=== PATIENT | female | born 1935 | race Caucasian/White ===

== ENCOUNTER 2016-11-28 00:54 | Inpatient (IN) ==
[2016-11-28 02:07] LABS: Basophils % 0.2 %; Eosinophils % 0.1 %; Hematocrit 37.3 % (35.3-44.9); Hemoglobin 11.5 g/dL (11.5-15.4); Immature Granulocytes % 1.7 % (0-4); Lymphocytes # 0.3 K/mcL (0.6-4.6); Lymphocytes % 1.9 %; Mean Corpuscular HGB Conc 30.8 g/dL (31.6-35.5); Mean Corpuscular Hemoglobin 26.1 pg (28.0-33.3); Mean Corpuscular Volume 84.6 fL (83.0-100.0); Monocytes # 1.4 K/mcL (0.0-1.3); Monocytes % 9.6 %; Neutrophils # 12.2 K/mcL (1.6-8.9); Platelet Count 211 K/mcL (140-400); Red Blood Count 4.41 M/mcL (3.82-4.97); Red Cell Distribution Width 16.9 % (11.5-14.5); Segmented Neutrophils % 86.5 %
[2016-11-28 02:15] LABS: Prothrombin Time 10.9 Seconds (9.4-12.1)
[2016-11-28 02:17] LABS: Activated Partial Thrombo Time 28.8 Seconds (26.0-36.0)
[2016-11-28 02:18] LABS: Albumin 2.7 g/dL (3.5-5.0); Albumin/Globulin Ratio 0.8 (1.1-2.2); Bilirubin,Direct 0.3 mg/dL (0.0-0.5); Bilirubin,Indirect 0.2 mg/dL (0.0-1.2); Bilirubin,Total 0.5 mg/dL (0.2-1.2); Calcium 9.2 mg/dL (8.6-10.8); Globulin 3.4 g/dL (2.4-3.5); Total Protein 6.1 g/dL (6.0-8.3)
--- NOTE | 2016-11-28 02:25 | Emergency Department Note ---
Disposition Clinical Impression: CKD (chronic kidney disease) stage 4, GFR 15-29 ml/min, Elevated troponin CHF (congestive heart failure) Qualifiers: Congestive heart failure type: systolic Congestive heart failure chronicity: acute on chronic Qualified Code(s): I50.23 - Acute on chronic systolic ( congestive) heart failure Disposition: Admitted As Inpatient Condition: Good Time of Disposition: 04:06 Extremity Problem HPI - General Chief complaint: ED General Medical Stated complaint: swollen legs/fluid retention Time Seen by Provider: 11/28/16 01:39 Source: patient, other Limitations: no limitations Nursing Notes Reviewed: Yes Vital Signs Reviewed: Yes - History of Present Illness Pt Subjective Complaint: extremity swelling Onset (ago): day(s) Consistency: Worsening Injury Location: upper extremity, lower extremity Pain Scale: 0 Improves with: nothing Worsens with: nothing Associated symptoms: Reports: shortness of breath Context: recent illness, other (recent hospitalization) - Related Data Home Medications Medication Instructions Recorded Confirmed Amlodipine Besylate [Amlodipine 10 mg PO DAILY 11/28/16 11/28/16 Besylate] CloNIDine HCl [CloNIDine HCl] 0.1 mg PO BID 11/28/16 11/28/16 Furosemide [Lasix] 40 mg PO BID 11/28/16 11/28/16 Labetalol HCl [Labetalol HCl] 200 mg PO BID 11/28/16 11/28/16 Levothyroxine Sodium [Levoxyl] 100 mcg PO DAILY 11/28/16 11/28/16 Lisinopril [Zestril] 20 mg PO DAILY 11/28/16 11/28/16 Losartan Potassium [Cozaar] 50 mg PO DAILY 11/28/16 11/28/16 PredniSONE [Deidre] 5 mg PO DAILY 11/28/16 11/28/16 Allergies Allergy/AdvReac Type Severity Reaction Status Date / Time No Known Allergies Allergy Verified 11/28/16 00:56 All systems ED: reviewed and negative except as stated. Constitutional: Denies: fever Eyes: Denies: eye pain ENT ED: Denies: ear pain Cardiovascular: Denies: chest pain, palpitations Respiratory: Denies: cough, dyspnea, wheezes Gastrointestinal: Denies: abdominal pain, nausea, vomiting Genitourinary: Denies: dysuria Musculoskeletal: Denies: back pain, neck pain Neurological: Denies: headache, weakness, numbness Allergic/Immunologic: Denies: facial swelling Past Medical History - Past Medical History Medical history: Reports: arthritis, CHF, hyperlipidemia, hypertension, renal disease Psychiatric history: Reports: no psych history CUSTOMER LIAISON history: Reports: no CUSTOMER LIAISON history - Social History Smoking Status: Never smoker Smokeless Tobacco Status: No Alcohol use: Reports: none Drug use: Reports: none Physical Exam - General Limitations: no limitations General appearance: alert, in no apparent distress - Head Head exam: normocephalic - Eye Eye exam: Present: normal appearance, EOMI - ENT ENT exam: mucous membranes moist - Neck Neck exam: Present: full ROM - Chest Chest inspection: Present: symmetric chest wall rise - Respiratory Respiratory exam: Present: normal lung sounds bilaterally. Absent: respiratory distress - Cardiovascular Cardiovascular exam: Present: regular rate, normal rhythm - Abdominal Exam Abdominal exam: Present: soft, Non-Tender - Extremities Exam Extremities exam: Present: normal inspection, full ROM, pedal edema - Expanded Lower Extremity Exam Hip/Pelvis exam: Present: full ROM Upper leg exam: Present: full ROM Knee exam: Present: full ROM Lower leg exam: Present: swelling (bilateral) Ankle exam: Present: swelling (bilateral) Neurovascular/Tendon exam: Present: normal capillary refill. Absent: pulse deficit Gait: not tested/not observed - Back Exam Back exam: Present: normal inspection, full ROM - Neurological Exam Neurological exam: Present: alert, oriented X3 - Psychiatric Psychiatric exam: Present: normal affect, normal mood - Skin Skin exam: Present: warm, dry, intact, normal color. Absent: rash, cyanosis, diaphoresis Course Course Narrative: Patient is a 81-year-old female with known history of CHF, stage IV chronic kidney disease, and COPD presents to emergency department with worsening bilateral lower leg edema. She is accompanied by some family members. Patient describes rolling out of bed and having increased weakness on her lower extremities. She denies any mechanical fall, injury to her head, or any pain at this time. She does mention her swelling in her legs have been worsening over the past week, this is accompanied with some mild shortness of breath. She mentions recent admission at [facility], and describes after which she was placed on O2 oxygen 24 hours. 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 Patient's brother mention that patient has been falling more frequently and had a few syncopal episodes this year. He denies any recent falls denied any syncopal episode tonight. Patient seen and examined. She is in no acute distress is on the toxic. She has significant pitting edema bilateral lower legs. Lungs auscultation. She is taking Lasix 40 mg at home and describes her compliance. She denies any chest pain, diaphoresis, nausea. Workup initiated. Records requestedfrom [facility] - Reevaluation(s) Reevaluation #1: Patient is elevated troponin as well as BNP. I disccused This patient with Dr. Wang. We will request admission. Time: 02:40 Reevaluation #2: Patient discussed with and accepted by hospitalist Dr. Villela. Time: 03:45 Vital Signs Temperature 97.7 F 11/28/16 01:03 Pulse Rate 88 11/28/16 01:03 Respiratory Rate 24 11/28/16 01:03 Blood Pressure 189/77 11/28/16 01:03 O2 Sat by Pulse Oximetry 91 L 11/28/16 01:03 Temperature 97.7 F 11/28/16 06:58 Pulse Rate 74 11/28/16 06:58 Respiratory Rate 16 11/28/16 06:58 Blood Pressure 191/80 11/28/16 06:58 O2 Sat by Pulse Oximetry 96 11/28/16 06:58 Oxygen Delivery Oxygen Delivery Nasal Cannula Extremity Problem, Nontraumati - MDM Narrative Medical decision making narrative: Patient has history of CHF, and presented with worsening bilateral lower leg edema. Ever showed patient had an elevated BNP, normal chest x-ray. Patient also has known history of chronic kidney disease, recent admission and posterior. She had felt better, but over the past few days her symptoms worsen. Patient is chest pain-free. Vitals within normal limits. Patient accepted for admission. - Lab Data Lab results reviewed: Yes I reviewed the patient's lab results. Result diagrams: 11/28/16 01:25 11/28/16 01:25 Lab Results 11/28/16 11/28/16 11/28/16 Range/Units 01:25 01:25 01:25 WBC 14.1 H (4.3-11.1) K/mcL RBC 4.41 (3.82-4.97) M/mcL Hgb 11.5 (11.5-15.4) g/dL Hct 37.3 (35.3-44.9) % MCV 84.6 (83.0-100.0) fL MCH 26.1 L (28.0-33.3) pg MCHC 30.8 L (31.6-35.5) g/dL RDW 16.9 H (11.5-14.5) % Plt Count 211 (140-400) K/mcL MPV 12.0 (9.4-12.4) fL Immature Gran % 1.7 (0-4) % Seg Neutrophils % 86.5 % Lymphocytes % 1.9 % Monocytes % 9.6 % Eosinophils % 0.1 % Basophils % 0.2 % Neutrophils # 12.2 H (1.6-8.9) K/mcL Lymphocytes # 0.3 L (0.6-4.6) K/mcL Monocytes # 1.4 H (0.0-1.3) K/mcL Eosinophils # 0.0 (0.0-0.6) K/mcL Basophils # 0.0 (0.0-0.2) K/mcL PT 10.9 (9.4-12.1) Seconds INR 1.0 APTT 28.8 (26.0-36.0) Seconds Sodium 146 H (136-145) mEq/L Potassium 4.0 (3.5-4.5) mEq/L Chloride 106 (98-109) mEq/L Carbon Dioxide 27 (19-29) mEq/L BUN 66 H (7-20) mg/dL Creatinine 1.82 H (0.57-1.11) mg/dL Est GFR ( Amer) 32 L (> 60) Est GFR (Non-Af Amer) 27 L (> 60) BUN/Creatinine Ratio 36 H (6-26) Glucose 132 H (70-99) mg/dL Calculated Osmolality 323 H (280-300) Calcium 9.2 (8.6-10.8) mg/dL Total Bilirubin 0.5 (0.2-1.2) mg/dL Direct Bilirubin 0.3 (0.0-0.5) mg/dL Indirect Bilirubin 0.2 (0.0-1.2) mg/dL AST 31 (5-34) Units/L ALT 56 H (0-55) Units/L Alkaline Phosphatase 144 H (38-126) Units/L Troponin I (0-0.03) ng/mL B-Natriuretic Peptide (0-100) pg/mL Serum Total Protein 6.1 (6.0-8.3) g/dL Albumin 2.7 L (3.5-5.0) g/dL Globulin 3.4 (2.4-3.5) g/dL Albumin/Globulin Ratio 0.8 L (1.1-2.2) Amylase 104 (25-125) Units/L Lipase 48 (8-78) Units/L 11/28/16 11/28/16 Range/Units 01:25 01:25 WBC (4.3-11.1) K/mcL RBC (3.82-4.97) M/mcL Hgb (11.5-15.4) g/dL Hct (35.3-44.9) % MCV (83.0-100.0) fL MCH (28.0-33.3) pg MCHC (31.6-35.5) g/dL RDW (11.5-14.5) % Plt Count (140-400) K/mcL MPV (9.4-12.4) fL Immature Gran % (0-4) % Seg Neutrophils % % Lymphocytes % % Monocytes % % Eosinophils % % Basophils % % Neutrophils # (1.6-8.9) K/mcL Lymphocytes # (0.6-4.6) K/mcL Monocytes # (0.0-1.3) K/mcL Eosinophils # (0.0-0.6) K/mcL Basophils # (0.0-0.2) K/mcL PT (9.4-12.1) Seconds INR APTT (26.0-36.0) Seconds Sodium (136-145) mEq/L Potassium (3.5-4.5) mEq/L Chloride (98-109) mEq/L Carbon Dioxide (19-29) mEq/L BUN (7-20) mg/dL Creatinine (0.57-1.11) mg/dL Est GFR ( Amer) (> 60) Est GFR (Non-Af Amer) (> 60) BUN/Creatinine Ratio (6-26) Glucose (70-99) mg/dL Calculated Osmolality (280-300) Calcium (8.6-10.8) mg/dL Total Bilirubin (0.2-1.2) mg/dL Direct Bilirubin (0.0-0.5) mg/dL Indirect Bilirubin (0.0-1.2) mg/dL AST (5-34) Units/L ALT (0-55) Units/L Alkaline Phosphatase (38-126) Units/L Troponin I 0.22 H* (0-0.03) ng/mL B-Natriuretic Peptide 1285 H (0-100) pg/mL Serum Total Protein (6.0-8.3) g/dL Albumin (3.5-5.0) g/dL Globulin (2.4-3.5) g/dL Albumin/Globulin Ratio (1.1-2.2) Amylase (25-125) Units/L Lipase (8-78) Units/L - Radiology Data Radiology results reviewed: Yes I reviewed the patient's radiology results. - EKG Data EKG attestation: Yes I reviewed and interpreted this EKG. EKG results narrative: no ST changes, Critical Care Time Critical Care Time: Yes Total Critical Care Time: 30 Attestation: Critical care performed: Time is exclusive of separately billable procedures. Time includes: direct patient care, patient reassessment, coordination of patient care, interpretation of data (laboratory data, radiology data, and respiratory data), review of patient's medical records, medical consultation and documentation of patient care. Procedures included in critical care time: Procedures excluded from critical care time: Attestation Statement - Attestation Attestation: I, David Wang MD, personally performed a history and physical exam of the patient and discussed their management with the midlevel provicer, PAC/GRANT ADMINISTRATOR. I reviewed the midlevel provider's note and agree with the documented findings, medical decision making, and plan of care. 81-year-old female presents to the emergency department with a complaint of increased swelling of her legs as well as some mild increased shortness of breath over the past few days. She denies any chest pain. She does have a history of CHF and was recently in the hospital at another facility. On examination patient is a well-developed elderly female in no acute distress. She is alert and oriented 3. There is no cyanosis or diaphoresis. Breath sounds are equal but decreased bilaterally. No rales or wheezes noted. Heart regular rate and rhythm. Abdomen soft with normal bowel sounds. There is 3+ pedal edema bilaterally with some weeping. No acute changes on EKG. Chest x-ray shows cardiomegaly with pulmonary vascular congestion and overt pulmonary edema. Labs reviewed and patient noted to have an elevated troponin of 0.22. BNP 1285. The hospitalist, Dr. Villela, was consulted and accepted admission of the patient.
[2016-11-28] MEDS ORDERED: Aspirin 81 MG TAB.CHEW PO ONE (02:37)
[2016-11-28] MEDS ORDERED: Furosemide 20 MG/2 ML VIAL IVP ONE (02:38)
[2016-11-28] MEDS ORDERED: metOLazone 2.5 MG TABLET PO STA (05:33)
[2016-11-28] MEDS ORDERED: Naloxone 0.4 MG/ML INJ IVP PRN (05:33)
[2016-11-28] MEDS ORDERED: Nitroglycerin 0.4 MG TAB.SUBL SL PRN (05:33)
[2016-11-28] MEDS ORDERED: Acetaminophen 325 MG TABLET PO PRN (05:33)
[2016-11-28] MEDS ORDERED: *HR* Morphine 2 MG/ML SYRINGE IVP PRN (05:33)
[2016-11-28] MEDS ORDERED: Bumetanide 1 MG/4 ML VIAL IVP ONE (05:33)
[2016-11-28] MEDS ORDERED: Bumetanide 12 MG in D5% in Water 48 ML IVC SCH ×4 (05:57→12:48)
[2016-11-28 06:08] LABS: Bilirubin,Urine Negative (Negative); Blood,Urine Negative (Negative); Clarity,Urine Cloudy (Clear); Color,Urine Yellow (Yellow); Glucose,Urine (UA) Normal (Normal); Ketones,Urine Negative (Negative); Leukocyte Esterase,Urine Negative (Negative); Nitrite,Urine Negative (Negative); PH,Urine 5.5 pH Units (5.0-8.0); Protein,Urine 100 mg/dL (Neg-Trace); Specific Gravity,Urine 1.012 (1.010-1.025); Urobilinogen,Urine Normal (Normal)
--- NOTE | 2016-11-28 06:08 | Internal Med History&Physical ---
<Lucinda Chanel - Last Filed: 11/28/16 08:10> Date of Encounter: 11/28/16 Time of Encounter: 05:00 Assessment and Plan (1) Acute on chronic combined systolic and diastolic CHF (congestive heart failure) Current visit: Yes Status: Acute Patient with ECHO at [facility] with EF 55-60% BNP performed 11/27/16 1285, Troponin 0.22 CXR: cardiomegaly, pulmonary venous congestion without overt pulmonary edema Worsening subjective dyspnea with O2 sat of 95% on 2L Will diurese with Bumex 1mg IV and Nitroglycerin drip Hold home lasix Repeat ECHO, pending Consult cardiology (2) Elevated troponin Current visit: Yes Status: Acute Likely demand ischemia secondary to heart failure exacerbation EKG sinus rhythm with LVH, left axis deviation, sinus rhythm, PVCs, ST depressions V4,5,6 Will trend troponins Repeat EKG, pending (3) CKD (chronic kidney disease) stage 4, GFR 15-29 ml/min Current visit: Yes Status: Acute Cr 1.82, stable at baseline No acute kidney injury noted Will gently diurese Nephrology consult (4) Nephrotic syndrome Current visit: Yes Status: Acute (5) HTN (hypertension) Current visit: Yes Status: Acute Will hold amlodipine Continue labetalol Qualifiers: Hypertension type: essential hypertension Qualified Code(s): I10 - Essential (primary) hypertension (6) HLD (hyperlipidemia) Current visit: Yes Status: Acute Continue home medication lipid panel, pending Qualifiers: Hyperlipidemia type: unspecified Qualified Code(s): E78.5 - Hyperlipidemia , unspecified Internal Medicine - H&P: HPI Chief complaint: Bilateral leg swelling Admitted From: Emergency Dept Plans for Post Hospital Care: Home History of present illness: Ms. Ortega is a 81 year old female who presents with what she states is a 4-5 day history of bilateral leg swelling. Patient states that she was at [facility] for 2-3 days last week with the same problem. She states that when she returned home, the swelling was not much better. Patient states that yesterday morning, she was getting out of bed. When her feet hit the floor, she was unable to stand. She stated that she "scooted out of bed" and could not get up on her own. Her legs and feet were too weak to stand on their own. She did not hit her head. She was at home alone at the time. She states that her niece lives with her. However, her niece was at school at the time she could not get up. Admits dyspnea at rest, dyspnea with talking or exerting herself. Admits to sitting around for the last few days. Denies chest pain, racing heart, palpitations. Documentation on eCW reveals that she saw Dr. Tariq, Property Economist on 10/23/16 complaint of LE edema improved after Lasix 40mg q day was started. Patient was admitted to [facility] 11/19/16 and discharged 11/21/16 with complaint of leg edema. At that time, the patient admitted to increased swelling of lower extremities for several weeks. proBNP 5544, Cr 2.13, and BUN 65 were elevated upon admission to [facility]. CXR showed pulmonary congestion. Upon discharge, proBNP was 3850, Cr was 2.11, and BUN was 63. ECHO showed EF of 55-60%. Prior to discharge, patient had decreased O2 sat to 86% RA while walking. According to documentation, arrangements were made for patient to have home O2. 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) Psychiatric history: no psych history - Social History Smoking Status: Never smoker Smokeless Tobacco Status: No Alcohol use: none Drug use: none - Family History Mother Family Member Ethnicity: Non- Living Status: Age at : 83 Hx Family Cardiac Disorders: Yes Father Family Member Ethnicity: Non- Living Status: Age at : 89 Internal Medicine - H&P: Meds Amlodipine Besylate [Amlodipine Besylate] 10 mg PO DAILY 11/28/16 [History] Aspirin 81 mg PO DAILY 11/28/16 [History] Cholecalciferol (D-3) [Vitamin D] 1,000 unit PO DAILY 11/28/16 [History] CloNIDine HCl [CloNIDine HCl] 0.1 mg PO BID 11/28/16 [History] Furosemide [Lasix] 40 mg PO BID 11/28/16 [History] Labetalol HCl [Labetalol HCl] 200 mg PO BID 11/28/16 [History] Levothyroxine Sodium [Levoxyl] 100 mcg PO DAILY 11/28/16 [History] Lisinopril [Zestril] 20 mg PO DAILY 11/28/16 [History] Losartan Potassium [Cozaar] 50 mg PO DAILY 11/28/16 [History] PredniSONE [Deidre] 5 mg PO DAILY 11/28/16 [History] Allergies No Known Allergies Allergy (Verified 11/28/16 08:21) All Systems PM: A 10-system review of systems was performed and is negative for pertinent findings except as documented above in the HPI. - Constitutional Constitutional: no chills, no fever(s) Additional comments: no headache, no dizziness - EENT Ears: decreased hearing - Cardiovascular Cardiovascular ROS IM: dyspnea (exacerbated by talking), dyspnea on exertion, edema (bilateral legs, tender to palpation, oozing fluid), no chest pain, no irregular heart rhythm, no palpitations - Respiratory Respiratory: dyspnea, no cough - Gastrointestinal Gastrointestinal: no abdominal pain, no constipation, no diarrhea, no nausea, no vomiting - Genitourinary Genitourinary: no dysuria - Musculoskeletal Musculoskeletal ROS IM: muscle weakness (bilateral legs and feet, inablity to walk, weakness) - Constitutional Vitals: Temp Pulse Resp BP Pulse Ox 97.8 F 79 20 187/68 97 11/28/16 05:00 11/28/16 05:00 11/28/16 05:00 11/28/16 05:00 11/28/16 05:00 General appearance: Present: cooperative, mild distress (difficulty speaking due to labored breathing), A&O X 3, pleasant, answers questions appropriately ( Unsure of medication history) - Head Head exam: Present: atraumatic, normal inspection, normocephalic - Eye Eye exam: Present: conjunctival injection, EOMI - Neck Neck exam general surgery: Present: supple. Absent: lymphadenopathy, thyromegaly - Respiratory Respiratory exam: Present: accessory muscle use, CTAB, respiratory distress. Absent: rales, rhonchi, wheezes - Cardiovascular Cardiovascular exam: Present: irregular rhythm (regular rhythm with intermittent ectopic beats), +S1, +S2, systolic murmur - GI/Abdominal GI/Abdominal exam: Present: soft. Absent: tenderness, no peritoneal signs Additional comments: abdominal skin with ecchymosis (pt states due to injections during hospital stay last week) - Extremities Exam Extremities exam: Present: pedal edema (3+ pitting edema to lower extremities bilaterally from foot to knee. ), warm, radial pulses palpable and symetrical Additional comments: Right leg with darkened, waxy, leathery skin to knee with pigmented purpura. Areas of skin break-down to anterior and posterior lower leg. Leg with drainage of serosanguious fluid. Left leg with waxy appearance, pigmented purpura. Draining serosanguinous fluid. DP pulses 2+ bilateraly - Psychiatric Psychiatric exam: Present: normal affect, normal mood Internal Med - H&P Results - Labs CBC & Chem 7: 11/28/16 01:25 11/28/16 01:25 - Impressions Chest X-Ray 11/28/16 01:36 IMPRESSION: Cardiomegaly and pulmonary venous congestion without overt pulmonary edema. D/ / Vance Alfonso MD / Vance Alfonso MD Interpreting Provider: Vance Alfonso MD - Attending Attestation I examined this patient and my medical decision-making was reviewed with the EXPORT TRAFFIC DEPARTMENT MANAGER/PA/Advanced Practice Nurse/Resident Physician. I agree with the documented findings, disposition and treatment plan as described except to the extent set forth below. <Aram Villela - Last Filed: 11/28/16 20:38> Date of Encounter: 11/28/16 Assessment and Plan (1) Non-ST elevation myocardial infarction (NSTEMI) due to mismatch of myocardial oxygen supply and demand Current visit: Yes Status: Acute . (2) Dyslipidemia Current visit: Yes Status: Acute (3) Complete immobility due to severe physical disability or frailty Current visit: Yes Status: Acute . (4) Acute respiratory failure with hypoxia Current visit: Yes Status: Acute . (5) SIRS (systemic inflammatory response syndrome) Current visit: Yes Status: Acute . (6) Protein-calorie malnutrition, moderate Current visit: Yes Status: Chronic . 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 (8) At risk for accident in home Current visit: Yes Status: Acute . (9) At risk for acid-base imbalance Current visit: Yes Status: Acute . (10) At risk for activity intolerance Current visit: Yes Status: Acute . (11) At risk for acute confusion Current visit: Yes Status: Acute . (12) At risk for acute ischemic cardiac event Current visit: Yes Status: Acute . (13) At risk for adverse drug event Current visit: Yes Status: Acute . (14) Hypothyroidism Current visit: Yes Status: Chronic . Qualifiers: Hypothyroidism type: acquired Qualified Code(s): E03.9 - Hypothyroidism, unspecified (15) Acute on chronic combined systolic and diastolic CHF (congestive heart failure) Current visit: Yes Status: Acute (16) Elevated troponin Current visit: Yes Status: Acute (17) HLD (hyperlipidemia) Current visit: Yes Status: Acute Qualifiers: Hyperlipidemia type: unspecified Qualified Code(s): E78.5 - Hyperlipidemia , unspecified (18) HTN (hypertension) Current visit: Yes Status: Acute Qualifiers: Hypertension type: essential hypertension Qualified Code(s): I10 - Essential (primary) hypertension (19) Nephrotic syndrome Current visit: Yes Status: Acute (20) CKD (chronic kidney disease) stage 4, GFR 15-29 ml/min Current visit: Yes Status: Chronic Internal Medicine - H&P: HPI History of present illness: Ms. Ortega is a 81 year old female The patient was visited and interviewed and examined. I examined this patient and my medical decision-making was reviewed with the Resident Physician. For this encounter, I have reviewed the documentation, treatment plan, and medical decision making; and I have had face to face time with this patient. I agree with the documented findings, disposition and treatment plan as described except to the extent set forth below. Cumulative laboratory and radiographic data base was reviewed and considered and discussed. Pertinent ancillary medical records including ECW and PCI documentation, when available, was reviewed and considered. Given the patient's presenting concerns, past medical history, clinical findings and symptoms, she is admitted at this time to undergo further evaluation and disposition. Orders were written as per the computerized physician order checker packer processer system............................... All Systems PM: A 10-system review of systems was performed and is negative for pertinent findings except as documented above in the HPI. - Constitutional Vitals: Temp Pulse Resp BP Pulse Ox 98 F 93 16 160/69 93 L 11/28/16 14:40 11/28/16 14:40 11/28/16 14:40 11/28/16 16:51 11/28/16 17:13 Internal Med - H&P Results - Labs CBC & Chem 7: 11/28/16 01:25 11/28/16 01:25 Labs: Cardiac Enzymes 11/28/16 Range/Units 16:20 Troponin I 0.20 H* (0-0.03) ng/mL - Impressions Vital Signs Temp Pulse Resp BP Pulse Ox 11/28/16 17:13 93 L 11/28/16 16:51 160/69 11/28/16 14:40 98 F 93 16 134/71 95 11/28/16 12:48 156/80 11/28/16 12:08 167/90 11/28/16 11:05 98.4 F 80 20 130/84 94 L 11/28/16 08:00 96 11/28/16 06:58 97.7 F 74 16 191/80 96 11/28/16 05:00 97.8 F 79 20 187/68 97 11/28/16 04:05 0 0/0 11/28/16 04:04 85 18 172/94 95 11/28/16 03:15 16 179/100 98 11/28/16 01:20 95 11/28/16 01:03 97.7 F 88 24 189/77 91 L Intake and Output 11/28/16 11/28/16 11/28/16 07:59 15:59 23:59 Intake Total 0 / 0 20 / 20 120 / 120 Output Total 300 / 300 1500 / 1500 Balance -300 / -300 -1480 / -1480 120 / 120 Intake: IV Fluids 20 / 20 Nitroglycerin 25 mg In 20 / 20 250 ml @ 5 MCG/MIN 3 mls/ hr IVC .Q24H [facility] Rx#: [id number] Oral 0 / 0 0 / 0 120 / 120 Output: Urine 300 / 300 500 / 500 Catheter 1000 / 1000 Other: Meal Lunch Dinner Percent of Meal Consumed 0% 5% Weight 77.02 kg Patient Weight 11/28/16 23:59 Weight 77.02 kg Short CBC 11/28/16 Range/Units 01:25 WBC 14.1 H (4.3-11.1) K/mcL Hgb 11.5 (11.5-15.4) g/dL Hct 37.3 (35.3-44.9) % Plt Count 211 (140-400) K/mcL Neutrophils # 12.2 H (1.6-8.9) K/mcL BMP 11/28/16 Range/Units 01:25 Sodium 146 H (136-145) mEq/L Potassium 4.0 (3.5-4.5) mEq/L Chloride 106 (98-109) mEq/L Carbon Dioxide 27 (19-29) mEq/L BUN 66 H (7-20) mg/dL Creatinine 1.82 H (0.57-1.11) mg/dL Glucose 132 H (70-99) mg/dL Calcium 9.2 (8.6-10.8) mg/dL Cardiac Enzymes 11/28/16 11/28/16 11/28/16 Range/Units 16:20 11:21 06:13 Troponin I 0.20 H* 0.19 H* 0.19 H* (0-0.03) ng/mL 11/28/16 Range/Units 01:25 Troponin I 0.22 H* (0-0.03) ng/mL Liver Function 11/28/16 Range/Units 01:25 Total Bilirubin 0.5 (0.2-1.2) mg/dL Direct Bilirubin 0.3 (0.0-0.5) mg/dL AST 31 (5-34) Units/L ALT 56 H (0-55) Units/L Alkaline Phosphatase 144 H (38-126) Units/L Albumin 2.7 L (3.5-5.0) g/dL Urine 11/28/16 Range/Units 05:40 Urine Color Yellow (Yellow) Urine Clarity Cloudy A (Clear) Urine pH 5.5 (5.0-8.0) pH Units Ur Specific [place] 1.012 (1.010-1.025) Urine Protein 100 H (Neg-Trace) mg/dL Urine Glucose (UA) Normal (Normal) mg/dL Abnormal lab results WBC 14.1 K/mcL (4.3-11.1) H 11/28/16 01:25 MCH 26.1 pg (28.0-33.3) L 11/28/16 01:25 MCHC 30.8 g/dL (31.6-35.5) L 11/28/16 01:25 RDW 16.9 % (11.5-14.5) H 11/28/16 01:25 Neutrophils # 12.2 K/mcL (1.6-8.9) H 11/28/16 01:25 Lymphocytes # 0.3 K/mcL (0.6-4.6) L 11/28/16 01:25 Monocytes # 1.4 K/mcL (0.0-1.3) H 11/28/16 01:25 ESR 45 mm/hr (0-15) H 11/28/16 06:13 Sodium 146 mEq/L (136-145) H 11/28/16 01:25 BUN 66 mg/dL (7-20) H 11/28/16 01:25 Creatinine 1.82 mg/dL (0.57-1.11) H 11/28/16 01:25 Est GFR ( Amer) 32 (> 60) L 11/28/16 01:25 Est GFR (Non-Af Amer) 27 (> 60) L 11/28/16 01:25 BUN/Creatinine Ratio 36 (6-26) H 11/28/16 01:25 Glucose 132 mg/dL (70-99) H 11/28/16 01:25 Hemoglobin A1c 6.3 % (-5.6) H 11/28/16 06:13 Calculated Osmolality 323 (280-300) H 11/28/16 01:25 Ionized Calcium 1.13 mmol/L (1.15-1.35) L 11/28/16 06:13 ALT 56 Units/L (0-55) H 11/28/16 01:25 Alkaline Phosphatase 144 Units/L (38-126) H 11/28/16 01:25 Troponin I 0.20 ng/mL (0-0.03) H* 11/28/16 16:20 C-Reactive Protein 45 mg/L (Less than 5) H 11/28/16 06:13 B-Natriuretic Peptide 1285 pg/mL (0-100) H 11/28/16 01:25 Albumin 2.7 g/dL (3.5-5.0) L 11/28/16 01:25 Albumin/Globulin Ratio 0.8 (1.1-2.2) L 11/28/16 01:25 LDL Cholesterol, Calc 102 mg/dL (0-99) H 11/28/16 06:13 HDL Cholesterol 81 mg/dL (40-59) H 11/28/16 06:13 TSH 0.010 mcIU/mL (0.350-4.840) L 11/28/16 06:13 Free T3 1.57 pg/mL (1.71-3.71) L 11/28/16 06:13 Urine Clarity Cloudy (Clear) A 11/28/16 05:40 Urine Protein 100 mg/dL (Neg-Trace) H 11/28/16 05:40 Ur Squamous Epith Cells Many per lpf (None-Few) H 11/28/16 05:40 Microalb/Creat Ratio 1246 (0-30) H 11/28/16 05:40 Protein/Creatinin Ratio 1.63 mg/mg (0-0.20) H 11/28/16 10:05 Urine Total Protein 26 mg/dL (1-14) H 11/28/16 10:05 Laboratory Results WBC 14.1 K/mcL (4.3-11.1) H 11/28/16 01:25 RBC 4.41 M/mcL (3.82-4.97) 11/28/16 01:25 Hgb 11.5 g/dL (11.5-15.4) 11/28/16 01:25 Hct 37.3 % (35.3-44.9) 11/28/16 01:25 MCV 84.6 fL (83.0-100.0) 11/28/16 01:25 MCH 26.1 pg (28.0-33.3) L 11/28/16 01:25 MCHC 30.8 g/dL (31.6-35.5) L 11/28/16 01:25 RDW 16.9 % (11.5-14.5) H 11/28/16 01:25 Plt Count 211 K/mcL (140-400) 11/28/16 01:25 MPV 12.0 fL (9.4-12.4) 11/28/16 01:25 Immature Gran % 1.7 % (0-4) 11/28/16 01:25 Seg Neutrophils % 86.5 % 11/28/16 01:25 Lymphocytes % 1.9 % 11/28/16 01:25 Monocytes % 9.6 % 11/28/16 01:25 Eosinophils % 0.1 % 11/28/16 01:25 Basophils % 0.2 % 11/28/16 01:25 Neutrophils # 12.2 K/mcL (1.6-8.9) H 11/28/16 01:25 Lymphocytes # 0.3 K/mcL (0.6-4.6) L 11/28/16 01:25 Monocytes # 1.4 K/mcL (0.0-1.3) H 11/28/16 01:25 Eosinophils # 0.0 K/mcL (0.0-0.6) 11/28/16 01:25 Basophils # 0.0 K/mcL (0.0-0.2) 11/28/16 01:25 ESR 45 mm/hr (0-15) H 11/28/16 06:13 PT 10.9 Seconds (9.4-12.1) 11/28/16 01:25 INR 1.0 11/28/16 01:25 APTT 28.8 Seconds (26.0-36.0) 11/28/16 01:25 Sodium 146 mEq/L (136-145) H 11/28/16 01:25 Potassium 4.0 mEq/L (3.5-4.5) 11/28/16 01:25 Chloride 106 mEq/L (98-109) 11/28/16 01:25 Carbon Dioxide 27 mEq/L (19-29) 11/28/16 01:25 BUN 66 mg/dL (7-20) H 11/28/16 01:25 Creatinine 1.82 mg/dL (0.57-1.11) H 11/28/16 01:25 Est GFR ( Amer) 32 (> 60) L 11/28/16 01:25 Est GFR (Non-Af Amer) 27 (> 60) L 11/28/16 01:25 BUN/Creatinine Ratio 36 (6-26) H 11/28/16 01:25 Glucose 132 mg/dL (70-99) H 11/28/16 01:25 Est Mean Plasma Glucose 134 mg/dl 11/28/16 06:13 Hemoglobin A1c 6.3 % (-5.6) H 11/28/16 06:13 Calculated Osmolality 323 (280-300) H 11/28/16 01:25 Lactic Acid 0.7 mmol/L (0.5-2.2) 11/28/16 06:13 Calcium 9.2 mg/dL (8.6-10.8) 11/28/16 01:25 Ionized Calcium 1.13 mmol/L (1.15-1.35) L 11/28/16 06:13 Phosphorus 3.8 mg/dL (2.3-4.7) 11/28/16 06:13 Magnesium 1.7 mg/dL (1.6-2.6) 11/28/16 06:13 Total Bilirubin 0.5 mg/dL (0.2-1.2) 11/28/16 01:25 Direct Bilirubin 0.3 mg/dL (0.0-0.5) 11/28/16 01:25 Indirect Bilirubin 0.2 mg/dL (0.0-1.2) 11/28/16 01:25 AST 31 Units/L (5-34) 11/28/16 01:25 ALT 56 Units/L (0-55) H 11/28/16 01:25 Alkaline Phosphatase 144 Units/L (38-126) H 11/28/16 01:25 Creatine Kinase 76 Units/L (29-168) 11/28/16 06:13 Troponin I 0.20 ng/mL (0-0.03) H* 11/28/16 16:20 C-Reactive Protein 45 mg/L (Less than 5) H 11/28/16 06:13 B-Natriuretic Peptide 1285 pg/mL (0-100) H 11/28/16 01:25 Serum Total Protein 6.1 g/dL (6.0-8.3) 11/28/16 01:25 Albumin 2.7 g/dL (3.5-5.0) L 11/28/16 01:25 Globulin 3.4 g/dL (2.4-3.5) 11/28/16 01:25 Albumin/Globulin Ratio 0.8 (1.1-2.2) L 11/28/16 01:25 Triglycerides 68 mg/dL (< 150) 11/28/16 06:13 Cholesterol 197 mg/dL (< 200) 11/28/16 06:13 LDL Cholesterol, Calc 102 mg/dL (0-99) H 11/28/16 06:13 VLDL Cholesterol, Calc 14 mg/dL (< 31) 11/28/16 06:13 HDL Cholesterol 81 mg/dL (40-59) H 11/28/16 06:13 Cholesterol/HDL Ratio 2.4 (0-4.9) 11/28/16 06:13 Amylase 104 Units/L (25-125) 11/28/16 01:25 Lipase 48 Units/L (8-78) 11/28/16 01:25 TSH 0.010 mcIU/mL (0.350-4.840) L 11/28/16 06:13 Free T4 1.05 ng/dl (0.70-1.48) 11/28/16 06:13 Free T3 1.57 pg/mL (1.71-3.71) L 11/28/16 06:13 Urine Color Yellow (Yellow) 11/28/16 05:40 Urine Clarity Cloudy (Clear) A 11/28/16 05:40 Urine pH 5.5 pH Units (5.0-8.0) 11/28/16 05:40 Ur Specific [place] 1.012 (1.010-1.025) 11/28/16 05:40 Urine Protein 100 mg/dL (Neg-Trace) H 11/28/16 05:40 Urine Glucose (UA) Normal mg/dL (Normal) 11/28/16 05:40 Urine Ketones Negative mg/dL (Negative) 11/28/16 05:40 Urine Blood Negative (Negative) 11/28/16 05:40 Urine Nitrite Negative (Negative) 11/28/16 05:40 Urine Bilirubin Negative (Negative) 11/28/16 05:40 Urine Urobilinogen Normal mg/dL (Normal) 11/28/16 05:40 Ur Leukocyte Esterase Negative (Negative) 11/28/16 05:40 Urine Microscopic RBC 0-3 per hpf (0-3) 11/28/16 05:40 Urine Microscopic WBC 0-3 per hpf (0-3) 11/28/16 05:40 Ur Squamous Epith Cells Many per lpf (None-Few) H 11/28/16 05:40 Urine Bacteria None Seen per hpf (None-Few) 11/28/16 05:40 Hyaline Casts None Seen per lpf (None-Few) 11/28/16 05:40 Urine Yeast Test Not Performed 11/28/16 05:40 Ur Culture Indicated? NO (NO) 11/28/16 05:40 Urine Creatinine 16 mg/dL 11/28/16 10:05 Urine Microalbumin 436 mg/L 11/28/16 05:40 Microalb/Creat Ratio 1246 (0-30) H 11/28/16 05:40 Protein/Creatinin Ratio 1.63 mg/mg (0-0.20) H 11/28/16 10:05 Urine Total Protein 26 mg/dL (1-14) H 11/28/16 10:05 Impressions - Attending Attestation My signature below is to certify that this patient is under my care and that I, or the Resident Physician working with me, has had a [id number] encounter with this patient. Plan of care has been reviewed and discussed with the patient. Questions addressed. Advance care directive discussion briefly addressed. The patient does not declare any healthcare restrictions at this time. Outpatient medications schedules will be reviewed, confirmed and facilitated as appropriate. Reconciliation of home treatments including adjustments, substitutions and reintroduction into the treatment regimen will address necessary maintenance therapies for chronic previous medical conditions. Smoking cessation counseling briefly addressed. The patient is declared a nonsmoker. Hospital course will be dependent on clinical findings, treatment response and potential consultative interventions. The patient is at risk for acute clinical decline in mobility given her advanced age, presenting chief complaint, frailty and associated comorbidities. Condition is serious. Prognosis is guarded. CODE STATUS is reported as full.
[2016-11-28 06:11] LABS: Bacteria,Urine None Seen per hpf (None-Few); Hyaline Casts,Urine None Seen per lpf (None-Few); RBC,Urine 0-3 per hpf (0-3); Squamous Epithelial Cell,Urine Many per lpf (None-Few); WBC,Urine 0-3 per hpf (0-3)
[2016-11-28 06:15] LABS: Microalbumin,Urine 436 mg/L
[2016-11-28 06:34] LABS: Ionized Calcium 1.13 mmol/L (1.15-1.35)
[2016-11-28 06:52] LABS: Chol/HDL Ratio 2.4 (0-4.9); Magnesium 1.7 mg/dL (1.6-2.6); Phosphorous 3.8 mg/dL (2.3-4.7)
[2016-11-28 06:55] LABS: Hemoglobin A1C 6.3 %
[2016-11-28 07:02] LABS: Thyroid Stimulating Hormone 0.01 mcIU/mL (0.350-4.840); Triiodothyronine (T3) Free 1.57 pg/mL (1.71-3.71)
[2016-11-28] MEDS: Nitroglycerin 25 MG/250 ML INFUS..BTL IVC SCH (07:45)
[2016-11-28 08:07] LABS: Creatinine,Urine 35 mg/dL; Microalbum/Creatinine Ratio,Ur 1246 (0-30)
[2016-11-28] MEDS: predniSONE 5 MG TABLET PO SCH (08:37)
[2016-11-28] MEDS ORDERED: Lisinopril 20 MG TABLET PO SCH (09:00)
--- NOTE | 2016-11-28 09:29 | Cardiology Consult Note ---
<Neil Davis R - Last Filed: 11/28/16 09:38> Date of Encounter: 11/28/16 Time of Encounter: 09:25 Assessment and Plan (1) Acute exacerbation of CHF (congestive heart failure) Current Visit: Yes Status: Acute Reported prior echo 55-60% per [facility] records. Echo in 2010 here at [facility] showed EF 55%. Obtaining echo. Pt reports worsening dyspnea and persistent lower extremity edema. CXR with cardiomegaly and pulmonary venous congestion. BNP 1285. Albumin 2.7. Suspect lower extremity edema may be related to 3rd spacing as well given low albumin. Increase Bumex gtt to 1mg/hr. Continue nitro gtt for now--5mcg/min. Recommend strict I/O, Na and fluid restriction, daily weights. Order to place reyes. Pt poor historian--reports she does not add salt to food but does eat some processed foods. Dietary compliance enforced. Will continue to follow. Qualifiers: Congestive heart failure type: diastolic Qualified Code(s): I50.33 - Acute on chronic diastolic (congestive) heart failure (2) CKD (chronic kidney disease) stage 4, GFR 15-29 ml/min Current Visit: Yes Status: Chronic Cr 1.82, stable at baseline. Will monitor closely with diuresis. Appreciate nephrology input--they have been consulted. Will stop Lisinopril during diuresis. (3) Elevated troponin Current Visit: Yes Status: Acute Mildly elevated 0.22, 0.19--Likely demand ischemia secondary to CHF exacerbation. No significant EKG changes to indicate ischemia. Pt denies chest pain. Check echo. (4) HTN (hypertension) Current Visit: Yes Status: Acute Hypertensive--on Nitro gtt and Bumex gtt. Will continue to adjust meds as necessary. Will hold Lisinopril since we are diuresing. Qualifiers: Hypertension type: essential hypertension Qualified Code(s): I10 - Essential (primary) hypertension Discussion w patient/family: The assessment and plan as outlined above was discussed with the patient and/or family members who expressed understanding and agreement. All questions were answered. Thank you for involving us in the care of your patient. Please call with any questions. I will discuss all the above with Dr. Bourgeois and make changes as necessary. History of Present Illness Consult date: 11/28/16 Requesting physician: Aram Villela Consult reason: CHF Chief complaint: Lower extremity edema History of present illness: Ms. Ortega is a 81 year old female who presents with chief complaint of bilateral lower extremity edema. Patient states that she was at [facility] for 2- 3 days last week with the same problem. She states that when she returned home, the swelling was not much better. Patient states that yesterday morning, she was getting out of bed. When her feet hit the floor, she was unable to stand. She stated that she "scooted out of bed" and could not get up on her own. Her legs and feet were too weak to stand on their own. She did not hit her head. She was at home alone at the time. She states that her niece lives with her. However, her niece was at school at the time she could not get up. Admits dyspnea at rest, dyspnea with talking or exerting herself. Admits to sitting around for the last few days. Denies chest pain, racing heart, palpitations. Pt sees nephrology as outpt--Dr. Tariq. proBNP 5544, Cr 2.13, and BUN 65 were elevated upon admission to [facility]. CXR showed pulmonary congestion. Upon discharge, proBNP was 3850, Cr was 2.11, and BUN was 63. Reportedly had ECHO at some point that showed EF of 55-60%. Prior to discharge, patient had decreased O2 sat to 86% RA while walking. According to documentation, arrangements were made for patient to have home O2. Creatinine here is 1.82, Troponins 0.22, 0.19, BNP 1298. CXR shows cardiomegaly and pulmonary venous congestion without overt pulmonary edema. She is currently on Bumex gtt at 0.5mg/hr and nitro gtt at 5mcg/min. 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) Psychiatric history: no psych history - Social History Smoking Status: Never smoker Smokeless Tobacco Status: No Alcohol use: none Drug use: none - Family History Mother Family Member Ethnicity: Non- Living Status: Age at : 83 Hx Family Cardiac Disorders: Yes Father Family Member Ethnicity: Non- Living Status: Age at : 89 Medications and Allergies Amlodipine Besylate [Amlodipine Besylate] 10 mg PO DAILY 11/28/16 [History] Aspirin 81 mg PO DAILY 11/28/16 [History] Cholecalciferol (D-3) [Vitamin D] 1,000 unit PO DAILY 11/28/16 [History] CloNIDine HCl [CloNIDine HCl] 0.1 mg PO BID 11/28/16 [History] Furosemide [Lasix] 40 mg PO BID 11/28/16 [History] Labetalol HCl [Labetalol HCl] 200 mg PO BID 11/28/16 [History] Levothyroxine Sodium [Levoxyl] 100 mcg PO DAILY 11/28/16 [History] Lisinopril [Zestril] 20 mg PO DAILY 11/28/16 [History] Losartan Potassium [Cozaar] 50 mg PO DAILY 11/28/16 [History] PredniSONE [Deidre] 5 mg PO DAILY 11/28/16 [History] Allergies No Known Allergies Allergy (Verified 11/28/16 08:21) All Systems Review: A 10-system review of systems was performed and is negative for pertinent findings except as documented above in the HPI. - Constitutional Constitutional: fatigue, weakness - Cardiovascular Cardiovascular: as per HPI, dyspnea at rest, dyspnea on exertion, leg edema - Respiratory Respiratory: dyspnea Physical Examination Vital Signs, Last 4 Hours Temp Pulse Resp BP Pulse Ox 11/28/16 06:58 97.7 F 74 16 191/80 96 Vital Signs Temp Pulse Resp BP Pulse Ox 11/28/16 06:58 97.7 F 74 16 191/80 96 11/28/16 05:00 97.8 F 79 20 187/68 97 11/28/16 04:05 0 0/0 11/28/16 04:04 85 18 172/94 95 11/28/16 03:15 16 179/100 98 11/28/16 01:20 95 11/28/16 01:03 97.7 F 88 24 189/77 91 L Intake and Output 11/27/16 11/28/16 11/28/16 23:59 07:59 15:59 Intake Total 0 / 0 Output Total 300 / 300 Balance -300 / -300 Intake: Oral 0 / 0 Output: Urine 300 / 300 Other: Weight 77.02 kg Patient Weight 11/28/16 23:59 Weight 77.02 kg General: Conversant, No Apparent Distress, Other (conversational dyspnea) HEENT: Atraumatic, Normocephaly, Mucus Membranes Moist Neck: Other (JVD noted) Cardiac: Reg Rate and Rhythm, Normal S1 and S2, No Murmur Lungs: Other (diminished) Neuro: Alert and responsive, No focal deficits noted Abdomen: Soft, Non-Tender Skin: No rashes noted on visualized skin Musculoskeletal: No Chest Wall Tenderness Extremities: Other (3+ BLE edema) Results 11/28/16 01:25 11/28/16 01:25 Lab Results 11/28/16 11/28/16 06:13 06:13 Magnesium 1.7 Troponin I 0.19 H* TSH 0.010 L Short CBC 11/28/16 Range/Units 01:25 WBC 14.1 H (4.3-11.1) K/mcL Hgb 11.5 (11.5-15.4) g/dL Hct 37.3 (35.3-44.9) % Plt Count 211 (140-400) K/mcL Neutrophils # 12.2 H (1.6-8.9) K/mcL BMP 11/28/16 Range/Units 01:25 Sodium 146 H (136-145) mEq/L Potassium 4.0 (3.5-4.5) mEq/L Chloride 106 (98-109) mEq/L Carbon Dioxide 27 (19-29) mEq/L BUN 66 H (7-20) mg/dL Creatinine 1.82 H (0.57-1.11) mg/dL Glucose 132 H (70-99) mg/dL Calcium 9.2 (8.6-10.8) mg/dL Cardiac Enzymes 11/28/16 11/28/16 Range/Units 06:13 01:25 Troponin I 0.19 H* 0.22 H* (0-0.03) ng/mL Liver Function 11/28/16 Range/Units 01:25 Total Bilirubin 0.5 (0.2-1.2) mg/dL Direct Bilirubin 0.3 (0.0-0.5) mg/dL AST 31 (5-34) Units/L ALT 56 H (0-55) Units/L Alkaline Phosphatase 144 H (38-126) Units/L Albumin 2.7 L (3.5-5.0) g/dL Urine 11/28/16 Range/Units 05:40 Urine Color Yellow (Yellow) Urine Clarity Cloudy A (Clear) Urine pH 5.5 (5.0-8.0) pH Units Ur Specific [place] 1.012 (1.010-1.025) Urine Protein 100 H (Neg-Trace) mg/dL Urine Glucose (UA) Normal (Normal) mg/dL Impressions Chest X-Ray 11/28/16 01:36 IMPRESSION: Cardiomegaly and pulmonary venous congestion without overt pulmonary edema. D/ / Vance Alfonso MD / Vance Alfonso MD Interpreting Provider: Vance Alfonso MD Active Medications Acetaminophen (Tylenol) 650 mg PO Q6HR PRN PRN Reason: Mild Pain (1-3) Stop: 05/30/17 05:34 Docusate Sodium (Colace) 100 mg PO BID PRN PRN Reason: Constipation Stop: 05/30/17 05:34 Nitroglycerin (Nitroglycerin) 25 mg in 250 mls @ 3 mls/hr IVC .Q24H JAVON; 5 MCG/ MIN PRN Reason: Protocol Stop: 05/30/17 05:46 Last Admin: 11/28/16 07:45 Dose: 5 mcg/min, 3 mls/hr Bumetanide 12 mg/ Dextrose 96 mls @ 4 mls/hr IVC .Q24H JAVON PRN Reason: 0.5 MG/HR Stop: 11/28/16 15:58 Last Admin: 11/28/16 07:46 Dose: 0.5 mg/hr, 4 mls/hr Labetalol HCl (Trandate) 200 mg PO BID JAVON Stop: 05/30/17 09:01 Last Admin: 11/28/16 08:37 Dose: 200 mg Levothyroxine Sodium (Synthroid) 100 mcg PO DAILY JAVON Stop: 05/30/17 09:01 Last Admin: 11/28/16 08:37 Dose: 100 mcg Lisinopril (Zestril) 20 mg PO DAILY JAVON PRN Reason: Protocol Stop: 05/30/17 09:01 Last Admin: 11/28/16 08:37 Dose: 20 mg Metoprolol Tartrate (Lopressor) 5 mg IVP Q6HR PRN PRN Reason: SEE COMMENTS Stop: 05/30/17 05:34 Morphine Sulfate (Morphine Sulfate) 2 mg IVP Q4HR PRN PRN Reason: Severe Pain (7-10) Stop: 05/30/17 05:34 Naloxone HCl (Narcan) 0.4 mg IVP Q2MIN PRN PRN Reason: Opioid Reversal Stop: 05/30/17 05:34 Nitroglycerin (Nitroglycerin) 0.4 mg SL Q5MIN PRN PRN Reason: Chest Pain Stop: 05/30/17 05:34 Omeprazole (Prilosec) 20 mg PO DAILY@0630 JAVON PRN Reason: Protocol Stop: 05/30/17 06:31 Last Admin: 11/28/16 07:42 Dose: 20 mg Ondansetron HCl (Zofran) 4 mg IVP Q8HR PRN PRN Reason: Nausea And Vomiting Stop: 05/30/17 05:34 Oxycodone HCl (Roxicodone) 5 mg PO Q6HR PRN PRN Reason: Moderate Pain (4-6) Stop: 05/30/17 05:34 Prednisone (Prednisone) 5 mg PO DAILY [facility] Stop: 05/30/17 09:01 Last Admin: 11/28/16 08:37 Dose: 5 mg Rosuvastatin Calcium (Crestor) 20 mg PO HS [facility] Stop: 05/30/17 21:01 - Imaging and Cardiology Chest Xray: report reviewed Echo: pending - EKG Interpretation EKG results cardiology: personally reviewed (SR with PVCs, LVH), other (12 hour tele AVG HR) Consult Discharge Plan - Plan Referrals: NO,PCP [Primary Care Provider] - <Shree Bourgeois - Last Filed: 11/28/16 10:06> Date of Encounter: 11/28/16 Assessment and Plan Discussion w patient/family: The assessment and plan as outlined above was discussed with the patient and/or family members who expressed understanding and agreement. All questions were answered. Thank you for involving us in the care of your patient. Please call with any questions. History of Present Illness History of present illness: Ms. Ortega is a 81 year old female All Systems Review: A 10-system review of systems was performed and is negative for pertinent findings except as documented above in the HPI. Physical Examination Vital Signs, Last 4 Hours Temp Pulse Resp BP Pulse Ox 11/28/16 06:58 97.7 F 74 16 191/80 96 Results 11/28/16 01:25 11/28/16 01:25 Lab Results 11/28/16 11/28/16 06:13 06:13 Magnesium 1.7 Troponin I 0.19 H* TSH 0.010 L - Attending Attestation For this encounter, I have reviewed the STUDENT LIFE COORDINATOR or PA documentation, treatment plan, and medical decision making; and I have had face to face time with this patient. \\\\ See STUDENT LIFE COORDINATOR note for details Pt here for worsening sob, swelling , was recently in the hospital for fluid overload , Canl walk about 20 feet before getting sob, pt has a history of nephrotic syndrome with low albumin VSS JVD: 8-10 cm with a postive abdomino jugular reflux CHest decreased air entry bilaterlly CVS: soft s3 CXR: mild CHF BNP eleavated plan; check echo a/w Bumex drip ; will increase it reyes strict I and O , daily wts trend renal function feel some of this is third spacing due to low albumin PT OT Thanks
[2016-11-28] MEDS: amLODIPine 5 MG TABLET PO SCH (10:14)
--- NOTE | 2016-11-28 11:18 | Nephrology Consult Note ---
<Katherine Lane Talon - Last Filed: 11/28/16 11:23> Date of Encounter: 11/28/16 Time of Encounter: 11:15 Assessment and Plan (1) CKD (chronic kidney disease) stage 4, GFR 15-29 ml/min Current Visit: Yes Status: Chronic Kidney function at baseline. Good UOP at this point Urine protein/creatinine ratio, complement 3, complement 4 ordered Continue strict I/Os (2) Acute on chronic combined systolic and diastolic CHF (congestive heart failure) Current Visit: Yes Status: Acute per primary/cardiology team (3) HTN (hypertension) Current Visit: Yes Status: Acute per primary/cardiology team Qualifiers: Hypertension type: essential hypertension Qualified Code(s): I10 - Essential (primary) hypertension History of Present Illness - Reason for Consult Consult date: 11/28/16 - Chief Complaint CHF, CKD stage 4 - History of Present Illness Ms. Ortega is a 81 year old female well known to Dr Crump who presents with what she states is a 4-5 day history of bilateral leg swelling. Patient states that she was at [facility] for 2-3 days last week with the same problem. She states that when she returned home, the swelling was not much better. Yesterday patient was unable to stand and slid to the floor. Admits dyspnea at rest, dyspnea with talking or exerting herself. Admits to sitting around for the last few days. Denies chest pain, racing heart, palpitations. Documentation on eCW reveals that she saw Dr. Tariq Office Cleaner on 10/23/16 complaint of LE edema improved after Lasix 40mg q day was started. Patient was admitted to [facility] 11/19/16 and discharged 11/21/16 with complaint of leg edema. At that time, the patient admitted to increased swelling of lower extremities for several weeks. proBNP 5544, Cr 2.13, and BUN 65 were elevated upon admission to [facility]. CXR showed pulmonary congestion. Upon discharge, proBNP was 3850, Cr was 2.11, and BUN was 63. ECHO showed EF of 55-60%. Prior to discharge, patient had decreased O2 sat to 86% RA while walking. According to documentation, arrangements were made for patient to have home O2. 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) Psychiatric history: no psych history - Social History Smoking Status: Never smoker Smokeless Tobacco Status: No Alcohol use: none Drug use: none - Family History Mother Family Member Ethnicity: Non- Living Status: Age at : 83 Hx Family Cardiac Disorders: Yes Father Family Member Ethnicity: Non- Living Status: Age at : 89 Medications and Allergies Amlodipine Besylate [Amlodipine Besylate] 10 mg PO DAILY 11/28/16 [History] Aspirin 81 mg PO DAILY 11/28/16 [History] Cholecalciferol (D-3) [Vitamin D] 1,000 unit PO DAILY 11/28/16 [History] CloNIDine HCl [CloNIDine HCl] 0.1 mg PO BID 11/28/16 [History] Furosemide [Lasix] 40 mg PO BID 11/28/16 [History] Labetalol HCl [Labetalol HCl] 200 mg PO BID 11/28/16 [History] Levothyroxine Sodium [Levoxyl] 100 mcg PO DAILY 11/28/16 [History] Lisinopril [Zestril] 20 mg PO DAILY 11/28/16 [History] Losartan Potassium [Cozaar] 50 mg PO DAILY 11/28/16 [History] PredniSONE [Deidre] 5 mg PO DAILY 11/28/16 [History] Allergies No Known Allergies Allergy (Verified 11/28/16 08:21) Review of Systems All Systems: reviewed and no additional remarkable complaints except as stated Constitutional: weakness, weight gain, no fever(s) Cardiovascular: dyspnea, dyspnea on exertion, edema, leg edema, pedal edema, no chest pain Respiratory: dyspnea, dyspnea on exertion Gastrointestinal: no constipation, no nausea, no vomiting Neurological: weakness, no behavioral changes Psychiatric: no behavioral changes, no hallucinations Exam - Vital Signs Vital signs: Initial Vital Signs Temp Pulse Resp BP Pulse Ox 97.7 F 88 24 189/77 91 L 11/28/16 01:03 11/28/16 01:03 11/28/16 01:03 11/28/16 01:03 11/28/16 01:03 Vital Signs - Last 8 Hours Temp Pulse Resp BP Pulse Ox 11/28/16 11:05 98.4 F 80 20 130/84 94 L 11/28/16 08:00 96 11/28/16 06:58 97.7 F 74 16 191/80 96 11/28/16 05:00 97.8 F 79 20 187/68 97 11/28/16 04:05 0 0/0 11/28/16 04:04 85 18 172/94 95 Intake and Output 11/27/16 11/28/16 11/28/16 23:59 07:59 15:59 Intake Total 0 / 0 Output Total 300 / 300 500 / 500 Balance -300 / -300 -483 / -483 Intake: IV Fluids Nitroglycerin 25 mg In 250 ml @ 5 MCG/MIN 3 mls/ hr IVC .Q24H JAVON Rx#: [id number] Oral 0 / 0 Output: Urine 300 / 300 500 / 500 Other: Weight 77.02 kg Patient Weight 11/28/16 23:59 Weight 77.02 kg - General Appearance General appearance: obese, chronically ill EENT: ATNC, mucous membranes moist, hearing intact, vision intact Neck: supple Respiratory: clear Cardiology: edema, normal S1, normal S2 Gastrointestinal: no guarding Integumentary: warm and dry Neurologic: alert and oriented x3 Musculoskeletal: no deformities Psychiatric: mood/affect appropriate, cooperative Results - Lab Results 11/28/16 01:25 11/28/16 01:25 Most recent lab results Calcium 9.2 mg/dL (8.6-10.8) 11/28/16 01:25 Phosphorus 3.8 mg/dL (2.3-4.7) 11/28/16 06:13 Magnesium 1.7 mg/dL (1.6-2.6) 11/28/16 06:13 Urine Creatinine 35 mg/dL 11/28/16 05:40 Consult Discharge Plan - Plan Referrals: NO,PCP [Primary Care Provider] - (Patient can not remember the name of her PCP , however patient is being referred to an ECF and will follow up with their PCP for now) <Ang Crump - Last Filed: 12/07/16 17:44> Assessment and Plan (1) PAZ (acute kidney injury) Current Visit: Yes Status: Acute (2) Acute exacerbation of CHF (congestive heart failure) Current Visit: Yes Status: Acute Qualifiers: Congestive heart failure type: diastolic Qualified Code(s): I50.33 - Acute on chronic diastolic (congestive) heart failure (3) Hyperkalemia Current Visit: Yes Status: Acute (4) CKD (chronic kidney disease) stage 4, GFR 15-29 ml/min Current Visit: Yes Status: Chronic Exam - Vital Signs Vital signs: Initial Vital Signs Temp Pulse Resp BP Pulse Ox 97.7 F 88 24 189/77 91 L 11/28/16 01:03 11/28/16 01:03 11/28/16 01:03 11/28/16 01:03 11/28/16 01:03 Vital Signs - Last 8 Hours Temp Pulse Resp BP Pulse Ox 12/07/16 16:30 98.6 F 104 18 116/56 98 12/07/16 15:58 98.9 F 104 18 97/53 96 12/07/16 14:10 97.4 F L 16 125/60 12/07/16 14:00 114/41 12/07/16 13:45 105/40 12/07/16 13:30 98/36 12/07/16 13:15 115/49 12/07/16 13:00 138/36 12/07/16 12:45 128/49 12/07/16 12:30 131/50 12/07/16 12:15 133/47 12/07/16 12:00 141/55 12/07/16 11:45 134/51 12/07/16 11:30 135/51 12/07/16 11:15 131/64 12/07/16 11:00 99.3 F 16 119/49 12/07/16 10:43 99.3 F 88 16 128/62 96 Intake and Output 12/07/16 12/07/16 12/07/16 07:59 15:59 23:59 Intake Total 50 / 50 600 / 600 Output Total 0 / 0 2099 Balance 50 / 50 -1500 / -1500 Intake: Oral 50 / 50 0 / 0 Intake, Rinseback and 600 / 600 Flushes Output: Urine 0 / 0 Total Dialysis Output 2099 Catheter 0 / 0 Other: Meal Breakfast Percent of Meal Consumed 15% Stool Size Smear Stool Consistency soft Stool Color Brown # Bowel Movements 1 Weight 80.2 kg Hemodialysis Net Fluid 1500 Removed (mL) Patient Weight 12/07/16 23:59 Weight 80.2 kg Results - Lab Results 12/07/16 08:02 12/07/16 08:02 Most recent lab results Calcium 8.6 mg/dL (8.6-10.8) 12/07/16 08:02 Phosphorus 7.7 mg/dL (2.3-4.7) H 12/05/16 05:49 Magnesium 1.8 mg/dL (1.6-2.6) 11/30/16 06:10 Urine Creatinine 53 mg/dL 12/01/16 02:05 Ur Total Protein 24 Hr 573 mg/day (0-299) H 12/01/16 02:05 Urine Sodium < 20.0 mEq/L 12/01/16 02:05 Urine Total Protein 63 mg/dL (1-14) H 12/01/16 02:05 - Attending Attestation I examined this patient and my medical decision-making was reviewed with the LEAK DETECTOR/PA/Advanced Practice Nurse/Resident Physician. I agree with the documented findings, disposition and treatment plan as described except to the extent set forth below. 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 GFR currently stable at 27 which is baseline. Continue diuretics per primary team for now. Will check urine for proteinuria and complements.
[2016-11-28 14:24] LABS: Protein/Creatinine Ratio,Urine 1.63 mg/mg (0-0.20)
[2016-11-28] MEDS ORDERED: Furosemide 240 MG in D5% in Water 96 ML IVC SCH (15:53)
--- NOTE | 2016-11-28 15:55 | Internal Med Progress Note ---
Date of Encounter: 11/28/16 Time of Encounter: 15:53 - Assessment and plan (1) Sepsis affecting skin Current Visit: Yes Status: Acute Assessment and plan: Sepsis secondary to left lower extremity cellulitis Start Ancef, ordered blood cultures stop bumex drip Order Dupplex (2) Central hypothyroidism Current Visit: Yes Status: Acute Assessment and plan: TSH is low 0.0 10 and T 3 is low 1.57 increase levothyroxine up to 137 g daily Load with 300 g today (3) Acute on chronic combined systolic and diastolic CHF (congestive heart failure) Current Visit: Yes Status: Acute Assessment and plan: Acute Pulmonary edema secondary to combined acute on chronic systolic and diastolic CHF exacerbation The patient was in the Bumex drip that will need to be stopped at the moment as her dyspnea improved and due to concerns of sepsis Strict I's and O's and daily weight Echocardiogram pending (4) Elevated troponin Current Visit: Yes Status: Acute Assessment and plan: Likely secondary to demand ischemia (5) HTN (hypertension) Current Visit: Yes Status: Acute Assessment and plan: Titrated down nitroglycerin drip Continue labetalol twice a day, lisinopril is on hold Qualifiers: Hypertension type: essential hypertension Qualified Code(s): I10 - Essential (primary) hypertension (6) Chronic kidney disease (CKD), stage III (moderate) Current Visit: Yes Status: Acute Assessment and plan: Chronic Kidney Disease of Stage III At baseline High risk due to sepsis switch to inpatient status - Time Spent With Patient Greater than 35 minutes - Subjective Interval history: The patient is slightly confused, complaining of pain mainly in her left lower extremity the leg appears warm and tender to touch mainly in the calf area. Denies any chest pain but feels short of breath. No fevers, no abdominal pain or diarrhea. No dysuria - Constitutional Vitals: Temp Pulse Resp BP Pulse Ox 98 F 93 16 134/71 95 11/28/16 14:40 11/28/16 14:40 11/28/16 14:40 11/28/16 14:40 11/28/16 14:40 General appearance: Present: cooperative, mild distress (difficulty speaking due to labored breathing), A&O X 3, pleasant, answers questions appropriately ( Unsure of medication history) - Head Head exam: Present: atraumatic, normocephalic - Eye Eye exam: Present: PERRL, conjuntiva pink, sclera anicteric Pupils: Present: PERRL - Neck Neck exam general surgery: Present: supple, trachea midline. Absent: lymphadenopathy - Respiratory Respiratory exam: Present: CTAB, rales (Bibasilar fine crackles). Absent: accessory muscle use, rhonchi, wheezes - Cardiovascular Cardiovascular exam: Present: RRR, +S1, +S2. Absent: diastolic murmur, gallop, rubs, systolic murmur - GI/Abdominal GI/Abdominal exam: Present: distended, normal bowel sounds, soft, no peritoneal signs. Absent: tenderness - Extremities Exam Extremities exam: Present: pedal edema (Severe edema in both lower extremities + 3 pitting edema. Severe erythema in the left calf with a large area of erythema 10 cm in diameter), warm, radial pulses palpable and symetrical. Absent: calf tenderness, cyanotic - Neurological Exam Neurological exam: Present: CN II-XII intact, oriented X3, no focal deficits. Absent: pronater drift, facial droop, speech deficit - Skin Skin exam: Present: dry, intact Internal Medicine: Result - Labs CBC & Chem 7: 11/28/16 01:25 11/28/16 01:25 Labs: Cardiac Enzymes 11/28/16 11/28/16 Range/Units 06:13 11:21 Troponin I 0.19 H* 0.19 H* (0-0.03) ng/mL Urine 11/28/16 Range/Units 05:40 Urine Color Yellow (Yellow) Urine Clarity Cloudy A (Clear) Urine pH 5.5 (5.0-8.0) pH Units Ur Specific [place] 1.012 (1.010-1.025) Urine Protein 100 H (Neg-Trace) mg/dL Urine Glucose (UA) Normal (Normal) mg/dL - ABG Interpretation ABG results: PT/INR, D-dimer PT 10.9 Seconds (9.4-12.1) 11/28/16 01:25 - VTE Documentation of Mechanical Device: Intermittent pneumatic compression device Consult Discharge Plan - Plan Referrals: NO,PCP [Primary Care Provider] -
[2016-11-28] MEDS: *HR* OxyCODONE Immed Rel 5 MG TABLET PO PRN (16:41)
[2016-11-28] MEDS: ceFAZolin 1,000 MG in D5% in Water (Mini-Bag+) 100 ML IVPB SCH (16:41)
[2016-11-28] MEDS: *HR* Heparin 5,000 UNIT/ML VIAL SQ SCH (18:42)
[2016-11-29] MEDS: ceFAZolin 1,000 MG in D5% in Water (Mini-Bag+) 100 ML IVPB SCH ×3 (00:04→16:48)
[2016-11-29] MEDS: *HR* Heparin 5,000 UNIT/ML VIAL SQ SCH ×2 (06:07→18:28)
[2016-11-29] MEDS: predniSONE 5 MG TABLET PO SCH (07:52)
[2016-11-29] MEDS: amLODIPine 5 MG TABLET PO SCH (07:52)
[2016-11-29] MEDS: Nitroglycerin 25 MG/250 ML INFUS..BTL IVC SCH (07:53)
[2016-11-29 08:48] LABS: Calcium 8.7 mg/dL (8.6-10.8); Potassium 3.2 mEq/L (3.5-4.5)
[2016-11-29 08:52] LABS: Basophils % 0.2 %; Hematocrit 32.4 % (35.3-44.9); Immature Granulocytes % 1.1 % (0-4); Lymphocytes # 0.3 K/mcL (0.6-4.6); Lymphocytes % 2.7 %; Mean Corpuscular HGB Conc 30.9 g/dL (31.6-35.5); Mean Corpuscular Hemoglobin 25.8 pg (28.0-33.3); Mean Corpuscular Volume 83.5 fL (83.0-100.0); Mean Platelet Volume 11.8 fL (9.4-12.4); Monocytes # 0.9 K/mcL (0.0-1.3); Monocytes % 7.3 %; Neutrophils # 10.6 K/mcL (1.6-8.9); Platelet Count 206 K/mcL (140-400); Red Blood Count 3.88 M/mcL (3.82-4.97); Red Cell Distribution Width 16.7 % (11.5-14.5); Segmented Neutrophils % 88.7 %
[2016-11-29 09:00] LABS: Hemoglobin A1C 6.2 %
--- NOTE | 2016-11-29 09:32 | Event Note ---
Date of Encounter: 11/29/16 Time of Encounter: 09:26 These event note will serve as a progress note for today 11/29/2016 as [employer] is not allowing me to pull out a regular progress note (1) Sepsis affecting skin Current Visit: Yes Status: Acute Assessment and plan: Sepsis secondary to left lower extremity cellulitis, improving Continue Ancef day to, ordered blood cultures Vito cell count was 14.1, improving today stop bumex drip Venous Dupplex was negative for DVT (2) Central hypothyroidism Current Visit: Yes Status: Acute Assessment and plan: TSH is low 0.0 10 and T 3 is low 1.57 increased levothyroxine up to 137 g daily Loaded with 300 g on November 28 (3) Acute on chronic combined systolic and diastolic CHF (congestive heart failure) Current Visit: Yes Status: Acute Assessment and plan: Acute Pulmonary edema secondary to combined acute on chronic systolic and diastolic CHF exacerbation The patient was on a Bumex drip that was stopped on November 28 as her dyspnea improved and due to concerns of sepsis Strict I's and O's and daily weight Echocardiogram pending (4) Elevated troponin Current Visit: Yes Status: Acute Assessment and plan: Likely secondary to demand ischemia (5) HTN (hypertension) Current Visit: Yes Status: Acute Assessment and plan: Titrated down nitroglycerin drip Continue labetalol twice a day, lisinopril is on hold due to renal failure Qualifiers: Hypertension type: essential hypertension Qualified Code(s): I10 - Essential (primary) hypertension (6) Chronic kidney disease (CKD), stage III (moderate) Current Visit: Yes Status: Acute Assessment and plan: Chronic Kidney Disease of Stage III, 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 Denies any chest pain but feels short of breath. No fevers, no abdominal pain or diarrhea. No dysuria - Constitutional Vitals: Temp Pulse Resp BP Pulse Ox 98.5 F 81 16 145/73 95 11/28/16 14:40 11/28/16 14:40 11/28/16 14:40 11/28/16 14:40 02/02/17 14:40 General appearance: Present: cooperative, mild distress (difficulty speaking due to labored breathing), A&O X 3, pleasant, answers questions appropriately ( Unsure of medication history) - Head Head exam: Present: atraumatic, normocephalic - Eye Eye exam: Present: PERRL, conjuntiva pink, sclera anicteric Pupils: Present: PERRL - Neck Neck exam general surgery: Present: supple, trachea midline. Absent: lymphadenopathy - Respiratory Respiratory exam: Present: CTAB, rales (Bibasilar fine crackles). Absent: accessory muscle use, rhonchi, wheezes - Cardiovascular Cardiovascular exam: Present: RRR, +S1, +S2. Absent: diastolic murmur, gallop, rubs, systolic murmur - GI/Abdominal GI/Abdominal exam: Present: distended, normal bowel sounds, soft, no peritoneal signs. Absent: tenderness - Extremities Exam Extremities exam: Present: pedal edema (Severe edema in both lower extremities + 2 pitting edema. S erythema in the left calf with a large area of erythema 10 cm in diameter), warm, radial pulses palpable and symetrical. Absent: calf tenderness, cyanotic - Neurological Exam Neurological exam: Present: CN II-XII intact, oriented X3, no focal deficits. Absent: pronater drift, facial droop, speech deficit - Skin Skin exam: Present: dry, intact Internal Medicine: Result - Labs CBC & Chem 7: Creatinine has increased from 1.82 up to 2.09, potassium 3.2 Mother's account 11.9 hemoglobin 10 platelets 206 11/28/16 01:25 11/28/16 01:25 Labs: Cardiac Enzymes 11/28/16 11/28/16 Range/Units 06:13 11:21 Troponin I 0.19 H* 0.19 H* (0-0.03) ng/mL Urine 11/28/16 Range/Units 05:40 Urine Color Yellow (Yellow) Urine Clarity Cloudy A (Clear) Urine pH 5.5 (5.0-8.0) pH Units Ur Specific [place] 1.012 (1.010-1.025) Urine Protein 100 H (Neg-Trace) mg/dL Urine Glucose (UA) Normal (Normal) mg/dL - ABG Interpretation ABG results: PT/INR, D-dimer PT 10.9 Seconds (9.4-12.1) 11/28/16 01:25 - VTE Documentation of Mechanical Device: Intermittent pneumatic compression device Consult Discharge Plan - Plan Referrals: NO,PCP [Primary Care Provider] -
--- NOTE | 2016-11-29 11:08 | ECHO - Doppler Report ---
Echocardiogram Name: Shea Ortega Date of Study: 11/28/2016 Date: 1935 Ht: 64.0 in Medical Record#: [id number] Age: 81 Wt: 169.0 lb Gender: Female BSA: 1.82 Order #: [id number] Location: [facility] Room #: 2A23 Reading Physician: Аднрей Olguin DO, SHADY, JEANMARIE FORREST Sports Umpire: Jolie Salazar Ordering Physician: Aram Villela MD Primary Physician: None Indications: ACS Impressions: LVEF 60-65%. Normal LV chamber size and function. Asymmetric hypertrophy of the basal septum. No LVOT obstruction Mild left ventricular diastolic dysfunction. Normal right ventricular structure and function. No evidence of pulmonary hypertension. No significant valvular dysfunction. Left Ventricular Wall Motion: Rest Echo Findings All wall segments showed normal motion. Findings: Study Quality * Technically sub-optimal due to poor echocardiographic windows. ECG Findings * Normal sinus rhythm. Left Ventricle * LVEF 60-65%. * Normal LV chamber size and function. * Asymmetric hypertrophy of the basal septum. No LVOT obstruction * Mild left ventricular diastolic dysfunction. Right Ventricle * Normal right ventricular structure and function. Left Atrium * Severely dilated left atrium. Right Atrium * Mildly dilated right atrium. Interatrial Septum * Interatrial septum not well evaluated. Aortic Valve * Trileaflet aortic valve. * Mildly sclerotic aortic valve leaflets. * No aortic regurgitation. * No aortic stenosis. Mitral Valve * Mild mitral annular calcification and mildly calcified mitral valve leaflets. * Trace mitral regurgitation. * No mitral stenosis. Tricuspid Valve * Normal tricuspid valve structure and function. * Trace tricuspid regurgitation. * No evidence of pulmonary hypertension. Pulmonic Valve * Pulmonic valve is not well visualized. * No pulmonic regurgitation. Aorta * Normally sized aortic root. Pericardium * The pericardium appears normal. IVC * Normal IVC dimensions and inspiratory collapse. Pulmonary Artery * Normal visualized portions of the main pulmonary artery. History Hypertension Hypercholesteremia Family History of CAD Congestive Heart Failure 11/14/2010 a Previous Echo was performed. Measurements: BP: 160/ 69 2D Normal Values RVIDd: 3.40 cm <2.7 cm IVSd: 1.50 cm 0.6 - 1.0 cm LVIDd: 3.80 cm 3.7 - 5.6 cm LVPWd: 1.20 cm 0.6 - 1.1 cm LVIDs: 2.60 cm 1.5 - 3.6 cm AO: 2.90 cm < 4.0 cm LA: 4.80 cm 2.0 - 4.0cm %FS: 31.60 cm >25 % LA volume: 101 Mitral Valve Peak E:1.15 m/sec Peak A:1.40 m/sec E/A Ratio:0.8 Peak E' Lat Boogie:7.6 cm/s Peak E' Med Boogie:5.26 cm/s E/E' Lat Ratio:15.1 E/E' Med Ratio:21.9 Tricuspid Valve TV Regurg Peak Grad: 29.00mmHg TV Regurg Peak Boogie: 2.69m/sec Updated by Андрей Olguin DO, SHADY, LON, JEANMARIE on 11/29/2016 11:04:17 AM electronically signed on 11/29/2016 11:04:47 AM with status of Final Wall Motion [place]: 1=Normal, 2=Hypokinesis, 3=Akinesis, 4=Dyskinesis, 5=Aneurysmal, 6=Hyperkinetic, X=Not Visualized (Blank)=Missing
--- NOTE | 2016-11-29 12:15 | Cardiology Progress Note ---
<Neil Davis Gemini - Last Filed: 11/29/16 12:13> Date of Encounter: 11/29/16 Time of Encounter: 12:13 Assessment and Plan (1) Acute exacerbation of CHF (congestive heart failure) Current Visit: Yes Status: Ruled-out Echo has resulted. EF preserved 60-65% with only mild diastolic dysfunction. CHF ruled out. Lower extremity edema likely third spacing secondary to hypoalbuminemia. On lasix gtt 5mg/hr--will D/C. Transition to PO Lasix 20mg BID. Renal function worsened--SCr went from 1.82 to 2.09. K 3.2--will replace. Cardiology is signing off. Reconsult PRN. Qualifiers: Congestive heart failure type: diastolic Qualified Code(s): I50.33 - Acute on chronic diastolic (congestive) heart failure (2) CKD (chronic kidney disease) stage 4, GFR 15-29 ml/min Current Visit: Yes Status: Chronic Cr 1.82 yesterday, increased today to 2.09. Lasix gtt stopped--started on low dose PO Lasix. IMMANUEL-I on hold. Nephrology following. (3) Elevated troponin Current Visit: Yes Status: Acute Mildly elevated 0.22, 0.19, 0.20--Likely demand ischemia. No significant EKG changes to indicate ischemia. Pt denies chest pain. Echo shows preserved EF. No further cardiac testing warranted. (4) HTN (hypertension) Current Visit: Yes Status: Acute Hypertensive--on Nitro gtt at 15mcg/minute. Will add PO hydralazine. On Labetolol and Norvasc. Adjust as necessary. Wean off nitro gtt. Qualifiers: Hypertension type: essential hypertension Qualified Code(s): I10 - Essential (primary) hypertension Discussion w patient/family: The assessment and plan as outlined above was discussed with the patient and/or family members who expressed understanding and agreement. All questions were answered. Thank you for involving us in the care of your patient. Please call with any questions. I will discuss all the above with Dr. Bourgeois and make changes as necessary. Subjective Principal diagnosis: CHF Interval history: Pt reports feeling about the same today. I/O yesterday -2460mL. Echo resulted-- EF 60-65%, asymmetric hypertrophy of basal septum, no LVOT obstruction, mild diastolic dysfunction, no pulmonary hypertension. Creatinine increased to 2.09 from 1.82. K 3.2. Pt denies chest pain. Objective Vital Signs, Last 4 Hours Temp Pulse Resp BP Pulse Ox 11/29/16 11:39 98.1 F 82 16 143/53 96 11/29/16 08:30 95 Vital Signs Temp Pulse Resp BP Pulse Ox 11/29/16 11:39 98.1 F 82 16 143/53 96 11/29/16 08:30 95 11/29/16 07:21 98.5 F 81 16 145/73 95 11/29/16 04:35 97.5 F L 98 20 133/58 96 11/28/16 21:49 98.1 F 95 16 159/72 96 11/28/16 17:13 93 L 11/28/16 16:51 160/69 11/28/16 14:40 98 F 93 16 134/71 95 11/28/16 12:48 156/80 Intake and Output 11/28/16 11/29/16 11/29/16 23:59 07:59 15:59 Intake Total 220 / 220 250 / 250 140 / 140 Output Total 900 / 900 600 / 600 0 / 0 Balance -680 / -680 -350 / -350 140 / 140 Intake: IV Fluids 100 / 100 250 / 250 140 / 140 Nitroglycerin 25 mg In 150 / 150 140 / 140 250 ml @ 5 MCG/MIN 3 mls/ hr IVC .Q24H JAVON Rx#: [id number] Ancef 1,000 MG In 100 / 100 100 / 100 Dextrose 5% (Minibag+) 100 ML 100 ML @ 200 mls/ hr IVPB Q8HR JAVON Rx#: [id number] Oral 120 / 120 Output: Urine 0 / 0 Catheter 900 / 900 600 / 600 Other: Meal Dinner Percent of Meal Consumed 5% Weight 76.3 kg Patient Weight 11/29/16 23:59 Weight 76.3 kg General: Conversant, No Apparent Distress HEENT: Atraumatic, Normocephaly, Mucus Membranes Moist Neck: No JVD, Normal carotid pulses Cardiac: Reg Rate and Rhythm, Normal S1 and S2, No Murmur Lungs: Normal Breath Sounds, No Wheeze, Rales, Rhonchi Neuro: Alert and responsive, No focal deficits noted Abdomen: Soft, Non-Tender Skin: No rashes noted on visualized skin Musculoskeletal: No Chest Wall Tenderness Extremities: Other (2+ BLE edema) Results 11/29/16 08:07 11/29/16 08:07 Lab Results 11/28/16 11/29/16 11/29/16 16:20 08:07 08:07 WBC 11.9 H Hgb 10.0 L D Hct 32.4 L Plt Count 206 Sodium 146 H Potassium 3.2 L Chloride 102 Carbon Dioxide 30 H BUN 72 H Creatinine 2.09 H Glucose 143 H Calcium 8.7 Troponin I 0.20 H* Short CBC 11/29/16 Range/Units 08:07 WBC 11.9 H (4.3-11.1) K/mcL Hgb 10.0 L D (11.5-15.4) g/dL Hct 32.4 L (35.3-44.9) % Plt Count 206 (140-400) K/mcL Neutrophils # 10.6 H (1.6-8.9) K/mcL BMP 11/29/16 Range/Units 08:07 Sodium 146 H (136-145) mEq/L Potassium 3.2 L (3.5-4.5) mEq/L Chloride 102 (98-109) mEq/L Carbon Dioxide 30 H (19-29) mEq/L BUN 72 H (7-20) mg/dL Creatinine 2.09 H (0.57-1.11) mg/dL Glucose 143 H (70-99) mg/dL Calcium 8.7 (8.6-10.8) mg/dL Cardiac Enzymes 11/28/16 11/28/16 Range/Units 16:20 11:21 Troponin I 0.20 H* 0.19 H* (0-0.03) ng/mL Active Medications Acetaminophen (Tylenol) 650 mg PO Q6HR PRN PRN Reason: Mild Pain (1-3) Stop: 05/30/17 05:34 Amlodipine Besylate (Norvasc) 10 mg PO DAILY JAVON PRN Reason: Protocol Stop: 05/30/17 10:01 Last Admin: 11/29/16 07:52 Dose: 10 mg Docusate Sodium (Colace) 100 mg PO BID PRN PRN Reason: Constipation Stop: 05/30/17 05:34 Furosemide (Lasix) 20 mg PO BIDDIURETIC JAVON Stop: 05/31/17 17:01 Heparin Sodium (Porcine) (Heparin) 5,000 unit SQ Q12HCO JAVON Stop: 05/30/17 19:01 Last Admin: 11/29/16 06:07 Dose: 5,000 unit Hydralazine HCl (Hydralazine) 20 mg IV Q6HR PRN PRN Reason: Hypertension Stop: 05/31/17 12:05 Hydralazine HCl (Hydralazine) 25 mg PO Q6HR JAVON Stop: 05/31/17 12:07 Nitroglycerin (Nitroglycerin) 25 mg in 250 mls @ 3 mls/hr IVC .Q24H JAVON; 5 MCG/ MIN PRN Reason: Protocol Stop: 05/30/17 05:46 Last Titration: 11/29/16 11:56 Dose: 10 mcg/min, 6 mls/hr Cefazolin Sodium 1,000 mg/ (Dextrose) 100 mls @ 200 mls/hr IVPB Q8HR JAVON PRN Reason: Protocol Stop: 05/30/17 16:01 Last Admin: 11/29/16 07:51 Dose: 200 mls/hr Labetalol HCl (Trandate) 200 mg PO BID [facility] Stop: 05/30/17 09:01 Last Admin: 11/29/16 07:52 Dose: 200 mg Levothyroxine Sodium (Levothyroxine Sodium) 137 mcg PO DAILY@0630 [facility] Stop: 05/31/17 06:31 Last Admin: 11/29/16 06:07 Dose: 137 mcg Metoprolol Tartrate (Lopressor) 5 mg IVP Q6HR PRN PRN Reason: SEE COMMENTS Stop: 05/30/17 05:34 Morphine Sulfate (Morphine Sulfate) 2 mg IVP Q4HR PRN PRN Reason: Severe Pain (7-10) Stop: 05/30/17 05:34 Naloxone HCl (Narcan) 0.4 mg IVP Q2MIN PRN PRN Reason: Opioid Reversal Stop: 05/30/17 05:34 Nitroglycerin (Nitroglycerin) 0.4 mg SL Q5MIN PRN PRN Reason: Chest Pain Stop: 05/30/17 05:34 Omeprazole (Prilosec) 20 mg PO DAILY@0630 [facility] PRN Reason: Protocol Stop: 05/30/17 06:31 Last Admin: 11/29/16 06:07 Dose: 20 mg Ondansetron HCl (Zofran) 4 mg IVP Q8HR PRN PRN Reason: Nausea And Vomiting Stop: 05/30/17 05:34 Oxycodone HCl (Roxicodone) 5 mg PO Q6HR PRN PRN Reason: Moderate Pain (4-6) Stop: 05/30/17 05:34 Last Admin: 11/28/16 16:41 Dose: 5 mg Potassium Chloride (Potassium Chloride) 40 meq PO BID JAVON Stop: 05/31/17 09:46 Last Admin: 11/29/16 10:18 Dose: 40 meq Prednisone (Prednisone) 5 mg PO DAILY JAVON Stop: 05/30/17 09:01 Last Admin: 11/29/16 07:52 Dose: 5 mg Rosuvastatin Calcium (Crestor) 20 mg PO HS JAVON Stop: 05/30/17 21:01 Last Admin: 11/28/16 21:48 Dose: 20 mg - Imaging and Cardiology Echo: report reviewed (EF 60-65%, asymmetric hypertrophy of basal septum, no LVOT obstruction, mild diastolic dysfunction. No pulmonary hypertension.) - EKG Interpretation EKG results cardiology: other (12 hour tele AVG HR 84, SR, no significant pauses or arrhythmias.) - VTE Documentation of Mechanical Device: Intermittent pneumatic compression device Consult Discharge Plan - Plan Referrals: NO,PCP [Primary Care Provider] - <Shree Bourgeois - Last Filed: 11/29/16 12:30> Date of Encounter: 11/29/16 Assessment and Plan Discussion w patient/family: The assessment and plan as outlined above was discussed with the patient and/or family members who expressed understanding and agreement. All questions were answered. Thank you for involving us in the care of your patient. Please call with any questions. Objective Vital Signs, Last 4 Hours Temp Pulse Resp BP Pulse Ox 11/29/16 11:39 98.1 F 82 16 143/53 96 11/29/16 08:30 95 Results 11/29/16 08:07 11/29/16 08:07 Lab Results 11/28/16 11/29/16 11/29/16 16:20 08:07 08:07 WBC 11.9 H Hgb 10.0 L D Hct 32.4 L Plt Count 206 Sodium 146 H Potassium 3.2 L Chloride 102 Carbon Dioxide 30 H BUN 72 H Creatinine 2.09 H Glucose 143 H Calcium 8.7 Troponin I 0.20 H* Attestation: My signature below is to certify that this patient is under my care and that I, or nurse practitioner, or a physician's assistant account manager working with me, has a face-to -face encounter with this patient. pt has diuresed well, less sob no pnd VSS JVD: 6 cm Chest : clear CVS: no murmurs, no s3 Plan See [employer] note for details
[2016-11-29] MEDS: hydrALAZINE 25 MG TABLET PO SCH ×3 (12:36→23:09)
[2016-11-29 13:35] LABS: Complement Component 3 105 mg/dL (88-201); Complement Component 4 11 mg/dL (10-40)
--- NOTE | 2016-11-29 15:15 | Electrocardiograph Report ---
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
--- NOTE | 2016-11-29 15:31 | Electrocardiograph Report ---
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
[2016-11-29] MEDS: Furosemide 20 MG TABLET PO SCH (16:48)
--- NOTE | 2016-11-29 17:09 | Nephrology Progress Note ---
Date of Encounter: 11/29/16 Time of Encounter: 09:10 - Assessment and Plan (1) CKD (chronic kidney disease) stage 4, GFR 15-29 ml/min Current Visit: Yes Status: Chronic I reviewed my colleague's note: MN with subnephrotic proteinuria and CKD stage IV. The pt has been on low dose steroids and both an IMMANUEL and ARB. It's not clear if the pt ever was treated with Cytoxan or Rituxan, but she has been on chronic steroids. She has chronic LE edema had been taking less diuretics, per pt by accident, as an outpatient recently. She had received a lasix gtt initially and was noted to be mildly hypokalemic and hypernatremic this AM with worsened SCr, so I agree with stopping the lasix gtt. I recommend checking a 24hr urine to quantitate the degree of proteinuria at this point. Of note, I received a paged late in the day on Friday and I was told that there are no 24hr urine collection jugs available in the hospital. Since there is no way to measure a 24hr urine, I will obtain an abbreviated urine collection as follows: clamp the reyes at 10pm and unclamp it at 5am, which will equal about 7 hr and is about a fourth of a 24hr urine, which would be nearly as good/accurate as a proper 24hr urine collection. In the meantime, I will continue the low dose prednisone, but if her renal function worsens, she may need a repeat renal biopsy, which would help determine her degree of interstitial fibrosis and hence if it would be worth pulse dose prednisone and/or cytoxic agents. I also do not recommend resuming the dual IMMANUEL and ARB strategy as this is not the standard of care for proteinuric patients since the ON-TARGET study demonstrated worse outcomes (such as higher rates of PAZ and hyperkalemia). If her SCr does improve and or stabilize, it would be fiore to provide either an IMMANUEL or ARB. Continue to follow a renal protective strategy: avoid NSAIDs, Bactrim, Contrast and strict I/Os and daily weights. I will follow with you. Thank you. (2) Membranous glomerulonephritis with nephrosis Current Visit: Yes Status: Chronic See above (3) Hypoalbuminemia Current Visit: Yes Status: Acute Likely worsened by her proteinuria. I recommend a goal serum Albumin of 4. Will order Nepro shakes with each meal. (4) Chronic steroid use Current Visit: Yes Status: Chronic See above. Counseled pt about the risks of osteoporosis and GERD. (5) HTN (hypertension) Current Visit: Yes Status: Acute See above. Qualifiers: Hypertension type: essential hypertension Qualified Code(s): I10 - Essential (primary) hypertension Subjective Principal diagnosis: CHF Interval history: Pt was s/e earlier today. She could not recall when she had her renal biopsy. Her primary receiving lead is Dr. Tariq. I reviewed the hand-off information that she shared with me. The pt did not affirm N/V/D but did report having a diminished appetite today. Objective - Vital Signs Vital signs: Vital Signs Temp Pulse Resp BP Pulse Ox 11/29/16 11:39 98.1 F 82 16 143/53 96 11/29/16 08:30 95 11/29/16 07:21 98.5 F 81 16 145/73 95 11/29/16 04:35 97.5 F L 98 20 133/58 96 11/28/16 21:49 98.1 F 95 16 159/72 96 11/28/16 17:13 93 L Intake and Output 11/29/16 11/29/16 11/29/16 07:59 15:59 23:59 Intake Total 250 / 250 250 / 250 Output Total 600 / 600 0 / 0 Balance -350 / -350 250 / 250 Intake: IV Fluids 250 / 250 250 / 250 Nitroglycerin 25 mg In 150 / 150 250 / 250 250 ml @ 5 MCG/MIN 3 mls/ hr IVC .Q24H JAVON Rx#: [id number] Ancef 1,000 MG In 100 / 100 Dextrose 5% (Minibag+) 100 ML 100 ML @ 200 mls/ hr IVPB Q8HR JAVON Rx#: [id number] Output: Urine 0 / 0 Catheter 600 / 600 Other: Weight 76.3 kg Patient Weight 11/29/16 23:59 Weight 76.3 kg - General Appearance General appearance: Present: well-developed, well-nourished, appears started age , frail EENT: Present: ATNC, PERRL, mucous membranes moist Neck: Present: supple Respiratory: Present: clear Cardiology: Present: edema, normal S1, normal S2 Gastrointestinal: Present: normoactive bowel sounds, no tenderness, no guarding , obese Integumentary: Present: ulcer Neurologic: Present: no focal deficit, no asterixis, alert and oriented x3 Musculoskeletal: Present: no cyanosis, cyanosis Psychiatric: Present: mood/affect appropriate, cooperative - Lab 11/29/16 08:07 11/29/16 08:07 Most recent lab results Calcium 8.7 mg/dL (8.6-10.8) 11/29/16 08:07 Phosphorus 3.8 mg/dL (2.3-4.7) 11/28/16 06:13 Magnesium 1.7 mg/dL (1.6-2.6) 11/28/16 06:13 Urine Creatinine 16 mg/dL 11/28/16 10:05 Urine Total Protein 26 mg/dL (1-14) H 11/28/16 10:05 - VTE Documentation of Mechanical Device: Intermittent pneumatic compression device Consult Discharge Plan - Plan Referrals: NO,PCP [Primary Care Provider] -
[2016-11-30] MEDS: ceFAZolin 1,000 MG in D5% in Water (Mini-Bag+) 100 ML IVPB SCH ×2 (04:44→16:37)
[2016-11-30] MEDS: hydrALAZINE 25 MG TABLET PO SCH ×4 (06:31→23:26)
[2016-11-30] MEDS: *HR* Heparin 5,000 UNIT/ML VIAL SQ SCH ×2 (06:31→18:05)
[2016-11-30] MEDS: Nitroglycerin 25 MG/250 ML INFUS..BTL IVC SCH (06:31)
[2016-11-30 06:49] LABS: Calcium 8.7 mg/dL (8.6-10.8); Potassium 3.6 mEq/L (3.5-4.5)
[2016-11-30 06:53] LABS: Magnesium 1.8 mg/dL (1.6-2.6); Phosphorous 4.4 mg/dL (2.3-4.7); Uric Acid 12.3 mg/dL (2.6-6.0)
--- NOTE | 2016-11-30 08:45 | Internal Med Progress Note ---
Date of Encounter: 11/30/16 Time of Encounter: 08:42 - Assessment and plan (1) Sepsis affecting skin Current Visit: Yes Status: Acute Assessment and plan: Sepsis secondary to left lower extremity cellulitis, improving Continue Ancef day 3, blood cultures: no growth WBC was 14.1, improved stopped bumex drip, hold lasix ( does not appear overloaded post ( Venous Dupplex was negative for DVT (2) Central hypothyroidism Current Visit: Yes Status: Acute Assessment and plan: TSH is low 0.0 10 and T 3 is low 1.57 increased levothyroxine to 137 g daily (3) Elevated troponin Current Visit: Yes Status: Acute Assessment and plan: Likely secondary to demand ischemia (4) HTN (hypertension) Current Visit: Yes Status: Acute Assessment and plan: Titrated down nitroglycerin drip Continue labetalol twice a day, lisinopril is on hold Qualifiers: Hypertension type: essential hypertension Qualified Code(s): I10 - Essential (primary) hypertension (5) Acute exacerbation of CHF (congestive heart failure) Current Visit: Yes Status: Ruled-out Assessment and plan: Acute Pulmonary edema secondary to acute on chronic diastolic CHF exacerbation The patient was on a Bumex drip that was stopped at the moment as her dyspnea improved and due to concerns of sepsis hold lasix for now Strict I's and O's and daily weight Echocardiogram showed an ejection fraction of 60-65% with mild diastolic dysfunction Qualifiers: Congestive heart failure type: diastolic Qualified Code(s): I50.33 - Acute on chronic diastolic (congestive) heart failure (6) CKD (chronic kidney disease) stage 4, GFR 15-29 ml/min Current Visit: Yes Status: Chronic Assessment and plan: creat is worse at 2.47 (7) Membranous glomerulonephritis with nephrosis Current Visit: Yes Status: Chronic Assessment and plan: followed by Dr Ortiz On low dose Prednisone IMMANUEL and ARB are being held Consider cytotoxic agents vs new biopsy 24 h urine collection ordered (proteinuria) High risk due to infection and renal failure - Time Spent With Patient Greater than 35 minutes - Subjective Interval history: The patient is less confused, jose y hard of hearing, complaining of pain mainly in her left lower extremity, the leg appears less warm and tender to touch mainly in the calf area. Denies any chest pain but feels short of breath. No fevers, no abdominal pain or diarrhea. No dysuria - Constitutional Vitals: Temp Pulse Resp BP Pulse Ox 98.0 F 100 20 132/63 93 L 11/30/16 08:04 11/30/16 08:04 11/30/16 08:04 11/30/16 08:04 11/30/16 08:04 General appearance: Present: cooperative, mild distress (difficulty speaking due to labored breathing), A&O X 3, pleasant, answers questions appropriately ( Unsure of medication history) - Head Head exam: Present: atraumatic, normocephalic - Eye Eye exam: Present: PERRL, conjuntiva pink, sclera anicteric Pupils: Present: PERRL - Neck Neck exam general surgery: Present: supple, trachea midline. Absent: lymphadenopathy - Respiratory Respiratory exam: Present: decreased breath sounds, CTAB. Absent: accessory muscle use, rales, rhonchi, wheezes - Cardiovascular Cardiovascular exam: Present: RRR, +S1, +S2. Absent: diastolic murmur, gallop, rubs, systolic murmur - GI/Abdominal GI/Abdominal exam: Present: normal bowel sounds, soft, no peritoneal signs. Absent: distended, tenderness - Extremities Exam Extremities exam: Present: pedal edema ( both lower extremities +2 pitting edema improved, left calf with a large area of erythema 10 cm in diameter, improving), warm, radial pulses palpable and symetrical. Absent: calf tenderness, cyanotic - Neurological Exam Neurological exam: Present: CN II-XII intact, oriented X3, no focal deficits. Absent: pronater drift, facial droop, speech deficit - Skin Skin exam: Present: dry, intact Internal Medicine: Result - Labs CBC & Chem 7: 11/29/16 08:07 11/30/16 06:10 Labs: Short CBC 11/29/16 Range/Units 08:07 WBC 11.9 H (4.3-11.1) K/mcL Hgb 10.0 L D (11.5-15.4) g/dL Hct 32.4 L (35.3-44.9) % Plt Count 206 (140-400) K/mcL Neutrophils # 10.6 H (1.6-8.9) K/mcL BMP 11/29/16 11/30/16 08:07 06:10 Sodium 146 H 144 Potassium 3.2 L 3.6 Chloride 102 103 Carbon Dioxide 30 H 28 BUN 72 H 80 H Creatinine 2.09 H 2.47 H Glucose 143 H 163 H Calcium 8.7 8.7 - ABG Interpretation ABG results: PT/INR, D-dimer PT 10.9 Seconds (9.4-12.1) 11/28/16 01:25 - VTE Documentation of Mechanical Device: Intermittent pneumatic compression device Consult Discharge Plan - Plan Referrals: NO,PCP [Primary Care Provider] -
[2016-11-30] MEDS: amLODIPine 5 MG TABLET PO SCH (09:31)
[2016-11-30] MEDS: Furosemide 20 MG TABLET PO SCH ×2 (09:31→16:35)
[2016-11-30] MEDS: predniSONE 5 MG TABLET PO SCH (09:31)
--- NOTE | 2016-11-30 13:10 | Venous Imaging Report ---
LE Venous Duplex Patient Name:Shea Ortega Order Number:[id number] Procedure Date:11/29/2016 Date:4Age:81 yrs Gender:Female Location:[facility] Room #: 2A23 Top Trimmer:Babs Castro Referring MD:Luís Díaz MD depositing machine operator:None Reading MD:Bradley Parmar MD Secondary Indications: Risk Factors Yes/No Hx of DVT No Anticoagulants No Trauma to Veins No Hx of Chemotherapy No Impressions: Bilateral lower extremity: normal superficial and deep exam. Recommendations: Test completed on 11/29/2016 at 8:30:00 am. Critical findings reported to [facility] in person at 8:40:00 am on 11/29/2016 by Babs Castro. Findings Venous Duplex Results: Right: Venous imaging of the lower extremity reveals full patency and normal vessel compressibility of the right distal iliac, right common femoral, right superficial femoral, right popliteal, right posterior tibial, right peroneal, right great saphenous and right lesser saphenous. Doppler signals in the evaluated veins were normal. Left: Venous imaging of the lower extremity reveals full patency and normal vessel compressibility of the left distal iliac, left common femoral, left superficial femoral, left popliteal, left posterior tibial, left peroneal, left great saphenous and left lesser saphenous. Doppler signals in the evaluated veins were normal. Lower Extremity Venous Duplex Side Vein Compress Spontaneous Flow Augment Diameter (cm) Depth (cm) Right Distal Iliac Normal Yes Phasic Yes Right Common Femoral Normal Yes Phasic Yes Right Superficial Femoral Normal Yes Phasic Yes Right Popliteal Normal Yes Phasic Yes Right Posterior Tibial Normal Yes Phasic Yes Right Peroneal Normal Yes Phasic Yes Right Great Saphenous Normal Yes Phasic Yes Right Lesser Saphenous Normal Yes Phasic Yes Left Distal Iliac Normal Yes Phasic Yes Left Common Femoral Normal Yes Phasic Yes Left Superficial Femoral Normal Yes Phasic Yes Left Popliteal Normal Yes Phasic Yes Left Posterior Tibial Normal Yes Phasic Yes Left Peroneal Normal Yes Phasic Yes Left Great Saphenous Normal Yes Phasic Yes Left Lesser Saphenous Normal Yes Phasic Yes Updated by Bradley Parmar MD on 11/30/2016 1:05:35 PM electronically signed on 11/30/2016 1:05:44 PM with status of Final
--- NOTE | 2016-11-30 13:35 | Nephrology Progress Note ---
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 Currently she has a non- oliguric PAZ on CKD stage IV. The pt has been on low dose steroids and both an IMMANUEL and ARB. Pending the 24hr urine to quantitate the degree of proteinuria at this point. Continue the low dose prednisone, and she may need a repeat renal biopsy, which would help determine her degree of interstitial fibrosis, which would help determine if it would be worth pulse dose prednisone and/or cytoxic agents. I also do not recommend resuming the dual IMMANUEL and ARB strategy as this is not the standard of care for proteinuric patients since the ON-TARGET study demonstrated worse outcomes (such as higher rates of PAZ and hyperkalemia). If her SCr does improve and or stabilize, it would be fiore to provide either an IMMANUEL or an ARB. Continue to follow a renal protective strategy: avoid NSAIDs, Bactrim, Contrast and strict I/Os and daily weights. Discussed with the primary team. I will follow with you. Thank you. (2) Membranous glomerulonephritis with nephrosis Current Visit: Yes Status: Chronic See above (3) Hypoalbuminemia Current Visit: Yes Status: Acute Likely worsened by her proteinuria. I recommend a goal serum Albumin of 4. Nepro shakes with each meal. (4) Chronic steroid use Current Visit: Yes Status: Chronic See above. Counseled pt about the risks of osteoporosis and GERD. (5) HTN (hypertension) Current Visit: Yes Status: Acute See above. Qualifiers: Hypertension type: essential hypertension Qualified Code(s): I10 - Essential (primary) hypertension Subjective Principal diagnosis: CHF Interval history: Pt was s/e earlier today. She is hard of hearing. The pt did not affirm N/V/D but did report having a diminished appetite today. Objective - Vital Signs Vital signs: Vital Signs Temp Pulse Resp BP Pulse Ox 11/30/16 10:58 97.8 F 84 16 111/62 94 L 11/30/16 08:36 93 L 11/30/16 08:04 98.0 F 100 20 132/63 93 L 11/30/16 00:55 98.4 F 90 20 143/59 92 L 11/29/16 20:37 99.1 F 92 18 152/63 95 11/29/16 17:00 96 11/29/16 16:30 98.0 F 78 16 133/76 95 Intake and Output 11/29/16 11/30/16 11/30/16 23:59 07:59 15:59 Intake Total 100 / 100 220 / 220 Output Total 0 / 0 800 / 800 0 / 0 Balance 100 / 100 -580 / -580 0 / 0 Intake: IV Fluids 100 / 100 100 / 100 Ancef 1,000 MG In 100 / 100 100 / 100 Dextrose 5% (Minibag+) 100 ML 100 ML @ 200 mls/ hr IVPB Q12H [facility] Rx#: [id number] Oral 120 / 120 Output: Urine 0 / 0 Catheter 800 / 800 0 / 0 - General Appearance Exam: General appearance: Present: well-developed, well-nourished, appears started age , frail EENT: Present: ATNC, PERRL, mucous membranes moist Neck: Present: supple Respiratory: Present: clear Cardiology: Present: edema, normal S1, normal S2 Gastrointestinal: Present: normoactive bowel sounds, no tenderness, no guarding , obese Integumentary: Present: ulcer Neurologic: Present: no focal deficit, no asterixis, alert and oriented x3, hard of hearing Musculoskeletal: Present: no cyanosis, cyanosis Psychiatric: Present: mood/affect appropriate, cooperative - Lab 11/29/16 08:07 11/30/16 06:10 Most recent lab results Calcium 8.7 mg/dL (8.6-10.8) 11/30/16 06:10 Phosphorus 4.4 mg/dL (2.3-4.7) 11/30/16 06:10 Magnesium 1.8 mg/dL (1.6-2.6) 11/30/16 06:10 Urine Creatinine 16 mg/dL 11/28/16 10:05 Urine Total Protein 26 mg/dL (1-14) H 11/28/16 10:05 - VTE Documentation of Mechanical Device: Intermittent pneumatic compression device Consult Discharge Plan - Plan Referrals: NO,PCP [Primary Care Provider] -
[2016-12-01] MEDS: ceFAZolin 1,000 MG in D5% in Water (Mini-Bag+) 100 ML IVPB SCH ×2 (03:32→15:41)
[2016-12-01 03:51] LABS: Basophils % 0.2 %; Hematocrit 32.9 % (35.3-44.9); Hemoglobin 10.3 g/dL (11.5-15.4); Immature Granulocytes % 1.7 % (0-4); Lymphocytes # 0.3 K/mcL (0.6-4.6); Lymphocytes % 2.3 %; Mean Corpuscular HGB Conc 31.3 g/dL (31.6-35.5); Mean Corpuscular Hemoglobin 26.3 pg (28.0-33.3); Mean Corpuscular Volume 83.9 fL (83.0-100.0); Mean Platelet Volume 10.9 fL (9.4-12.4); Monocytes % 7.6 %; Neutrophils # 11.6 K/mcL (1.6-8.9); Platelet Count 194 K/mcL (140-400); Red Blood Count 3.92 M/mcL (3.82-4.97); Segmented Neutrophils % 88.2 %
[2016-12-01 04:02] LABS: Calcium 8.7 mg/dL (8.6-10.8); Potassium 4.6 mEq/L (3.5-4.5)
[2016-12-01] MEDS: hydrALAZINE 25 MG TABLET PO SCH ×4 (05:28→22:28)
[2016-12-01] MEDS: *HR* Heparin 5,000 UNIT/ML VIAL SQ SCH ×2 (06:05→18:39)
[2016-12-01] MEDS: Furosemide 20 MG TABLET PO SCH ×2 (09:20→17:22)
[2016-12-01] MEDS: amLODIPine 5 MG TABLET PO SCH (09:20)
[2016-12-01] MEDS: predniSONE 5 MG TABLET PO SCH (09:20)
--- NOTE | 2016-12-01 12:14 | Nephrology Progress Note ---
Date of Encounter: 12/01/16 Time of Encounter: 09:35 - Assessment and Plan (1) CKD (chronic kidney disease) stage 4, GFR 15-29 ml/min Current Visit: Yes Status: Chronic Two family meetings earlier today both with the brother and later with everyone plus the Nephew. With worsening renal function, the DDx includes a recurrence of MN, so I recommend repeat renal biopsy: ADIEL link. I'll request that it be sent to [facility]. No urgent HD necessary today, but she is trending worse. Hx of MN with subnephrotic proteinuria and CKD stage IV. The pt has been on low dose steroids and both an IMMANUEL and ARB. Pending the 24hr urine to quantitate the degree of proteinuria at this point. Continue the low dose prednisone. A renal biopsy will help determine her degree of interstitial fibrosis, which would help determine if it would be worth pulse dose prednisone and/or cytoxic agents. I also do not recommend resuming the dual IMMANUEL and ARB strategy as this is not the standard of care for proteinuric patients since the ON-TARGET study demonstrated worse outcomes (such as higher rates of PAZ and hyperkalemia). If her SCr does improve and or stabilize, it would be fiore to provide either an IMMANUEL or an ARB. Continue to follow a renal protective strategy: avoid NSAIDs, Bactrim, Contrast and strict I/Os and daily weights. Discussed with the primary team. I will follow with you. Thank you. (2) Membranous glomerulonephritis with nephrosis Current Visit: Yes Status: Chronic See above (3) Hypoalbuminemia Current Visit: Yes Status: Acute Likely worsened by her proteinuria. I recommend a goal serum Albumin of 4. Nepro shakes with each meal. (4) Chronic steroid use Current Visit: Yes Status: Chronic See above. Counseled pt about the risks of osteoporosis and GERD. (5) HTN (hypertension) Current Visit: Yes Status: Acute See above. Qualifiers: Hypertension type: essential hypertension Qualified Code(s): I10 - Essential (primary) hypertension Subjective Principal diagnosis: CHF Interval history: Pt was s/e earlier today. She is hard of hearing. The pt did not affirm N/V/D but did report having a diminished appetite today. We had two family meetings earlier today. She voiced wanting to proceed witha renal biopsy and/or dialysis if necessary. I discussed the R/B/I of a renal bx. Objective - Vital Signs Vital signs: Vital Signs Temp Pulse Resp BP Pulse Ox 12/01/16 11:04 97.5 F L 80 18 113/53 97 12/01/16 08:02 96 12/01/16 07:32 97.9 F 82 18 138/68 96 12/01/16 05:10 98.9 F 84 18 119/41 95 12/01/16 00:22 97.7 F 85 18 135/66 96 11/30/16 23:28 94 L 11/30/16 20:07 98.8 F 85 18 128/55 95 11/30/16 16:18 98.3 F 89 16 126/67 95 Intake and Output 11/30/16 12/01/16 12/01/16 23:59 07:59 15:59 Intake Total 720 / 720 530 / 530 240 / 240 Output Total 550 / 550 675 / 675 250 / 250 Balance 170 / 170 -145 / -145 -10 / -10 Intake: IV Fluids 100 / 100 100 / 100 Ancef 1,000 MG In 100 / 100 100 / 100 Dextrose 5% (Minibag+) 100 ML 100 ML @ 200 mls/ hr IVPB Q12H [facility] Rx#: [id number] Oral 620 / 620 430 / 430 240 / 240 Output: Urine 0 / 0 Catheter 550 / 550 675 / 675 250 / 250 Other: Meal Dinner Breakfast Percent of Meal Consumed 5% 25% Weight 75.115 kg Patient Weight 12/01/16 23:59 Weight 75.115 kg - General Appearance Exam: General appearance: Present: well-developed, well-nourished, appears started age , frail EENT: Present: ATNC, PERRL, mucous membranes moist Neck: Present: supple Respiratory: Present: clear Cardiology: Present: edema, normal S1, normal S2 Gastrointestinal: Present: normoactive bowel sounds, no tenderness, no guarding , obese Integumentary: Present: ulcer Neurologic: Present: no focal deficit, no asterixis, alert and oriented x3, hard of hearing Musculoskeletal: Present: no cyanosis, cyanosis Psychiatric: Present: mood/affect appropriate, cooperative - Lab 12/01/16 03:39 12/01/16 03:39 Most recent lab results Calcium 8.7 mg/dL (8.6-10.8) 12/01/16 03:39 Phosphorus 4.4 mg/dL (2.3-4.7) 11/30/16 06:10 Magnesium 1.8 mg/dL (1.6-2.6) 11/30/16 06:10 Urine Creatinine 16 mg/dL 11/28/16 10:05 Urine Total Protein 26 mg/dL (1-14) H 11/28/16 10:05 - VTE Documentation of Mechanical Device: Intermittent pneumatic compression device Consult Discharge Plan - Plan Referrals: NO,PCP [Primary Care Provider] - (can not remember the drs. name..)
--- NOTE | 2016-12-01 12:56 | Internal Med Progress Note ---
Date of Encounter: 12/01/16 Time of Encounter: 12:54 - Assessment and plan (1) Sepsis affecting skin Current Visit: Yes Status: Acute Assessment and plan: Sepsis secondary to left lower extremity cellulitis, improving Continue Ancef day 4, blood cultures: no growth WBC was 14.1, improved stopped bumex drip, hold lasix still ( does not appear overloaded post ) Venous Dupplex was negative for DVT (2) Membranous glomerulonephritis with nephrosis Current Visit: Yes Status: Chronic Assessment and plan: followed by Dr Ortiz, most likely a renal biopsy will be performed in the morning Nothing by mouth after midnight On low dose Prednisone IMMANUEL and ARB are being held Consider cytotoxic agents 24 h urine collection ordered (proteinuria) High risk due to infection and renal failure (3) Central hypothyroidism Current Visit: Yes Status: Acute Assessment and plan: TSH is low 0.0 10 and T 3 is low 1.57 increased levothyroxine to 137 g daily (4) Elevated troponin Current Visit: Yes Status: Acute Assessment and plan: Likely secondary to demand ischemia (5) HTN (hypertension) Current Visit: Yes Status: Acute Assessment and plan: Titrated down nitroglycerin drip Continue labetalol twice a day, lisinopril is on hold Qualifiers: Hypertension type: essential hypertension Qualified Code(s): I10 - Essential (primary) hypertension (6) Acute exacerbation of CHF (congestive heart failure) Current Visit: Yes Status: Ruled-out Assessment and plan: Acute Pulmonary edema secondary to acute on chronic diastolic CHF exacerbation The patient was on a Bumex drip that was stopped at the moment as her dyspnea improved and due to concerns of sepsis hold lasix for now Strict I's and O's and daily weight Echocardiogram showed an ejection fraction of 60-65% with mild diastolic dysfunction Qualifiers: Congestive heart failure type: diastolic Qualified Code(s): I50.33 - Acute on chronic diastolic (congestive) heart failure (7) CKD (chronic kidney disease) stage 4, GFR 15-29 ml/min Current Visit: Yes Status: Chronic Assessment and plan: creat is worse - Subjective Interval history: Improving slowly, The patient is less confused, very hard of hearing, complaining of pain mainly in her left lower extremity, the leg appears less warm and tender to touch in the calf area. Denies any chest pain but feels short of breath. No fevers, no abdominal pain or diarrhea. No dysuria - Constitutional Vitals: Temp Pulse Resp BP Pulse Ox 97.5 F L 80 18 113/53 97 12/01/16 11:04 12/01/16 11:04 12/01/16 11:04 12/01/16 11:04 12/01/16 11:04 General appearance: Present: cooperative, mild distress (Very hard of hearing), A&O X 3, pleasant, answers questions appropriately (Unsure of medication history ) - Head Head exam: Present: atraumatic, normocephalic - Eye Eye exam: Present: PERRL, conjuntiva pink, sclera anicteric Pupils: Present: PERRL - Neck Neck exam general surgery: Present: supple, trachea midline. Absent: lymphadenopathy - Respiratory Respiratory exam: Present: decreased breath sounds, CTAB. Absent: accessory muscle use, rales, rhonchi, wheezes - Cardiovascular Cardiovascular exam: Present: RRR, +S1, +S2. Absent: diastolic murmur, gallop, rubs, systolic murmur - GI/Abdominal GI/Abdominal exam: Present: diminished bowel sounds, normal bowel sounds, soft, no peritoneal signs. Absent: distended, tenderness - Extremities Exam Extremities exam: Present: pedal edema (+1 pitting edema in the lower extremities, left calf erythema/ecchymosis is improving), warm, radial pulses palpable and symetrical. Absent: calf tenderness, cyanotic - Neurological Exam Neurological exam: Present: CN II-XII intact, oriented X3, no focal deficits. Absent: pronater drift, facial droop, speech deficit - Skin Skin exam: Present: dry, intact Internal Medicine: Result - Labs CBC & Chem 7: 12/01/16 03:39 12/01/16 03:39 Labs: Short CBC 12/01/16 Range/Units 03:39 WBC 13.2 H (4.3-11.1) K/mcL Hgb 10.3 L (11.5-15.4) g/dL Hct 32.9 L (35.3-44.9) % Plt Count 194 (140-400) K/mcL Neutrophils # 11.6 H (1.6-8.9) K/mcL BMP 12/01/16 03:39 Sodium 144 Potassium 4.6 H D Chloride 104 Carbon Dioxide 28 BUN 85 H Creatinine 2.75 H Glucose 138 H Calcium 8.7 - ABG Interpretation ABG results: PT/INR, D-dimer PT 10.9 Seconds (9.4-12.1) 11/28/16 01:25 - VTE Documentation of Mechanical Device: Intermittent pneumatic compression device Consult Discharge Plan - Plan Referrals: NO,PCP [Primary Care Provider] - (can not remember the drs. name..)
[2016-12-02] MEDS: ceFAZolin 1,000 MG in D5% in Water (Mini-Bag+) 100 ML IVPB SCH ×2 (04:53→16:17)
[2016-12-02 04:59] LABS: Basophils % 0.2 %; Eosinophils % 0.1 %; Hematocrit 32.1 % (35.3-44.9); Hemoglobin 10.2 g/dL (11.5-15.4); Immature Granulocytes % 2.5 % (0-4); Lymphocytes # 0.3 K/mcL (0.6-4.6); Lymphocytes % 2.1 %; Mean Corpuscular HGB Conc 31.8 g/dL (31.6-35.5); Mean Corpuscular Hemoglobin 26.8 pg (28.0-33.3); Mean Corpuscular Volume 84.5 fL (83.0-100.0); Mean Platelet Volume 12.1 fL (9.4-12.4); Monocytes # 0.9 K/mcL (0.0-1.3); Monocytes % 6.7 %; Neutrophils # 11.8 K/mcL (1.6-8.9); Platelet Count 180 K/mcL (140-400); Red Cell Distribution Width 17.1 % (11.5-14.5); Segmented Neutrophils % 88.4 %
[2016-12-02 05:07] LABS: Prothrombin Time 10.6 Seconds (9.4-12.1)
[2016-12-02 05:18] LABS: Calcium 8.6 mg/dL (8.6-10.8); Potassium 5.8 mEq/L (3.5-4.5)
[2016-12-02] MEDS: *HR* Heparin 5,000 UNIT/ML VIAL SQ SCH ×2 (05:40→19:49)
[2016-12-02] MEDS: hydrALAZINE 25 MG TABLET PO SCH ×3 (05:40→16:17)
--- NOTE | 2016-12-02 11:09 | Nephrology Progress Note ---
Date of Encounter: 12/02/16 Time of Encounter: 09:15 - Assessment and Plan (1) CKD (chronic kidney disease) stage 4, GFR 15-29 ml/min Current Visit: Yes Status: Chronic Hyperkalemia: stop the KCl (she was getting 40mEq bid). I've also ordered kayexalate 45gm x1 and a follow up BMP. She appears asymptomatic on exam. No urgent HD necessary today, but she is trending worse. She may need HD in the next 24-48htr. With the renal biopsy, I recommend sending it to [facility] (not [facility] ). I called out lab to help with the logistics. I've ordered Anti-PLA2R, which is pending, but I'm concerned for a recurrence of MN. She has a hx of MN with subnephrotic proteinuria and CKD stage IV. The pt has been on low dose steroids and both an IMMANUEL and ARB (the latter of which I have held both). Continue the low dose prednisone in the meantime, but having a renal biopsy will help determine her degree of interstitial fibrosis, which would help determine if it would be worth pulse dose prednisone and/or cytoxic agents. Continue to follow a renal protective strategy: avoid NSAIDs, Bactrim, Contrast and strict I/Os and daily weights. Discussed with the primary team. I will follow with you. Thank you. (2) Membranous glomerulonephritis with nephrosis Current Visit: Yes Status: Chronic See above (3) Hypoalbuminemia Current Visit: Yes Status: Acute Likely worsened by her proteinuria. I recommend a goal serum Albumin of 4. Nepro shakes with each meal. (4) Chronic steroid use Current Visit: Yes Status: Chronic See above. Counseled pt about the risks of osteoporosis and GERD. (5) HTN (hypertension) Current Visit: Yes Status: Acute See above. Qualifiers: Hypertension type: essential hypertension Qualified Code(s): I10 - Essential (primary) hypertension Subjective Principal diagnosis: CHF Interval history: Pt was s/e. She is hard of hearing. The pt did not affirm N/V/D but did report having a diminished appetite today. I spoke to the RN who reported that she is about to leave the floor for the renal biopsy. Objective - Vital Signs Vital signs: Vital Signs Temp Pulse Resp BP Pulse Ox 12/02/16 10:58 100 18 179/93 98 12/02/16 10:54 105 16 176/87 98 12/02/16 10:48 100 22 181/89 98 12/02/16 10:45 102 22 179/82 97 12/02/16 07:39 97.7 F 95 18 135/64 95 12/02/16 05:31 97.5 F L 82 18 131/58 95 12/02/16 01:02 97.7 F 88 18 121/54 94 L 12/01/16 19:43 98.3 F 88 18 147/69 96 12/01/16 15:23 97.6 F 86 16 121/65 94 L Intake and Output 12/01/16 12/02/16 12/02/16 23:59 07:59 15:59 Intake Total 340 / 340 100 / 100 Output Total 325 / 325 300 / 300 Balance -200 / -200 Intake: IV Fluids 100 / 100 100 / 100 Ancef 1,000 MG In 100 / 100 100 / 100 Dextrose 5% (Minibag+) 100 ML 100 ML @ 200 mls/ hr IVPB Q12H [facility] Rx#: [id number] Oral 240 / 240 0 / 0 Output: Urine 325 / 325 Catheter 300 / 300 Other: Weight 74.933 kg Patient Weight 12/02/16 23:59 Weight 74.933 kg - General Appearance General appearance: Present: appears started age, chronically ill, frail EENT: Present: ATNC, mucous membranes moist Neck: Present: supple Respiratory: Present: clear Cardiology: Present: holosystolic murmur, edema, normal S1, normal S2 Gastrointestinal: Present: normoactive bowel sounds, no tenderness, no guarding , no organomegaly, no masses Integumentary: Present: no rash, warm and dry Neurologic: Present: no focal deficit, no asterixis, alert and oriented x3 Musculoskeletal: Present: no deformities, no erythema, no cyanosis Psychiatric: Present: mood/affect appropriate, cooperative - Lab 12/02/16 04:35 12/02/16 04:35 Most recent lab results Calcium 8.6 mg/dL (8.6-10.8) 12/02/16 04:35 Phosphorus 4.4 mg/dL (2.3-4.7) 11/30/16 06:10 Magnesium 1.8 mg/dL (1.6-2.6) 11/30/16 06:10 Urine Creatinine 16 mg/dL 11/28/16 10:05 Urine Total Protein 26 mg/dL (1-14) H 11/28/16 10:05 - VTE Documentation of Mechanical Device: Intermittent pneumatic compression device Consult Discharge Plan - Plan Referrals: NO,PCP [Primary Care Provider] - (can not remember the drs. name..)
[2016-12-02] MEDS: predniSONE 5 MG TABLET PO SCH (11:35)
[2016-12-02] MEDS: *HR* OxyCODONE Immed Rel 5 MG TABLET PO PRN (11:35)
[2016-12-02] MEDS: amLODIPine 5 MG TABLET PO SCH (11:35)
[2016-12-02] MEDS: Furosemide 20 MG TABLET PO SCH (11:35)
--- NOTE | 2016-12-02 11:51 | IR Procedure Note ---
Date of procedure: 12/02/16 Consent Obtained: Written consent Timeout: Correct patient and procedure verified, Correct site verified, Time out performed, Skin prep completed Indications: medical renal disease Procedure Performed: renal biopsy-random Site/Technique: rt kidney, 18G gun Results/Findings: 4 diagnostic specimens Estimated blood loss (cc): 10 Complications: None; Tolerated procedure well Post Procedure Treatment Plan: dc to floor
--- NOTE | 2016-12-02 12:20 | Internal Med Progress Note ---
Date of Encounter: 12/02/16 Time of Encounter: 12:18 - Assessment and plan (1) Sepsis affecting skin Current Visit: Yes Status: Acute Assessment and plan: Sepsis secondary to left lower extremity cellulitis, improving Continue Ancef day 5, blood cultures: no growth WBC was 14.1, improved stopped bumex drip, hold lasix still ( does not appear overloaded post ) Venous Dupplex was negative for DVT (2) Membranous glomerulonephritis with nephrosis Current Visit: Yes Status: Chronic Assessment and plan: followed by Dr Ortiz, most likely a renal biopsy will be performed in the morning Nothing by mouth after midnight had right renal biopsy today. On low dose Prednisone IMMANUEL and ARB are being held Consider cytotoxic agents 24 h urine collection ordered (proteinuria) High risk due to infection and renal failure (3) Central hypothyroidism Current Visit: Yes Status: Acute Assessment and plan: TSH is low 0.0 10 and T 3 is low 1.57 increased levothyroxine to 137 g daily (4) Elevated troponin Current Visit: Yes Status: Acute Assessment and plan: Likely secondary to demand ischemia (5) HTN (hypertension) Current Visit: Yes Status: Acute Assessment and plan: Titrated down nitroglycerin drip Continue labetalol twice a day, lisinopril is on hold Qualifiers: Hypertension type: essential hypertension Qualified Code(s): I10 - Essential (primary) hypertension (6) Acute exacerbation of CHF (congestive heart failure) Current Visit: Yes Status: Ruled-out Assessment and plan: Acute Pulmonary edema secondary to acute on chronic diastolic CHF exacerbation The patient was on a Bumex drip that was stopped at the moment as her dyspnea improved and due to concerns of sepsis hold lasix for now Strict I's and O's and daily weight decrease Lasix 20 mg BID to only daily Echocardiogram showed an ejection fraction of 60-65% with mild diastolic dysfunction Qualifiers: Congestive heart failure type: diastolic Qualified Code(s): I50.33 - Acute on chronic diastolic (congestive) heart failure (7) CKD (chronic kidney disease) stage 4, GFR 15-29 ml/min Current Visit: Yes Status: Chronic Assessment and plan: creat is worse (8) Hyperkalemia Current Visit: Yes Status: Acute Assessment and plan: stop potassium received kayexalate ,monitor K - Time Spent With Patient Greater than 35 minutes - Subjective Interval history: Renal function is worse, but less confused, very hard of hearing, complaining of pain mainly in her left lower extremity, the leg appears less warm and tender to touch in the calf area. Denies any chest pain but feels short of breath. No fevers, no abdominal pain or diarrhea. No dysuria - Constitutional Vitals: Temp Pulse Resp BP Pulse Ox 97.6 F 87 18 135/81 95 12/02/16 11:57 12/02/16 11:57 12/02/16 11:57 12/02/16 11:57 12/02/16 11:57 General appearance: Present: cooperative, mild distress (Very hard of hearing), A&O X 3, pleasant, answers questions appropriately (Unsure of medication history ) - Head Head exam: Present: atraumatic, normocephalic - Eye Eye exam: Present: PERRL, conjuntiva pink, sclera anicteric Pupils: Present: PERRL - Neck Neck exam general surgery: Present: supple, trachea midline. Absent: lymphadenopathy - Respiratory Respiratory exam: Present: CTAB. Absent: accessory muscle use, rales, rhonchi, wheezes - Cardiovascular Cardiovascular exam: Present: RRR, +S1, +S2. Absent: diastolic murmur, gallop, rubs, systolic murmur - GI/Abdominal GI/Abdominal exam: Present: normal bowel sounds, soft, no peritoneal signs. Absent: distended, tenderness Additional comments: right flank area with band aid (renal biopsy) no hematoma - Extremities Exam Extremities exam: Present: warm, radial pulses palpable and symetrical. Absent : calf tenderness, cyanotic, pedal edema Additional comments: large echimotic area in the left calf , erythema improving. - Neurological Exam Neurological exam: Present: CN II-XII intact, oriented X3, no focal deficits. Absent: pronater drift, facial droop, speech deficit - Skin Skin exam: Present: dry, intact Internal Medicine: Result - Labs CBC & Chem 7: 12/02/16 04:35 12/02/16 04:35 Labs: Short CBC 12/02/16 Range/Units 04:35 WBC 13.3 H (4.3-11.1) K/mcL Hgb 10.2 L (11.5-15.4) g/dL Hct 32.1 L (35.3-44.9) % Plt Count 180 (140-400) K/mcL Neutrophils # 11.8 H (1.6-8.9) K/mcL BMP 12/02/16 04:35 Sodium 142 Potassium 5.8 H D Chloride 104 Carbon Dioxide 28 BUN 99 H Creatinine 3.08 H Glucose 122 H Calcium 8.6 - ABG Interpretation ABG results: PT/INR, D-dimer PT 10.6 Seconds (9.4-12.1) 12/02/16 04:35 - VTE Documentation of Mechanical Device: Intermittent pneumatic compression device Consult Discharge Plan - Plan Referrals: NO,PCP [Primary Care Provider] - (can not remember the drs. name..)
[2016-12-02 13:34] LABS: Total Volume 24 Hour,Urine 0.91 Liters (0.60-1.60)
[2016-12-02 13:53] LABS: Total Protein 24 Hour,Urine 573 mg/day (0-299)
[2016-12-02 13:54] LABS: Sodium, Urine < 20.0 mEq/L
[2016-12-02 14:12] LABS: Creatinine 24 Hour,Urine 0.48 g/day (0.71-1.65); Creatinine,Urine 53 mg/dL; Protein/Creatinine Ratio,Urine 1.19 mg/mg (0-0.20)
[2016-12-02 15:07] LABS: Calcium 8.9 mg/dL (8.6-10.8)
[2016-12-02 15:08] LABS: Potassium 4.3 mEq/L (3.5-4.5)
[2016-12-03] MEDS: hydrALAZINE 25 MG TABLET PO SCH ×5 (03:26→23:48)
[2016-12-03] MEDS: ceFAZolin 1,000 MG in D5% in Water (Mini-Bag+) 100 ML IVPB SCH ×2 (03:38→16:34)
[2016-12-03 03:54] LABS: Basophils % 0.2 %; Hematocrit 32.2 % (35.3-44.9); Hemoglobin 10.1 g/dL (11.5-15.4); Immature Granulocytes % 2.4 % (0-4); Lymphocytes # 0.3 K/mcL (0.6-4.6); Lymphocytes % 1.9 %; Mean Corpuscular HGB Conc 31.4 g/dL (31.6-35.5); Mean Corpuscular Hemoglobin 26.4 pg (28.0-33.3); Mean Corpuscular Volume 84.1 fL (83.0-100.0); Mean Platelet Volume 11.6 fL (9.4-12.4); Monocytes # 1.1 K/mcL (0.0-1.3); Neutrophils # 11.8 K/mcL (1.6-8.9); Platelet Count 164 K/mcL (140-400); Red Blood Count 3.83 M/mcL (3.82-4.97); Red Cell Distribution Width 17.1 % (11.5-14.5); Segmented Neutrophils % 87.5 %
[2016-12-03 04:06] LABS: Calcium 8.3 mg/dL (8.6-10.8); Potassium 3.1 mEq/L (3.5-4.5)
[2016-12-03 04:27] LABS: Hepatitis B Surface Antibody 0.17 mIU/mL; Hepatitis B Surface Antigen Nonreactive (Nonreactive)
[2016-12-03] MEDS: *HR* Heparin 5,000 UNIT/ML VIAL SQ SCH ×2 (05:41→19:59)
[2016-12-03] MEDS: amLODIPine 5 MG TABLET PO SCH (08:04)
[2016-12-03] MEDS: predniSONE 5 MG TABLET PO SCH (08:05)
[2016-12-03] MEDS ORDERED: Furosemide 20 MG TABLET PO SCH (09:00)
--- NOTE | 2016-12-03 09:07 | Nephrology Progress Note ---
Date of Encounter: 12/03/16 Time of Encounter: 09:06 - Assessment and Plan (1) CKD (chronic kidney disease) stage 4, GFR 15-29 ml/min Current Visit: Yes Status: Chronic Minimal improvement in the patient's serum creatinine and GFR overnight. Status post kidney biopsy yesterday, pathology pending. No urgent need for hemodialysis at this time, but may need it in the next 24-48 hours. Renal biopsy will help determine the degree of interstitial fibrosis, and likelihood that the patient would respond to pulse dose steroids and/or cytotoxic agents. Continue low-dose prednisone at this time as well as a renal protective strategy. 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 Will replace daily if needed. (4) Hypoalbuminemia Current Visit: Yes Status: Acute (5) Chronic steroid use Current Visit: Yes Status: Chronic (6) HTN (hypertension) Current Visit: Yes Status: Acute Qualifiers: Hypertension type: essential hypertension Qualified Code(s): I10 - Essential (primary) hypertension Subjective Principal diagnosis: CHF Interval history: Patient seen and examined at the bedside. Status post renal biopsy yesterday without complications. We discussed the options pending her biopsy. She has no complaints/concerns at this time. Objective - Vital Signs Vital signs: Vital Signs Temp Pulse Resp BP Pulse Ox 12/03/16 07:12 97.8 F 77 18 151/64 93 L 12/03/16 04:13 97.4 F L 89 16 131/66 96 12/03/16 00:59 97.7 F 75 16 127/64 96 12/02/16 22:27 98.3 F 78 14 132/61 93 L 12/02/16 19:53 94 L 12/02/16 16:17 97.9 F 94 18 135/67 95 12/02/16 11:57 97.6 F 87 18 135/81 95 12/02/16 10:58 100 18 179/93 98 12/02/16 10:54 105 16 176/87 98 12/02/16 10:48 100 22 181/89 98 12/02/16 10:45 102 22 179/82 97 Intake and Output 12/02/16 12/03/16 12/03/16 23:59 07:59 15:59 Intake Total 220 / 220 100 / 100 Output Total 425 / 425 Balance 220 / 220 -425 / -425 100 / 100 Intake: IV Fluids 100 / 100 100 / 100 Ancef 1,000 MG In 100 / 100 100 / 100 Dextrose 5% (Minibag+) 100 ML 100 ML @ 200 mls/ hr IVPB Q12H [facility] Rx#: [id number] Oral 120 / 120 Output: Urine 325 / 325 Urethral (Flores) 325 / 325 Catheter 100 / 100 Other: Meal Dinner Percent of Meal Consumed 50% Stool Size Copious Stool Consistency liquid Stool Color Brown # Bowel Movements 1 Weight 78.2 kg Patient Weight 12/03/16 23:59 Weight 78.2 kg - General Appearance Exam: General: Patient is alert and in no acute distress, chronically ill-appearing HEENT: Normocephalic atraumatic, pupils are equal round and reactive to light and accommodation, tympanic membrane is intact, nares is patent, mucous membranes moist, throat is not injected, no JVD, trachea is midline Cardiovascular: Regular rate and rhythm with holosystolic murmur Respiratory: Lungs are clear to auscultation bilaterally, no wheezing, rhonchi, rales Abdomen: Soft, nontender, nondistended, positive bowel sounds in all 4 quadrants Extremities: Mateo wrap's to bilateral lower extremities, 2-3+ pitting edema noted around Mateo wrap's Neuro: A&Ox3, speech is appropriate, cranial nerves II through XII are normal as tested - Lab 12/03/16 03:40 12/03/16 03:40 Most recent lab results Calcium 8.3 mg/dL (8.6-10.8) L 12/03/16 03:40 Phosphorus 4.4 mg/dL (2.3-4.7) 11/30/16 06:10 Magnesium 1.8 mg/dL (1.6-2.6) 11/30/16 06:10 Urine Creatinine 53 mg/dL 12/01/16 02:05 Ur Total Protein 24 Hr 573 mg/day (0-299) H 12/01/16 02:05 Urine Sodium < 20.0 mEq/L 12/01/16 02:05 Urine Total Protein 63 mg/dL (1-14) H 12/01/16 02:05 - VTE Documentation of Mechanical Device: Intermittent pneumatic compression device Consult Discharge Plan - Plan Referrals: NO,PCP [Primary Care Provider] - (Patient can not remember the name of her PCP , however patient is being referred to an ECF and will follow up with their PCP for now)
--- NOTE | 2016-12-03 13:43 | Internal Med Progress Note ---
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 stable post procedure. IMMANUEL and ARB are being held will follow renal recommendations for further managment, awaiting biopsy results. (2) HTN (hypertension) Current Visit: Yes Status: Acute Assessment and plan: Continue labetalol twice a day, lisinopril is on hold. BP stable Qualifiers: Hypertension type: essential hypertension Qualified Code(s): I10 - Essential (primary) hypertension (3) Sepsis affecting skin Current Visit: Yes Status: Acute Assessment and plan: Sepsis secondary to left lower extremity cellulitis, improving Continue Ancef day 6,will stop tomm. blood cultures: no growth Venous Dupplex was negative for DVT (4) Acute exacerbation of CHF (congestive heart failure) Current Visit: Yes Status: Ruled-out Assessment and plan: Acute Pulmonary edema secondary to acute on chronic diastolic CHF exacerbation The patient was on a Bumex drip that was stopped. lasix 20 mg daily. Strict I's and O's and daily weight Echocardiogram showed an ejection fraction of 60-65% with mild diastolic dysfunction Qualifiers: Congestive heart failure type: diastolic Qualified Code(s): I50.33 - Acute on chronic diastolic (congestive) heart failure (5) Hypothyroidism Current Visit: Yes Status: Chronic Assessment and plan: TSH is low 0.0 10 and T 3 is low 1.57 increased levothyroxine to 137 g daily Qualifiers: Hypothyroidism type: acquired Qualified Code(s): E03.9 - Hypothyroidism, unspecified (6) Elevated troponin Current Visit: Yes Status: Acute Assessment and plan: Likely secondary to demand ischemia - Subjective Interval history: Patient seen at the bedside today, very hard of hearing. However denies any complaints. Also met her brother at the bedside and discussed the plan. Patient has had renal biopsy yesterday, awaiting results. Renal team following. - Constitutional Vitals: Temp Pulse Resp BP Pulse Ox 97.4 F L 70 18 120/51 94 L 12/03/16 11:34 12/03/16 11:34 12/03/16 11:34 12/03/16 11:34 12/03/16 11:34 General appearance: Present: cooperative, A&O X 3, pleasant, answers questions appropriately (Unsure of medication history) Exam: General appearance: Present: cooperative, mild distress (Very hard of hearing), A&O X 3, pleasant, answers questions appropriately - Head Head exam: Present: atraumatic, normocephalic - Eye Eye exam: Present: PERRL, conjuntiva pink, sclera anicteric Pupils: Present: PERRL - Neck Neck exam general surgery: Present: supple, trachea midline. Absent: lymphadenopathy - Respiratory Respiratory exam: Present: CTAB. Absent: accessory muscle use, rales, rhonchi, wheezes - Cardiovascular Cardiovascular exam: Present: RRR, +S1, +S2. Absent: diastolic murmur, gallop, rubs, systolic murmur - GI/Abdominal GI/Abdominal exam: Present: normal bowel sounds, soft, no peritoneal signs. Absent: distended, tenderness Additional comments: right flank area with band aid (renal biopsy) no hematoma - Extremities Exam Extremities exam: Present: warm, radial pulses palpable and symetrical. Absent : calf tenderness, cyanotic, pedal edema Additional comments: large echimotic area in the left calf , erythema improving. - Neurological Exam Neurological exam: Present: CN II-XII intact, oriented X3, no focal deficits. Absent: pronater drift, facial droop, speech deficit - Skin Skin exam: Present: dry, intact Internal Medicine: Result - Labs CBC & Chem 7: 12/03/16 03:40 12/03/16 03:40 Labs: Short CBC 12/03/16 Range/Units 03:40 WBC 13.4 H (4.3-11.1) K/mcL Hgb 10.1 L (11.5-15.4) g/dL Hct 32.2 L (35.3-44.9) % Plt Count 164 (140-400) K/mcL Neutrophils # 11.8 H (1.6-8.9) K/mcL BMP 12/02/16 12/03/16 14:50 03:40 Sodium 144 145 Potassium 4.3 D 3.1 L D Chloride 104 102 Carbon Dioxide 29 27 BUN 103 H 105 H Creatinine 3.32 H 3.21 H Glucose 170 H 122 H Calcium 8.9 8.3 L - ABG Interpretation ABG results: PT/INR, D-dimer PT 10.6 Seconds (9.4-12.1) 12/02/16 04:35 - Impressions Impressions Renal Biopsy CT 12/02/16 00:00 IMPRESSION: Successful CT guided core random renal biopsy. D/ / 12/02/2016 15:55:46 Karla Welch MD / tomi Interpreting Provider: Karla Welch MD - VTE Documentation of Mechanical Device: Intermittent pneumatic compression device Consult Discharge Plan - Plan Referrals: NO,PCP [Primary Care Provider] - (Patient can not remember the name of her PCP , however patient is being referred to an ECF and will follow up with their PCP for now)
--- NOTE | 2016-12-03 14:46 | Electrocardiograph Report ---
[place] [id number] Test Date: 2016-12-03 Pat Name: Shea Ortega Department: 112 Room: 2A23 Gender: F Wheat [employer]her: : 1935 Requested By: Aram Villela Order Number: [id number] Reading MD: Shayna Roman Measurements Intervals [place] Rate: 97 P: 96 LA: 121 QRS: -73 QRSD: 106 T: 56 QT: 324 QTc: 379 Interpretive Statements SINUS RHYTHM WITH FREQUENT SUPRAVENTRICULAR PREMATURE COMPLEXES MARKED LEFT AXIS DEVIATION NONSPECIFIC ST \T\ T-WAVE ABNORMALITY BASELINE ARTIFACT Electronically Signed On 12-03-2016 14:45:22 EST by Shayna Roman
--- NOTE | 2016-12-03 18:08 | Event Note ---
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 Interestingly there are no signs of membranous nephropathy: no deposits and no IgG in IF. I searched [facility] in both the old edition and in eCW for a copy of the renal biopsy but I could not find it. No need for prednisone actually at this point. I do recommend holding lasix as her rising SCr appears to be due to extr-renal causes, perhaps the diuretics. I discussed these findings with the patient and hospitalists.
[2016-12-04] MEDS: ceFAZolin 1,000 MG in D5% in Water (Mini-Bag+) 100 ML IVPB SCH ×2 (04:24→16:42)
[2016-12-04 05:31] LABS: Basophils # 0.1 K/mcL (0.0-0.2); Basophils % 0.3 %; Hemoglobin 10.3 g/dL (11.5-15.4); Immature Granulocytes % 2.5 % (0-4); Lymphocytes # 0.2 K/mcL (0.6-4.6); Lymphocytes % 1.3 %; Mean Corpuscular HGB Conc 31.2 g/dL (31.6-35.5); Mean Corpuscular Hemoglobin 26.3 pg (28.0-33.3); Mean Corpuscular Volume 84.2 fL (83.0-100.0); Monocytes # 1.6 K/mcL (0.0-1.3); Monocytes % 9.2 %; Neutrophils # 14.8 K/mcL (1.6-8.9); Platelet Count 155 K/mcL (140-400); Red Blood Count 3.92 M/mcL (3.82-4.97); Red Cell Distribution Width 16.9 % (11.5-14.5); Segmented Neutrophils % 86.7 %
[2016-12-04 05:49] LABS: Calcium 8.2 mg/dL (8.6-10.8); Potassium 3.1 mEq/L (3.5-4.5)
[2016-12-04] MEDS: *HR* Heparin 5,000 UNIT/ML VIAL SQ SCH ×2 (06:28→20:40)
[2016-12-04] MEDS: hydrALAZINE 25 MG TABLET PO SCH ×3 (07:21→17:43)
[2016-12-04] MEDS: amLODIPine 5 MG TABLET PO SCH (07:25)
--- NOTE | 2016-12-04 09:50 | Nephrology Progress Note ---
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 No signs of membranous nephropathy. No deposits and no IgG in interstitial fibrosis. Patient's prednisone has been discontinued and her Lasix has been discontinued in the setting of rising serum creatinine. Patient's acute kidney injury on chronic kidney disease appears to be due to extrarenal causes most likely diuretic use in the setting of congestive heart failure. We will give the patient gentle IV hydration for 1 L and recheck an urinalysis. (2) Membranous glomerulonephritis with nephrosis Current Visit: Yes Status: Chronic Patient diagnosed with membranous glomerulonephritis several years ago by renal biopsy. Treated with low-dose prednisone. Repeat renal biopsy without evidence of membranous GN. Prednisone has been discontinued. (3) Hypokalemia Current Visit: Yes Status: Acute Repleted with dose of oral potassium. Will replace daily if needed. (4) Acute exacerbation of CHF (congestive heart failure) Current Visit: Yes Status: Acute Qualifiers: Congestive heart failure type: diastolic Qualified Code(s): I50.33 - Acute on chronic diastolic (congestive) heart failure (5) Hypoalbuminemia Current Visit: Yes Status: Acute (6) HTN (hypertension) Current Visit: Yes Status: Chronic Qualifiers: Hypertension type: essential hypertension Qualified Code(s): I10 - Essential (primary) hypertension Subjective Principal diagnosis: CHF Interval history: Patient seen and examined at the bedside. No acute events overnight per nursing staff. She has no complaints/concerns at this time. Discussed plan of care with patient and family at bedside. Objective - Vital Signs Vital signs: Vital Signs Temp Pulse Resp BP Pulse Ox 12/04/16 07:29 96 12/04/16 07:14 98.2 F 92 18 153/52 96 12/04/16 03:33 98.2 F 94 19 151/71 93 L 12/04/16 02:16 95 12/03/16 23:53 98.2 F 74 18 152/56 94 L 12/03/16 23:44 94 L 12/03/16 22:20 95 12/03/16 20:55 98 F 87 16 123/55 95 12/03/16 20:09 94 L 12/03/16 15:23 97.8 F 88 18 135/49 98 12/03/16 11:34 97.4 F L 70 18 120/51 94 L Intake and Output 12/03/16 12/04/16 12/04/16 23:59 07:59 15:59 Intake Total 620 / 620 120 / 120 Output Total 300 / 300 150 / 150 Balance 320 / 320 -150 / -150 120 / 120 Intake: IV Fluids 100 / 100 Ancef 1,000 MG In 100 / 100 Dextrose 5% (Minibag+) 100 ML 100 ML @ 200 mls/ hr IVPB Q12H [facility] Rx#: [id number] Oral 520 / 520 120 / 120 Output: Urine 300 / 300 150 / 150 Urethral (Flores) 300 / 300 150 / 150 Other: Meal Dinner refused Percent of Meal Consumed 0% 0% Weight 79.9 kg Patient Weight 12/04/16 23:59 Weight 79.9 kg - General Appearance Exam: General: Patient is alert and in no acute distress, chronically ill-appearing HEENT: Normocephalic atraumatic, pupils are equal round and reactive to light and accommodation, tympanic membrane is intact, nares is patent, mucous membranes moist, throat is not injected, no JVD, trachea is midline Cardiovascular: Regular rate and rhythm with holosystolic murmur Respiratory: Lungs are clear to auscultation bilaterally, no wheezing, rhonchi, rales Abdomen: Soft, nontender, nondistended, positive bowel sounds in all 4 quadrants Extremities: Mateo wraps to bilateral lower extremities, 2-3+ pitting edema noted around Mateo wraps Neuro: A&Ox3, speech is appropriate, cranial nerves II through XII are normal as tested - Lab 12/04/16 04:58 12/04/16 04:58 Most recent lab results Calcium 8.2 mg/dL (8.6-10.8) L 12/04/16 04:58 Phosphorus 4.4 mg/dL (2.3-4.7) 11/30/16 06:10 Magnesium 1.8 mg/dL (1.6-2.6) 11/30/16 06:10 Urine Creatinine 53 mg/dL 12/01/16 02:05 Ur Total Protein 24 Hr 573 mg/day (0-299) H 12/01/16 02:05 Urine Sodium < 20.0 mEq/L 12/01/16 02:05 Urine Total Protein 63 mg/dL (1-14) H 12/01/16 02:05 - VTE Documentation of Mechanical Device: Intermittent pneumatic compression device Consult Discharge Plan - Plan Referrals: NO,PCP [Primary Care Provider] - (Patient can not remember the name of her PCP , however patient is being referred to an ECF and will follow up with their PCP for now)
[2016-12-04] MEDS ORDERED: 0.9 % Sodium Chloride 1,000 ML IVC SCH (13:30)
--- NOTE | 2016-12-04 14:11 | Internal Med Progress Note ---
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 as per renal, she will not need steroids at this time, also holding lasix for now. does not need HD at this time, being assesed by renal team. appreciate recommendations. IMMANUEL and ARB are being held Qualifiers: Acute renal failure type: unspecified Qualified Code(s): N17.9 - Acute kidney failure, unspecified (2) HTN (hypertension) Current Visit: Yes Status: Acute Assessment and plan: Continue labetalol twice a day, lisinopril is on hold. BP stable Qualifiers: Hypertension type: essential hypertension Qualified Code(s): I10 - Essential (primary) hypertension (3) Sepsis affecting skin Current Visit: Yes Status: Acute Assessment and plan: Sepsis secondary to left lower extremity cellulitis, improving will stop Ancef day after dose today, will complete 7 days today. blood cultures: no growth Venous Dupplex was negative for DVT (4) Acute exacerbation of CHF (congestive heart failure) Current Visit: Yes Status: Ruled-out Assessment and plan: Acute Pulmonary edema secondary to acute on chronic diastolic CHF exacerbation The patient was on a Bumex drip that was stopped and lasix has been stopped yesterday. Strict I's and O's and daily weight, fluid restriction diet. Echocardiogram showed an ejection fraction of 60-65% with mild diastolic dysfunction. will watch for any respiratory distress or worsening leg swelling. Qualifiers: Congestive heart failure type: diastolic Qualified Code(s): I50.33 - Acute on chronic diastolic (congestive) heart failure (5) Hypothyroidism Current Visit: Yes Status: Chronic Assessment and plan: TSH is low 0.0 10 and T 3 is low 1.57 increased levothyroxine to 137 g daily Qualifiers: Hypothyroidism type: acquired Qualified Code(s): E03.9 - Hypothyroidism, unspecified (6) Elevated troponin Current Visit: Yes Status: Acute Assessment and plan: Likely secondary to demand ischemia - Time Spent With Patient 25 - 35 minutes - Subjective Interval history: Patient seen at the bedside today, very hard of hearing. However denies any complaints. Also met her brother at the bedside and discussed about the biopsy report. Patient has had renal biopsy , which was negative for membranous glomerulonephritis. Renal team following. - Constitutional Vitals: Temp Pulse Resp BP Pulse Ox 97.5 F L 71 20 125/45 92 L 12/04/16 10:52 12/04/16 10:52 12/04/16 10:52 12/04/16 10:52 12/04/16 10:52 General appearance: Present: cooperative, A&O X 3, pleasant, answers questions appropriately (Unsure of medication history) Exam: General appearance: Present: cooperative, mild distress (Very hard of hearing), A&O X 3, pleasant, answers questions appropriately - Head Head exam: Present: atraumatic, normocephalic - Eye Eye exam: Present: PERRL, conjuntiva pink, sclera anicteric Pupils: Present: PERRL - Neck Neck exam general surgery: Present: supple, trachea midline. Absent: lymphadenopathy - Respiratory Respiratory exam: Present: CTAB. Absent: accessory muscle use, rales, rhonchi, wheezes - Cardiovascular Cardiovascular exam: Present: RRR, +S1, +S2. Absent: diastolic murmur, gallop, rubs, systolic murmur - GI/Abdominal GI/Abdominal exam: Present: normal bowel sounds, soft, no peritoneal signs. Absent: distended, tenderness Additional comments: right flank area with band aid (renal biopsy) no hematoma - Extremities Exam Extremities exam: Present: warm, radial pulses palpable and symetrical. b/l swelling that has improved. Absent: calf tenderness, cyanotic, pedal edema Additional comments: small echimotic area in the left calf , erythema improving. - Neurological Exam Neurological exam: Present: CN II-XII intact, oriented X3, no focal deficits. Absent: pronater drift, facial droop, speech deficit - Skin Skin exam: Present: dry, intact Internal Medicine: Result - Labs CBC & Chem 7: 12/04/16 04:58 12/04/16 04:58 Labs: Short CBC 12/04/16 Range/Units 04:58 WBC 17.1 H (4.3-11.1) K/mcL Hgb 10.3 L (11.5-15.4) g/dL Hct 33.0 L (35.3-44.9) % Plt Count 155 (140-400) K/mcL Neutrophils # 14.8 H (1.6-8.9) K/mcL BMP 12/04/16 04:58 Sodium 140 Potassium 3.1 L Chloride 100 Carbon Dioxide 27 BUN 116 H Creatinine 3.59 H Glucose 169 H Calcium 8.2 L - ABG Interpretation ABG results: PT/INR, D-dimer PT 10.6 Seconds (9.4-12.1) 12/02/16 04:35 - VTE Documentation of Mechanical Device: Intermittent pneumatic compression device Consult Discharge Plan - Plan Referrals: NO,PCP [Primary Care Provider] - (Patient can not remember the name of her PCP , however patient is being referred to an ECF and will follow up with their PCP for now)
--- NOTE | 2016-12-04 15:11 | Electrocardiograph Report ---
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
[2016-12-04 15:54] LABS: Bilirubin,Urine Negative (Negative); Blood,Urine Moderate (Negative); Clarity,Urine Turbid (Clear); Color,Urine Yellow (Yellow); Glucose,Urine (UA) Normal (Normal); Ketones,Urine Negative (Negative); Leukocyte Esterase,Urine Small (Negative); Nitrite,Urine Negative (Negative); PH,Urine 5.5 pH Units (5.0-8.0); Protein,Urine 100 mg/dL (Neg-Trace); Specific Gravity,Urine 1.016 (1.010-1.025); Urobilinogen,Urine Normal (Normal)
[2016-12-04 15:57] LABS: Squamous Epithelial Cell,Urine Many per lpf (None-Few); WBC,Urine 15-30 per hpf (0-3)
[2016-12-04 16:30] LABS: Bacteria,Urine Few per hpf (None-Few); Hyaline Casts,Urine None Seen per lpf (None-Few); RBC,Urine 15-30 per hpf (0-3)
[2016-12-04] MEDS: *HR* OxyCODONE Immed Rel 5 MG TABLET PO PRN (20:39)
[2016-12-04] MEDS: Ondansetron 4 MG/2 ML VIAL IVP PRN (20:40)
[2016-12-05] MEDS: hydrALAZINE 25 MG TABLET PO SCH ×4 (00:02→18:00)
[2016-12-05] MEDS: ceFAZolin 1,000 MG in D5% in Water (Mini-Bag+) 100 ML IVPB SCH (04:09)
[2016-12-05] MEDS: Ondansetron 4 MG/2 ML VIAL IVP PRN ×2 (04:09→14:01)
[2016-12-05] MEDS: *HR* Heparin 5,000 UNIT/ML VIAL SQ SCH ×2 (06:02→18:00)
[2016-12-05 06:30] LABS: Basophils # 0.1 K/mcL (0.0-0.2); Basophils % 0.3 %; Hematocrit 32.1 % (35.3-44.9); Hemoglobin 10.2 g/dL (11.5-15.4); Immature Granulocytes % 2.8 % (0-4); Immature Platelets 9.2 % (1.1-6.1); Lymphocytes # 0.3 K/mcL (0.6-4.6); Lymphocytes % 1.3 %; Mean Corpuscular HGB Conc 31.8 g/dL (31.6-35.5); Mean Corpuscular Hemoglobin 26.5 pg (28.0-33.3); Mean Corpuscular Volume 83.4 fL (83.0-100.0); Mean Platelet Volume 12.4 fL (9.4-12.4); Monocytes # 1.6 K/mcL (0.0-1.3); Neutrophils # 17.5 K/mcL (1.6-8.9); Platelet Count 140 K/mcL (140-400); Red Blood Count 3.85 M/mcL (3.82-4.97); Segmented Neutrophils % 87.6 %
[2016-12-05 06:39] LABS: Phosphorous 7.7 mg/dL (2.3-4.7); Potassium 4.4 mEq/L (3.5-4.5)
[2016-12-05] MEDS: amLODIPine 5 MG TABLET PO SCH (08:20)
[2016-12-05] MEDS: *HR* OxyCODONE Immed Rel 5 MG TABLET PO PRN ×2 (08:53→13:55)
--- NOTE | 2016-12-05 08:53 | Nephrology Progress Note ---
Date of Encounter: 12/05/16 Time of Encounter: 08:52 - Assessment and Plan (1) Acute kidney injury superimposed on chronic kidney disease Current Visit: Yes Status: Acute Renal biopsy: 40-50% interstitial fibrosis with vascular disease and minimal evidence of ATN. No signs of membranous nephropathy. No deposits and no IgG in interstitial fibrosis. Patient's prednisone has been discontinued and her Lasix has been discontinued in the setting of rising serum creatinine. Patient's acute kidney injury on chronic kidney disease appears to be due to extrarenal causes most likely diuretic use in the setting of congestive heart failure. Unfortunately she did not respond to gentle IV fluid hydration and her serum creatinine has again risen today. Patient has had increased oxygen requirement along with nausea and the decision has been made to initiate hemodialysis. Temporary HD catheter was placed by interventional radiology and patient will have first session today. 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 Treated with low-dose prednisone. Repeat renal biopsy without evidence of membranous GN. Prednisone has been discontinued. (3) Acute exacerbation of CHF (congestive heart failure) Current Visit: Yes Status: Acute Qualifiers: Congestive heart failure type: diastolic Qualified Code(s): I50.33 - Acute on chronic diastolic (congestive) heart failure (4) Hypoalbuminemia Current Visit: Yes Status: Chronic (5) HTN (hypertension) Current Visit: Yes Status: Chronic Qualifiers: Hypertension type: essential hypertension Qualified Code(s): I10 - Essential (primary) hypertension Subjective Principal diagnosis: CHF Interval history: Patient seen and examined at the bedside. No acute events overnight per nursing staff. She has no complaints/concerns at this time. Appears to not be feeling well today. Discussed the need for HD at this time, she is in agreement. Objective - Vital Signs Vital signs: Vital Signs Temp Pulse Resp BP Pulse Ox 12/05/16 07:57 98.3 F 93 20 145/56 94 L 12/05/16 05:30 98.1 F 93 22 121/61 94 L 12/04/16 23:05 97.4 F L 75 18 121/48 96 12/04/16 20:04 98.3 F 84 18 149/56 92 L 12/04/16 15:53 98.3 F 66 18 125/56 92 L 12/04/16 10:52 97.5 F L 71 20 125/45 92 L Intake and Output 12/04/16 12/05/16 12/05/16 23:59 07:59 15:59 Intake Total 460 / 460 460 / 460 Output Total 350 / 350 100 / 100 Balance 110 / 110 360 / 360 Intake: IV Fluids 100 / 100 100 / 100 Ancef 1,000 MG In 100 / 100 100 / 100 Dextrose 5% (Minibag+) 100 ML 100 ML @ 200 mls/ hr IVPB Q12H [facility] Rx#: [id number] Oral 360 / 360 360 / 360 Output: Catheter 350 / 350 100 / 100 Other: Meal Dinner Percent of Meal Consumed 40% Stool Size Small Stool Consistency soft Stool Color Brown # Bowel Movements 1 - General Appearance Exam: General: Patient is alert and in no acute distress, chronically ill-appearing HEENT: Normocephalic atraumatic, pupils are equal round and reactive to light and accommodation, tympanic membrane is intact, nares is patent, mucous membranes moist, throat is not injected, no JVD, trachea is midline Cardiovascular: Regular rate and rhythm without murmur Respiratory: Lungs are diminished bilaterally with trace rhonchi noted Abdomen: Soft, nontender, nondistended, positive bowel sounds in all 4 quadrants Extremities: Mateo wraps to b/l LE, 2-3+ pitting edema noted around wraps Neuro: A&Ox3, speech is appropriate, cranial nerves II through XII are normal as tested - Lab 12/05/16 05:49 12/05/16 05:49 Most recent lab results Calcium 8.0 mg/dL (8.6-10.8) L 12/05/16 05:49 Phosphorus 7.7 mg/dL (2.3-4.7) H 12/05/16 05:49 Magnesium 1.8 mg/dL (1.6-2.6) 11/30/16 06:10 Urine Creatinine 53 mg/dL 12/01/16 02:05 Ur Total Protein 24 Hr 573 mg/day (0-299) H 12/01/16 02:05 Urine Sodium < 20.0 mEq/L 12/01/16 02:05 Urine Total Protein 63 mg/dL (1-14) H 12/01/16 02:05 - VTE Documentation of Mechanical Device: Intermittent pneumatic compression device Consult Discharge Plan - Plan Referrals: NO,PCP [Primary Care Provider] - (Patient can not remember the name of her PCP , however patient is being referred to an ECF and will follow up with their PCP for now)
[2016-12-05] MEDS ORDERED: 0.9 % Sodium Chloride 250 ML IV PRN (10:44)
--- NOTE | 2016-12-05 12:56 | IR Procedure Note ---
Date of procedure: 12/05/16 Consent Obtained: Written consent Timeout: Correct patient and procedure verified, Correct site verified, Time out performed, Skin prep completed Indications: renal failure Procedure Performed: temp HDC Site/Technique: rt IJ Results/Findings: adequate placement Estimated blood loss (cc): 0 Complications: None; Tolerated procedure well Post Procedure Treatment Plan: CXR
--- NOTE | 2016-12-05 17:28 | Internal Med Progress Note ---
Date of Encounter: 12/05/16 Time of Encounter: 17:26 - Assessment and plan (1) Acute renal failure Current Visit: Yes Status: Acute Assessment and plan: followed by Dr Ortiz, status post renal biopsy which showed 40-50% interstitial fibrosis with vascular disease and minimal evidence of ATN with no signs of membranous nephropathy: no deposits and no IgG in IF as per renal team. as per renal, she will not need steroids at this time, lasix has been held. her kidney fxns has not improved despite trial of IVF and after stopping lasix. Plan for hemodialysis today, temporary catheter placed. appreciate renal recommendations. Qualifiers: Acute renal failure type: unspecified Qualified Code(s): N17.9 - Acute kidney failure, unspecified (2) HTN (hypertension) Current Visit: Yes Status: Chronic Assessment and plan: Continue labetalol twice a day, lisinopril is on hold. BP stable Qualifiers: Hypertension type: essential hypertension Qualified Code(s): I10 - Essential (primary) hypertension (3) Sepsis affecting skin Current Visit: Yes Status: Acute Assessment and plan: Sepsis secondary to left lower extremity cellulitis, improving Computed 7 days of Ancef yesterday. blood cultures: no growth Venous Dupplex was negative for DVT (4) Acute exacerbation of CHF (congestive heart failure) Current Visit: Yes Status: Acute Assessment and plan: Acute Pulmonary edema secondary to acute on chronic diastolic CHF exacerbation The patient was on a Bumex drip that was stopped and lasix has been stopped .. Strict I's and O's and daily weight, fluid restriction diet. Echocardiogram showed an ejection fraction of 60-65% with mild diastolic dysfunction. will watch for any respiratory distress or worsening leg swelling. Qualifiers: Congestive heart failure type: diastolic Qualified Code(s): I50.33 - Acute on chronic diastolic (congestive) heart failure (5) Hypothyroidism Current Visit: Yes Status: Chronic Assessment and plan: TSH is low 0.0 10 and T 3 is low 1.57 increased levothyroxine to 137 g daily Qualifiers: Hypothyroidism type: acquired Qualified Code(s): E03.9 - Hypothyroidism, unspecified (6) Elevated troponin Current Visit: Yes Status: Acute Assessment and plan: Likely secondary to demand ischemia (7) Leucocytosis Current Visit: Yes Status: Acute Assessment and plan: Unclear etiology, does not have any fever. UA sent yesterday shows some mild leukocyte esterase, chest x-ray done today shows left basal opacity possible effusion or infiltrate. She denies any cough or chest pain or shortness of breath at this time. Also denies any burning micturition. However will start empirically on Zosyn which will cover both UTI and HCAP. uirne cx has been sent. will de escalate antibiotics as able. no other source noted, no back sores and the erythema of her left leg has improved. will repeat cbc tomm, monitor. Qualifiers: Leukocytosis type: unspecified Qualified Code(s): D72.829 - Elevated white blood cell count, unspecified - Time Spent With Patient 25 - 35 minutes - Subjective Interval history: Patient seen at the bedside today, very hard of hearing. Patient has had renal biopsy , which was negative for membranous glomerulonephritis. Renal team following, planned for HD today, placement of temporary HD catheter. - Constitutional Vitals: Temp Pulse Resp BP Pulse Ox 97.7 F 81 22 104/57 96 12/05/16 16:04 12/05/16 16:04 12/05/16 13:30 12/05/16 16:09 12/05/16 16:04 General appearance: Present: cooperative, A&O X 3, pleasant, answers questions appropriately (Unsure of medication history) Exam: - Head Head exam: Present: atraumatic, normocephalic - Eye Eye exam: Present: PERRL, conjuntiva pink, sclera anicteric Pupils: Present: PERRL - Neck Neck exam general surgery: Present: supple, trachea midline. Absent: lymphadenopathy - Respiratory Respiratory exam: Present:b/l basal crepitation Absent: accessory muscle use, rales, rhonchi, wheezes - Cardiovascular Cardiovascular exam: Present: RRR, +S1, +S2. Absent: diastolic murmur, gallop, rubs, systolic murmur - GI/Abdominal GI/Abdominal exam: Present: normal bowel sounds, soft, no peritoneal signs. Absent: distended, tenderness - Extremities Exam Extremities exam: Present: warm, radial pulses palpable and symetrical. b/l swelling that has improved. Absent: calf tenderness, cyanotic, pedal edema Additional comments: small echimotic area in the left calf , erythema improving. - Neurological Exam Neurological exam: Present: CN II-XII intact, oriented X3, no focal deficits. Absent: pronater drift, facial droop, speech deficit - Skin Skin exam: Present: dry, intact Internal Medicine: Result - Labs CBC & Chem 7: 12/05/16 05:49 12/05/16 05:49 Labs: Short CBC 12/05/16 Range/Units 05:49 WBC 20.0 H (4.3-11.1) K/mcL Hgb 10.2 L (11.5-15.4) g/dL Hct 32.1 L (35.3-44.9) % Plt Count 140 (140-400) K/mcL Neutrophils # 17.5 H (1.6-8.9) K/mcL BMP 12/05/16 05:49 Sodium 139 Potassium 4.4 D Chloride 101 Carbon Dioxide 23 BUN 123 H Creatinine 3.87 H Glucose 116 H Calcium 8.0 L - ABG Interpretation ABG results: PT/INR, D-dimer PT 10.6 Seconds (9.4-12.1) 12/02/16 04:35 - Impressions Impressions Guidance Needle Placement Ultrasound 12/05/16 00:00 IMPRESSION: Successful ultrasound-guided temporary hemodialysis catheter placement. D/ / 12/05/2016 15:12:06 Karla Welch MD / shakila Interpreting Provider: Karla Welch MD Insertion Non-Tunneled Catheter 12/05/16 00:00 IMPRESSION: Successful ultrasound-guided temporary hemodialysis catheter placement. D/ / 12/05/2016 15:12:06 Karla Welch MD / shakila Interpreting Provider: Karla Welch MD Chest X-Ray 12/05/16 08:13 IMPRESSION: Mild indistinctness of the pulmonary vasculature, either due to low lung volumes or early edema Bibasilar airspace disease, either atelectasis or pneumonia D/ / Tucker Vazquez MD / Tucker Vazquez MD Interpreting Provider: Tucker Vazquez MD Chest X-Ray 12/05/16 11:32 IMPRESSION: 1. Increased left basilar opacity, which may represent pleural effusion and/or infiltrate. 2. Interval placement of a right internal jugular central venous catheter with the tip overlying the mid SVC. No pneumothorax. D/ / 12/05/2016 12:06:36 Nandini Ramos MD / sarahi Interpreting Provider: Nandini Ramos MD - VTE Documentation of Mechanical Device: Intermittent pneumatic compression device Consult Discharge Plan - Plan Referrals: NO,PCP [Primary Care Provider] - (Patient can not remember the name of her PCP , however patient is being referred to an ECF and will follow up with their PCP for now)
[2016-12-05] MEDS: Piperacillin/Tazobactam 3.375 GM in D5% in Water (Mini-Bag+) 100 ML IVPB SCH (17:59)
[2016-12-06] MEDS: hydrALAZINE 25 MG TABLET PO SCH ×5 (00:02→23:19)
[2016-12-06 04:19] LABS: Basophils % 0.2 %; Hemoglobin 9.7 g/dL (11.5-15.4); Immature Granulocytes % 2.7 % (0-4); Lymphocytes # 0.2 K/mcL (0.6-4.6); Lymphocytes % 1.1 %; Mean Corpuscular HGB Conc 31.3 g/dL (31.6-35.5); Mean Corpuscular Volume 83.1 fL (83.0-100.0); Mean Platelet Volume 11.3 fL (9.4-12.4); Monocytes # 1.6 K/mcL (0.0-1.3); Monocytes % 8.4 %; Neutrophils # 16.2 K/mcL (1.6-8.9); Platelet Count 113 K/mcL (140-400); Red Blood Count 3.73 M/mcL (3.82-4.97); Red Cell Distribution Width 16.8 % (11.5-14.5); Segmented Neutrophils % 87.6 %
[2016-12-06 04:31] LABS: Calcium 8.2 mg/dL (8.6-10.8); Potassium 5.2 mEq/L (3.5-4.5)
[2016-12-06 04:34] LABS: Platelet Estimate Decreased (Normal); Reactive Lymphocytes Present (Not Present)
[2016-12-06] MEDS ORDERED: 0.9 % Sodium Chloride 250 ML IV PRN (04:54)
[2016-12-06] MEDS: *HR* Heparin 5,000 UNIT/ML VIAL SQ SCH ×2 (06:13→18:34)
[2016-12-06] MEDS: Piperacillin/Tazobactam 3.375 GM in D5% in Water (Mini-Bag+) 100 ML IVPB SCH ×2 (06:14→18:34)
[2016-12-06] MEDS: *HR* OxyCODONE Immed Rel 5 MG TABLET PO PRN ×2 (07:12→21:35)
[2016-12-06] MEDS ORDERED: *HR* Heparin 10,000 UNIT/10 ML VIAL IV PRN (07:31)
[2016-12-06] MEDS ORDERED: 0.9 % Sodium Chloride 1,000 ML PRIME SCH (07:45)
[2016-12-06] MEDS ORDERED: Albumin 25% 12.5gm/50mL 0 GM/0 ML IV.SOLN ONE (10:36)
[2016-12-06] MEDS ORDERED: Albumin 25% 25gram/100mL 25 GM/100 ML IV.SOLN IVPB ONE (11:00)
--- NOTE | 2016-12-06 12:13 | Nephrology Progress Note ---
Date of Encounter: 12/06/16 Time of Encounter: 10:45 - Assessment and Plan (1) PAZ (acute kidney injury) Current Visit: Yes Status: Acute SCr slightly better after first HD session, continue second HD with UF as tolerated with albumin bolus given as an aid Plan for a third HD session tomorrow REnal biospy result noted: no membranous GN noted and definitely not ESRD kidney at this point Continue to avoid nephrotoxins if possible Will hold amlodipine due to hypotension and persistent edema (2) Acute exacerbation of CHF (congestive heart failure) Current Visit: Yes Status: Acute Continue strict I/Os Continue fluid restriction Continue off diuretics with HD at present Qualifiers: Congestive heart failure type: diastolic Qualified Code(s): I50.33 - Acute on chronic diastolic (congestive) heart failure (3) Hyperkalemia Current Visit: Yes Status: Acute potassium noted elevated, should improve with HD today (4) CKD (chronic kidney disease) stage 4, GFR 15-29 ml/min Current Visit: Yes Status: Chronic baseline GFR in the 20s (5) Complete immobility due to severe physical disability or frailty Current Visit: Yes Status: Acute discussed with family (brother and sister in law) they are requesting [facility] for rehab in [place] on discharge also discussed possible need for HD beyond hospital stay in this very high risk patient Subjective Principal diagnosis: CHF Interval history: Pt seen and examined during HD, very [place] and appears very lethargic. s/p first HD session yesterday but terminated 15mins early due to hypotension. UF also very difficult as a result Objective - Vital Signs Vital signs: Vital Signs Temp Pulse Resp BP Pulse Ox 12/06/16 11:29 97 F L 20 117/53 12/06/16 11:15 100/47 12/06/16 10:45 98/44 12/06/16 10:15 82/44 12/06/16 09:45 96/42 12/06/16 09:15 97/48 12/06/16 08:45 98 F 20 98/40 12/06/16 08:10 97 12/06/16 06:33 98 F 78 16 112/55 97 12/06/16 03:51 97.6 F 90 18 124/63 96 12/05/16 23:30 97.8 F 91 18 122/58 94 L 12/05/16 20:04 98.2 F 84 16 136/61 96 12/05/16 16:04 97.7 F 81 128/63 96 12/05/16 15:15 100/72 12/05/16 15:00 63/42 12/05/16 14:45 89/62 12/05/16 14:30 104/57 12/05/16 14:15 91/49 12/05/16 14:00 93/47 12/05/16 13:45 102/44 12/05/16 13:30 98.0 F 16 98/51 Intake and Output 12/05/16 12/06/16 12/06/16 23:59 07:59 15:59 Intake Total 300 / 300 75 / 75 600 / 600 Output Total 60 / 60 0 / 0 Balance 300 / 300 / 15 600 / 600 Intake: IV Fluids 100 / 100 Zosyn 3.375 GM In 100 / 100 Dextrose 5% (Minibag+) 100 ML 100 ML @ 25 mls/hr IVPB Q12HR [facility] Rx#: [id number] Oral 200 / 200 75 / 75 0 / 0 Intake, Rinseback and 600 / 600 Flushes Output: Urine 0 / 0 Total Dialysis Output 0 / 0 Catheter 60 / 60 Other: Meal Breakfast Percent of Meal Consumed 0% Weight 79.9 kg 79.9 kg Hemodialysis Net Fluid 800 Removed (mL) Patient Weight 12/06/16 23:59 Weight 79.9 kg - General Appearance General appearance: Present: chronically ill, fatigue, frail EENT: Present: ATNC, mucous membranes dry Neck: Present: no JVD, supple Respiratory: Present: clear (ant bilat) Cardiology: Present: edema (+3 LE edema with wrapping bilat), normal S1, normal S2 Dialysis Vascular Access: Venous Catheter (temporary HD catheter) Gastrointestinal: Present: no tenderness, no guarding Integumentary: Present: no rash Additional Comments: [place], lethargic Musculoskeletal: Present: no deformities Psychiatric: Present: mood/affect appropriate, cooperative - Lab 12/07/16 08:02 12/07/16 08:02 Most recent lab results Calcium 8.2 mg/dL (8.6-10.8) L 12/06/16 04:10 Phosphorus 7.7 mg/dL (2.3-4.7) H 12/05/16 05:49 Magnesium 1.8 mg/dL (1.6-2.6) 11/30/16 06:10 Urine Creatinine 53 mg/dL 12/01/16 02:05 Ur Total Protein 24 Hr 573 mg/day (0-299) H 12/01/16 02:05 Urine Sodium < 20.0 mEq/L 12/01/16 02:05 Urine Total Protein 63 mg/dL (1-14) H 12/01/16 02:05 - VTE Documentation of Mechanical Device: Intermittent pneumatic compression device Consult Discharge Plan - Plan Referrals: NO,PCP [Primary Care Provider] - (Patient can not remember the name of her PCP , however patient is being referred to an ECF and will follow up with their PCP for now)
[2016-12-07] MEDS: Piperacillin/Tazobactam 3.375 GM in D5% in Water (Mini-Bag+) 100 ML IVPB SCH ×2 (06:01→18:09)
[2016-12-07] MEDS: *HR* Heparin 5,000 UNIT/ML VIAL SQ SCH ×2 (06:04→18:09)
[2016-12-07] MEDS: hydrALAZINE 25 MG TABLET PO SCH ×3 (06:04→17:55)
--- NOTE | 2016-12-07 07:53 | Internal Med Progress Note ---
Date of Encounter: 12/06/16 (n) Time of Encounter: 07:50 - Assessment and plan (1) Acute renal failure Current Visit: Yes Status: Acute Assessment and plan: followed by Dr Ortiz, status post renal biopsy which showed 40-50% interstitial fibrosis with vascular disease and minimal evidence of ATN with no signs of membranous nephropathy: no deposits and no IgG in IF as per renal team. as per renal, she will not need steroids at this time, lasix has been held. her kidney fxns has not improved despite trial of IVF and after stopping lasix. s/p hemodialysis ,, temporary catheter placed. appreciate renal recommendations. Qualifiers: Acute renal failure type: unspecified Qualified Code(s): N17.9 - Acute kidney failure, unspecified (2) HTN (hypertension) Current Visit: Yes Status: Chronic Assessment and plan: Continue labetalol twice a day, lisinopril is on hold. BP stable Qualifiers: Hypertension type: essential hypertension Qualified Code(s): I10 - Essential (primary) hypertension (3) Sepsis affecting skin Current Visit: Yes Status: Acute Assessment and plan: Sepsis secondary to left lower extremity cellulitis, improving Computed 7 days of Ancef . blood cultures: no growth Venous Dupplex was negative for DVT (4) Acute exacerbation of CHF (congestive heart failure) Current Visit: Yes Status: Acute Assessment and plan: Acute Pulmonary edema secondary to acute on chronic diastolic CHF exacerbation The patient was on a Bumex drip that was stopped and lasix has been stopped .. Strict I's and O's and daily weight, fluid restriction diet. Echocardiogram showed an ejection fraction of 60-65% with mild diastolic dysfunction. will watch for any respiratory distress or worsening leg swelling. Qualifiers: Congestive heart failure type: diastolic Qualified Code(s): I50.33 - Acute on chronic diastolic (congestive) heart failure (5) Hypothyroidism Current Visit: Yes Status: Chronic Assessment and plan: TSH is low 0.0 10 and T 3 is low 1.57 increased levothyroxine to 137 g daily Qualifiers: Hypothyroidism type: acquired Qualified Code(s): E03.9 - Hypothyroidism, unspecified (6) Elevated troponin Current Visit: Yes Status: Acute Assessment and plan: Likely secondary to demand ischemia (7) Leucocytosis Current Visit: Yes Status: Acute Assessment and plan: Unclear etiology, does not have any fever. UA sent shows some mild leukocyte esterase, chest x-ray done shows left basal opacity possible effusion or infiltrate. She denies any cough or chest pain or shortness of breath at this time. Also denies any burning micturition. was started empirically on Zosyn which will cover both UTI and HCAP. uirne cx has been sent. will de escalate antibiotics as able. no other source noted, no back sores and the erythema of her left leg has improved. repeat cbc today shows mild improvement Qualifiers: Leukocytosis type: unspecified Qualified Code(s): D72.829 - Elevated white blood cell count, unspecified - Time Spent With Patient 25 - 35 minutes - Subjective Interval history: Patient seen at the bedside today, very hard of hearing. Patient has had renal biopsy , which was negative for membranous glomerulonephritis. Renal team following, s/p HD ,placement of temporary HD catheter, c/o pain in her both legs and says she can hardly move them. - Constitutional Vitals: Temp Pulse Resp BP Pulse Ox 98.2 F 89 16 112/46 96 12/07/16 07:09 12/07/16 07:09 12/07/16 07:09 12/07/16 07:09 12/07/16 07:09 General appearance: Present: cooperative, A&O X 3, pleasant, answers questions appropriately (Unsure of medication history) Internal Medicine: Result - Labs CBC & Chem 7: 12/06/16 04:10 12/06/16 04:10 - ABG Interpretation ABG results: PT/INR, D-dimer PT 10.6 Seconds (9.4-12.1) 12/02/16 04:35 - VTE Documentation of Mechanical Device: Intermittent pneumatic compression device Consult Discharge Plan - Plan Referrals: NO,PCP [Primary Care Provider] - (Patient can not remember the name of her PCP , however patient is being referred to an ECF and will follow up with their PCP for now)
[2016-12-07 09:10] LABS: Basophils % 0.2 %; Red Cell Distribution Width 17.2 % (11.5-14.5)
[2016-12-07 09:12] LABS: Eosinophils % 0.1 %; Hematocrit 28.3 % (35.3-44.9); Immature Granulocytes % 1.6 % (0-4); Immature Platelets 9.3 % (1.1-6.1); Lymphocytes # 0.2 K/mcL (0.6-4.6); Lymphocytes % 1.1 %; Mean Corpuscular HGB Conc 31.8 g/dL (31.6-35.5); Mean Corpuscular Hemoglobin 26.5 pg (28.0-33.3); Mean Corpuscular Volume 83.2 fL (83.0-100.0); Monocytes # 1.3 K/mcL (0.0-1.3); Monocytes % 8.8 %; Platelet Count 103 K/mcL (140-400); Segmented Neutrophils % 88.2 %
[2016-12-07 09:15] LABS: Calcium 8.6 mg/dL (8.6-10.8); Potassium 5.1 mEq/L (3.5-4.5)
[2016-12-07 09:35] LABS: Neutrophils # 13.2 K/mcL (1.6-8.9)
[2016-12-07 09:37] LABS: Large Platelets Present (Not Present); Platelet Estimate Decreased (Normal)
[2016-12-07] MEDS ORDERED: *HR* Heparin 10,000 UNIT/10 ML VIAL IV PRN (09:48)
[2016-12-07] MEDS ORDERED: 0.9 % Sodium Chloride 250 ML IV PRN (09:48)
[2016-12-07] MEDS ORDERED: Albumin 25% 25gram/100mL 25 GM/100 ML IV.SOLN IVPB ONE (09:58)
[2016-12-07] MEDS ORDERED: 0.9 % Sodium Chloride 2,000 ML ONE (10:15)
[2016-12-07] MEDS ORDERED: Albumin 25% 12.5gm/50mL 25.0 GM/100 ML IV.SOLN ONE (10:16)
--- NOTE | 2016-12-07 10:44 | Nephrology Progress Note ---
Date of Encounter: 12/07/16 Time of Encounter: 10:30 - Assessment and Plan (1) PAZ (acute kidney injury) Current Visit: Yes Status: Acute SCr slightly better after 2 HD sessions, continue third HD with goal UF of 1.5kg as tolerated with albumin bolus given as an aid Plan for next HD session friday Continue to avoid nephrotoxins if possible (2) Acute exacerbation of CHF (congestive heart failure) Current Visit: Yes Status: Acute Continue strict I/Os Continue fluid restriction Continue off diuretics with HD at present Qualifiers: Congestive heart failure type: diastolic Qualified Code(s): I50.33 - Acute on chronic diastolic (congestive) heart failure (3) Hyperkalemia Current Visit: Yes Status: Acute potassium noted elevated, should improve with another HD today (4) CKD (chronic kidney disease) stage 4, GFR 15-29 ml/min Current Visit: Yes Status: Chronic baseline GFR in the 20s Subjective Principal diagnosis: CHF Interval history: pt seen and examined on HD more awake today but still quite [place]. Second HD did not yield much UF due to hypotension despite albumin bolus Objective - Vital Signs Vital signs: Vital Signs Temp Pulse Resp BP Pulse Ox 12/07/16 10:43 99.3 F 88 16 128/62 96 12/07/16 09:15 96 12/07/16 07:09 98.2 F 89 16 112/46 96 12/07/16 04:37 98.6 F 86 20 124/46 96 12/07/16 00:14 98.8 F 86 18 107/46 95 12/06/16 21:38 98.5 F 91 20 115/53 97 12/06/16 16:15 98.1 F 94 20 128/54 97 12/06/16 12:20 98.7 F 88 18 133/50 93 L 12/06/16 11:29 97 F L 20 117/53 12/06/16 11:15 100/47 12/06/16 10:45 98/44 Intake and Output 12/06/16 12/07/16 12/07/16 23:59 07:59 15:59 Intake Total 100 / 100 50 / 50 Output Total 0 / 0 0 / 0 Balance 100 / 100 50 / 50 0 / 0 Intake: IV Fluids 100 / 100 Zosyn 3.375 GM In 100 / 100 Dextrose 5% (Minibag+) 100 ML 100 ML @ 25 mls/hr IVPB Q12HR [facility] Rx#: [id number] Oral 50 / 50 Output: Urine 0 / 0 Catheter 0 / 0 Other: Meal Breakfast Percent of Meal Consumed 15% Stool Size Smear Stool Consistency soft Stool Color Brown # Bowel Movements 1 Weight 80.2 kg Patient Weight 12/07/16 23:59 Weight 80.2 kg - General Appearance General appearance: Present: chronically ill, fatigue, frail EENT: Present: ATNC, mucous membranes dry Neck: Present: no JVD, supple Respiratory: Present: clear (ant bilat) Cardiology: Present: edema (+3 LE edema bilat), normal S1, normal S2 Dialysis Vascular Access: Venous Catheter (temp HD IJ catheter) Gastrointestinal: Present: no tenderness, no guarding Integumentary: Present: no rash Additional Comments: [place] Musculoskeletal: Present: no deformities Psychiatric: Present: mood/affect appropriate - Lab 12/07/16 08:02 12/07/16 08:02 Most recent lab results Calcium 8.6 mg/dL (8.6-10.8) 12/07/16 08:02 Phosphorus 7.7 mg/dL (2.3-4.7) H 12/05/16 05:49 Magnesium 1.8 mg/dL (1.6-2.6) 11/30/16 06:10 Urine Creatinine 53 mg/dL 12/01/16 02:05 Ur Total Protein 24 Hr 573 mg/day (0-299) H 12/01/16 02:05 Urine Sodium < 20.0 mEq/L 12/01/16 02:05 Urine Total Protein 63 mg/dL (1-14) H 12/01/16 02:05 - VTE Documentation of Mechanical Device: Intermittent pneumatic compression device Consult Discharge Plan - Plan Referrals: NO,PCP [Primary Care Provider] - (Patient can not remember the name of her PCP , however patient is being referred to an ECF and will follow up with their PCP for now)
--- NOTE | 2016-12-07 13:51 | Internal Med Progress Note ---
Date of Encounter: 12/07/16 Time of Encounter: 13:49 - Assessment and plan (1) Acute renal failure Current Visit: Yes Status: Acute Assessment and plan: followed by renal, status post renal biopsy which showed 40-50% interstitial fibrosis with vascular disease and minimal evidence of ATN with no signs of membranous nephropathy: no deposits and no IgG in IF as per renal team. as per renal, she will not need steroids at this time, lasix has been held. since her kidney fxns has not improved despite trial of IVF and after stopping lasix.started on hemodialysis ,, temporary catheter placed. appreciate renal recommendations. plan to continue with HD. Qualifiers: Qualified Code(s): N17.9 - Acute kidney failure, unspecified (2) HTN (hypertension) Current Visit: Yes Status: Chronic Assessment and plan: Continue labetalol twice a day, lisinopril is on hold. BP stable Qualifiers: Qualified Code(s): I10 - Essential (primary) hypertension (3) Sepsis affecting skin Current Visit: Yes Status: Acute Assessment and plan: Sepsis secondary to left lower extremity cellulitis, improving Computed 7 days of Ancef . blood cultures: no growth Venous Dupplex was negative for DVT (4) Acute exacerbation of CHF (congestive heart failure) Current Visit: Yes Status: Acute Assessment and plan: Acute Pulmonary edema secondary to acute on chronic diastolic CHF exacerbation The patient was on a Bumex drip that was stopped and lasix has been stopped .. Strict I's and O's and daily weight, fluid restriction diet. Echocardiogram showed an ejection fraction of 55% with mild diastolic dysfunction. after stopping the lasix, sel[place] has increased b/l lower leg swelling however, she has been started on HD. Qualifiers: Qualified Code(s): I50.33 - Acute on chronic diastolic (congestive) heart failure (5) Hypothyroidism Current Visit: Yes Status: Chronic Assessment and plan: TSH is low 0.0 10 and T 3 is low 1.57 increased levothyroxine to 137 g daily Qualifiers: Qualified Code(s): E03.9 - Hypothyroidism, unspecified (6) Elevated troponin Current Visit: Yes Status: Acute Assessment and plan: Likely secondary to demand ischemia (7) Leucocytosis Current Visit: Yes Status: Acute Assessment and plan: Unclear etiology, does not have any fever. UA sent shows some mild leukocyte esterase, chest x-ray done shows left basal opacity possible effusion or infiltrate. She denies any cough or chest pain or shortness of breath at this time. Also denies any burning micturition. was started empirically on Zosyn , leucocytosis has improved. will de escalate antibiotics as able. no other source noted, no back sores and the erythema of her left leg has improved. Qualifiers: Qualified Code(s): D72.829 - Elevated white blood cell count, unspecified - Time Spent With Patient 25 - 35 minutes - Subjective Interval history: Patient seen at the bedside today, very hard of hearing. Patient has had renal biopsy , which was negative for membranous glomerulonephritis. Renal team following, s/p HD ,placement of temporary HD catheter. - Constitutional Vitals: Temp Pulse Resp BP Pulse Ox 99.3 F 88 16 105/40 96 12/07/16 11:00 12/07/16 10:43 12/07/16 11:00 12/07/16 13:35 12/07/16 10:43 General appearance: Present: cooperative, A&O X 3, pleasant, answers questions appropriately (Unsure of medication history) Exam: - Head Head exam: Present: atraumatic, normocephalic - Eye Eye exam: Present: PERRL, conjuntiva pink, sclera anicteric Pupils: Present: PERRL - Neck Neck exam general surgery: Present: supple, trachea midline. Absent: lymphadenopathy - Respiratory Respiratory exam: Present:b/l clear Absent: accessory muscle use, rales, rhonchi, wheezes - Cardiovascular Cardiovascular exam: Present: RRR, +S1, +S2. Absent: diastolic murmur, gallop, rubs, systolic murmur - GI/Abdominal GI/Abdominal exam: Present: normal bowel sounds, soft, no peritoneal signs. Absent: distended, tenderness - Extremities Exam Extremities exam: Present: warm, radial pulses palpable and symetrical. b/l swelling that has improved. Absent: calf tenderness, cyanotic, pedal edema Additional comments: small echimotic area in the left calf , erythema improving. - Neurological Exam Neurological exam: Present: CN II-XII intact, oriented X3, no focal deficits. Absent: pronater drift, facial droop, speech deficit - Skin Skin exam: Present: dry, intact Internal Medicine: Result - Labs CBC & Chem 7: 12/07/16 08:02 12/07/16 08:02 Labs: Short CBC 12/07/16 Range/Units 08:02 WBC 15.0 H (4.3-11.1) K/mcL Hgb 9.0 L (11.5-15.4) g/dL Hct 28.3 L (35.3-44.9) % Plt Count 103 L (140-400) K/mcL Neutrophils # 13.2 H (1.6-8.9) K/mcL BMP 12/07/16 08:02 Sodium 140 Potassium 5.1 H Chloride 101 Carbon Dioxide 24 BUN 66 H D Creatinine 3.35 H Glucose 78 Calcium 8.6 - ABG Interpretation ABG results: PT/INR, D-dimer PT 10.6 Seconds (9.4-12.1) 12/02/16 04:35 - VTE Documentation of Mechanical Device: Intermittent pneumatic compression device Consult Discharge Plan - Plan Referrals: NO,PCP [Primary Care Provider] - (Patient can not remember the name of her PCP , however patient is being referred to an ECF and will follow up with their PCP for now)
[2016-12-07] MEDS: *HR* OxyCODONE Immed Rel 5 MG TABLET PO PRN (14:40)
[2016-12-07] MEDS: 0.9 % Sodium Chloride 250 ML IVC SCH ×2 (15:14→16:33)
[2016-12-07] MEDS: *HR* Metoprolol 5 MG/5 ML VIAL IVP PRN (20:09)
--- NOTE | 2016-12-07 20:55 | Event Note ---
Date of Encounter: 12/07/16 Time of Encounter: 20:50 On-call Hospitalist not: I have been called to see this pt for A fib with RVR, with HR in the 120's. Pt received IV cardizem during the day. She also received metoprolol IV prior to my arrival. O/E: pt has profound hearing impairment. Not in acute distress. Basal crackles present. I have reviewed pt's thyroid function tests. TSH was low 0.10. Per the medication list, pt was on thyroxine 100 mcg /day but increased to 137 mcg/day during this admission. I suspect, pt is thyrotoxic now. Plan: - 12 lead EKG - shows A fib with RVR; - start diltiazem infusion and titrate to keep HR less than 100 - 110. - Discontinue levothyroxine now. check TSh and free T4. IF there is significant thyrotoxicosis, hold synthroid for a day and possibly start back at 88 mcg/day. - Hold hydralazine and labetolol, as the pt's BP is borderline.
[2016-12-07] MEDS ORDERED: 0.9 % Sodium Chloride 1,000 ML ONE (21:18)
[2016-12-08 04:18] LABS: Basophils % 0.1 %; Mean Corpuscular Hemoglobin 26.1 pg (28.0-33.3)
[2016-12-08 04:20] LABS: Eosinophils % 0.1 %; Hematocrit 27.7 % (35.3-44.9); Hemoglobin 8.6 g/dL (11.5-15.4); Immature Granulocytes % 2.2 % (0-4); Immature Platelets 9.7 % (1.1-6.1); Lymphocytes # 0.2 K/mcL (0.6-4.6); Lymphocytes % 1.3 %; Mean Corpuscular Volume 83.9 fL (83.0-100.0); Mean Platelet Volume 11.6 fL (9.4-12.4); Monocytes # 1.1 K/mcL (0.0-1.3); Monocytes % 9.6 %; Neutrophils # 10.2 K/mcL (1.6-8.9); Segmented Neutrophils % 86.7 %
[2016-12-08 04:24] LABS: Platelet Count 94 K/mcL (140-400)
[2016-12-08 04:26] LABS: Calcium 8.7 mg/dL (8.6-10.8); Potassium 4.2 mEq/L (3.5-4.5)
[2016-12-08 04:48] LABS: Large Platelets Present (Not Present); Platelet Estimate Decreased (Normal); Thyroid Stimulating Hormone 0.005 mcIU/mL (0.350-4.840); Toxic Granulation Present (Not Present)
[2016-12-08] MEDS: *HR* Heparin 5,000 UNIT/ML VIAL SQ SCH ×2 (05:23→18:01)
[2016-12-08] MEDS: Piperacillin/Tazobactam 3.375 GM in D5% in Water (Mini-Bag+) 100 ML IVPB SCH ×2 (05:26→18:01)
--- NOTE | 2016-12-08 08:02 | Cardiology Progress Note ---
Date of Encounter: 12/08/16 Time of Encounter: 08:01 Assessment and Plan (1) Atrial fibrillation Current Visit: Yes Status: Acute New onset atrial fibrillation with RVR. Patient is not cooperative during my exam and will not answer questions. Initially responded to IV Cardizem and metoprolol. Recurrent atrial fibrillation with RVR overnight and was started on Cardizem drip. Heart rate is currently in the 80s. Average heart rate over the past 12 hours was 101 bpm. Convert to oral Cardizem as patient is cooperative. TSH 0.005, T3 low. Pt may be thyrotoxic. Primary team following. Synthroid on hold. EF 60-65%, mild diastolic dysfunction, no significant valvular disease, no pulmonary hypertension. In regards to anticoagulation, she is a CHADS VASc=5 (CHF, HTN, Age2, gender). Able to discuss anticoagulation with her at this time. She will not cooperate with my exam. It is noted that hemoglobin is trending downward. No signs of acute bleeding noted. Hemoglobin previously 10.6 and now 8.6. Would recommend only aspirin at this time. Qualifiers: Atrial fibrillation type: unspecified Qualified Code(s): I48.91 - Unspecified atrial fibrillation (2) Acute renal failure Current Visit: Yes Status: Acute PAZ/CKD. Nephrology following. Now on dialysis. Kidney function worsened with diuretic and steroid. Diuretics and steroids now on hold. Pt had a renal biopsy. Qualifiers: Acute renal failure type: unspecified Qualified Code(s): N17.9 - Acute kidney failure, unspecified (3) CHF (congestive heart failure) Current Visit: Yes Status: Chronic EF 60-65%, mild diastolic dysfunction, no significant valvular disease, no pulmonary hypertension. CHF was ruled out. Fluid overload may be secondary to hypoalbuminemia and PAZ. Did not respond well to diuretic. Qualifiers: Congestive heart failure type: diastolic Congestive heart failure chronicity: acute on chronic Qualified Code(s): I50.33 - Acute on chronic diastolic (congestive) heart failure (4) Elevated troponin Current Visit: Yes Status: Acute Mildly elevated 0.22, 0.19, 0.20--Likely demand ischemia. No significant EKG changes to indicate ischemia. Echo shows preserved EF. No further cardiac testing warranted. Discussion w patient/family: The assessment and plan as outlined above was discussed with the patient and/or family members who expressed understanding and agreement. All questions were answered. Thank you for involving us in the care of your patient. Please call with any questions. Subjective Principal diagnosis: CHF Interval history: Cardiology re-consult for new onset atrial fibrillation with RVR. On my exam the patient is drowsy and will not cooperate with examination. She does not answer questions. She has a history of heart of being hard of hearing. Despite multiple attempts talking loudly he was not cooperative. She also pushes my hand away when trying to do a physical exam. Objective Vital Signs, Last 4 Hours Temp Pulse Resp BP Pulse Ox 12/08/16 07:05 98.1 F 90 19 111/60 91 L General: Other (Drowsy, arouses easily. Uncooperative at this time.) HEENT: Atraumatic, Normocephaly, Mucus Membranes Moist Neck: No JVD, Normal carotid pulses Cardiac: Other (Irregularly irregular) Lungs: Other (Unable to assess due to patient not being cooperative) Neuro: Other (Drowsy) Skin: No rashes noted on visualized skin Extremities: Other (Third spacing noted in bilateral lower extremities Mateo wraps are intact.) Results 12/08/16 04:07 12/08/16 04:07 Lab Results 12/07/16 12/07/16 12/08/16 08:02 08:02 04:07 WBC 15.0 H 11.8 H Hgb 9.0 L 8.6 L Hct 28.3 L 27.7 L Plt Count 103 L 94 L Sodium 140 Potassium 5.1 H Chloride 101 Carbon Dioxide 24 BUN 66 H D Creatinine 3.35 H Glucose 78 Calcium 8.6 TSH 12/08/16 12/08/16 04:07 04:07 WBC Hgb Hct Plt Count Sodium 142 Potassium 4.2 Chloride 99 Carbon Dioxide 28 BUN 38 H D Creatinine 2.44 H Glucose 71 Calcium 8.7 TSH 0.005 L - Imaging and Cardiology Echo: report reviewed (EF 60-65%, mild diastolic dysfunction, no significant valvular disease, no pulmonary hypertension.) - EKG Interpretation EKG results cardiology: personally reviewed, other (Telemetry review shows atrial fibrillation with an average heart rate of 101. Heart rate is currently 80.) - VTE Documentation of Mechanical Device: Intermittent pneumatic compression device Consult Discharge Plan - Plan Referrals: NO,PCP [Primary Care Provider] - (Patient can not remember the name of her PCP , however patient is being referred to an ECF and will follow up with their PCP for now)
[2016-12-08] MEDS: Aspirin Enteric Coated 81 MG Tablet PO SCH (08:23)
--- NOTE | 2016-12-08 10:29 | Internal Med Progress Note ---
Date of Encounter: 12/08/16 Time of Encounter: 10:27 - Assessment and plan (1) Acute renal failure Current Visit: Yes Status: Acute Assessment and plan: followed by renal, status post renal biopsy which showed 40-50% interstitial fibrosis with vascular disease and minimal evidence of ATN with no signs of membranous nephropathy: no deposits and no IgG in IF as per renal team. as per renal, she will not need steroids at this time, lasix has been held. since her kidney fxns has not improved despite trial of IVF and after stopping lasix.started on hemodialysis ,, temporary catheter placed. appreciate renal recommendations. plan to continue with HD. Qualifiers: Acute renal failure type: unspecified Qualified Code(s): N17.9 - Acute kidney failure, unspecified (2) HTN (hypertension) Current Visit: Yes Status: Chronic Assessment and plan: Continue labetalol twice a day, lisinopril is on hold. BP stable, has been started on cardizem for atrial fib. will follow recommendations Qualifiers: Hypertension type: essential hypertension Qualified Code(s): I10 - Essential (primary) hypertension (3) Sepsis affecting skin Current Visit: Yes Status: Acute Assessment and plan: Sepsis secondary to left lower extremity cellulitis, improving Computed 7 days of Ancef . blood cultures: no growth Venous Dupplex was negative for DVT (4) Acute exacerbation of CHF (congestive heart failure) Current Visit: Yes Status: Acute Assessment and plan: Acute Pulmonary edema secondary to acute on chronic diastolic CHF exacerbation The patient was on a Bumex drip that was stopped and lasix has been stopped .. Strict I's and O's and daily weight, fluid restriction diet. Echocardiogram showed an ejection fraction of 55% with mild diastolic dysfunction. after stopping the lasix, piyush has increased b/l lower leg swelling however, she has been started on HD. Qualifiers: Congestive heart failure type: diastolic Qualified Code(s): I50.33 - Acute on chronic diastolic (congestive) heart failure (5) Hypothyroidism Current Visit: Yes Status: Chronic Assessment and plan: TSH, Ft3 and Ft4 was repeated last night for concern for possible thyrotoxicosis given new onset atrial fib. however TSH is low along with low T3 and subnormal T4 which suggests central hypothyroidism. for thyrotoxicosis, would expect high T4 and T3 levels. will continue levothyroxine at 137 g daily Qualifiers: Hypothyroidism type: other Qualified Code(s): E03.8 - Other specified hypothyroidism (6) Elevated troponin Current Visit: Yes Status: Acute Assessment and plan: Likely secondary to demand ischemia (7) Leucocytosis Current Visit: Yes Status: Acute Assessment and plan: Unclear etiology, does not have any fever. UA sent shows some mild leukocyte esterase, chest x-ray done shows left basal opacity possible effusion or infiltrate. She denies any cough or chest pain or shortness of breath at this time. Also denies any burning micturition. was started empirically on Zosyn , leucocytosis has improved. blood cx has been negative. no other source noted, no back sores and the erythema of her left leg has improved. Qualifiers: Leukocytosis type: unspecified Qualified Code(s): D72.829 - Elevated white blood cell count, unspecified - Time Spent With Patient 25 - 35 minutes - Subjective Interval history: Patient seen at the bedside today, very hard of hearing. Patient has had renal biopsy , which was negative for membranous glomerulonephritis. Renal team following, s/p HD ,placement of temporary HD catheter. plan is to conitnue HD for now. afib RVR yesterday, started on cardizem drip. - Constitutional Vitals: Temp Pulse Resp BP Pulse Ox 98.1 F 90 19 111/60 91 L 12/08/16 07:05 12/08/16 07:05 12/08/16 07:05 12/08/16 07:05 12/08/16 08:26 General appearance: Present: cooperative, A&O X 3, pleasant, answers questions appropriately (Unsure of medication history) Internal Medicine: Result - Labs CBC & Chem 7: 12/08/16 04:07 12/08/16 04:07 Labs: Short CBC 12/08/16 Range/Units 04:07 WBC 11.8 H (4.3-11.1) K/mcL Hgb 8.6 L (11.5-15.4) g/dL Hct 27.7 L (35.3-44.9) % Plt Count 94 L (140-400) K/mcL Neutrophils # 10.2 H (1.6-8.9) K/mcL BMP 12/08/16 04:07 Sodium 142 Potassium 4.2 Chloride 99 Carbon Dioxide 28 BUN 38 H D Creatinine 2.44 H Glucose 71 Calcium 8.7 - ABG Interpretation ABG results: PT/INR, D-dimer PT 10.6 Seconds (9.4-12.1) 12/02/16 04:35 - VTE Documentation of Mechanical Device: Intermittent pneumatic compression device Consult Discharge Plan - Plan Referrals: NO,PCP [Primary Care Provider] - (Patient can not remember the name of her PCP , however patient is being referred to an ECF and will follow up with their PCP for now)
--- NOTE | 2016-12-08 12:54 | Nephrology Progress Note ---
Date of Encounter: 12/08/16 Time of Encounter: 12:50 - Assessment and Plan (1) PAZ (acute kidney injury) Current Visit: Yes Status: Acute SCr slightly better after HD yesterday. Next HD planned for friday Continue to avoid nephrotoxins if possible (2) Acute exacerbation of CHF (congestive heart failure) Current Visit: Yes Status: Acute Continue strict I/Os Continue fluid restriction Continue off diuretics with HD at present Qualifiers: Congestive heart failure type: diastolic Qualified Code(s): I50.33 - Acute on chronic diastolic (congestive) heart failure (3) Hyperkalemia Current Visit: Yes Status: Acute potassium normalized (4) CKD (chronic kidney disease) stage 4, GFR 15-29 ml/min Current Visit: Yes Status: Chronic baseline GFR in the 20s Subjective Principal diagnosis: CHF Interval history: Pt seen and examined on HD more awake today after successful HD with 1.5 liter fluid removed. No overnight issues. Objective - Vital Signs Vital signs: Vital Signs Temp Pulse Resp BP Pulse Ox 12/08/16 12:08 98.1 F 85 16 114/57 91 L 12/08/16 08:26 91 L 12/08/16 07:05 98.1 F 90 19 111/60 91 L 12/08/16 04:00 97.6 F 90 16 101/97 92 L 12/08/16 01:33 102/60 12/08/16 00:52 75/41 12/07/16 23:45 99.2 F 100 20 98/42 95 12/07/16 23:30 102/55 12/07/16 23:00 106/60 12/07/16 22:30 93/52 12/07/16 22:02 98/56 12/07/16 21:29 90/48 12/07/16 20:53 101/56 12/07/16 20:39 94 L 12/07/16 20:02 98.1 F 125 16 123/67 93 L 12/07/16 16:30 98.6 F 104 18 116/56 98 12/07/16 15:58 98.9 F 104 18 97/53 96 12/07/16 14:10 97.4 F L 16 125/60 12/07/16 14:00 114/41 12/07/16 13:45 105/40 12/07/16 13:30 98/36 12/07/16 13:15 115/49 12/07/16 13:00 138/36 Intake and Output 12/07/16 12/08/16 12/08/16 23:59 07:59 15:59 Intake Total 121 / 121 45.1 / 45.1 244.5 / 244.5 Balance 121 / 121 45.1 / 45.1 244.5 / 244.5 Intake: IV Fluids 121 / 121 45.1 / 45.1 4.5 / 4.5 Cardizem 125 MG In 45.1 / 45.1 4.5 / 4.5 Dextrose 5% 100 ML @ 5 MG /HR 5 mls/hr IVC .Q24H JAVON Rx#:[id number] Zosyn 3.375 GM In 100 / 100 Dextrose 5% (Minibag+) 100 ML 100 ML @ 25 mls/hr IVPB Q12HR JAVON Rx#: [id number] Oral 240 / 240 Other: Meal Breakfast Percent of Meal Consumed 15% Weight 80 kg Patient Weight 12/08/16 23:59 Weight 80 kg - General Appearance General appearance: Present: chronically ill (NAD) EENT: Present: ATNC, mucous membranes dry Neck: Present: no JVD, supple Respiratory: Present: clear Cardiology: Present: edema (LE bilat), normal S1, normal S2 Dialysis Vascular Access: Venous Catheter Gastrointestinal: Present: no tenderness, no guarding Integumentary: Present: warm and dry Neurologic: Present: disoriented Additional Comments: [place] Musculoskeletal: Present: no deformities Psychiatric: Present: mood/affect appropriate - Lab 12/09/16 04:35 12/09/16 04:35 Most recent lab results Calcium 8.7 mg/dL (8.6-10.8) 12/08/16 04:07 Phosphorus 7.7 mg/dL (2.3-4.7) H 12/05/16 05:49 Magnesium 1.8 mg/dL (1.6-2.6) 11/30/16 06:10 Urine Creatinine 53 mg/dL 12/01/16 02:05 Ur Total Protein 24 Hr 573 mg/day (0-299) H 12/01/16 02:05 Urine Sodium < 20.0 mEq/L 12/01/16 02:05 Urine Total Protein 63 mg/dL (1-14) H 12/01/16 02:05 - VTE Documentation of Mechanical Device: Intermittent pneumatic compression device Consult Discharge Plan - Plan Referrals: NO,PCP [Primary Care Provider] - (Patient can not remember the name of her PCP , however patient is being referred to an ECF and will follow up with their PCP for now)
--- NOTE | 2016-12-08 14:39 | Electrocardiograph Report ---
[address] [place] [address] Test Date: 2016-12-07 Pat Name: Shea Ortega Department: 112 Room: 2A23 Gender: F [employer]: : 1935 Requested By: Tram Trinh Order Number: [id number] Reading MD: Patricia Salmeron Measurements Intervals [place] Rate: 113 P: MD: 0 QRS: -13 QRSD: 102 T: 0 QT: 311 QTc: 378 Interpretive Statements ATRIAL FIBRILLATION WITH RAPID VENTRICULAR RESPONSE ST DEVIATION AND MODERATE T-WAVE ABNORMALITY, CONSIDER LATERAL ISCHEMIA Electronically Signed On 12-08-2016 14:38:06 EST by Patricia Salmeron
--- NOTE | 2016-12-08 14:41 | Electrocardiograph Report ---
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
[2016-12-08] MEDS: hydrALAZINE 25 MG TABLET PO SCH (23:39)
[2016-12-09 04:46] LABS: Hemoglobin 8.7 g/dL (11.5-15.4)
[2016-12-09 04:47] LABS: Hematocrit 27.7 % (35.3-44.9); Immature Platelets 9.8 % (1.1-6.1); Mean Corpuscular HGB Conc 31.4 g/dL (31.6-35.5); Mean Corpuscular Volume 82.9 fL (83.0-100.0); Red Blood Count 3.34 M/mcL (3.82-4.97); Red Cell Distribution Width 17.1 % (11.5-14.5)
[2016-12-09 04:58] LABS: Calcium 8.7 mg/dL (8.6-10.8); Potassium 4.4 mEq/L (3.5-4.5)
[2016-12-09] MEDS: hydrALAZINE 25 MG TABLET PO SCH ×4 (06:18→23:24)
[2016-12-09] MEDS: Aspirin Enteric Coated 81 MG Tablet PO SCH (06:30)
[2016-12-09] MEDS: *HR* Heparin 5,000 UNIT/ML VIAL SQ SCH ×2 (06:31→19:26)
[2016-12-09] MEDS ORDERED: Albumin 25% 25gram/100mL 25 GM/100 ML IV.SOLN IVPB ONE ×2 (08:34)
[2016-12-09] MEDS ORDERED: *HR* Heparin 10,000 UNIT/10 ML VIAL IV PRN (08:35)
[2016-12-09] MEDS ORDERED: 0.9 % Sodium Chloride 250 ML IV PRN (08:35)
[2016-12-09] MEDS ORDERED: ALBUMIN ONE (09:05)
[2016-12-09] MEDS ORDERED: 0.9 % Sodium Chloride 2,000 ML ONE (09:16)
--- NOTE | 2016-12-09 09:54 | Cardiology Progress Note ---
Date of Encounter: 12/09/16 Time of Encounter: 09:10 Assessment and Plan (1) Atrial fibrillation Current Visit: Yes Status: Acute New onset atrial fibrillation with RVR. Now rate controlled on oral cardizem. Change cardizem to long acting. Avg HR overnight was 84 bpm. TSH 0.005, T3 low. Pt may be thyrotoxic. Primary team following. Synthroid on hold. EF 60-65%, mild diastolic dysfunction, no significant valvular disease, no pulmonary hypertension. In regards to anticoagulation, she is a CHADS VASc=5 (CHF, HTN, Age2, gender). We are unable to discuss anticoagulation with her at this time. Family at bedside yesterday and discussed. It is noted that hemoglobin is trending downward. No signs of acute bleeding noted. Hemoglobin previously 11 and now 8.6. Would recommend only aspirin at this time. Re-evaluate anticoagulation once hgb stable. Re-evaluate in out pt setting. Cardiology signing off. Call with questions. F/u will be made by [facility] in 2 weeks. Qualifiers: Atrial fibrillation type: unspecified Qualified Code(s): I48.91 - Unspecified atrial fibrillation (2) Acute renal failure Current Visit: Yes Status: Acute PAZ/CKD. Nephrology following. Now on dialysis. Kidney function worsened with diuretic and steroid. Diuretics and steroids now on hold. Pt had a renal biopsy. Qualifiers: Acute renal failure type: unspecified Qualified Code(s): N17.9 - Acute kidney failure, unspecified (3) CHF (congestive heart failure) Current Visit: Yes Status: Chronic EF 60-65%, mild diastolic dysfunction, no significant valvular disease, no pulmonary hypertension. May have some diastolic dysfunction with atrial fibrillation with RVR. HR now controlled. Fluid overload may also be secondary to hypoalbuminemia and PAZ. Did not respond well to diuretic. Now on dialysis. Qualifiers: Congestive heart failure type: diastolic Congestive heart failure chronicity: acute on chronic Qualified Code(s): I50.33 - Acute on chronic diastolic (congestive) heart failure (4) Elevated troponin Current Visit: Yes Status: Acute Mildly elevated 0.22, 0.19, 0.20--Likely demand ischemia. No significant EKG changes to indicate ischemia. Echo shows preserved EF. No further cardiac testing warranted. Discussion w patient/family: The assessment and plan as outlined above was discussed with the patient and/or family members who expressed understanding and agreement. All questions were answered. Thank you for involving us in the care of your patient. Please call with any questions. Subjective Principal diagnosis: CHF Interval history: Cardiology re-consult for new onset atrial fibrillation with RVR. On my exam the patient is very CHILKAT and unable to communicate. More cooperative today. She does not answer questions. She was able to fee herself and take oral medications today. Objective Vital Signs, Last 4 Hours Temp Pulse Resp BP Pulse Ox 12/09/16 08:15 90 L 12/09/16 07:44 97.4 F L 86 16 119/64 90 L General: Conversant, No Apparent Distress HEENT: Atraumatic, Normocephaly, Mucus Membranes Moist Neck: No JVD, Normal carotid pulses Cardiac: Other (Irregularly irregular) Lungs: Normal Breath Sounds, No Wheeze, Rales, Rhonchi Neuro: Alert and responsive, No focal deficits noted Abdomen: Soft, Non-Tender Skin: No rashes noted on visualized skin Musculoskeletal: No Chest Wall Tenderness Extremities: No Clubbing, No Cyanosis, Normal Pulses, Other (3+ edema. third spacing in BLE.) Results 12/09/16 04:35 12/09/16 04:35 Lab Results 12/09/16 12/09/16 04:35 04:35 WBC 13.7 H Hgb 8.7 L Hct 27.7 L Plt Count 96 L Sodium 138 Potassium 4.4 Chloride 95 L Carbon Dioxide 28 BUN 55 H D Creatinine 3.32 H Glucose 109 H Calcium 8.7 - EKG Interpretation EKG results cardiology: other (Currently atrial fibrillation on telemetry. HR 70 's. Avg HR was 83 BPM.) - VTE Documentation of Mechanical Device: Intermittent pneumatic compression device Consult Discharge Plan - Plan Referrals: NO,PCP [Primary Care Provider] - (Patient can not remember the name of her PCP , however patient is being referred to an ECF and will follow up with their PCP for now)
--- NOTE | 2016-12-09 13:26 | Nephrology Progress Note ---
Date of Encounter: 12/09/16 Time of Encounter: 10:30 - Assessment and Plan (1) PAZ (acute kidney injury) Current Visit: Yes Status: Acute SCr worse off HD yesterday hence no signs yet of renal recovery. Continue HD today with gaol UF of 3kg as tolerated with albumin bolus at the beginning and pnr for middle of treatment if hypotensive Continue to avoid nephrotoxins if possible (2) Acute exacerbation of CHF (congestive heart failure) Current Visit: Yes Status: Acute Continue strict I/Os Continue fluid restriction Continue off diuretics with HD at present Qualifiers: Congestive heart failure type: diastolic Qualified Code(s): I50.33 - Acute on chronic diastolic (congestive) heart failure (3) Hyperkalemia Current Visit: Yes Status: Acute potassium resolved, continue renal diet (4) CKD (chronic kidney disease) stage 4, GFR 15-29 ml/min Current Visit: Yes Status: Chronic baseline GFR in the 20s Subjective Principal diagnosis: CHF Interval history: Pt seen and examined on HD and resting comfortably. No overnight issues. Objective - Vital Signs Vital signs: Vital Signs Temp Pulse Resp BP Pulse Ox 12/09/16 13:00 97.6 F 16 143/56 12/09/16 12:50 112/51 12/09/16 12:35 114/38 12/09/16 12:20 114/49 12/09/16 12:05 117/56 12/09/16 11:50 123/47 12/09/16 11:35 123/55 12/09/16 11:20 133/59 12/09/16 11:05 133/54 12/09/16 10:50 128/64 12/09/16 10:35 134/58 12/09/16 10:20 140/66 12/09/16 10:05 143/63 12/09/16 09:50 97.4 F L 16 133/70 12/09/16 08:15 90 L 12/09/16 07:44 97.4 F L 86 16 119/64 90 L 12/09/16 04:46 97.6 F 91 16 120/55 90 L 12/08/16 23:38 98.2 F 90 16 110/59 93 L 12/08/16 21:29 97.7 F 80 16 111/51 90 L 12/08/16 15:35 97.5 F L 82 18 130/52 90 L Intake and Output 12/08/16 12/09/16 12/09/16 23:59 07:59 15:59 Intake Total 200 / 200 720 / 720 Output Total 3600 / 3600 Balance 200 / 200 -2880 / -2880 Intake: Oral 200 / 200 120 / 120 Intake, Rinseback and 600 / 600 Flushes Output: Urine 0 / 0 Total Dialysis Output 3600 / 3600 Other: Meal Breakfast Percent of Meal Consumed 50% Stool Size Moderate Stool Consistency soft Stool Characteristics Normal for Patient Stool Color Brown Weight 81 kg Hemodialysis Net Fluid 3000 Removed (mL) Patient Weight 12/09/16 23:59 Weight 81 kg - General Appearance General appearance: Present: chronically ill, frail EENT: Present: ATNC, mucous membranes dry Neck: Present: no JVD, supple Respiratory: Present: course breath sounds Cardiology: Present: edema (LE bilat with wrapping), normal S1, normal S2 Dialysis Vascular Access: Venous Catheter Gastrointestinal: Present: no tenderness, no guarding Integumentary: Present: warm and dry Neurologic: Present: disoriented Musculoskeletal: Present: no deformities Psychiatric: Present: cooperative - Lab 12/10/16 04:40 12/10/16 04:40 Most recent lab results Calcium 8.7 mg/dL (8.6-10.8) 12/09/16 04:35 Phosphorus 7.7 mg/dL (2.3-4.7) H 12/05/16 05:49 Magnesium 1.8 mg/dL (1.6-2.6) 11/30/16 06:10 Urine Creatinine 53 mg/dL 12/01/16 02:05 Ur Total Protein 24 Hr 573 mg/day (0-299) H 12/01/16 02:05 Urine Sodium < 20.0 mEq/L 12/01/16 02:05 Urine Total Protein 63 mg/dL (1-14) H 12/01/16 02:05 - VTE Documentation of Mechanical Device: Intermittent pneumatic compression device Consult Discharge Plan - Plan Referrals: NO,PCP [Primary Care Provider] - (Patient can not remember the name of her PCP , however patient is being referred to an ECF and will follow up with their PCP for now) Patricia Salmeron, [Partnered Physician] - 12/17/16 1:30 pm
[2016-12-09] MEDS: Piperacillin/Tazobactam 3.375 GM in D5% in Water (Mini-Bag+) 100 ML IVPB SCH ×2 (13:38→23:24)
[2016-12-09] MEDS: Diltiazem CD (24hr) 120 MG CAPSULE PO SCH (13:38)
--- NOTE | 2016-12-09 17:24 | Internal Med Progress Note ---
Date of Encounter: 12/09/16 Time of Encounter: 17:22 - Assessment and plan (1) Acute renal failure Current Visit: Yes Status: Acute Assessment and plan: followed by renal, status post renal biopsy which showed 40-50% interstitial fibrosis with vascular disease and minimal evidence of ATN with no signs of membranous nephropathy: no deposits and no IgG in IF as per renal team. as per renal, she will not need steroids at this time, lasix has been held. since her kidney fxns has not improved despite trial of IVF and after stopping lasix. has started on hemodialysis since 12/06 ,, temporary catheter placed. appreciate renal recommendations. plan to continue with HD for now, may need permanent HD and placement of a permcath. Qualifiers: Acute renal failure type: unspecified Qualified Code(s): N17.9 - Acute kidney failure, unspecified (2) HTN (hypertension) Current Visit: Yes Status: Chronic Assessment and plan: Continue labetalol twice a day, lisinopril is on hold. BP stable, has been started on cardizem for atrial fib. Qualifiers: Hypertension type: essential hypertension Qualified Code(s): I10 - Essential (primary) hypertension (3) Sepsis affecting skin Current Visit: Yes Status: Acute Assessment and plan: Sepsis secondary to left lower extremity cellulitis, improving Computed 7 days of Ancef . blood cultures: no growth Venous Dupplex was negative for DVT (4) Acute exacerbation of CHF (congestive heart failure) Current Visit: Yes Status: Acute Assessment and plan: Acute Pulmonary edema secondary to acute on chronic diastolic CHF exacerbation at presentation. The patient was on a Bumex drip that was stopped and lasix has also been stopped .. Strict I's and O's and daily weight, fluid restriction diet. Echocardiogram showed an ejection fraction of 55% with mild diastolic dysfunction. she has been started on HD. Qualifiers: Congestive heart failure type: diastolic Qualified Code(s): I50.33 - Acute on chronic diastolic (congestive) heart failure (5) Hypothyroidism Current Visit: Yes Status: Chronic Assessment and plan: TSH, Ft3 and Ft4 was repeated last night for concern for possible thyrotoxicosis given new onset atrial fib. however TSH is low along with low T3 and subnormal T4 which suggests central hypothyroidism. for thyrotoxicosis, would expect high T4 and T3 levels. will continue levothyroxine at 137 g daily Qualifiers: Hypothyroidism type: other Qualified Code(s): E03.8 - Other specified hypothyroidism (6) Elevated troponin Current Visit: Yes Status: Acute Assessment and plan: Likely secondary to demand ischemia (7) Leucocytosis Current Visit: Yes Status: Acute Assessment and plan: Has improved now with Zosyn. UA sent shows some mild leukocyte esterase, chest x-ray done shows left basal opacity possible effusion or infiltrate. She denies any cough or chest pain or shortness of breath at this time, however very poor historian and very hard of hearing. Also denies any burning micturition. blood cx has been negative. no other source noted, no back sores and the erythema of her left leg has improved. tomorrow is D5 Zosyn, if leukocytosis is improving and no fever, may stop Zosyn tomorrow. Qualifiers: Leukocytosis type: unspecified Qualified Code(s): D72.829 - Elevated white blood cell count, unspecified - Time Spent With Patient 25 - 35 minutes - Subjective Interval history: Patient seen at the bedside today, very hard of hearing but able to hear on the right ear. Patient has had renal biopsy , which was negative for membranous glomerulonephritis. Renal team following, s/p initiation of HD ,placement of temporary HD catheter. plan is to conitnue HD for now. new onset afib RVR , stabilized on oral cardizem. palliative has been consulted, she wishes to continue the HD, family meeting for fri. - Constitutional Vitals: Temp Pulse Resp BP Pulse Ox 98.2 F 92 16 137/69 92 L 12/09/16 16:30 12/09/16 16:30 12/09/16 16:30 12/09/16 16:30 12/09/16 16:30 General appearance: Present: cooperative, A&O X 3, pleasant, answers questions appropriately (Unsure of medication history) Exam: - Head Head exam: Present: atraumatic, normocephalic - Eye Eye exam: Present: PERRL, conjuntiva pink, sclera anicteric Pupils: Present: PERRL - Neck Neck exam general surgery: Present: supple, trachea midline. Absent: lymphadenopathy - Respiratory Respiratory exam: Present:b/l clear Absent: accessory muscle use, rales, rhonchi, wheezes - Cardiovascular Cardiovascular exam: Present: RRR, +S1, +S2. Absent: diastolic murmur, gallop, rubs, systolic murmur - GI/Abdominal GI/Abdominal exam: Present: normal bowel sounds, soft, no peritoneal signs. Absent: distended, tenderness - Extremities Exam Extremities exam: Present: warm, radial pulses palpable and symetrical. b/l swelling that has improved. Absent: calf tenderness, cyanotic, pedal edema Additional comments: small echimotic area in the left calf , erythema improving. - Neurological Exam Neurological exam: Present: CN II-XII intact, oriented X3, no focal deficits. Absent: pronater drift, facial droop, speech deficit - Skin Skin exam: Present: dry, intact Internal Medicine: Result - Labs CBC & Chem 7: 12/09/16 04:35 12/09/16 04:35 Labs: Short CBC 12/09/16 Range/Units 04:35 WBC 13.7 H (4.3-11.1) K/mcL Hgb 8.7 L (11.5-15.4) g/dL Hct 27.7 L (35.3-44.9) % Plt Count 96 L (140-400) K/mcL BMP 12/09/16 04:35 Sodium 138 Potassium 4.4 Chloride 95 L Carbon Dioxide 28 BUN 55 H D Creatinine 3.32 H Glucose 109 H Calcium 8.7 - ABG Interpretation ABG results: PT/INR, D-dimer PT 10.6 Seconds (9.4-12.1) 12/02/16 04:35 - Impressions Impressions Chest X-Ray 12/05/16 11:32 IMPRESSION: 1. Increased left basilar opacity, which may represent pleural effusion and/or infiltrate. 2. Interval placement of a right internal jugular central venous catheter with the tip overlying the mid SVC. No pneumothorax. D/ / 12/05/2016 12:06:36 Nandini Ramos MD / sarahi Interpreting Provider: Nandini Ramos MD - VTE Documentation of Mechanical Device: Intermittent pneumatic compression device Consult Discharge Plan - Plan Referrals: NO,PCP [Primary Care Provider] - (Patient can not remember the name of her PCP , however patient is being referred to an ECF and will follow up with their PCP for now)
[2016-12-10 05:00] LABS: Hemoglobin 8.2 g/dL (11.5-15.4); Mean Platelet Volume 11.3 fL (9.4-12.4)
[2016-12-10 05:02] LABS: Hematocrit 26.7 % (35.3-44.9); Immature Platelets 12.4 % (1.1-6.1); Mean Corpuscular HGB Conc 30.7 g/dL (31.6-35.5); Mean Corpuscular Hemoglobin 25.5 pg (28.0-33.3); Mean Corpuscular Volume 82.9 fL (83.0-100.0); Red Blood Count 3.22 M/mcL (3.82-4.97); Red Cell Distribution Width 17.1 % (11.5-14.5)
[2016-12-10 05:15] LABS: Calcium 8.8 mg/dL (8.6-10.8); Potassium 3.7 mEq/L (3.5-4.5)
[2016-12-10] MEDS: Piperacillin/Tazobactam 3.375 GM in D5% in Water (Mini-Bag+) 100 ML IVPB SCH ×2 (06:57→18:14)
[2016-12-10] MEDS: Diltiazem CD (24hr) 120 MG CAPSULE PO SCH (08:07)
[2016-12-10] MEDS: Aspirin Enteric Coated 81 MG Tablet PO SCH (08:08)
[2016-12-10] MEDS: hydrALAZINE 25 MG TABLET PO SCH ×3 (08:08→18:14)
[2016-12-10] MEDS: *HR* Heparin 5,000 UNIT/ML VIAL SQ SCH ×2 (08:08→18:14)
[2016-12-10] MEDS ORDERED: 0.9 % Sodium Chloride 250 ML IV PRN (09:10)
[2016-12-10] MEDS ORDERED: *HR* Heparin 10,000 UNIT/10 ML VIAL IV PRN (09:10)
[2016-12-10] MEDS ORDERED: Albumin 25% 25gram/100mL 25 GM/100 ML IV.SOLN IVPB ONE (09:17)
--- NOTE | 2016-12-10 09:29 | Internal Med Progress Note ---
Date of Encounter: 12/10/16 Time of Encounter: 09:27 - Assessment and plan (1) Acute exacerbation of CHF (congestive heart failure) Current Visit: Yes Status: Acute Assessment and plan: Acute on chronic diastolic congestive heart failure. Improving with hemodialysis. Moderate risk for complications. Qualifiers: Congestive heart failure type: diastolic Qualified Code(s): I50.33 - Acute on chronic diastolic (congestive) heart failure (2) Acute renal failure Current Visit: Yes Status: Acute Assessment and plan: On hemodialysis. Nephrology following. Qualifiers: Acute renal failure type: unspecified Qualified Code(s): N17.9 - Acute kidney failure, unspecified (3) Leucocytosis Current Visit: Yes Status: Acute Assessment and plan: WBC count is 13.8. On Zosyn. Blood cultures have been negative. Will repeat chest x-ray. If pneumonia/infiltrate improving, will change to oral antibiotics. Qualifiers: Leukocytosis type: other Qualified Code(s): D72.828 - Other elevated white blood cell count (4) Sepsis affecting skin Current Visit: Yes Status: Acute Assessment and plan: From right lower extremity cellulitis which is improving. On Zosyn currently. (5) HTN (hypertension) Current Visit: Yes Status: Chronic Assessment and plan: Well-controlled Qualifiers: Hypertension type: essential hypertension Qualified Code(s): I10 - Essential (primary) hypertension (6) Hypothyroidism Current Visit: Yes Status: Chronic Assessment and plan: On levothyroxine Qualifiers: Hypothyroidism type: other Qualified Code(s): E03.8 - Other specified hypothyroidism (7) Atrial fibrillation Current Visit: Yes Status: Acute Assessment and plan: New onset. Rate controlled with Cardizem. Qualifiers: Atrial fibrillation type: paroxysmal Qualified Code(s): I48.0 - Paroxysmal atrial fibrillation - Subjective Interval history: Patient is feeling weak and tired. Denies any pain. Eating breakfast at this time. Does not appear to be in any significant distress besides requiring O2 supplementation. - Constitutional Vitals: Temp Pulse Resp BP Pulse Ox 97.8 F 82 19 117/64 95 12/10/16 08:46 12/10/16 08:46 12/10/16 08:46 12/10/16 08:46 12/10/16 08:46 General appearance: Present: cooperative, mild distress, A&O X 3, pleasant, answers questions appropriately - ENT Additional comments: Decreased hearing. - Neck Neck exam general surgery: Present: supple, trachea midline. Absent: lymphadenopathy - Respiratory Respiratory exam: Present: CTAB. Absent: accessory muscle use, rales, rhonchi, wheezes - Cardiovascular Cardiovascular exam: Present: irregular rhythm, +S1, +S2. Absent: diastolic murmur, gallop, rubs, systolic murmur - GI/Abdominal GI/Abdominal exam: Present: normal bowel sounds, soft, no peritoneal signs. Absent: distended, tenderness - Neurological Exam Neurological exam: Present: alert, oriented X3, no focal deficits. Absent: facial droop, speech deficit - Skin Skin exam: Present: dry, intact Internal Medicine: Result - Labs CBC & Chem 7: 12/10/16 04:40 12/10/16 04:40 Labs: Short CBC 12/10/16 Range/Units 04:40 WBC 13.8 H (4.3-11.1) K/mcL Hgb 8.2 L (11.5-15.4) g/dL Hct 26.7 L (35.3-44.9) % Plt Count 85 L (140-400) K/mcL BMP 12/10/16 04:40 Sodium 139 Potassium 3.7 Chloride 97 L Carbon Dioxide 28 BUN 36 H D Creatinine 2.47 H Glucose 142 H Calcium 8.8 - ABG Interpretation ABG results: PT/INR, D-dimer PT 10.6 Seconds (9.4-12.1) 12/02/16 04:35 - Impressions Impressions Chest X-Ray 12/05/16 11:32 IMPRESSION: 1. Increased left basilar opacity, which may represent pleural effusion and/or infiltrate. 2. Interval placement of a right internal jugular central venous catheter with the tip overlying the mid SVC. No pneumothorax. D/ / 12/05/2016 12:06:36 Nandini Ramos MD / sarahi Interpreting Provider: Nandini Ramos MD - VTE Documentation of Mechanical Device: Intermittent pneumatic compression device Consult Discharge Plan - Plan Referrals: NO,PCP [Primary Care Provider] - (Patient can not remember the name of her PCP , however patient is being referred to an ECF and will follow up with their PCP for now) - Attending Attestation This document has been at least partially created by [employer] recognition technology by Dr. Burciaga. Errors in grammar, wording or other phrases may exist. If errors are found after the documentation is signed, they will be addressed individually in the addendum section of this document when appropriate.
[2016-12-10] MEDS ORDERED: 0.9 % Sodium Chloride 2,000 ML ONE (09:35)
--- NOTE | 2016-12-10 12:36 | Palliative - Consult Note ---
Date of Encounter: 12/10/16 Time of Encounter: 11:00 - Assessment and Plan (1) Acute exacerbation of CHF (congestive heart failure) Current Visit: Yes Status: Acute Assessment and plan: This is improving with dialysis, plan per hospitalist team Qualifiers: Congestive heart failure type: diastolic Qualified Code(s): I50.33 - Acute on chronic diastolic (congestive) heart failure (2) Goals of care, counseling/discussion Current Visit: Yes Status: Acute Assessment and plan: Currently full code, we will be here tomorrow to discuss further patient is not able to make decisions at this time. Also of care will be discussed tomorrow when family is here around noon. Patient does not have a medical power of contracts attorney. (3) PAZ (acute kidney injury) Current Visit: Yes Status: Acute Assessment and plan: This is being followed by nephrology currently. Her watching medications very closely and using dialysis to give the kidneys asked and then try to wean off dialysis. They do feel if there is a good chance he will be able to get her off dialysis. The patient is an uric ordered urine output since the eighth. (4) Atrial fibrillation Current Visit: Yes Status: Acute Assessment and plan: Under good control currently with Cardizem. Cardiology is recommending aspirin only as anticoagulant at this time. Will follow up out as outpatient. Qualifiers: Atrial fibrillation type: paroxysmal Qualified Code(s): I48.0 - Paroxysmal atrial fibrillation Palliative-CN HPI - Data of Consult Patient: new to practice Requesting Physician: Denton Burciaga MD Primary Care Provider: PCP NO - Consult Narrative Palliative Care/Comfort Measures: Palliative care Reason for consult: Goals of care, CODE STATUS History of present illness: Ms. Ortega is a 81 year old female With history of kidney problems. 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 Pt is not able to give hsitory today and hsitory comes from family (over phone) and medical record. Pt had been having alot of falling na d not able to get up. Increasing weknesss. He had been hospitalized at [facility] for 2 or 3 days a week prior to admission. She had an increased troponin that was felt to be demand ischemia induced. Chronic kidney disease was able at that time with a creatinine of 1.8 since then her kidney function worsened now requiring dialysis. She has developed atrial fibrillation with rapid ventricular response which is currently being by cardiology and by a diltiazem drip. Anticoagulation currently recommended only aspirin. The patient is now requiring dialysis and had not required it before, and as the patient has developed fibrillation in addition to her congestive heart failure due to the fact that the patient has gotten weaker during the time that she has been here, is now requiring dialysis and also developed atrial fibrillation family is requesting a palliative care consult to discuss goals of care and we will were going from here. As of right now nephrology does have a plan to wean her off dialysis over this may require proceeding into the outpatient setting. Cardiology is recommending she go over to oral Cardizem when able be on that they are signing off at this time, nephrology is working on improving kidney function this may require further dialysis. The congestive heart failure is improving with the hemodialysis. She does have an increased white blood cell count but blood cultures have been negative and a myotic score being switched over to oral and she does have a cellulitis of the legs, this is improving. The patient has no complaint of pain or shortness of breath at this time. She is not coughing, she does have some appetite, no nausea vomiting no diarrhea no constipation. 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) Psychiatric history: no psych history - Social History Smoking Status: Never smoker Smokeless Tobacco Status: No Alcohol use: none Drug use: none - Family History Mother Family Member Ethnicity: Non- Living Status: Age at : 83 Hx Family Cardiac Disorders: Yes Father Family Member Ethnicity: Non- Living Status: Age at : 89 Medications and Allergies Amlodipine Besylate [Amlodipine Besylate] 10 mg PO DAILY 11/28/16 [History] Aspirin 81 mg PO DAILY 11/28/16 [History] Cholecalciferol (D-3) [Vitamin D] 1,000 unit PO DAILY 11/28/16 [History] CloNIDine HCl [CloNIDine HCl] 0.1 mg PO BID 11/28/16 [History] Furosemide [Lasix] 40 mg PO BID 11/28/16 [History] Labetalol HCl [Labetalol HCl] 200 mg PO BID 11/28/16 [History] Levothyroxine Sodium [Levoxyl] 100 mcg PO DAILY 11/28/16 [History] Lisinopril [Zestril] 20 mg PO DAILY 11/28/16 [History] Losartan Potassium [Cozaar] 50 mg PO DAILY 11/28/16 [History] PredniSONE [Deidre] 5 mg PO DAILY 11/28/16 [History] Allergies No Known Allergies Allergy (Verified 11/28/16 08:21) ROS unobtainable: due to mental status Palliative Care-Exam - Constitutional Vitals: Temp Pulse Resp BP Pulse Ox 98.0 F 84 19 112/68 96 12/10/16 12:00 12/10/16 12:00 12/10/16 12:00 12/10/16 12:00 12/10/16 12:00 General appearance: Present: no acute distress - Head Head Exam: Present: atraumatic, normal inspection - Eye Eye exam: Present: normal appearance - ENT ENT exam: Present: normal oropharynx. Absent: normal exam (Area part of hearing ) - Neck Neck exam: Present: normal inspection (Except for dialysis catheter on the right side) - Respiratory Respiratory exam: Present: decreased breath sounds, rales - Cardiovascular Cardiovascular exam: Present: irregular rhythm - GI/Abdominal Exam GI/Abdominal exam: Present: normal bowel sounds, soft. Absent: tenderness - Rectal Rectal exam: Present: deferred - Catheter Type: Urethral (Flores) Additional comments: Both lower extremities are wrapped, - Extremities Exam Extremities exam: Present: pedal edema, tenderness. Absent: normal inspection - Neurological Exam Neurological exam: Present: alert. Absent: oriented X3 - Psychiatric Psychiatric exam: Present: normal affect, normal mood. Absent: agitated, anxious - Skin Skin exam: Present: dry, warm (Mellitus on on the legs, this is by history I did not examine directly) Internal Medicine - CN: Reslt - Labs CBC & Chem 7: 12/10/16 04:40 12/10/16 04:40 Labs: Short CBC 12/10/16 Range/Units 04:40 WBC 13.8 H (4.3-11.1) K/mcL Hgb 8.2 L (11.5-15.4) g/dL Hct 26.7 L (35.3-44.9) % Plt Count 85 L (140-400) K/mcL BMP 12/10/16 04:40 Sodium 139 Potassium 3.7 Chloride 97 L Carbon Dioxide 28 BUN 36 H D Creatinine 2.47 H Glucose 142 H Calcium 8.8 - ABG Interpretation ABG results: PT/INR, D-dimer PT 10.6 Seconds (9.4-12.1) 12/02/16 04:35 - Impressions Impressions Chest X-Ray 12/10/16 08:48 IMPRESSION: 1. No significant change in appearance of mild CHF, including a moderate left pleural effusion. 2. Interval improvement in appearance of bibasilar airspace consolidation, likely bibasilar atelectasis, though underlying pneumonia or aspiration cannot be excluded. D/ / 12/10/2016 11:49:47 [facility] Interpreting Provider: Ridge Cox MD Consult Discharge Plan - Plan Referrals: NO,PCP [Primary Care Provider] - (Patient can not remember the name of her PCP , however patient is being referred to an ECF and will follow up with their PCP for now) Patricia Salmeron DO [Partnered Physician] - 12/17/16 1:30 pm Palliative Quality Palliative Quality: Screen for Code Status: Yes, Screen for Goals of Care: Yes, Screen for Pain: Yes, If Pain Regimen Started, Initiate Bowel Regimen: NA, Screen for Nausea/Vomitting: Yes
[2016-12-10] MEDS ORDERED: Albumin 25% 12.5gm/50mL 25.0 GM/100 ML IV.SOLN ONE (14:43)
[2016-12-10] MEDS: *HR* OxyCODONE Immed Rel 5 MG TABLET PO PRN (18:14)
--- NOTE | 2016-12-10 22:30 | Nephrology Progress Note ---
Date of Encounter: 12/10/16 Time of Encounter: 11:30 - Assessment and Plan (1) PAZ (acute kidney injury) Current Visit: Yes Status: Acute SCr slightly better after HD yesterday. UF planned today with goal of 3kg as tolerated with albumin bolus prn hypotension Next HD tomorrow Continue to avoid nephrotoxins if possible (2) Acute exacerbation of CHF (congestive heart failure) Current Visit: Yes Status: Acute Continue strict I/Os Continue fluid restriction Continue off diuretics for now. UF today with gaol of 3kg as tolerated Qualifiers: Congestive heart failure type: diastolic Qualified Code(s): I50.33 - Acute on chronic diastolic (congestive) heart failure (3) Hyperkalemia Current Visit: Yes Status: Acute potassium normalized (4) CKD (chronic kidney disease) stage 4, GFR 15-29 ml/min Current Visit: Yes Status: Chronic baseline GFR in the 20s (5) Protein-calorie malnutrition, moderate Current Visit: Yes Status: Chronic Calorie count recommended Also recommend help at meal times continue nepro with meals Subjective Principal diagnosis: CHF Interval history: Pt seen and examined on HD more awake today today and communicative although somewhat confused. She reports being tired and her legs felt "funny". She drank at least half a can of nepro while I was at bedside. Objective - Vital Signs Vital signs: Vital Signs Temp Pulse Resp BP Pulse Ox 12/10/16 20:38 97.6 F 70 164/69 97 12/10/16 17:16 97.5 F L 81 15 166/70 94 L 12/10/16 16:05 98.0 F 18 102/44 12/10/16 16:00 93/45 12/10/16 15:45 98/40 12/10/16 15:30 103/50 12/10/16 15:15 102/46 12/10/16 15:00 109/42 12/10/16 14:45 93/42 12/10/16 14:30 132/51 12/10/16 14:15 127/55 12/10/16 14:00 98.0 F 18 122/53 12/10/16 13:45 98/40 12/10/16 12:00 98.0 F 84 19 112/68 96 12/10/16 09:45 95 12/10/16 08:46 97.8 F 82 19 117/64 95 12/10/16 05:10 97.9 F 78 20 125/56 96 12/10/16 00:09 98.1 F 74 16 108/49 94 L Intake and Output 12/10/16 12/10/16 12/10/16 07:59 15:59 23:59 Intake Total 100 / 100 600 / 600 220 / 220 Output Total 50 / 50 4200 / 4200 Balance 100 / 100 550 / 550 -3980 / -3980 Intake: IV Fluids 100 / 100 100 / 100 Zosyn 3.375 GM In 100 / 100 100 / 100 Dextrose 5% (Minibag+) 100 ML 100 ML @ 25 mls/hr IVPB Q12HR [facility] Rx#: [id number] Oral 0 / 0 120 / 120 Intake, Rinseback and 600 / 600 Flushes Output: Urine 0 / 0 Total Dialysis Output 4200 / 4200 Catheter 50 / 50 Other: Meal 60% ice cream Dinner Percent of Meal Consumed 65% Stool Size Smear Stool Color Brown # Bowel Movement Diapers 1 Weight 77 kg Hemodialysis Net Fluid [id number] Removed (mL) Patient Weight 12/10/16 23:59 Weight 77 kg - General Appearance General appearance: Present: chronically ill, frail EENT: Present: ATNC, mucous membranes dry Neck: Present: no JVD, supple Respiratory: Present: course breath sounds Cardiology: Present: edema (LE with wrapping bilat), normal S1, normal S2 Dialysis Vascular Access: Venous Catheter Gastrointestinal: Present: no tenderness, no guarding Integumentary: Present: warm and dry Neurologic: Present: disoriented Musculoskeletal: Present: no deformities Psychiatric: Present: mood/affect appropriate - Lab 12/10/16 04:40 12/10/16 04:40 Most recent lab results Calcium 8.8 mg/dL (8.6-10.8) 12/10/16 04:40 Phosphorus 7.7 mg/dL (2.3-4.7) H 12/05/16 05:49 Magnesium 1.8 mg/dL (1.6-2.6) 11/30/16 06:10 Urine Creatinine 53 mg/dL 12/01/16 02:05 Ur Total Protein 24 Hr 573 mg/day (0-299) H 12/01/16 02:05 Urine Sodium < 20.0 mEq/L 12/01/16 02:05 Urine Total Protein 63 mg/dL (1-14) H 12/01/16 02:05 - VTE Documentation of Mechanical Device: Intermittent pneumatic compression device Consult Discharge Plan - Plan Referrals: NO,PCP [Primary Care Provider] - (Patient can not remember the name of her PCP , however patient is being referred to an ECF and will follow up with their PCP for now) Patricia Salmeron, [Partnered Physician] - 12/17/16 1:30 pm
[2016-12-11] MEDS: hydrALAZINE 25 MG TABLET PO SCH ×4 (00:16→18:57)
[2016-12-11 04:31] LABS: Basophils % 0.1 %; Eosinophils % 0.1 %; Hemoglobin 8.2 g/dL (11.5-15.4); Immature Granulocytes % 1.6 % (0-4); Lymphocytes # 0.2 K/mcL (0.6-4.6); Lymphocytes % 1.2 %; Mean Corpuscular HGB Conc 31.5 g/dL (31.6-35.5); Mean Corpuscular Hemoglobin 26.1 pg (28.0-33.3); Mean Corpuscular Volume 82.8 fL (83.0-100.0); Mean Platelet Volume 11.7 fL (9.4-12.4); Monocytes # 0.9 K/mcL (0.0-1.3); Monocytes % 5.7 %; Red Blood Count 3.14 M/mcL (3.82-4.97); Red Cell Distribution Width 17.2 % (11.5-14.5); Segmented Neutrophils % 91.3 %
[2016-12-11 04:32] LABS: Neutrophils # 14.1 K/mcL (1.6-8.9); Platelet Count 81 K/mcL (140-400)
[2016-12-11] MEDS: *HR* Heparin 5,000 UNIT/ML VIAL SQ SCH ×2 (05:22→18:57)
[2016-12-11] MEDS: Piperacillin/Tazobactam 3.375 GM in D5% in Water (Mini-Bag+) 100 ML IVPB SCH (05:22)
[2016-12-11 05:29] LABS: Platelet Estimate Decreased (Normal)
[2016-12-11 05:30] LABS: Anisocytosis 1+ (Not Present); Hypochromasia Present (Not Present); Large Platelets Present (Not Present); Toxic Granulation Present (Not Present)
[2016-12-11 05:39] LABS: Calcium 9.1 mg/dL (8.6-10.8)
[2016-12-11] MEDS: Diltiazem CD (24hr) 120 MG CAPSULE PO SCH (08:23)
[2016-12-11] MEDS: Aspirin Enteric Coated 81 MG Tablet PO SCH (08:23)
[2016-12-11] MEDS ORDERED: *HR* Heparin 10,000 UNIT/10 ML VIAL IV PRN (09:10)
[2016-12-11] MEDS ORDERED: 0.9 % Sodium Chloride 250 ML IV PRN (09:10)
[2016-12-11] MEDS ORDERED: Albumin 25% 25gram/100mL 25 GM/100 ML IV.SOLN IVPB ONE (09:18)
--- NOTE | 2016-12-11 09:44 | Internal Med Progress Note ---
Date of Encounter: 12/11/16 Time of Encounter: 08:55 - Assessment and plan (1) Acute exacerbation of CHF (congestive heart failure) Current Visit: Yes Status: Acute Assessment and plan: Continues to improve with volume management through hemodialysis. Patient remains on 4 L nasal cannula O2 supplementation. We will wean FiO2. moderate risk for complications. Qualifiers: Congestive heart failure type: diastolic Qualified Code(s): I50.33 - Acute on chronic diastolic (congestive) heart failure (2) Acute renal failure Current Visit: Yes Status: Acute Assessment and plan: Nephrology following. Continue dialysis per the recommendations. Qualifiers: Acute renal failure type: unspecified Qualified Code(s): N17.9 - Acute kidney failure, unspecified (3) Leucocytosis Current Visit: Yes Status: Acute Assessment and plan: Leukocytosis slightly worse today. Her blood cultures have been negative. Chest x-ray also appears to be better. Will change antibiotics to oral Augmentin and doxycycline. Qualifiers: Leukocytosis type: other Qualified Code(s): D72.828 - Other elevated white blood cell count (4) Sepsis affecting skin Current Visit: Yes Status: Acute Assessment and plan: Improving. Will change to oral antibiotics. (5) HTN (hypertension) Current Visit: Yes Status: Chronic Assessment and plan: Blood pressure is well controlled. Qualifiers: Hypertension type: essential hypertension Qualified Code(s): I10 - Essential (primary) hypertension (6) Hypothyroidism Current Visit: Yes Status: Chronic Assessment and plan: Currently on levothyroxine 137 g per day. Qualifiers: Hypothyroidism type: other Qualified Code(s): E03.8 - Other specified hypothyroidism (7) Atrial fibrillation Current Visit: Yes Status: Acute Assessment and plan: Rate ccontrolled. on labetalol. Qualifiers: Atrial fibrillation type: paroxysmal Qualified Code(s): I48.0 - Paroxysmal atrial fibrillation - Subjective Interval history: Patient is currently awake and alert. Eating breakfast. No nausea or vomiting. Feels weak overall. Complains of back pain which is chronic. - Constitutional Vitals: Temp Pulse Resp BP Pulse Ox 97.5 F L 82 17 124/67 96 12/11/16 07:30 12/11/16 07:30 12/11/16 07:30 12/11/16 07:30 12/11/16 07:30 General appearance: Present: cooperative, A&O X 2, mild distress, pleasant, answers questions appropriately - Respiratory Respiratory exam: Present: CTAB. Absent: accessory muscle use, rales, rhonchi, wheezes - Cardiovascular Cardiovascular exam: Present: RRR, +S1, +S2. Absent: diastolic murmur, gallop, rubs, systolic murmur - GI/Abdominal GI/Abdominal exam: Present: normal bowel sounds, soft, no peritoneal signs. Absent: distended, tenderness - Extremities Exam Extremities exam: Present: warm, radial pulses palpable and symetrical. Absent : calf tenderness, cyanotic, pedal edema Additional comments: Cellulitis of right lower extremity is improving. - Neurological Exam Neurological exam: Present: alert, no focal deficits. Absent: facial droop, speech deficit - Psychiatric Psychiatric exam: Present: normal affect, normal mood - Skin Skin exam: Present: dry, intact Internal Medicine: Result - Labs CBC & Chem 7: 12/11/16 04:10 12/11/16 04:10 Labs: Short CBC 12/11/16 Range/Units 04:10 WBC 15.4 H (4.3-11.1) K/mcL Hgb 8.2 L (11.5-15.4) g/dL Hct 26.0 L (35.3-44.9) % Plt Count 81 L (140-400) K/mcL Neutrophils # 14.1 H (1.6-8.9) K/mcL BMP 12/11/16 04:10 Sodium 138 Potassium 4.0 Chloride 95 L Carbon Dioxide 27 BUN 53 H D Creatinine 3.02 H Glucose 156 H Calcium 9.1 - ABG Interpretation ABG results: PT/INR, D-dimer PT 10.6 Seconds (9.4-12.1) 12/02/16 04:35 - Impressions Impressions Chest X-Ray 12/10/16 08:48 IMPRESSION: 1. No significant change in appearance of mild CHF, including a moderate left pleural effusion. 2. Interval improvement in appearance of bibasilar airspace consolidation, likely bibasilar atelectasis, though underlying pneumonia or aspiration cannot be excluded. D/ / 12/10/2016 11:49:47 Ridge Cox MD / [facility] Interpreting Provider: Ridge Cox MD - VTE Documentation of Mechanical Device: Intermittent pneumatic compression device Consult Discharge Plan - Plan Referrals: NO,PCP [Primary Care Provider] - (Patient can not remember the name of her PCP , however patient is being referred to an ECF and will follow up with their PCP for now) Patricia Salmeron DO [Partnered Physician] - 12/17/16 1:30 pm - Attending Attestation This document has been at least partially created by [employer] recognition technology by Dr. Burciaga. Errors in grammar, wording or other phrases may exist. If errors are found after the documentation is signed, they will be addressed individually in the addendum section of this document when appropriate.
--- NOTE | 2016-12-11 11:34 | Nephrology Progress Note ---
Date of Encounter: 12/11/16 Time of Encounter: 10:55 - Assessment and Plan (1) PAZ (acute kidney injury) Current Visit: Yes Status: Acute SCr worse after UF yesterday hence no signs yet of renal recovery. Continue HD today with goal UF of 3-4kg as tolerated with albumin bolus at the beginning and pnr for middle of treatment if hypotensive UP not documented. Unclear if no UOP at all or just not being documented Continue to avoid nephrotoxins if possible (2) Acute exacerbation of CHF (congestive heart failure) Current Visit: Yes Status: Acute Continue strict I/Os Continue fluid restriction Continue off diuretics with HD at present Qualifiers: Congestive heart failure type: diastolic Qualified Code(s): I50.33 - Acute on chronic diastolic (congestive) heart failure (3) Hyperkalemia Current Visit: Yes Status: Acute potassium resolved, continue renal diet (4) CKD (chronic kidney disease) stage 4, GFR 15-29 ml/min Current Visit: Yes Status: Chronic baseline GFR in the 20s Subjective Principal diagnosis: CHF Interval history: Pt seen and examined with family at bedside. More awake and asking if she is going to . Subsequent family meeting had with family and Dr Disla with code status established. Objective - Vital Signs Vital signs: Vital Signs Temp Pulse Resp BP Pulse Ox 12/11/16 10:50 97.5 F L 82 17 107/54 95 12/11/16 07:30 97.5 F L 82 17 124/67 96 12/11/16 03:31 97.9 F 80 18 121/63 12/11/16 00:14 97.7 F 68 18 113/57 96 12/10/16 20:38 97.6 F 70 164/69 97 12/10/16 17:16 97.5 F L 81 15 166/70 94 L 12/10/16 16:05 98.0 F 18 102/44 12/10/16 16:00 93/45 12/10/16 15:45 98/40 12/10/16 15:30 103/50 12/10/16 15:15 102/46 12/10/16 15:00 109/42 12/10/16 14:45 93/42 12/10/16 14:30 132/51 12/10/16 14:15 127/55 12/10/16 14:00 98.0 F 18 122/53 12/10/16 13:45 98/40 12/10/16 12:00 98.0 F 84 19 112/68 96 Intake and Output 12/10/16 12/11/16 12/11/16 23:59 07:59 15:59 Intake Total 320 / 320 240 / 240 Output Total 4200 / 4200 Balance -3880 / -3880 240 / 240 Intake: IV Fluids 200 / 200 Zosyn 3.375 GM In 200 / 200 Dextrose 5% (Minibag+) 100 ML 100 ML @ 25 mls/hr IVPB Q12HR [facility] Rx#: [id number] Oral 120 / 120 240 / 240 Output: Urine 0 / 0 Total Dialysis Output 4200 / 4200 Other: Meal Dinner Breakfast Percent of Meal Consumed 65% 40% Weight 75.5 kg Hemodialysis Net Fluid 3600 Removed (mL) Patient Weight 12/11/16 23:59 Weight 75.5 kg - General Appearance General appearance: Present: chronically ill (NAD) EENT: Present: ATNC, mucous membranes moist Neck: Present: no JVD, supple Additional Comments: good areation ant bilat Cardiology: Present: edema (less LE edema bilat with wrapping in place), normal S1, normal S2 Dialysis Vascular Access: Venous Catheter (temp cathter) Gastrointestinal: Present: no tenderness, no guarding Integumentary: Present: warm and dry Neurologic: Present: disoriented Musculoskeletal: Present: no deformities Psychiatric: Present: cooperative - Lab 12/12/16 03:00 12/12/16 03:00 Most recent lab results Calcium 9.1 mg/dL (8.6-10.8) 12/11/16 04:10 Phosphorus 7.7 mg/dL (2.3-4.7) H 12/05/16 05:49 Magnesium 1.8 mg/dL (1.6-2.6) 11/30/16 06:10 Urine Creatinine 53 mg/dL 12/01/16 02:05 Ur Total Protein 24 Hr 573 mg/day (0-299) H 12/01/16 02:05 Urine Sodium < 20.0 mEq/L 12/01/16 02:05 Urine Total Protein 63 mg/dL (1-14) H 12/01/16 02:05 - VTE Documentation of Mechanical Device: Intermittent pneumatic compression device Consult Discharge Plan - Plan Referrals: NO,PCP [Primary Care Provider] - (Patient can not remember the name of her PCP , however patient is being referred to an ECF and will follow up with their PCP for now) Patricia Salmeron DO [Partnered Physician] - 12/17/16 1:30 pm
--- NOTE | 2016-12-11 13:08 | Palliative Progress Note ---
Date of Encounter: 12/11/16 Time of Encounter: 07:15 - Assessment and plan (1) Acute exacerbation of CHF (congestive heart failure) Current Visit: Yes Status: Acute Assessment and plan: This is improving with hemodialysis. New current medications per hospitalist team. Qualifiers: Congestive heart failure type: diastolic Qualified Code(s): I50.33 - Acute on chronic diastolic (congestive) heart failure (2) Goals of care, counseling/discussion Current Visit: Yes Status: Acute Assessment and plan: Discussed at length with family. I believe that at least at this time she would want to remain a full code. We will discuss this with her as her mental status allows. Brothers are the point of contact for occult decision making although no medical power of consumer attorney has been formally made. Overall goal will be treated and upper returning home, family is okay at this time with continuing dialysis. Patient indicates that she is also okay with this. CODE STATUS is established in goals of care are established. We will start following from a distance at this point. (3) PAZ (acute kidney injury) Current Visit: Yes Status: Acute Assessment and plan: Being followed by nephrology, the belief by nephrology is that the patient will be able to be weaned off dialysis. (4) Atrial fibrillation Current Visit: Yes Status: Acute Qualifiers: Atrial fibrillation type: paroxysmal Qualified Code(s): I48.0 - Paroxysmal atrial fibrillation - Time Spent With Patient Total time spent is greater than 50% in coordination of care (as documented) at patient's floor/unit and/or counseling patient: - Subjective Interval history: The patient has no complaint of this morning events noted overnight. And meeting with family today. Also for hemodialysis today. - Constitutional Vitals: Abnormal lab results WBC 15.4 K/mcL (4.3-11.1) H 12/11/16 04:10 RBC 3.14 M/mcL (3.82-4.97) L 12/11/16 04:10 Hgb 8.2 g/dL (11.5-15.4) L 12/11/16 04:10 Hct 26.0 % (35.3-44.9) L 12/11/16 04:10 MCV 82.8 fL (83.0-100.0) L 12/11/16 04:10 MCH 26.1 pg (28.0-33.3) L 12/11/16 04:10 MCHC 31.5 g/dL (31.6-35.5) L 12/11/16 04:10 RDW 17.2 % (11.5-14.5) H 12/11/16 04:10 Plt Count 81 K/mcL (140-400) L 12/11/16 04:10 Neutrophils # 14.1 K/mcL (1.6-8.9) H 12/11/16 04:10 Lymphocytes # 0.2 K/mcL (0.6-4.6) L 12/11/16 04:10 Reactive Lymphocytes Present (Not Present) A 12/06/16 04:10 Toxic Granulation Present (Not Present) A 12/11/16 04:10 Platelet Estimate Decreased (Normal) L 12/11/16 04:10 Large Platelets Present (Not Present) A 12/11/16 04:10 Immature Plt Fraction 12.4 % (1.1-6.1) H 12/10/16 04:40 Hypochromasia Present (Not Present) A 12/11/16 04:10 Anisocytosis 1+ (Not Present) A 12/11/16 04:10 ESR 45 mm/hr (0-15) H 11/28/16 06:13 Chloride 95 mEq/L (98-109) L 12/11/16 04:10 BUN 53 mg/dL (7-20) H D 12/11/16 04:10 Creatinine 3.02 mg/dL (0.57-1.11) H 12/11/16 04:10 Est GFR ( Amer) 18 (> 60) L 12/11/16 04:10 Est GFR (Non-Af Amer) 15 (> 60) L 12/11/16 04:10 Glucose 156 mg/dL (70-99) H 12/11/16 04:10 Hemoglobin A1c 6.2 % (-5.6) H 11/29/16 08:07 Calculated Osmolality 304 (280-300) H 12/11/16 04:10 Uric Acid 12.3 mg/dL (2.6-6.0) H 11/30/16 06:10 Ionized Calcium 1.13 mmol/L (1.15-1.35) L 11/28/16 06:13 Phosphorus 7.7 mg/dL (2.3-4.7) H 12/05/16 05:49 ALT 56 Units/L (0-55) H 11/28/16 01:25 Alkaline Phosphatase 144 Units/L (38-126) H 11/28/16 01:25 Troponin I 0.20 ng/mL (0-0.03) H* 11/28/16 16:20 C-Reactive Protein 45 mg/L (Less than 5) H 11/28/16 06:13 B-Natriuretic Peptide 722 pg/mL (0-100) H 12/05/16 05:49 Albumin 2.7 g/dL (3.5-5.0) L 11/28/16 01:25 Albumin/Globulin Ratio 0.8 (1.1-2.2) L 11/28/16 01:25 LDL Cholesterol, Calc 102 mg/dL (0-99) H 11/28/16 06:13 HDL Cholesterol 81 mg/dL (40-59) H 11/28/16 06:13 TSH 0.005 mcIU/mL (0.350-4.840) L 12/08/16 04:07 Free T3 < 1.00 pg/mL (1.71-3.71) L 12/08/16 08:00 Urine Clarity Turbid (Clear) A 12/04/16 15:30 Urine Protein 100 mg/dL (Neg-Trace) H 12/04/16 15:30 Urine Blood Moderate (Negative) H 12/04/16 15:30 Ur Leukocyte Esterase Small (Negative) H 12/04/16 15:30 Urine Microscopic RBC 15-30 per hpf (0-3) H 12/04/16 15:30 Urine Microscopic WBC 15-30 per hpf (0-3) H 12/04/16 15:30 Ur Squamous Epith Cells Many per lpf (None-Few) H 12/04/16 15:30 Ur Culture Indicated? YES (NO) A 12/04/16 15:30 Ur Creatinine 24 Hour 0.48 g/day (0.71-1.65) L 12/01/16 02:05 Microalb/Creat Ratio 1246 (0-30) H 11/28/16 05:40 Ur Total Protein 24 Hr 573 mg/day (0-299) H 12/01/16 02:05 Protein/Creatinin Ratio 1.19 mg/mg (0-0.20) H 12/01/16 02:05 Ur Sodium 24 Hour 18 mEq/day (40-220) L 12/01/16 02:05 Urine Total Protein 63 mg/dL (1-14) H 12/01/16 02:05 General appearance: Present: no acute distress - Head Head exam: Present: atraumatic, normal inspection - Eye Eye exam: Present: normal appearance - ENT ENT exam: Present: mucous membranes moist - Respiratory Respiratory exam: Present: decreased breath sounds, rales - Cardiovascular Cardiovascular exam: Present: RRR - GI/Abdominal GI/Abdominal exam: Present: normal bowel sounds, soft. Absent: tenderness - Extremities Exam Extremities exam: Present: pedal edema, tenderness. Absent: normal inspection ( Both legs are wrapped) - Neurological Exam Neurological exam: Present: alert (But very hard of hearing) - Psychiatric Psychiatric exam: Present: normal affect, normal mood. Absent: agitated, anxious - Skin Skin exam: Present: dry, warm Palliative Quality Palliative Quality: Screen for Code Status: Yes, Screen for Goals of Care: Yes, Screen for Pain: Yes, If Pain Regimen Started, Initiate Bowel Regimen: NA, Screen for Nausea/Vomitting: Yes - Labs CBC & Chem 7: 12/11/16 04:10 12/11/16 04:10 Labs: Laboratory Results - last 24 hr 12/11/16 12/11/16 04:10 04:10 WBC 15.4 H RBC 3.14 L Hgb 8.2 L Hct 26.0 L MCV 82.8 L MCH 26.1 L MCHC 31.5 L RDW 17.2 H Plt Count 81 L MPV 11.7 Immature Gran % 1.6 Seg Neutrophils % 91.3 Lymphocytes % 1.2 Monocytes % 5.7 Eosinophils % 0.1 Basophils % 0.1 Neutrophils # 14.1 H Lymphocytes # 0.2 L Monocytes # 0.9 Eosinophils # 0.0 Basophils # 0.0 Toxic Granulation Present A Platelet Estimate Decreased L Large Platelets Present A Hypochromasia Present A Anisocytosis 1+ A Sodium 138 Potassium 4.0 Chloride 95 L Carbon Dioxide 27 BUN 53 H D Creatinine 3.02 H Est GFR ( Amer) 18 L Est GFR (Non-Af Amer) 15 L BUN/Creatinine Ratio 18 Glucose 156 H Calculated Osmolality 304 H Calcium 9.1 - Impressions Impressions Chest X-Ray 12/10/16 08:48 IMPRESSION: 1. No significant change in appearance of mild CHF, including a moderate left pleural effusion. 2. Interval improvement in appearance of bibasilar airspace consolidation, likely bibasilar atelectasis, though underlying pneumonia or aspiration cannot be excluded. D/ / 12/10/2016 11:49:47 Ridge Cox MD / [facility] Interpreting Provider: Ridge Cox MD - ABG Interpretation ABG results: PT/INR, D-dimer PT 10.6 Seconds (9.4-12.1) 12/02/16 04:35 Consult Discharge Plan - Plan Referrals: NO,PCP [Primary Care Provider] - (Patient can not remember the name of her PCP , however patient is being referred to an ECF and will follow up with their PCP for now) Patricia Salmeron DO [Partnered Physician] - 12/17/16 1:30 pm
[2016-12-11] MEDS ORDERED: 0.9 % Sodium Chloride 2,000 ML ONE (14:42)
[2016-12-11] MEDS ORDERED: Albumin 25% 12.5gm/50mL 25.0 GM/100 ML IV.SOLN ONE (14:42)
[2016-12-11] MEDS: Amoxicillin/Clavulanate 500 MG TABLET PO SCH (20:56)
[2016-12-11] MEDS: Doxycycline 100 MG CAPSULE PO SCH (20:56)
[2016-12-12] MEDS: hydrALAZINE 25 MG TABLET PO SCH ×4 (00:57→17:06)
[2016-12-12] MEDS: *HR* OxyCODONE Immed Rel 5 MG TABLET PO PRN ×2 (00:58→22:49)
[2016-12-12 03:07] LABS: Basophils % 0.2 %; Eosinophils % 0.1 %; Hematocrit 27.4 % (35.3-44.9); Hemoglobin 8.6 g/dL (11.5-15.4); Immature Granulocytes % 2.6 % (0-4); Immature Platelets 13.5 % (1.1-6.1); Lymphocytes # 0.2 K/mcL (0.6-4.6); Lymphocytes % 1.3 %; Mean Corpuscular HGB Conc 31.4 g/dL (31.6-35.5); Mean Corpuscular Hemoglobin 26.1 pg (28.0-33.3); Mean Corpuscular Volume 83.3 fL (83.0-100.0); Mean Platelet Volume 9.9 fL (9.4-12.4); Monocytes # 0.9 K/mcL (0.0-1.3); Monocytes % 5.8 %; Neutrophils # 13.7 K/mcL (1.6-8.9); Red Blood Count 3.29 M/mcL (3.82-4.97); Red Cell Distribution Width 17.1 % (11.5-14.5)
[2016-12-12 03:29] LABS: Calcium 9.2 mg/dL (8.6-10.8); Potassium 3.9 mEq/L (3.5-4.5)
[2016-12-12 03:44] LABS: Platelet Count 84 K/mcL (140-400)
[2016-12-12 03:46] LABS: Anisocytosis 1+ (Not Present); Microcytosis Present (Not Present); Platelet Estimate Decreased (Normal)
[2016-12-12 03:47] LABS: Large Platelets Present (Not Present); Reactive Lymphocytes Present (Not Present); Toxic Vacuolation Present (Not Present)
[2016-12-12] MEDS: *HR* Heparin 5,000 UNIT/ML VIAL SQ SCH ×2 (05:57→20:34)
--- NOTE | 2016-12-12 10:02 | Internal Med Progress Note ---
Date of Encounter: 12/12/16 Time of Encounter: 09:50 - Assessment and plan (1) Altered mental status Current Visit: Yes Status: Acute Assessment and plan: Patient with acute delirium. Likely from sundowning/dementia. Will minimize environmental stimuli. Will start patient on risperidone at bedtime. Monitor vital signs and neuro checks. High risk for complications at this time. Qualifiers: Altered mental status type: delirium Qualified Code(s): R41.0 - Disorientation, unspecified (2) Acute exacerbation of CHF (congestive heart failure) Current Visit: Yes Status: Acute Assessment and plan: Improving. Volume management with hemodialysis. Qualifiers: Congestive heart failure type: diastolic Qualified Code(s): I50.33 - Acute on chronic diastolic (congestive) heart failure (3) Acute renal failure Current Visit: Yes Status: Acute Assessment and plan: Patient remains dialysis dependent. Nephrology following. Qualifiers: Acute renal failure type: unspecified Qualified Code(s): N17.9 - Acute kidney failure, unspecified (4) Leucocytosis Current Visit: Yes Status: Acute Assessment and plan: Improving. On oral antibiotics. Qualifiers: Leukocytosis type: other Qualified Code(s): D72.828 - Other elevated white blood cell count (5) Sepsis affecting skin Current Visit: Yes Status: Acute Assessment and plan: Improving. (6) HTN (hypertension) Current Visit: Yes Status: Chronic Assessment and plan: Blood pressure is well controlled. Qualifiers: Hypertension type: essential hypertension Qualified Code(s): I10 - Essential (primary) hypertension (7) Hypothyroidism Current Visit: Yes Status: Chronic Assessment and plan: On levothyroxine. Qualifiers: Hypothyroidism type: other Qualified Code(s): E03.8 - Other specified hypothyroidism (8) Atrial fibrillation Current Visit: Yes Status: Acute Assessment and plan: Rate controlled. Qualifiers: Atrial fibrillation type: paroxysmal Qualified Code(s): I48.0 - Paroxysmal atrial fibrillation - Subjective Interval history: Patient is confused and as stated. She exhibits paranoia. Family is present at bedside. Unable to get any questions answered by patient at this time. She has apparently been agitated and confused since last night. - Constitutional Vitals: Temp Pulse Resp BP Pulse Ox 97.7 F 90 18 122/58 96 12/12/16 07:16 12/12/16 07:16 12/12/16 07:16 12/12/16 07:16 12/12/16 07:16 General appearance: Present: cooperative, mild distress, pleasant. Absent: answers questions appropriately Exam: Disoriented and confused - Respiratory Respiratory exam: Present: CTAB. Absent: accessory muscle use, rales, rhonchi, wheezes - Cardiovascular Cardiovascular exam: Present: irregular rhythm, +S1, +S2. Absent: diastolic murmur, gallop, rubs, systolic murmur - GI/Abdominal GI/Abdominal exam: Present: normal bowel sounds, soft, no peritoneal signs. Absent: distended, tenderness - Neurological Exam Neurological exam: Present: altered, no focal deficits. Absent: facial droop, speech deficit - Psychiatric Psychiatric exam: Present: anxious Internal Medicine: Result - Labs CBC & Chem 7: 12/12/16 03:00 12/12/16 03:00 Labs: Short CBC 12/12/16 Range/Units 03:00 WBC 15.2 H (4.3-11.1) K/mcL Hgb 8.6 L (11.5-15.4) g/dL Hct 27.4 L (35.3-44.9) % Plt Count 84 L (140-400) K/mcL Neutrophils # 13.7 H (1.6-8.9) K/mcL BMP 12/12/16 03:00 Sodium 140 Potassium 3.9 Chloride 100 Carbon Dioxide 29 BUN 29 H D Creatinine 1.84 H Glucose 150 H Calcium 9.2 - ABG Interpretation ABG results: PT/INR, D-dimer PT 10.6 Seconds (9.4-12.1) 12/02/16 04:35 - VTE Documentation of Mechanical Device: Intermittent pneumatic compression device Consult Discharge Plan - Plan Referrals: NO,PCP [Primary Care Provider] - (Patient can not remember the name of her PCP , however patient is being referred to an ECF and will follow up with their PCP for now) Patricia Salmeron DO [Partnered Physician] - 12/17/16 1:30 pm - Attending Attestation This document has been at least partially created by [employer] recognition technology by Dr. Burciaga. Errors in grammar, wording or other phrases may exist. If errors are found after the documentation is signed, they will be addressed individually in the addendum section of this document when appropriate.
[2016-12-12] MEDS ORDERED: 0.9 % Sodium Chloride 250 ML IV PRN (10:15)
[2016-12-12] MEDS ORDERED: 0.9 % Sodium Chloride 1,000 ML PRIME SCH (10:15)
[2016-12-12] MEDS ORDERED: Albumin 25% 25gram/100mL 25 GM/100 ML IV.SOLN IVPB ONE (10:22)
--- NOTE | 2016-12-12 10:37 | Nephrology Progress Note ---
<Katherine Lane - Last Filed: 12/12/16 10:39> Date of Encounter: 12/12/16 Time of Encounter: 10:31 - Assessment and Plan (1) PAZ (acute kidney injury) Current Visit: Yes Status: Acute Continues to be HD dependent. UF today with goal of 2-3 kg From a nephrology standpoint patient be discharged however it appears she has developed more confusion overnight. Will need a chair at [facility] for ongoing dialysis treatments after discharge-RENU Arredondo has put in request. (2) CKD (chronic kidney disease) stage 4, GFR 15-29 ml/min Current Visit: Yes Status: Chronic Baseline GFR in the 20s Continue renal diet Continue fluid restriction Avoid nephrotoxins if possible (3) Acute on chronic combined systolic and diastolic CHF (congestive heart failure) Current Visit: Yes Status: Acute per primary team Subjective Principal diagnosis: CHF Interval history: Patient seen and examined. Very confused, unable to answer questions. Objective - Vital Signs Vital signs: Vital Signs Temp Pulse Resp BP Pulse Ox 12/12/16 07:16 97.7 F 90 18 122/58 96 12/12/16 05:20 97.8 F 68 16 114/58 96 12/12/16 00:31 97.8 F 92 16 118/63 94 L 12/11/16 22:39 97.6 F 84 16 122/62 93 L 12/11/16 18:10 97.5 F L 16 121/61 12/11/16 18:05 105/46 12/11/16 17:50 111/44 12/11/16 17:35 125/35 12/11/16 17:20 126/51 12/11/16 17:05 123/47 12/11/16 16:50 136/51 12/11/16 16:35 138/56 12/11/16 16:20 130/48 12/11/16 16:05 132/46 12/11/16 15:50 134/54 12/11/16 15:35 130/48 12/11/16 15:20 121/50 12/11/16 15:05 121/42 12/11/16 14:50 120/52 12/11/16 14:35 97.5 F L 16 117/40 12/11/16 10:50 97.5 F L 82 17 107/54 95 Intake and Output 12/11/16 12/12/16 12/12/16 23:59 07:59 15:59 Intake Total 30 / 30 30 / 30 120 / 120 Output Total 4600 / 4600 Balance -4570 / -4570 30 / 30 120 / 120 Intake: Oral 30 / 30 30 / 30 120 / 120 Output: Urine 0 / 0 Total Dialysis Output 4600 / 4600 Other: Meal Breakfast Percent of Meal Consumed 30% Weight 76 kg Blood Glucose* 186 Hemodialysis Net Fluid 4000 Removed (mL) Patient Weight 12/12/16 23:59 Weight 76 kg - General Appearance General appearance: Present: frail EENT: Present: ATNC Neck: Present: supple Respiratory: Present: clear Cardiology: Present: edema, normal S1, normal S2 Dialysis Vascular Access: Venous Catheter Gastrointestinal: Present: no guarding, obese Integumentary: Present: warm and dry Neurologic: Present: confused, disoriented Psychiatric: Present: agitated - Lab 12/12/16 03:00 12/12/16 03:00 Most recent lab results Calcium 9.2 mg/dL (8.6-10.8) 12/12/16 03:00 Phosphorus 7.7 mg/dL (2.3-4.7) H 12/05/16 05:49 Magnesium 1.8 mg/dL (1.6-2.6) 11/30/16 06:10 Urine Creatinine 53 mg/dL 12/01/16 02:05 Ur Total Protein 24 Hr 573 mg/day (0-299) H 12/01/16 02:05 Urine Sodium < 20.0 mEq/L 12/01/16 02:05 Urine Total Protein 63 mg/dL (1-14) H 12/01/16 02:05 - VTE Documentation of Mechanical Device: Intermittent pneumatic compression device Consult Discharge Plan - Plan Referrals: NO,PCP [Primary Care Provider] - (Patient can not remember the name of her PCP , however patient is being referred to an ECF and will follow up with their PCP for now) Patricia Salmeron DO [Partnered Physician] - 12/17/16 1:30 pm <Ang Crump - Last Filed: 12/12/16 23:20> - Assessment and Plan (1) PAZ (acute kidney injury) Current Visit: Yes Status: Acute (2) Acute exacerbation of CHF (congestive heart failure) Current Visit: Yes Status: Acute Qualifiers: Congestive heart failure type: diastolic Qualified Code(s): I50.33 - Acute on chronic diastolic (congestive) heart failure (3) Hyperkalemia Current Visit: Yes Status: Acute (4) CKD (chronic kidney disease) stage 4, GFR 15-29 ml/min Current Visit: Yes Status: Chronic Objective - Vital Signs Vital signs: Vital Signs Temp Pulse Resp BP Pulse Ox 12/12/16 19:28 98.2 F 90 20 156/68 95 12/12/16 15:00 98.0 F 106 144/72 95 12/12/16 11:50 97.6 F 22 57/32 12/12/16 11:45 60 20 147/52 99 12/12/16 11:35 117/72 12/12/16 11:20 135/60 12/12/16 11:05 98.1 F 22 144/60 12/12/16 07:16 97.7 F 90 18 122/58 96 12/12/16 05:20 97.8 F 68 16 114/58 96 12/12/16 00:31 97.8 F 92 16 118/63 94 L Intake and Output 12/12/16 12/12/16 12/12/16 07:59 15:59 23:59 Intake Total 960 / 960 Output Total 1269 / 1269 Balance 30 / 30 -309 / -309 Intake: Oral 360 / 360 Intake, Rinseback and 600 / 600 Flushes Output: Total Dialysis Output 1269 / 1269 Other: Meal Breakfast Percent of Meal Consumed 30% Weight 76 kg 76 kg Blood Glucose* 163 Hemodialysis Net Fluid 1269 Removed (mL) Patient Weight 12/12/16 23:59 Weight 76 kg - Lab 12/12/16 03:00 12/12/16 03:00 Most recent lab results Calcium 9.2 mg/dL (8.6-10.8) 12/12/16 03:00 Phosphorus 7.7 mg/dL (2.3-4.7) H 12/05/16 05:49 Magnesium 1.8 mg/dL (1.6-2.6) 11/30/16 06:10 Urine Creatinine 53 mg/dL 12/01/16 02:05 Ur Total Protein 24 Hr 573 mg/day (0-299) H 12/01/16 02:05 Urine Sodium < 20.0 mEq/L 12/01/16 02:05 Urine Total Protein 63 mg/dL (1-14) H 12/01/16 02:05 - Attending Attestation I examined this patient and my medical decision-making was reviewed with the BREAD WRAPPER/PA/Advanced Practice Nurse/Resident Physician. I agree with the documented findings, disposition and treatment plan as described except to the extent set forth below. Pt seen and examined more confused seen at HD unit claiming she was being mistreated at the hospital and was "going to tonight". Later on pt did have an episode of unresponsiveness requiring rapid response. UF terminated early after 1.2liter fluid removal with no one episode of hypotension. Family updated. Will hold off on any further HD/UF today. Will reassess tomorrow but SCR improved after consecutive HD/UF/HD sessions this week. Arrangeing ECF and HD at [facility] should she need further HD outpatinet. Will also need temp HD cathetr changed to permcath
--- NOTE | 2016-12-12 16:23 | Event Note ---
Date of Encounter: 12/12/16 Time of Encounter: 11:55 Call to inpatient dialysis for rapid response on this patient. On evaluation, she had declining neural function with low blood pressure. Dialysis was immediately stopped and patient return of her blood with a bolus of 500 and normal saline with improvement patient's condition and patient became more responsive. Blood pressure improved. She was then transferred to her room where she remained hemodynamically stable.
[2016-12-12] MEDS: Diltiazem CD (24hr) 120 MG CAPSULE PO SCH (16:54)
[2016-12-12] MEDS: Aspirin Enteric Coated 81 MG Tablet PO SCH (16:54)
[2016-12-12] MEDS: Doxycycline 100 MG CAPSULE PO SCH ×2 (16:56→20:28)
--- NOTE | 2016-12-12 17:40 | Nephrology Progress Note ---
Date of Encounter: 12/12/16 Time of Encounter: 11:10 - Assessment and Plan (1) PAZ (acute kidney injury) Current Visit: Yes Status: Acute SCr worse off HD yesterday hence no signs yet of renal recovery. Continue HD today with gaol UF of 3kg as tolerated with albumin bolus at the beginning and pnr for middle of treatment if hypotensive Continue to avoid nephrotoxins if possible (2) Acute exacerbation of CHF (congestive heart failure) Current Visit: Yes Status: Acute Continue strict I/Os Continue fluid restriction Continue off diuretics with HD at present Qualifiers: Congestive heart failure type: diastolic Qualified Code(s): I50.33 - Acute on chronic diastolic (congestive) heart failure (3) Hyperkalemia Current Visit: Yes Status: Acute potassium resolved, continue renal diet (4) CKD (chronic kidney disease) stage 4, GFR 15-29 ml/min Current Visit: Yes Status: Chronic baseline GFR in the 20s Subjective Principal diagnosis: CHF Interval history: Pt seen and examined with family at bedside. More awake and asking if she is going to Objective - Vital Signs Vital signs: Vital Signs Temp Pulse Resp BP Pulse Ox 12/12/16 15:00 98.0 F 106 144/72 95 12/12/16 11:50 97.6 F 22 57/32 12/12/16 11:45 60 20 147/52 99 12/12/16 11:35 117/72 12/12/16 11:20 135/60 12/12/16 11:05 98.1 F 22 144/60 12/12/16 07:16 97.7 F 90 18 122/58 96 12/12/16 05:20 97.8 F 68 16 114/58 96 12/12/16 00:31 97.8 F 92 16 118/63 94 L 12/11/16 22:39 97.6 F 84 16 122/62 93 L 12/11/16 18:10 97.5 F L 16 121/61 12/11/16 18:05 105/46 12/11/16 17:50 111/44 Intake and Output 12/12/16 12/12/16 12/12/16 07:59 15:59 23:59 Intake Total 960 / 960 Output Total 1269 / 1269 Balance -309 / -309 Intake: Oral 360 / 360 Intake, Rinseback and 600 / 600 Flushes Output: Total Dialysis Output 1269 / 1269 Other: Meal Breakfast Percent of Meal Consumed 30% Weight 76 kg 76 kg Blood Glucose* 163 Hemodialysis Net Fluid 1269 Removed (mL) Patient Weight 12/12/16 23:59 Weight 76 kg - Lab 12/12/16 03:00 12/12/16 03:00 Most recent lab results Calcium 9.2 mg/dL (8.6-10.8) 12/12/16 03:00 Phosphorus 7.7 mg/dL (2.3-4.7) H 12/05/16 05:49 Magnesium 1.8 mg/dL (1.6-2.6) 11/30/16 06:10 Urine Creatinine 53 mg/dL 12/01/16 02:05 Ur Total Protein 24 Hr 573 mg/day (0-299) H 12/01/16 02:05 Urine Sodium < 20.0 mEq/L 12/01/16 02:05 Urine Total Protein 63 mg/dL (1-14) H 12/01/16 02:05 - VTE Documentation of Mechanical Device: Intermittent pneumatic compression device Consult Discharge Plan - Plan Referrals: NO,PCP [Primary Care Provider] - (Patient can not remember the name of her PCP , however patient is being referred to an ECF and will follow up with their PCP for now) Patricia Salmeron DO [Partnered Physician] - 12/17/16 1:30 pm
[2016-12-12] MEDS: Amoxicillin/Clavulanate 500 MG TABLET PO SCH (20:28)
[2016-12-12] MEDS: risperiDONE 0.25 MG TABLET PO SCH (20:28)
[2016-12-13] MEDS: hydrALAZINE 25 MG TABLET PO SCH ×4 (00:20→19:15)
[2016-12-13] MEDS: *HR* Heparin 5,000 UNIT/ML VIAL SQ SCH ×2 (06:20→18:44)
[2016-12-13 07:55] LABS: Hemoglobin 8.5 g/dL (11.5-15.4)
[2016-12-13 07:57] LABS: Hematocrit 26.9 % (35.3-44.9); Immature Platelets 15.4 % (1.1-6.1); Mean Corpuscular HGB Conc 31.6 g/dL (31.6-35.5); Mean Corpuscular Volume 82.3 fL (83.0-100.0); Mean Platelet Volume 11.4 fL (9.4-12.4); Red Blood Count 3.27 M/mcL (3.82-4.97)
[2016-12-13 08:07] LABS: Calcium 9.3 mg/dL (8.6-10.8); Potassium 4.2 mEq/L (3.5-4.5)
[2016-12-13] MEDS ORDERED: 0.9 % Sodium Chloride 4,000 ML ONE (08:10)
[2016-12-13] MEDS ORDERED: 0.9 % Sodium Chloride 250 ML IV PRN (09:15)
[2016-12-13] MEDS ORDERED: *HR* Heparin 10,000 UNIT/10 ML VIAL IV PRN (09:24)
[2016-12-13] MEDS ORDERED: Albumin 25% 25gram/100mL 25 GM/100 ML IV.SOLN IVPB ONE (09:27)
--- NOTE | 2016-12-13 09:27 | Internal Med Progress Note ---
Date of Encounter: 12/13/16 Time of Encounter: 09:05 - Assessment and plan (1) Altered mental status Current Visit: Yes Status: Acute Assessment and plan: This has improved. Continue risperidone at bedtime. Likely from delirium related to underlying dementia. CT of the head done yesterday shows brain atrophy concerning for dementia. Qualifiers: Altered mental status type: delirium Qualified Code(s): R41.0 - Disorientation, unspecified (2) Acute exacerbation of CHF (congestive heart failure) Current Visit: Yes Status: Acute Assessment and plan: This is resolving. Continue volume management with hemodialysis. Qualifiers: Congestive heart failure type: diastolic Qualified Code(s): I50.33 - Acute on chronic diastolic (congestive) heart failure (3) Acute renal failure Current Visit: Yes Status: Acute Assessment and plan: Patient remains dialysis dependent. Will arrange for outpatient hemodialysis. Nephrology following. Qualifiers: Acute renal failure type: with acute tubular necrosis Qualified Code(s): N17.0 - Acute kidney failure with tubular necrosis (4) Leucocytosis Current Visit: Yes Status: Acute Assessment and plan: Patient has leukocytosis persists. No fever. Patient did have a Flores catheter that was removed yesterday. Will check urine culture. On Augmentin and doxycycline. Moderate risk for complications. Qualifiers: Leukocytosis type: other Qualified Code(s): D72.828 - Other elevated white blood cell count (5) Sepsis affecting skin Current Visit: Yes Status: Acute Assessment and plan: Improving. Continue Mateo bandage wrapping. (6) HTN (hypertension) Current Visit: Yes Status: Chronic Assessment and plan: Well-controlled Qualifiers: Hypertension type: essential hypertension Qualified Code(s): I10 - Essential (primary) hypertension (7) Hypothyroidism Current Visit: Yes Status: Chronic Assessment and plan: On levothyroxin. Qualifiers: Hypothyroidism type: other Qualified Code(s): E03.8 - Other specified hypothyroidism (8) Atrial fibrillation Current Visit: Yes Status: Acute Assessment and plan: Rate controlled. Qualifiers: Atrial fibrillation type: paroxysmal Qualified Code(s): I48.0 - Paroxysmal atrial fibrillation - Subjective Interval history: Patient is awake and alert today. Less confused. Able to recognize me. Is eating breakfast on her own. Denies any other complaints at this time. - Constitutional Vitals: Temp Pulse Resp BP Pulse Ox 98.0 F 97 20 139/61 93 L 12/13/16 06:01 12/13/16 06:01 12/13/16 06:01 12/13/16 06:01 12/13/16 06:01 General appearance: Present: cooperative, A&O X 2, pleasant. Absent: answers questions appropriately - Respiratory Respiratory exam: Present: CTAB. Absent: accessory muscle use, rales, rhonchi, wheezes - Cardiovascular Cardiovascular exam: Present: irregular rhythm, +S1, +S2. Absent: diastolic murmur, gallop, rubs, systolic murmur - GI/Abdominal GI/Abdominal exam: Present: normal bowel sounds, soft, no peritoneal signs. Absent: distended, tenderness - Extremities Exam Extremities exam: Present: warm, radial pulses palpable and symetrical. Absent : calf tenderness, cyanotic, pedal edema - Neurological Exam Neurological exam: Present: alert, no focal deficits. Absent: facial droop, speech deficit Internal Medicine: Result - Labs CBC & Chem 7: 12/13/16 07:37 12/13/16 07:37 Labs: Short CBC 12/13/16 Range/Units 07:37 WBC 16.1 H (4.3-11.1) K/mcL Hgb 8.5 L (11.5-15.4) g/dL Hct 26.9 L (35.3-44.9) % Plt Count 88 L (140-400) K/mcL BMP 12/13/16 07:37 Sodium 137 Potassium 4.2 Chloride 97 L Carbon Dioxide 25 BUN 61 H D Creatinine 2.94 H D Glucose 196 H Calcium 9.3 - ABG Interpretation ABG results: PT/INR, D-dimer PT 10.6 Seconds (9.4-12.1) 12/02/16 04:35 - Impressions Impressions Head CT 12/12/16 11:53 IMPRESSION: No hemorrhage or mass. 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 Changes appear slightly more pronounced Mastoid disease and paranasal sinus disease D/ / Tucker Vazquez MD / Tucker Vazquez MD Interpreting Provider: Tucker Vazquez MD - VTE Documentation of Mechanical Device: Intermittent pneumatic compression device Consult Discharge Plan - Plan Referrals: NO,PCP [Primary Care Provider] - (Patient can not remember the name of her PCP , however patient is being referred to an ECF and will follow up with their PCP for now) Patricia Salmeron DO [Partnered Physician] - 12/17/16 1:30 pm - Attending Attestation This document has been at least partially created by [employer] recognition technology by Dr. Burciaga. Errors in grammar, wording or other phrases may exist. If errors are found after the documentation is signed, they will be addressed individually in the addendum section of this document when appropriate.
[2016-12-13] MEDS ORDERED: Albumin 25% 12.5gm/50mL 25.0 GM/100 ML IV.SOLN ONE (10:41)
--- NOTE | 2016-12-13 10:51 | Palliative Progress Note ---
Date of Encounter: 12/13/16 Time of Encounter: 08:45 - Assessment and plan (1) Acute exacerbation of CHF (congestive heart failure) Current Visit: Yes Status: Acute Assessment and plan: This is improving with hemodialysis. Continue current medications per hospitalist team. Qualifiers: Congestive heart failure type: diastolic Qualified Code(s): I50.33 - Acute on chronic diastolic (congestive) heart failure (2) Goals of care, counseling/discussion Current Visit: Yes Status: Acute Assessment and plan: Discussed at length with family. I believe that at least at this time she would want to remain a full code. We will discuss this with her as her mental status allows. Brothers are the point of contact for occult decision making although no medical power of state attorney has been formally made. Overall goal will be treated and upper returning home, family is okay at this time with continuing dialysis. Patient indicates that she is also okay with this. CODE STATUS is established in goals of care are established. We will start following from a distance at this point. We will review chart over the course the weekend but probably not see her. (3) PAZ (acute kidney injury) Current Visit: Yes Status: Acute Assessment and plan: Being followed by nephrology, the belief by nephrology is that the patient will be able to be weaned off dialysis. (4) Atrial fibrillation Current Visit: Yes Status: Acute Assessment and plan: Well-controlled on current medications Qualifiers: Atrial fibrillation type: paroxysmal Qualified Code(s): I48.0 - Paroxysmal atrial fibrillation - Time Spent With Patient Total time spent is greater than 50% in coordination of care (as documented) at patient's floor/unit and/or counseling patient: - Subjective Interval history: The patient has no complaint of this morning events noted overnight. Patient is awake and alert and talkative. She was not able to complete dialysis yesterday secondary to low blood pressure but she is getting hemodialysis today. - Constitutional Vitals: Abnormal lab results WBC 16.1 K/mcL (4.3-11.1) H 12/13/16 07:37 RBC 3.27 M/mcL (3.82-4.97) L 12/13/16 07:37 Hgb 8.5 g/dL (11.5-15.4) L 12/13/16 07:37 Hct 26.9 % (35.3-44.9) L 12/13/16 07:37 MCV 82.3 fL (83.0-100.0) L 12/13/16 07:37 MCH 26.0 pg (28.0-33.3) L 12/13/16 07:37 RDW 17.0 % (11.5-14.5) H 12/13/16 07:37 Plt Count 88 K/mcL (140-400) L 12/13/16 07:37 Neutrophils # 13.7 K/mcL (1.6-8.9) H 12/12/16 03:00 Lymphocytes # 0.2 K/mcL (0.6-4.6) L 12/12/16 03:00 Reactive Lymphocytes Present (Not Present) A 12/12/16 03:00 Toxic Granulation Present (Not Present) A 12/11/16 04:10 Toxic Vacuolation Present (Not Present) A 12/12/16 03:00 Platelet Estimate Decreased (Normal) L 12/12/16 03:00 Large Platelets Present (Not Present) A 12/12/16 03:00 Immature Plt Fraction 15.4 % (1.1-6.1) H 12/13/16 07:37 Hypochromasia Present (Not Present) A 12/11/16 04:10 Anisocytosis 1+ (Not Present) A 12/12/16 03:00 Microcytosis Present (Not Present) A 12/12/16 03:00 ESR 45 mm/hr (0-15) H 11/28/16 06:13 Chloride 97 mEq/L (98-109) L 12/13/16 07:37 BUN 61 mg/dL (7-20) H D 12/13/16 07:37 Creatinine 2.94 mg/dL (0.57-1.11) H D 12/13/16 07:37 Est GFR ( Amer) 19 (> 60) L 12/13/16 07:37 Est GFR (Non-Af Amer) 15 (> 60) L 12/13/16 07:37 Glucose 196 mg/dL (70-99) H 12/13/16 07:37 POC Glucose 163 (58-89) H 12/12/16 11:49 Hemoglobin A1c 6.2 % (-5.6) H 11/29/16 08:07 Calculated Osmolality 307 (280-300) H 12/13/16 07:37 Uric Acid 12.3 mg/dL (2.6-6.0) H 11/30/16 06:10 Ionized Calcium 1.13 mmol/L (1.15-1.35) L 11/28/16 06:13 Phosphorus 7.7 mg/dL (2.3-4.7) H 12/05/16 05:49 ALT 56 Units/L (0-55) H 11/28/16 01:25 Alkaline Phosphatase 144 Units/L (38-126) H 11/28/16 01:25 Troponin I 0.20 ng/mL (0-0.03) H* 11/28/16 16:20 C-Reactive Protein 45 mg/L (Less than 5) H 11/28/16 06:13 B-Natriuretic Peptide 722 pg/mL (0-100) H 12/05/16 05:49 Albumin 2.7 g/dL (3.5-5.0) L 11/28/16 01:25 Albumin/Globulin Ratio 0.8 (1.1-2.2) L 11/28/16 01:25 LDL Cholesterol, Calc 102 mg/dL (0-99) H 11/28/16 06:13 HDL Cholesterol 81 mg/dL (40-59) H 11/28/16 06:13 TSH 0.005 mcIU/mL (0.350-4.840) L 12/08/16 04:07 Free T3 < 1.00 pg/mL (1.71-3.71) L 12/08/16 08:00 Urine Clarity Turbid (Clear) A 12/04/16 15:30 Urine Protein 100 mg/dL (Neg-Trace) H 12/04/16 15:30 Urine Blood Moderate (Negative) H 12/04/16 15:30 Ur Leukocyte Esterase Small (Negative) H 12/04/16 15:30 Urine Microscopic RBC 15-30 per hpf (0-3) H 12/04/16 15:30 Urine Microscopic WBC 15-30 per hpf (0-3) H 12/04/16 15:30 Ur Squamous Epith Cells Many per lpf (None-Few) H 12/04/16 15:30 Ur Culture Indicated? YES (NO) A 12/04/16 15:30 Ur Creatinine 24 Hour 0.48 g/day (0.71-1.65) L 12/01/16 02:05 Microalb/Creat Ratio 1246 (0-30) H 11/28/16 05:40 Ur Total Protein 24 Hr 573 mg/day (0-299) H 12/01/16 02:05 Protein/Creatinin Ratio 1.19 mg/mg (0-0.20) H 12/01/16 02:05 Ur Sodium 24 Hour 18 mEq/day (40-220) L 12/01/16 02:05 Urine Total Protein 63 mg/dL (1-14) H 12/01/16 02:05 General appearance: Present: no acute distress - Head Head exam: Present: atraumatic, normal inspection - Eye Eye exam: Present: normal appearance - ENT ENT exam: Present: mucous membranes moist - Respiratory Respiratory exam: Present: decreased breath sounds, rales (Slight crackles) - Cardiovascular Cardiovascular exam: Present: irregular rhythm - GI/Abdominal GI/Abdominal exam: Present: normal bowel sounds, soft. Absent: tenderness - Extremities Exam Extremities exam: Present: normal inspection. Absent: pedal edema, tenderness - Neurological Exam Neurological exam: Present: alert - Psychiatric Psychiatric exam: Present: normal affect, normal mood. Absent: agitated, anxious - Skin Skin exam: Present: dry, warm Palliative Quality Palliative Quality: Screen for Code Status: Yes, Screen for Goals of Care: Yes, Screen for Pain: Yes, If Pain Regimen Started, Initiate Bowel Regimen: NA, Screen for Nausea/Vomitting: Yes - Labs CBC & Chem 7: 12/13/16 07:37 12/13/16 07:37 Labs: Laboratory Results - last 24 hr 12/12/16 12/13/16 12/13/16 11:49 07:37 07:37 WBC 16.1 H RBC 3.27 L Hgb 8.5 L Hct 26.9 L MCV 82.3 L MCH 26.0 L MCHC 31.6 RDW 17.0 H Plt Count 88 L MPV 11.4 Immature Plt Fraction 15.4 H Sodium 137 Potassium 4.2 Chloride 97 L Carbon Dioxide 25 BUN 61 H D Creatinine 2.94 H D Est GFR ( Amer) 19 L Est GFR (Non-Af Amer) 15 L BUN/Creatinine Ratio 21 Glucose 196 H POC Glucose 163 H Calculated Osmolality 307 H Calcium 9.3 - Impressions Impressions Head CT 12/12/16 11:53 IMPRESSION: No hemorrhage or mass. 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 Changes appear slightly more pronounced Mastoid disease and paranasal sinus disease D/ / Tucker Vazquez MD / Tucker Vazquez MD Interpreting Provider: Tucker Vazquez MD - ABG Interpretation ABG results: PT/INR, D-dimer PT 10.6 Seconds (9.4-12.1) 12/02/16 04:35 Consult Discharge Plan - Plan Referrals: NO,PCP [Primary Care Provider] - (Patient can not remember the name of her PCP , however patient is being referred to an ECF and will follow up with their PCP for now) Patricia Salmeron, [Partnered Physician] - 12/17/16 1:30 pm
[2016-12-13] MEDS ORDERED: Vancomycin 1,250 MG in D5% in Water 250 ML IVPB ONE (12:00)
--- NOTE | 2016-12-13 14:54 | Nephrology Progress Note ---
Date of Encounter: 12/13/16 Time of Encounter: 14:54 - Assessment and Plan (1) Acute kidney injury superimposed on chronic kidney disease Current Visit: Yes Status: Acute Patient with PAZ/CKD that is dialysis dependent and may have progressed to ESRD. Will continue with dialysis. She tolerated dialysis today. Awaiting tunneled catheter placement. She has a chair available in [facility]. Continue renal diet and adjust medications for renal disease. (2) Protein-calorie malnutrition, moderate Current Visit: Yes Status: Chronic Continue with nutritional support. (3) Leucocytosis Current Visit: Yes Status: Acute Patient with leucocytosis. Etiology is unclear. She has had leucocytosis since 10/11. Afebrile, but left shift on the differential. After talking with IR they seem to be uncomfortable with placing a tunneled catheter. Will blood and urine culture to ensure patient does not have a source of infection. Qualifiers: Leukocytosis type: other Qualified Code(s): D72.828 - Other elevated white blood cell count (4) Atrial fibrillation Current Visit: Yes Status: Acute Continue medications for rate control. Qualifiers: Atrial fibrillation type: paroxysmal Qualified Code(s): I48.0 - Paroxysmal atrial fibrillation Subjective Principal diagnosis: CHF Interval history: Patient seen and evaluated on dialysis. She has no new complaint. ROS overall stable. She denies chest pain or shortness of breath. Objective - Vital Signs Vital signs: Vital Signs Temp Pulse Resp BP Pulse Ox 12/13/16 13:50 97.5 F L 18 128/60 12/13/16 13:45 117/51 12/13/16 13:30 120/57 12/13/16 13:15 123/46 12/13/16 13:00 128/50 12/13/16 12:45 121/49 12/13/16 12:30 118/52 12/13/16 12:15 120/53 12/13/16 12:00 123/49 12/13/16 11:45 130/51 12/13/16 11:30 116/58 12/13/16 11:15 136/60 12/13/16 11:00 137/52 12/13/16 10:45 97.5 F L 18 137/59 12/13/16 09:51 97.3 F L 96 20 126/69 96 12/13/16 06:01 98.0 F 97 20 139/61 93 L 12/13/16 00:10 97.9 F 89 18 122/52 92 L 12/12/16 19:28 98.2 F 90 20 156/68 95 12/12/16 15:00 98.0 F 106 144/72 95 Intake and Output 12/12/16 12/13/16 12/13/16 23:59 07:59 15:59 Intake Total 60 / 60 760 / 760 Output Total 3600 / 3600 Balance 60 / 60 -2840 / -2840 Intake: Oral 60 / 60 160 / 160 Intake, Rinseback and 600 / 600 Flushes Output: Urine 0 / 0 Total Dialysis Output 3600 / 3600 Other: Meal Breakfast Percent of Meal Consumed 60% Stool Size Large Stool Consistency loose Stool Characteristics Normal for Patient Stool Color Brown # Bowel Movement Diapers 1 Weight 74 kg Hemodialysis Net Fluid 3000 Removed (mL) Patient Weight 12/13/16 23:59 Weight 74 kg - General Appearance General appearance: Present: well-developed, cachectic, chronically ill, frail EENT: Present: ATNC Neck: Present: supple Respiratory: Present: clear Cardiology: Present: no edema, regular rate, regular rhythm Gastrointestinal: Present: normoactive bowel sounds, no tenderness Integumentary: Present: warm and dry Additional Comments: Alert, but slow to answer questions. Musculoskeletal: Present: no cyanosis Psychiatric: Present: mood/affect appropriate - Lab 12/13/16 07:37 12/13/16 07:37 Most recent lab results Calcium 9.3 mg/dL (8.6-10.8) 12/13/16 07:37 Phosphorus 7.7 mg/dL (2.3-4.7) H 12/05/16 05:49 Magnesium 1.8 mg/dL (1.6-2.6) 11/30/16 06:10 Urine Creatinine 53 mg/dL 12/01/16 02:05 Ur Total Protein 24 Hr 573 mg/day (0-299) H 12/01/16 02:05 Urine Sodium < 20.0 mEq/L 12/01/16 02:05 Urine Total Protein 63 mg/dL (1-14) H 12/01/16 02:05 - VTE Documentation of Mechanical Device: Intermittent pneumatic compression device Consult Discharge Plan - Plan Referrals: NO,PCP [Primary Care Provider] - (Patient can not remember the name of her PCP , however patient is being referred to an ECF and will follow up with their PCP for now) Patricia Salmeron DO [Partnered Physician] - 12/17/16 1:30 pm
[2016-12-13] MEDS ORDERED: Heparin 1,000 UNITS/500 mL NS 500 ML ONE (14:58)
[2016-12-13] MEDS: Diltiazem CD (24hr) 120 MG CAPSULE PO SCH (15:05)
[2016-12-13] MEDS: Aspirin Enteric Coated 81 MG Tablet PO SCH (15:05)
[2016-12-13] MEDS: *HR* Metoprolol 5 MG/5 ML VIAL IVP PRN (15:54)
[2016-12-13 16:36] LABS: INR 1.2; Prothrombin Time 12.8 Seconds (9.4-12.1)
[2016-12-13 16:39] LABS: Activated Partial Thrombo Time 31.4 Seconds (26.0-36.0)
[2016-12-13] MEDS: Amoxicillin/Clavulanate 500 MG TABLET PO SCH (22:03)
[2016-12-13] MEDS: risperiDONE 0.25 MG TABLET PO SCH (22:03)
[2016-12-14] MEDS: hydrALAZINE 25 MG TABLET PO SCH ×2 (00:14→06:29)
[2016-12-14 04:16] LABS: Hemoglobin 8.1 g/dL (11.5-15.4)
[2016-12-14 04:18] LABS: Hematocrit 25.7 % (35.3-44.9); Immature Platelets 16.6 % (1.1-6.1); Mean Corpuscular HGB Conc 31.5 g/dL (31.6-35.5); Mean Corpuscular Volume 82.6 fL (83.0-100.0); Red Blood Count 3.11 M/mcL (3.82-4.97)
[2016-12-14 04:49] LABS: Calcium 9.2 mg/dL (8.6-10.8); Potassium 3.7 mEq/L (3.5-4.5)
[2016-12-14] MEDS ORDERED: *HR* LORazepam 2 MG/ML VIAL IVP ONE (05:13)
[2016-12-14] MEDS ORDERED: Haloperidol Lactate 5 MG/ML VIAL IVP ONE (05:13)
[2016-12-14 05:17] LABS: Platelet Count 87 K/mcL (140-400)
[2016-12-14 05:23] LABS: Large Platelets Present (Not Present); Lymphocytes # 0.9 K/mcL (0.6-4.6); Monocytes # 1.5 K/mcL (0.0-1.3); Neutrophils # 12.6 K/mcL (1.6-8.9); Platelet Estimate Decreased (Normal); Reactive Lymphocytes Present (Not Present)
[2016-12-14 05:25] LABS: Anisocytosis 1+ (Not Present); Target Cells 1+ (Not Present)
[2016-12-14 05:43] LABS: VBG HCO3 34.8 mEq/L (21-27); VBG PH 7.45 pH Units (7.32-7.42)
[2016-12-14 05:56] LABS: Albumin 2.8 g/dL (3.5-5.0); Bilirubin,Direct 0.4 mg/dL (0.0-0.5); Bilirubin,Indirect 0.4 mg/dL (0.0-1.2); Bilirubin,Total 0.8 mg/dL (0.2-1.2); Globulin 2.7 g/dL (2.4-3.5); Total Protein 5.5 g/dL (6.0-8.3)
[2016-12-14] MEDS: *HR* Heparin 5,000 UNIT/ML VIAL SQ SCH ×2 (06:29→17:44)
[2016-12-14] MEDS: Diltiazem CD (24hr) 120 MG CAPSULE PO SCH ×2 (09:54→09:59)
[2016-12-14] MEDS: Aspirin Enteric Coated 81 MG Tablet PO SCH ×2 (09:54→09:59)
--- NOTE | 2016-12-14 10:30 | Nephrology Progress Note ---
Date of Encounter: 12/14/16 Time of Encounter: 10:24 - Assessment and Plan (1) Acute kidney injury superimposed on chronic kidney disease Current Visit: Yes Status: Acute Patient with PAZ/CKD that is dialysis dependent and may have progressed to ESRD. Will continue with dialysis MWF. Awaiting tunneled catheter placement if blood and urine culture remain stable. She has a chair available in [facility]. Continue renal diet and adjust medications for renal disease. (2) Protein-calorie malnutrition, moderate Current Visit: Yes Status: Chronic Continue with nutritional support. check albumin and prealbumin. Consult nutrition. (3) Leucocytosis Current Visit: Yes Status: Acute Patient with leucocytosis. Etiology is unclear. She has had leucocytosis since 10/11. Afebrile, but left shift on the differential. After talking with IR they seem to be uncomfortable with placing a tunneled catheter until blood and urine cultures are negative. Qualifiers: Leukocytosis type: other Qualified Code(s): D72.828 - Other elevated white blood cell count (4) Atrial fibrillation Current Visit: Yes Status: Acute Continue medications for rate control. Qualifiers: Atrial fibrillation type: paroxysmal Qualified Code(s): I48.0 - Paroxysmal atrial fibrillation (5) Anemia Current Visit: Yes Status: Acute Check iron stores, vitamin b12, folate. Follow hemoglobin levels. Qualifiers: Qualified Code(s): D64.9 - Anemia, unspecified (6) Hyperparathyroidism Current Visit: Yes Status: Acute Check PTH, phosphorus and calcium. (7) Vitamin D deficiency Current Visit: Yes Status: Acute check vitamin d level. Subjective Principal diagnosis: CHF Interval history: Patient seen and evaluated. She is less oriented today as compared to yesterday as she doesn't respond when I enter the room and is lying in bed with most of her gown removed. ROS unobtainable secondary to mental status. Objective - Vital Signs Vital signs: Vital Signs Temp Pulse Resp BP Pulse Ox 12/14/16 07:07 97.2 F L 92 18 113/62 98 12/14/16 04:06 98.0 F 110 20 138/50 90 L 12/14/16 00:21 98.3 F 97 18 109/56 95 12/13/16 20:44 97.6 F 115 20 137/55 96 12/13/16 15:32 98.7 F 112 20 138/89 94 L 12/13/16 13:50 97.5 F L 18 128/60 12/13/16 13:45 117/51 12/13/16 13:30 120/57 12/13/16 13:15 123/46 12/13/16 13:00 128/50 12/13/16 12:45 121/49 12/13/16 12:30 118/52 12/13/16 12:15 120/53 12/13/16 12:00 123/49 12/13/16 11:45 130/51 12/13/16 11:30 116/58 12/13/16 11:15 136/60 12/13/16 11:00 137/52 12/13/16 10:45 97.5 F L 18 137/59 Intake and Output 12/13/16 12/14/16 12/14/16 23:59 07:59 15:59 Intake Total 0 / 0 Balance 0 / 0 Intake: Oral 0 / 0 Other: Meal Breakfast Percent of Meal Consumed 0% Stool Size Small Stool Consistency loose soft Stool Color Brown # Bowel Movements 1 Weight 68 kg Patient Weight 12/14/16 23:59 Weight 68 kg - General Appearance General appearance: Present: well-developed, well-nourished, chronically ill EENT: Present: ATNC Neck: Present: supple Respiratory: Present: clear Cardiology: Present: no edema Gastrointestinal: Present: normoactive bowel sounds, no tenderness Integumentary: Present: warm and dry Neurologic: Present: confused Musculoskeletal: Present: no cyanosis - Lab 12/14/16 04:05 12/14/16 04:05 Most recent lab results Calcium 9.2 mg/dL (8.6-10.8) 12/14/16 04:05 Phosphorus 7.7 mg/dL (2.3-4.7) H 12/05/16 05:49 Magnesium 1.8 mg/dL (1.6-2.6) 11/30/16 06:10 Urine Creatinine 53 mg/dL 12/01/16 02:05 Ur Total Protein 24 Hr 573 mg/day (0-299) H 12/01/16 02:05 Urine Sodium < 20.0 mEq/L 12/01/16 02:05 Urine Total Protein 63 mg/dL (1-14) H 12/01/16 02:05 - VTE Documentation of Mechanical Device: Intermittent pneumatic compression device Consult Discharge Plan - Plan Referrals: NO,PCP [Primary Care Provider] - (Patient can not remember the name of her PCP , however patient is being referred to an ECF and will follow up with their PCP for now) Patricia Salmeron DO [Partnered Physician] - 12/17/16 1:30 pm
--- NOTE | 2016-12-14 11:58 | Internal Med Progress Note ---
Date of Encounter: 12/14/16 Time of Encounter: 11:56 - Assessment and plan (1) Altered mental status Current Visit: Yes Status: Acute Assessment and plan: Likely due to lack of sleep and delirium. Continue supportive care. Minimize environmental stimuli. On risperidone at bedtime. Qualifiers: Altered mental status type: delirium Qualified Code(s): R41.0 - Disorientation, unspecified (2) Acute exacerbation of CHF (congestive heart failure) Current Visit: Yes Status: Acute Assessment and plan: Resolving with hemodialysis and volume management. Qualifiers: Congestive heart failure type: diastolic Qualified Code(s): I50.33 - Acute on chronic diastolic (congestive) heart failure (3) Acute renal failure Current Visit: Yes Status: Acute Assessment and plan: Will need hemodialysis as outpatient. Awaiting placement of permanent catheter on Friday. Qualifiers: Acute renal failure type: with acute tubular necrosis Qualified Code(s): N17.0 - Acute kidney failure with tubular necrosis (4) Leucocytosis Current Visit: Yes Status: Acute Assessment and plan: Blood cultures are being repeated. Started on vancomycin to broaden coverage. We will follow culture results. If cultures are negative, will stop antibiotics. Also checking stool for C. difficile. Moderate risk for complications Qualifiers: Leukocytosis type: other Qualified Code(s): D72.828 - Other elevated white blood cell count (5) Sepsis affecting skin Current Visit: Yes Status: Acute Assessment and plan: Improving. On vancomycin (6) HTN (hypertension) Current Visit: Yes Status: Chronic Assessment and plan: Controlled. No changes at this time Qualifiers: Hypertension type: essential hypertension Qualified Code(s): I10 - Essential (primary) hypertension (7) Hypothyroidism Current Visit: Yes Status: Chronic Assessment and plan: On levothyroxine. Qualifiers: Hypothyroidism type: other Qualified Code(s): E03.8 - Other specified hypothyroidism (8) Atrial fibrillation Current Visit: Yes Status: Acute Assessment and plan: Rate controlled. Qualifiers: Atrial fibrillation type: paroxysmal Qualified Code(s): I48.0 - Paroxysmal atrial fibrillation - Subjective Interval history: Patient was disoriented and agitated earlier today. Currently she is sleeping. Appears comfortable. No fever or chills reported overnight. - Constitutional Vitals: Temp Pulse Resp BP Pulse Ox 97.2 F L 92 18 113/62 98 12/14/16 07:07 12/14/16 07:07 12/14/16 07:07 12/14/16 07:07 12/14/16 07:07 General appearance: Present: cooperative, pleasant. Absent: answers questions appropriately Exam: Somnolent and not answering questions at this time - Respiratory Respiratory exam: Present: CTAB. Absent: accessory muscle use, rales, rhonchi, wheezes - Cardiovascular Cardiovascular exam: Present: RRR, +S1, +S2. Absent: diastolic murmur, gallop, rubs, systolic murmur - GI/Abdominal GI/Abdominal exam: Present: normal bowel sounds, soft, no peritoneal signs. Absent: distended, tenderness - Extremities Exam Extremities exam: Present: warm, radial pulses palpable and symetrical. Absent : calf tenderness, cyanotic, pedal edema Additional comments: Lower extremities bandaged with Mateo wrap - Neurological Exam Neurological exam: Present: CN II-XII intact, oriented X3, no focal deficits. Absent: pronater drift, facial droop, speech deficit Internal Medicine: Result - Labs CBC & Chem 7: 12/14/16 04:05 12/14/16 04:05 Labs: Short CBC 12/14/16 Range/Units 04:05 WBC 15.3 H (4.3-11.1) K/mcL Hgb 8.1 L (11.5-15.4) g/dL Hct 25.7 L (35.3-44.9) % Plt Count 87 L (140-400) K/mcL Neutrophils # 12.6 H (1.6-8.9) K/mcL BMP 12/14/16 04:05 Sodium 139 Potassium 3.7 Chloride 95 L Carbon Dioxide 29 BUN 50 H D Creatinine 2.58 H Glucose 145 H Calcium 9.2 Liver Function 12/14/16 Range/Units 05:28 Total Bilirubin 0.8 (0.2-1.2) mg/dL Direct Bilirubin 0.4 (0.0-0.5) mg/dL AST 20 (5-34) Units/L ALT 7 (0-55) Units/L Alkaline Phosphatase 213 H (38-126) Units/L Albumin 2.8 L (3.5-5.0) g/dL - ABG Interpretation ABG results: PT/INR, D-dimer PT 12.8 Seconds (9.4-12.1) H 12/13/16 15:48 - VTE Documentation of Mechanical Device: Intermittent pneumatic compression device Consult Discharge Plan - Plan Referrals: NO,PCP [Primary Care Provider] - (Patient can not remember the name of her PCP , however patient is being referred to an ECF and will follow up with their PCP for now) Patricia Salmeron, [Partnered Physician] - 12/17/16 1:30 pm - Attending Attestation This document has been at least partially created by [employer] recognition technology by Dr. Burciaga. Errors in grammar, wording or other phrases may exist. If errors are found after the documentation is signed, they will be addressed individually in the addendum section of this document when appropriate.
[2016-12-14] MEDS: hydrALAZINE 10 MG TABLET PO SCH ×3 (13:46→23:54)
[2016-12-14] MEDS: *HR* Metoprolol 5 MG/5 ML VIAL IVP PRN (19:12)
[2016-12-14] MEDS: Amoxicillin/Clavulanate 500 MG TABLET PO SCH (20:13)
[2016-12-14] MEDS: risperiDONE 0.25 MG TABLET PO SCH (20:14)
[2016-12-15 04:50] LABS: Albumin 2.3 g/dL (3.5-5.0); Basophils % 0.3 %; Calcium 8.7 mg/dL (8.6-10.8); Phosphorous 5.1 mg/dL (2.3-4.7); Potassium 3.7 mEq/L (3.5-4.5)
[2016-12-15 04:52] LABS: Basophils # 0.1 K/mcL (0.0-0.2); Eosinophils % 0.1 %; Hematocrit 23.8 % (35.3-44.9); Hemoglobin 7.5 g/dL (11.5-15.4); Immature Granulocytes % 4.9 % (0-4); Immature Platelets 16.5 % (1.1-6.1); Lymphocytes # 0.2 K/mcL (0.6-4.6); Lymphocytes % 1.2 %; Mean Corpuscular HGB Conc 31.5 g/dL (31.6-35.5); Mean Corpuscular Hemoglobin 26.2 pg (28.0-33.3); Mean Corpuscular Volume 83.2 fL (83.0-100.0); Mean Platelet Volume 12.1 fL (9.4-12.4); Monocytes % 3.6 %; Neutrophils # 13.7 K/mcL (1.6-8.9); Red Blood Count 2.86 M/mcL (3.82-4.97); Segmented Neutrophils % 89.9 %
[2016-12-15 05:44] LABS: Monocytes # 0.6 K/mcL (0.0-1.3); Platelet Count 95 K/mcL (140-400)
[2016-12-15] MEDS: *HR* Heparin 5,000 UNIT/ML VIAL SQ SCH (06:40)
[2016-12-15] MEDS: hydrALAZINE 10 MG TABLET PO SCH ×3 (06:40→17:47)
[2016-12-15 07:44] LABS: Platelet Estimate Slight Decrease (Normal)
[2016-12-15] MEDS: Diltiazem CD (24hr) 120 MG CAPSULE PO SCH (08:46)
[2016-12-15] MEDS: Aspirin Enteric Coated 81 MG Tablet PO SCH (08:46)
[2016-12-15 10:06] LABS: Basophils % 0.2 %; Eosinophils % 0.1 %; Hematocrit 24.8 % (35.3-44.9); Hemoglobin 7.8 g/dL (11.5-15.4); Immature Granulocytes % 4.9 % (0-4); Immature Platelets 15.2 % (1.1-6.1); Lymphocytes # 0.2 K/mcL (0.6-4.6); Lymphocytes % 1.2 %; Mean Corpuscular HGB Conc 31.5 g/dL (31.6-35.5); Mean Corpuscular Hemoglobin 26.3 pg (28.0-33.3); Mean Corpuscular Volume 83.5 fL (83.0-100.0); Mean Platelet Volume 11.9 fL (9.4-12.4); Monocytes # 0.5 K/mcL (0.0-1.3); Monocytes % 3.7 %; Platelet Count 108 K/mcL (140-400); Red Blood Count 2.97 M/mcL (3.82-4.97); Red Cell Distribution Width 17.1 % (11.5-14.5); Segmented Neutrophils % 89.9 %
--- NOTE | 2016-12-15 10:07 | Nephrology Progress Note ---
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 Will continue with dialysis MWF. Awaiting tunneled catheter placement if blood and urine culture remain stable. She has a chair available in [facility]. Continue renal diet and adjust medications for renal disease. (2) Protein-calorie malnutrition, moderate Current Visit: Yes Status: Chronic Continue with nutritional support. Albumin low. Consult nutrition. (3) Leucocytosis Current Visit: Yes Status: Acute Patient with leucocytosis. Etiology is unclear. She has had leucocytosis since 10/11. Afebrile, but left shift on the differential. After talking with IR they seem to be uncomfortable with placing a tunneled catheter until blood and urine cultures are negative. Qualifiers: Leukocytosis type: other Qualified Code(s): D72.828 - Other elevated white blood cell count (4) Atrial fibrillation Current Visit: Yes Status: Acute Continue medications for rate control. May need medications titrated to maintain HR in the normal range. Qualifiers: Atrial fibrillation type: paroxysmal Qualified Code(s): I48.0 - Paroxysmal atrial fibrillation (5) Anemia Current Visit: Yes Status: Acute Iron stores low, but ferritin greatly elevated - would like lower ferritin prior to ordering IV iron. Vitamin b12 is on the lower limit of normal - replacement ordered. Folate normal. Follow hemoglobin levels. She may need a transfusion. Qualifiers: Qualified Code(s): D64.9 - Anemia, unspecified (6) Hyperparathyroidism Current Visit: Yes Status: Acute PTH mildly elevated - check vitamin D level. Phosphorus mildly elevated will start low dose binder. Calcium within normal limits. (7) Vitamin D deficiency Current Visit: Yes Status: Acute check vitamin d level. Subjective Principal diagnosis: CHF Interval history: Patient seen and evaluated. Her family is in the room. I have a conversation /counseling session with them for 21 minutes. I explain the possible causes of her confusion, the pplan for dialysis, and confirm the plan for discharge to a SNF. They are in agreement and all of their questions were answered. She remains slightly disoriented, but seems calmer than yesterday. She is hard of hearing making her assessment difficult. Objective - Vital Signs Vital signs: Vital Signs Temp Pulse Resp BP Pulse Ox 12/15/16 07:05 97.6 F 109 17 117/66 98 12/15/16 03:50 97.6 F 102 18 108/54 97 12/14/16 23:13 97.5 F L 108 18 132/52 97 12/14/16 19:20 97.3 F L 96 16 94/54 98 12/14/16 12:06 96.7 F L 93 16 133/79 99 Intake and Output 12/14/16 12/15/16 12/15/16 23:59 07:59 15:59 Intake Total 360 / 360 60 / 60 Balance 360 / 360 60 / 60 Intake: Oral 360 / 360 60 / 60 Other: Meal Dinner Breakfast Percent of Meal Consumed 90% 90% Stool Size Moderate Stool Consistency soft Stool Color Brown Weight 70.3 kg Patient Weight 12/15/16 23:59 Weight 70.3 kg - General Appearance General appearance: Present: well-developed, well-nourished EENT: Present: ATNC Neck: Present: supple Additional Comments: respiration is unlabored. Additional Comments: slightly tachycardic. Additional Comments: Alert, but not oriented. Additional Comments: Calm. - Lab 12/15/16 04:00 12/15/16 04:00 Most recent lab results Calcium 8.7 mg/dL (8.6-10.8) 12/15/16 04:00 Phosphorus 5.1 mg/dL (2.3-4.7) H 12/15/16 04:00 Magnesium 1.8 mg/dL (1.6-2.6) 11/30/16 06:10 Urine Creatinine 53 mg/dL 12/01/16 02:05 Ur Total Protein 24 Hr 573 mg/day (0-299) H 12/01/16 02:05 Urine Sodium < 20.0 mEq/L 12/01/16 02:05 Urine Total Protein 63 mg/dL (1-14) H 12/01/16 02:05 - VTE Documentation of Mechanical Device: Graduated compression elastic hosiery Consult Discharge Plan - Plan Referrals: NO,PCP [Primary Care Provider] - (Patient can not remember the name of her PCP , however patient is being referred to an ECF and will follow up with their PCP for now) Patricia Salmeron, [Partnered Physician] - 12/17/16 1:30 pm
[2016-12-15 11:07] LABS: Platelet Estimate Normal (Normal)
[2016-12-15] MEDS: Calcium Acetate 667 MG CAPSULE PO SCH ×2 (11:40→17:47)
[2016-12-15] MEDS: Cyanocobalamin (B-12) 1,000 MCG/ML VIAL IM SCH (11:40)
--- NOTE | 2016-12-15 14:00 | Internal Med Progress Note ---
Date of Encounter: 12/15/16 Time of Encounter: 12:00 - Assessment and plan (1) Altered mental status Current Visit: Yes Status: Acute Assessment and plan: Waxing and waning delirium. On risperidone at bedtime. We will continue this medication. Monitor closely. Moderate risk for complications Qualifiers: Altered mental status type: delirium Qualified Code(s): R41.0 - Disorientation, unspecified (2) Acute exacerbation of CHF (congestive heart failure) Current Visit: Yes Status: Acute Assessment and plan: Improved with volume management with hemodialysis. Qualifiers: Congestive heart failure type: diastolic Qualified Code(s): I50.33 - Acute on chronic diastolic (congestive) heart failure (3) Acute renal failure Current Visit: Yes Status: Acute Assessment and plan: Normal dialysis dependent. Plan permanent catheter tomorrow morning. Qualifiers: Acute renal failure type: with acute tubular necrosis Qualified Code(s): N17.0 - Acute kidney failure with tubular necrosis (4) Leucocytosis Current Visit: Yes Status: Acute Assessment and plan: Improving WBC count. Blood cultures have been negative. We will continue vancomycin for now. Qualifiers: Leukocytosis type: other Qualified Code(s): D72.828 - Other elevated white blood cell count (5) Sepsis affecting skin Current Visit: Yes Status: Resolved (6) HTN (hypertension) Current Visit: Yes Status: Chronic Assessment and plan: Controlled Qualifiers: Hypertension type: essential hypertension Qualified Code(s): I10 - Essential (primary) hypertension (7) Hypothyroidism Current Visit: Yes Status: Chronic Assessment and plan: On levothyroxine Qualifiers: Hypothyroidism type: other Qualified Code(s): E03.8 - Other specified hypothyroidism (8) Atrial fibrillation Current Visit: Yes Status: Acute Assessment and plan: Rate controlled. Not on anticoagulation due to low hemoglobin levels, high fall risk. Will need outpatient follow-up with cardiology for further discussions on anticoagulation. Patient does have high chads Vasc score. Qualifiers: Atrial fibrillation type: paroxysmal Qualified Code(s): I48.0 - Paroxysmal atrial fibrillation - Subjective Interval history: Patient is awake. Less confused today. Was up and as directed last time but has since calmed down. No fever or chills or night sweats reported overnight. - Constitutional Vitals: Temp Pulse Resp BP Pulse Ox 98.4 F 98 18 100/56 98 12/15/16 10:57 12/15/16 10:57 12/15/16 10:57 12/15/16 11:40 12/15/16 10:57 General appearance: Present: cooperative, A&O X 1, pleasant, no acute distress. Absent: answers questions appropriately - Respiratory Respiratory exam: Present: CTAB. Absent: accessory muscle use, rales, rhonchi, wheezes - Cardiovascular Cardiovascular exam: Present: irregular rhythm, +S1, +S2. Absent: diastolic murmur, gallop, rubs, systolic murmur - GI/Abdominal GI/Abdominal exam: Present: normal bowel sounds, soft, no peritoneal signs. Absent: distended, tenderness - Extremities Exam Extremities exam: Present: warm, radial pulses palpable and symetrical. Absent : calf tenderness, cyanotic, pedal edema Additional comments: Blister present on dorsal surface of left foot filled With serous fluid. Cellulitis resolved - Neurological Exam Neurological exam: Present: alert, no focal deficits. Absent: facial droop, speech deficit - Skin Skin exam: Present: dry, intact Internal Medicine: Result - Labs CBC & Chem 7: 12/15/16 09:35 12/15/16 04:00 Labs: Short CBC 12/15/16 12/15/16 Range/Units 04:00 09:35 WBC 15.2 H 14.5 H (4.3-11.1) K/mcL Hgb 7.5 L 7.8 L (11.5-15.4) g/dL Hct 23.8 L 24.8 L (35.3-44.9) % Plt Count 95 L 108 L (140-400) K/mcL Neutrophils # 13.7 H 13.0 H (1.6-8.9) K/mcL BMP 12/15/16 04:00 Sodium 134 L Potassium 3.7 Chloride 93 L Carbon Dioxide 25 BUN 88 H D Creatinine 3.77 H Glucose 317 H Calcium 8.7 Liver Function 12/15/16 Range/Units 04:00 Albumin 2.3 L (3.5-5.0) g/dL - ABG Interpretation ABG results: PT/INR, D-dimer PT 12.8 Seconds (9.4-12.1) H 12/13/16 15:48 - VTE Documentation of Mechanical Device: Graduated compression elastic hosiery Consult Discharge Plan - Plan Referrals: NO,PCP [Primary Care Provider] - (Patient can not remember the name of her PCP , however patient is being referred to an ECF and will follow up with their PCP for now) Patricia Salmeron DO [Partnered Physician] - 12/17/16 1:30 pm - Attending Attestation This document has been at least partially created by [employer] recognition technology by Dr. Burciaga. Errors in grammar, wording or other phrases may exist. If errors are found after the documentation is signed, they will be addressed individually in the addendum section of this document when appropriate.
[2016-12-15] MEDS: Amoxicillin/Clavulanate 500 MG TABLET PO SCH (22:00)
[2016-12-15] MEDS: risperiDONE 0.25 MG TABLET PO SCH (22:01)
[2016-12-16] MEDS: hydrALAZINE 10 MG TABLET PO SCH ×4 (00:01→17:38)
[2016-12-16 04:04] LABS: Hematocrit 24.6 % (35.3-44.9); Hemoglobin 7.8 g/dL (11.5-15.4); Mean Corpuscular HGB Conc 31.7 g/dL (31.6-35.5); Mean Corpuscular Hemoglobin 26.3 pg (28.0-33.3); Mean Corpuscular Volume 82.8 fL (83.0-100.0); Mean Platelet Volume 12.1 fL (9.4-12.4); Platelet Count 108 K/mcL (140-400); Red Blood Count 2.97 M/mcL (3.82-4.97); Red Cell Distribution Width 17.2 % (11.5-14.5)
[2016-12-16 04:21] LABS: Calcium 8.8 mg/dL (8.6-10.8); Potassium 4.5 mEq/L (3.5-4.5)
[2016-12-16 04:43] LABS: Lymphocytes # 0.3 K/mcL (0.6-4.6); Neutrophils # 14.5 K/mcL (1.6-8.9)
[2016-12-16 04:44] LABS: Hypochromasia Present (Not Present); Platelet Estimate Decreased (Normal)
[2016-12-16 04:57] LABS: Folate 11.5 ng/mL (7.0-31.4)
[2016-12-16] MEDS: Diltiazem CD (24hr) 120 MG CAPSULE PO SCH (07:52)
[2016-12-16] MEDS: Calcium Acetate 667 MG CAPSULE PO SCH ×3 (07:52→16:22)
[2016-12-16] MEDS: Aspirin Enteric Coated 81 MG Tablet PO SCH (07:52)
[2016-12-16] MEDS: Cyanocobalamin (B-12) 1,000 MCG/ML VIAL IM SCH (08:03)
[2016-12-16] MEDS: Lactobacillus 1 EACH CAP.SPRINK PO SCH ×2 (08:14→22:00)
[2016-12-16] MEDS ORDERED: *HR* Heparin 10,000 UNIT/10 ML VIAL IV PRN (08:15)
[2016-12-16] MEDS ORDERED: 0.9 % Sodium Chloride 1,000 ML PRIME SCH (08:15)
[2016-12-16] MEDS ORDERED: 0.9 % Sodium Chloride 250 ML IV PRN (08:15)
[2016-12-16] MEDS ORDERED: Heparin 1,000 UNITS/500 mL NS 500 ML ONE ×2 (09:26→13:29)
[2016-12-16] MEDS ORDERED: Albumin 25% 25gram/100mL 25 GM/100 ML IV.SOLN IVPB ONE (10:10)
[2016-12-16] MEDS ORDERED: Albumin 25% 12.5gm/50mL 25.0 GM/100 ML IV.SOLN ONE (10:20)
--- NOTE | 2016-12-16 12:18 | Nephrology Progress Note ---
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 Will continue with dialysis MWF. Awaiting tunneled catheter placement if blood and urine culture remain stable. She has a chair available in [facility]. This is complicated by the difficulty removing fluid from the patient on dialysis. May need to investigate if she is a candidate for CAPD as she does not seem to be doing well with HD when fluid is removed. Continue renal diet and adjust medications for renal disease. (2) Protein-calorie malnutrition, moderate Current Visit: Yes Status: Chronic Continue with nutritional support. Albumin low. Consult nutrition. (3) Leucocytosis Current Visit: Yes Status: Acute Patient with leucocytosis. Etiology is unclear. She has had leucocytosis since 10/11. Afebrile, but left shift on the differential. After talking with IR they seem to be uncomfortable with placing a tunneled catheter until blood and urine cultures are negative. The repeat blood cultures are negative to date. Qualifiers: Leukocytosis type: other Qualified Code(s): D72.828 - Other elevated white blood cell count (4) Atrial fibrillation Current Visit: Yes Status: Acute Continue medications for rate control. May need medications titrated to maintain HR in the normal range. Qualifiers: Atrial fibrillation type: paroxysmal Qualified Code(s): I48.0 - Paroxysmal atrial fibrillation (5) Anemia Current Visit: Yes Status: Acute Iron stores low, but ferritin greatly elevated - would like lower ferritin prior to ordering IV iron. Vitamin b12 is on the lower limit of normal - replacement ordered. Folate normal. Follow hemoglobin levels. Transfuse as needed. Qualifiers: Qualified Code(s): D64.9 - Anemia, unspecified (6) Hyperparathyroidism Current Visit: Yes Status: Acute PTH mildly elevated - Replace vitamin D. Phosphorus mildly elevated will start low dose binder. Calcium within normal limits. (7) Vitamin D deficiency Current Visit: Yes Status: Acute ergocalciferol ordered. Subjective Principal diagnosis: CHF Interval history: Patient seen and evaluated on HD. She has no complaint when she is awakened. Her blood pressure dropped when on HD and she received albumin with increase in her blood pressure. Unable to tolerate fluid removal. I did speak with palliative regarding her care. Awaiting tunneled HD catheter placement. She is hard of hearing making her assessment difficult. Objective - Vital Signs Vital signs: Vital Signs Temp Pulse Resp BP Pulse Ox 12/16/16 12:00 123/57 12/16/16 11:45 116/53 12/16/16 11:30 120/50 12/16/16 11:15 111/50 12/16/16 11:00 104/43 12/16/16 10:45 107/48 12/16/16 10:30 89/41 12/16/16 10:15 88/43 12/16/16 10:00 112/37 12/16/16 09:50 97 F L 20 102/49 12/16/16 08:08 96 12/16/16 07:39 96 12/16/16 03:44 97.3 F L 83 18 124/61 97 12/15/16 23:45 97.6 F 80 20 111/51 98 12/15/16 19:28 97.5 F L 88 18 130/62 95 12/15/16 18:00 96 12/15/16 15:36 98.4 F 102 18 130/56 96 Intake and Output 12/15/16 12/16/16 12/16/16 23:59 07:59 15:59 Intake Total 60 / 60 600 / 600 Output Total 0 / 0 Balance 60 / 60 0 / 0 600 / 600 Intake: Oral 60 / 60 0 / 0 Intake, Rinseback and 600 / 600 Flushes Output: Urine 0 / 0 Other: Meal Dinner Percent of Meal Consumed 55% Stool Size Smear Stool Consistency loose Stool Color Brown # Urine Diapers 1 Weight 71.3 kg 71.3 kg Hemodialysis Net Fluid 274 Removed (mL) Patient Weight 12/16/16 23:59 Weight 71.3 kg - General Appearance General appearance: Present: well-developed, well-nourished, chronically ill, frail EENT: Present: ATNC Neck: Present: supple Respiratory: Present: clear (anteriorly) Cardiology: Present: edema, regular rate, regular rhythm Gastrointestinal: Present: normoactive bowel sounds, no tenderness Integumentary: Present: warm and dry Additional Comments: hard of hearing. Musculoskeletal: Present: no cyanosis Psychiatric: Present: mood/affect appropriate - Lab 12/16/16 03:51 12/16/16 03:51 Most recent lab results Calcium 8.8 mg/dL (8.6-10.8) 12/16/16 03:51 Phosphorus 5.1 mg/dL (2.3-4.7) H 12/15/16 04:00 Magnesium 1.8 mg/dL (1.6-2.6) 11/30/16 06:10 Urine Creatinine 53 mg/dL 12/01/16 02:05 Ur Total Protein 24 Hr 573 mg/day (0-299) H 12/01/16 02:05 Urine Sodium < 20.0 mEq/L 12/01/16 02:05 Urine Total Protein 63 mg/dL (1-14) H 12/01/16 02:05 - VTE Documentation of Mechanical Device: Graduated compression elastic hosiery Consult Discharge Plan - Plan Referrals: NO,PCP [Primary Care Provider] - (Patient can not remember the name of her PCP , however patient is being referred to an ECF and will follow up with their PCP for now) Patricia Salmeron, [Partnered Physician] - 12/17/16 1:30 pm
[2016-12-16] MEDS: Cholecalciferol (D-3) 1,000 UNIT TABLET PO SCH (12:23)
[2016-12-16] MEDS ORDERED: *HR* Midazolam HCl 2 MG/2 ML VIAL IV PRN (14:14)
[2016-12-16] MEDS ORDERED: *HR* FentaNYL (PF) 100 MCG/2 ML VIAL IV PRN (14:14)
[2016-12-16] MEDS ORDERED: cefOXitin 2,000 MG in D5% in Water (Mini-Bag+) 100 ML IVPB ONE (14:14)
--- NOTE | 2016-12-16 14:17 | Pre-Sedation Evaluation ---
Pre-sedation evaluation - Pre-sedation checklist Date of procedure: 12/16/16 Procedure: permacath Recent Vitals: Last Vital Signs Temp 98 F 12/16/16 13:14 Pulse 83 12/16/16 03:44 Resp 20 12/16/16 13:14 BP 105/47 12/16/16 13:14 Pulse Ox 96 12/16/16 08:08 H&P (including ROS) documented in medical record: Yes Previous reaction to sedatives/anesthetics: No Dietary Status: NPO after Midnight Airway Assessment: Patient can open mouth completely, TMJ function normal, Micrognathia (under-bite, receding chin) absent, Neck with adequate range of motion Dentition: No loose teeth or bridges Possible difficult airway: No ASA Classification *see protocol: CLASS II-Mild systemic disease Plan of Care: Pt appropriate candidate for procedure/moderate/conscious sedation , Risks/benefits of procedure/sedation discussed w/ patient/family
--- NOTE | 2016-12-16 14:28 | Discharge Summary ---
Date of Encounter: 12/16/16 Time of Encounter: 10:25 - Discharge Diagnosis (1) Acute renal failure Priority: Primary Status: Acute Comments: With Interstitial fibrosis per renal biopsy Qualifiers: Acute renal failure type: with other specified pathological lesion Qualified Code(s): N17.8 - Other acute kidney failure (2) Altered mental status Priority: Secondary Status: Acute Qualifiers: Altered mental status type: delirium Qualified Code(s): R41.0 - Disorientation, unspecified (3) Acute exacerbation of CHF (congestive heart failure) Priority: Secondary Status: Acute Qualifiers: Congestive heart failure type: diastolic Qualified Code(s): I50.33 - Acute on chronic diastolic (congestive) heart failure (4) Leucocytosis Priority: Secondary Status: Chronic Qualifiers: Leukocytosis type: other Qualified Code(s): D72.828 - Other elevated white blood cell count (5) Sepsis affecting skin Priority: Secondary Status: Resolved (6) HTN (hypertension) Priority: Secondary Status: Chronic Qualifiers: Hypertension type: essential hypertension Qualified Code(s): I10 - Essential (primary) hypertension (7) Hypothyroidism Priority: Secondary Status: Chronic Qualifiers: Hypothyroidism type: other Qualified Code(s): E03.8 - Other specified hypothyroidism (8) Atrial fibrillation Priority: Secondary Status: Acute Qualifiers: Atrial fibrillation type: paroxysmal Qualified Code(s): I48.0 - Paroxysmal atrial fibrillation - Discharge Medications Home Medications: Aspirin 81 mg PO DAILY 11/28/16 [History] Cholecalciferol (D-3) [Vitamin D] 1,000 unit PO DAILY 11/28/16 [History] Aspirin Enteric Coated [Aspirin EC] 81 mg PO DAILY #0 tablet.dr 12/16/16 [Rx] Diltiazem CD (24hr) [Cardizem CD] 120 mg PO DAILY #0 cap.er.24h 12/16/16 [Rx] HydrALAZINE 10 mg PO Q6HR #0 tablet 12/16/16 [Rx] Labetalol [Trandate] 100 mg PO BID tablet 12/16/16 [Rx] Lactobacillus [Culturelle] 1 each PO BID cap.sprink 12/16/16 [Rx] Levothyroxine [Levothyroxine Sodium] 137 mcg PO DAILY@0630 #0 tablet 12/16/16 [ Rx] RisperiDONE [RisperDAL] 0.5 mg PO HS tablet 12/16/16 [Rx] Rosuvastatin [Crestor] 20 mg PO HS tablet 12/16/16 [Rx] Vancomycin [Vancocin] 0 each IVPB AD PRN 7 Days 12/16/16 [Rx] Allergies/Adverse Reactions: Allergies No Known Allergies Allergy (Verified 11/28/16 08:21) Procedures/tests Complete & Pending: Procedures Performed prior 72 hours Category Date Time Status IR cvc insrt tunnel wo prt/larder cook [IR] Routine IR 12/16/16 Ordered IR us guide needle place [IR] Routine IR 12/16/16 Ordered Date of admission: 11/28/16 16:05 Primary care physician: PCP NO Consults: 11/29/16 09:33 Consult to Spinning Machine Operator [CONS] Routine Reason for SW Consult: . 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 Thank you. Call Completed: No 12/05/16 10:45 Consult to Dialysis [CONS] ONCE 12/05/16 10:46 Consult to Interventional Radiology [CONS] Routine Consulting Provider: Radiology Interventional Cols Reason for Consult: Please evaluate for placement of a temporary HD catheter for initation of HD. Thank you. Call Completed: Yes 12/06/16 05:00 Consult to Dialysis [CONS] ONCE 12/07/16 10:00 Consult to Dialysis [CONS] ONCE 12/07/16 17:04 Consult to Cardiology [CONS] Routine Comment: Consulting Provider: Cardiology Isa Reason for Consult: please evaluate for new onset atrial fib with Rvr in this patient. thank you Call Completed: No 12/09/16 08:45 Consult to Dialysis [CONS] ONCE 12/10/16 09:15 Consult to Dialysis [CONS] ONCE 12/10/16 10:06 Consult to Palliative Care [CONS] Routine Comment: Regarding code status, family here tomorrow @ 12. Consulting Provider: Palliative Care [place] 12/11/16 09:15 Consult to Dialysis [CONS] ONCE 12/13/16 09:15 Consult to Dialysis [CONS] ONCE 12/13/16 14:37 Consult to Interventional Radiology [CONS] Stat Consulting Provider: Radiology Interventional Cols Reason for Consult: Permacath placement, hemodialysis Time Notified: 14:39 Call Completed: Yes 12/14/16 09:15 Consult to Dialysis [CONS] ONCE 12/16/16 08:15 Consult to Dialysis [CONS] ONCE 12/17/16 08:15 Consult to Dialysis [CONS] ONCE Discharging clinician: Denton Burciaga Anticipated date of discharge: 12/16/16 - Patient Status Disposition: Transfer SNF Condition: Fair Functional capacity at discharge: wheelchair bound Overall status at discharge: patient is not back to baseline - Discharge Instructions Instructions: Heart Failure (DC), Atrial Fibrillation (DC) Follow Up With: NO,PCP [Primary Care Provider] - (Patient can not remember the name of her PCP , however patient is being referred to an ECF and will follow up with their PCP for now) Patricia Salmeron DO [Partnered Physician] - 12/17/16 1:30 pm Ang Crump MD [Partnered Physician] - (In 1-2 weeks) - Diet and Activity Activity: as per physical therapy Diet: diabetic diet, low salt diet, other (Renal) Hospital course: Ms. Ortega is a 81 year old female history of hypertension, chronic kidney disease, congestive heart failure who came to the ER with complaints of bilateral lower extremity swelling. She was started on treatment with Bumex intravenously. She was also diagnosed with cellulitis and sepsis from it and was started on IV antibiotics. Cardiology was consulted for her congestive heart failure and elevated troponin. Troponin rise was believed to be due to demand ischemia. No further cardiac evaluation was recommended. Patient's current kidney function worsened with use of IV diuretics and she also developed hyperkalemia. Per nephrology recommendation, she underwent renal biopsy which showed 40-50% interstitial fibrosis with vascular disease with minimal evidence of ATN. No membranous nephropathy. Diuretics were held at this point and despite that her creatinine remained elevated without any improvement. As such her temporary dialysis catheter was placed and patient was started on dialysis. The patient also developed atrial fibrillation with RVR. Cardiology reevaluated her and placed her on Cardizem. Patient does have an elevated CHADSVASc score of 5. However patient has been anemic and has high fall risk. As such anticoagulation was not started. This can be followed further with cardiology after discharge. Patient's anasarca and pedal edema improved after she was started on hemodialysis. She did develop acute delirium in the interim. A CT scan of her head showed atrophy with periventricular and scattered frontal parietal white matter disease likely due to small vessel ischemic changes. She does also noted left occipital lobe infarct. Patient was started on treatment for delirium with risperidone at bedtime. Her symptoms improved after this medication has been started also she does develop intermittent delirium. She was evaluated by physical therapy and recommended placement to skilled rehabilitation. Palliative care was also consulted to make recommendations regarding goals of care. Currently the patient is full code. Will continue to receive dialysis. She has been having persistent leukocytosis despite being on antibiotics. Reviewing her record she has had leukocytosis since September. She has been on antibiotics for about 19 days so far. No organism has been grown. She does not have any fever or chills or night sweats. Chest x-ray done recently showed improvement in bibasilar air space disease. Patient is not having any diarrhea at this time so stool has not been checked for C. difficile. I would recommend she follow up with hematology as outpatient for further evaluation. She will complete a short course of vancomycin to complete antibiotic course. Currently the patient is stable for discharge. She will get a perm catheter placed today. She will be discharged once she has a bed available for skilled rehabilitation. She has also been set up for outpatient dialysis. - Time Spent with Patient Total time spent providing and/or coordinating discharge services: Greater than 30 minutes (45 min) - Constitutional Vitals: Temp Pulse Resp BP Pulse Ox 98 F 83 20 105/47 96 12/16/16 13:14 12/16/16 03:44 12/16/16 13:14 12/16/16 13:14 12/16/16 08:08 General appearance: Present: cooperative, A&O X 2, mild distress, pleasant - Respiratory Respiratory exam: Present: CTAB. Absent: accessory muscle use, rales, rhonchi, wheezes - Cardiovascular Cardiovascular exam: Present: RRR, +S1, +S2. Absent: diastolic murmur, gallop, rubs, systolic murmur - GI/Abdominal GI/Abdominal exam: Present: normal bowel sounds, soft, no peritoneal signs. Absent: distended, tenderness - Extremities Exam Extremities exam: Present: pedal edema, warm, radial pulses palpable and symetrical. Absent: calf tenderness, cyanotic Additional comments: Serous Blister present on the dorsal surface of the left ankle. - Neurological Exam Neurological exam: Present: altered, no focal deficits. Absent: facial droop, speech deficit - VTE Documentation of Mechanical Device: Graduated compression elastic hosiery - Attending Attestation This document has been at least partially created by [employer] recognition technology by Dr. Burciaga. Errors in grammar, wording or other phrases may exist. If errors are found after the documentation is signed, they will be addressed individually in the addendum section of this document when appropriate.
--- NOTE | 2016-12-16 14:43 | Physician Discharge Referral ---
ExtendedCare Referral Info Provider in Charge after Transfer: PCP Institutional Level of Care: Skilled - Diagnosis (1) Acute renal failure Priority: Primary Status: Acute (2) Altered mental status Priority: Secondary Status: Acute (3) Acute exacerbation of CHF (congestive heart failure) Priority: Secondary Status: Acute (4) Leucocytosis Priority: Secondary Status: Chronic (5) Sepsis affecting skin Priority: Secondary Status: Resolved (6) HTN (hypertension) Priority: Secondary Status: Chronic (7) Hypothyroidism Priority: Secondary Status: Chronic (8) Atrial fibrillation Priority: Secondary Status: Acute Prognosis: Fair Aware of Diagnosis: Family Aware of Prognosis: Family - Transfer Medications Home Medications: Aspirin 81 mg PO DAILY 11/28/16 [History] Cholecalciferol (D-3) [Vitamin D] 1,000 unit PO DAILY 11/28/16 [History] Aspirin Enteric Coated [Aspirin EC] 81 mg PO DAILY #0 tablet.dr 12/16/16 [Rx] Diltiazem CD (24hr) [Cardizem CD] 120 mg PO DAILY #0 cap.er.24h 12/16/16 [Rx] HydrALAZINE 10 mg PO Q6HR #0 tablet 12/16/16 [Rx] Labetalol [Trandate] 100 mg PO BID tablet 12/16/16 [Rx] Lactobacillus [Culturelle] 1 each PO BID cap.sprink 12/16/16 [Rx] Levothyroxine [Levothyroxine Sodium] 137 mcg PO DAILY@0630 #0 tablet 12/16/16 [ Rx] RisperiDONE [RisperDAL] 0.5 mg PO HS tablet 12/16/16 [Rx] Rosuvastatin [Crestor] 20 mg PO HS tablet 12/16/16 [Rx] Vancomycin [Vancocin] 0 each IVPB AD PRN 7 Days 12/16/16 [Rx] Allergies/Adverse Reactions: Allergies No Known Allergies Allergy (Verified 11/28/16 08:21) - Respiratory Orders Oxygen / L per min (keep sats >90%) Smoking Cessation: Smoking cessation has been advised. For more information, call the [place] Tobacco Quit Line at 9-574-HDIR-NOW. - Ancillary Orders May consult with Dentist, Trimming Caser, Director Global Intelligence PRN - Advance Directives Code Status: Full Code - Mobility Orders Other (per PT evaluation) - Rehabiliation Orders Rehab Orders: Evaluation for Physical Therapy, Evaluation for Occupational Therapy - Diet Orders Renal, Cardiac CERTIFICATION: I certify that the transfer of the above named patient to an Extended Care Facility is necessary for the continuing treatment of the diagnosis listed. The above information is true and accurate reflection of patient's current condition. Confidential - Redisclosure prohibited without a patient's written consent.
[2016-12-16] MEDS ORDERED: *HR* Heparin 5,000 UNIT/ML VIAL ONE ×2 (14:53→14:57)
[2016-12-16] MEDS ORDERED: Vancomycin 500 MG in D5% in Water (Mini-Bag+) 100 ML IVPB ONE (15:00)
--- NOTE | 2016-12-16 15:29 | IR Procedure Note ---
Date of procedure: 12/16/16 Consent Obtained: Verbal consent Timeout: Correct patient and procedure verified, Correct site verified, Time out performed, Skin prep completed Indications: renal failure Procedure Performed: permacath Site/Technique: rt IJ Results/Findings: Adequate placement Estimated blood loss (cc): 2 Complications: None; Tolerated procedure well Post Procedure Treatment Plan: OK to use catheter
--- NOTE | 2016-12-16 15:42 | Event Note ---
Date of Encounter: 12/16/16 Time of Encounter: 15:35 Patient has been absent from room today with dialysis and then permacath placement. D/W Dr. Soto and Dr. Burciaga. If continues to not tolerate HD, peritoneal dialysis may be option, however, this will change discharge plan as few ECF will take pt with this need. RENU King has contacted all ECF in [place] as well as [facility]. [facility] and [facility] would be willing to accept patient, however, their staff would need training prior to pt transfer, and would have to await insurance approval. Dr. Soto provided numbers of pt POA and plans on discussing with them. Will f/u in am.
[2016-12-16] MEDS: risperiDONE 0.25 MG TABLET PO SCH (22:00)
[2016-12-16] MEDS: Amoxicillin/Clavulanate 500 MG TABLET PO SCH (22:00)
[2016-12-17] MEDS: hydrALAZINE 10 MG TABLET PO SCH ×4 (06:10→17:44)
[2016-12-17] MEDS: Diltiazem CD (24hr) 120 MG CAPSULE PO SCH (06:11)
[2016-12-17] MEDS: Aspirin Enteric Coated 81 MG Tablet PO SCH (06:15)
[2016-12-17] MEDS: Lactobacillus 1 EACH CAP.SPRINK PO SCH ×2 (06:16→20:17)
--- NOTE | 2016-12-17 09:43 | Nephrology Progress Note ---
Date of Encounter: 12/17/16 Time of Encounter: 09:39 - Assessment and Plan (1) PAZ (acute kidney injury) Current Visit: Yes Status: Acute Continues to be HD dependent. Permacath placed yesterday Not tolerating HD well; consider PD-will need to talk with family (2) CKD (chronic kidney disease) stage 4, GFR 15-29 ml/min Current Visit: Yes Status: Chronic Continue renal diet Continue fluid restriction Avoid nephrotoxins if possible (3) Acute on chronic combined systolic and diastolic CHF (congestive heart failure) Current Visit: Yes Status: Acute per primary team (4) Anemia Current Visit: Yes Status: Acute Hgb 7.8 Transfuse per parameter; defer to primary team Qualifiers: Anemia type: unspecified type Qualified Code(s): D64.9 - Anemia, unspecified Subjective Principal diagnosis: CHF Interval history: Patient seen and examined. Laying quietly in bed with eyes closed most of time. Objective - Vital Signs Vital signs: Vital Signs Temp Pulse Resp BP Pulse Ox 12/17/16 07:39 97 12/17/16 07:09 97.6 F 90 18 133/70 97 12/17/16 04:06 97.6 F 101 20 128/77 97 12/17/16 00:06 98.3 F 90 19 133/73 96 12/16/16 20:00 94 L 12/16/16 19:52 97.9 F 103 18 126/59 94 L 12/16/16 17:00 97.3 F L 100 18 102/57 95 12/16/16 14:42 110 18 112/69 12/16/16 13:14 98 F 20 105/47 12/16/16 13:12 118/39 12/16/16 13:00 118/39 12/16/16 12:45 102/43 12/16/16 12:30 103/45 12/16/16 12:15 109/51 12/16/16 12:00 123/57 12/16/16 11:45 116/53 12/16/16 11:30 120/50 12/16/16 11:15 111/50 12/16/16 11:00 104/43 12/16/16 10:45 107/48 12/16/16 10:30 89/41 12/16/16 10:15 88/43 12/16/16 10:00 112/37 02/20/17 09:50 97 F L 20 102/49 Intake and Output 12/16/16 12/17/16 12/17/16 23:59 07:59 15:59 Intake Total 200 / 200 360 / 360 Balance 200 / 200 360 / 360 Intake: IV Fluids 200 / 200 Mefoxin 2,000 MG In 100 / 100 Dextrose 5% (Minibag+) 100 ML 100 ML @ 200 mls/ hr IVPB PREOP ONE Rx#: [id number] Vancocin 500 MG In 100 / 100 Dextrose 5% (Minibag+) 100 ML 100 ML @ 100 mls/ hr IVPB ONCE ONE Rx#: [id number] Oral 360 / 360 Other: Meal Breakfast Percent of Meal Consumed 100% Stool Size Smear Stool Consistency soft # Bowel Movement Diapers 1 Weight 72 kg Patient Weight 12/17/16 23:59 Weight 72 kg - General Appearance General appearance: Present: chronically ill EENT: Present: ATNC Neck: Present: supple Respiratory: Present: clear Cardiology: Present: edema (BLL and feet), normal S1, normal S2 Dialysis Vascular Access: Venous Catheter Gastrointestinal: Present: no guarding Integumentary: Present: warm and dry Neurologic: Present: disoriented Psychiatric: Present: cooperative - Lab 12/16/16 03:51 12/16/16 03:51 Most recent lab results Calcium 8.8 mg/dL (8.6-10.8) 12/16/16 03:51 Phosphorus 5.1 mg/dL (2.3-4.7) H 12/15/16 04:00 Magnesium 1.8 mg/dL (1.6-2.6) 11/30/16 06:10 Urine Creatinine 53 mg/dL 12/01/16 02:05 Ur Total Protein 24 Hr 573 mg/day (0-299) H 12/01/16 02:05 Urine Sodium < 20.0 mEq/L 12/01/16 02:05 Urine Total Protein 63 mg/dL (1-14) H 12/01/16 02:05 - VTE Documentation of Mechanical Device: Graduated compression elastic hosiery Consult Discharge Plan - Plan Instructions: Heart Failure (DC), Atrial Fibrillation (DC) Referrals: Ang Crump MD [Partnered Physician] - (In 1-2 weeks) NO,PCP [Primary Care Provider] - (Patient can not remember the name of her PCP , however patient is being referred to an ECF and will follow up with their PCP for now) Patricia Salmeron DO [Partnered Physician] - 12/17/16 1:30 pm
[2016-12-17] MEDS: Calcium Acetate 667 MG CAPSULE PO SCH ×3 (11:09→17:44)
[2016-12-17] MEDS: Cyanocobalamin (B-12) 1,000 MCG/ML VIAL IM SCH (11:41)
[2016-12-17 13:12] LABS: Hematocrit 23.2 % (35.3-44.9); Hemoglobin 7.4 g/dL (11.5-15.4); Mean Corpuscular HGB Conc 31.9 g/dL (31.6-35.5); Mean Corpuscular Hemoglobin 26.4 pg (28.0-33.3); Mean Corpuscular Volume 82.9 fL (83.0-100.0); Mean Platelet Volume 12.9 fL (9.4-12.4); Platelet Count 118 K/mcL (140-400); Red Cell Distribution Width 17.2 % (11.5-14.5)
[2016-12-17 13:24] LABS: Calcium 8.3 mg/dL (8.6-10.8); Potassium 4.4 mEq/L (3.5-4.5)
[2016-12-17] MEDS: Cholecalciferol (D-3) 1,000 UNIT TABLET PO SCH (14:16)
[2016-12-17 15:46] LABS: Lymphocytes # 0.9 K/mcL (0.6-4.6); Monocytes # 0.3 K/mcL (0.0-1.3); Neutrophils # 13.6 K/mcL (1.6-8.9)
[2016-12-17 15:47] LABS: Platelet Estimate Decreased (Normal)
[2016-12-17 15:48] LABS: Anisocytosis 1+ (Not Present); Basophilic Stippling 1+ (Not Present); Poikilocytosis 1+ (Not Present)
--- NOTE | 2016-12-17 17:06 | Event Note ---
Date of Encounter: 12/17/16 Time of Encounter: 17:00 Patient nephew Eugene at bedside and desired to re-discuss code status. States he spoke with Dr. Soto re: HD vs Peritoneal dialysis. He is aware that [facility] cannot accomodate her needs. Changed code status to DNR/DNI. Will continue to follow.
[2016-12-17] MEDS: risperiDONE 0.25 MG TABLET PO SCH (20:17)
[2016-12-18] MEDS: hydrALAZINE 10 MG TABLET PO SCH ×4 (05:30→17:43)
[2016-12-18] MEDS: Aspirin Enteric Coated 81 MG Tablet PO SCH (05:30)
[2016-12-18] MEDS: Lactobacillus 1 EACH CAP.SPRINK PO SCH ×2 (05:30→20:21)
[2016-12-18 06:28] LABS: Hematocrit 23.8 % (35.3-44.9); Hemoglobin 7.3 g/dL (11.5-15.4); Immature Platelets 14.3 % (1.1-6.1); Mean Corpuscular HGB Conc 30.7 g/dL (31.6-35.5); Mean Corpuscular Hemoglobin 25.7 pg (28.0-33.3); Mean Corpuscular Volume 83.8 fL (83.0-100.0); Mean Platelet Volume 12.1 fL (9.4-12.4); Red Blood Count 2.84 M/mcL (3.82-4.97); Red Cell Distribution Width 17.3 % (11.5-14.5)
[2016-12-18 06:43] LABS: Calcium 8.3 mg/dL (8.6-10.8); Potassium 4.7 mEq/L (3.5-4.5)
[2016-12-18] MEDS: Cyanocobalamin (B-12) 1,000 MCG/ML VIAL IM SCH (07:50)
[2016-12-18] MEDS: Calcium Acetate 667 MG CAPSULE PO SCH ×3 (07:51→17:43)
[2016-12-18] MEDS ORDERED: *HR* Heparin 10,000 UNIT/10 ML VIAL IV PRN (08:34)
[2016-12-18] MEDS ORDERED: 0.9 % Sodium Chloride 250 ML IV PRN (08:34)
[2016-12-18] MEDS ORDERED: Aminoglycoside Consult 1 EACH MC ONE (09:04)
--- NOTE | 2016-12-18 10:53 | Palliative Progress Note ---
Date of Encounter: 12/18/16 Time of Encounter: 10:50 - Assessment and plan (1) Generalized pain Current Visit: Yes Status: Acute Assessment and plan: Patient has Acetaminophen if needed. Comfortable to day and has not utilized. (2) Goals of care, counseling/discussion Current Visit: Yes Status: Acute Assessment and plan: Pt nephew NORA Knight transitioned code status to DNR/DNI last evening - completed state form and provided him with copies. Family still plans to pursue dialysis - per Dr. Soto - attempting HD again today, if unable to tolerate, will need to proceed with placement of peritoneal cath for PD. Palliative following from distance at this point- will see again Friday and review if clinical course has changed. (3) Acute exacerbation of CHF (congestive heart failure) Current Visit: Yes Status: Acute Qualifiers: Congestive heart failure type: diastolic Qualified Code(s): I50.33 - Acute on chronic diastolic (congestive) heart failure (4) Altered mental status Current Visit: Yes Status: Acute Qualifiers: Altered mental status type: delirium Qualified Code(s): R41.0 - Disorientation, unspecified (5) Acute kidney injury superimposed on chronic kidney disease Current Visit: Yes Status: Acute - Time Spent With Patient Total time spent is greater than 50% in coordination of care (as documented) at patient's floor/unit and/or counseling patient: 25 - 35 minutes - Subjective Interval history: Patient awake and alert. [place]. Visitors at bedside. She denies any pain, asking for readjustment in bed. Dr. Soto in speaking to family re: plan for HD today. + BM. Appetite remains stable. - Constitutional Vitals: Abnormal lab results WBC 15.5 K/mcL (4.3-11.1) H 12/18/16 05:48 RBC 2.84 M/mcL (3.82-4.97) L 12/18/16 05:48 Hgb 7.3 g/dL (11.5-15.4) L 12/18/16 05:48 Hct 23.8 % (35.3-44.9) L 12/18/16 05:48 MCH 25.7 pg (28.0-33.3) L 12/18/16 05:48 MCHC 30.7 g/dL (31.6-35.5) L 12/18/16 05:48 RDW 17.3 % (11.5-14.5) H 12/18/16 05:48 Plt Count 120 K/mcL (140-400) L 12/18/16 05:48 Immature Gran % 4.9 % (0-4) H 12/15/16 09:35 Band Neutrophils % 16.0 % (0-4) H 12/17/16 12:24 Metamyelocytes % 2.0 % (0) H 12/14/16 04:05 Myelocytes % 2.0 % (0) H 12/17/16 12:24 Promyelocytes % 2.0 % (0) H 12/17/16 12:24 Neutrophils # 13.6 K/mcL (1.6-8.9) H 12/17/16 12:24 Reactive Lymphocytes Present (Not Present) A 12/14/16 04:05 Toxic Granulation Present (Not Present) A 12/11/16 04:10 Toxic Vacuolation Present (Not Present) A 12/12/16 03:00 Platelet Estimate Decreased (Normal) L 12/17/16 12:24 Large Platelets Present (Not Present) A 12/14/16 04:05 Immature Plt Fraction 14.3 % (1.1-6.1) H 12/18/16 05:48 Hypochromasia Present (Not Present) A 12/16/16 03:51 Poikilocytosis 1+ (Not Present) A 12/17/16 12:24 Basophilic Stippling 1+ (Not Present) A 12/17/16 12:24 Anisocytosis 1+ (Not Present) A 12/17/16 12:24 Microcytosis Present (Not Present) A 12/12/16 03:00 Target Cells 1+ (Not Present) A 12/14/16 04:05 ESR 45 mm/hr (0-15) H 11/28/16 06:13 PT 12.8 Seconds (9.4-12.1) H 12/13/16 15:48 VBG pH 7.45 pH Units (7.32-7.42) H 12/14/16 05:28 VBG pO2 117 mmHg (25-40) H 12/14/16 05:28 VBG HCO3 34.8 mEq/L (21-27) H 12/14/16 05:28 Potassium 4.7 mEq/L (3.5-4.5) H 12/18/16 05:48 Chloride 94 mEq/L (98-109) L 12/18/16 05:48 Carbon Dioxide 31 mEq/L (19-29) H 12/18/16 05:48 BUN 79 mg/dL (7-20) H D 12/18/16 05:48 Creatinine 3.57 mg/dL (0.57-1.11) H 12/18/16 05:48 Est GFR ( Amer) 15 (> 60) L 12/18/16 05:48 Est GFR (Non-Af Amer) 12 (> 60) L 12/18/16 05:48 Glucose 135 mg/dL (70-99) H 12/18/16 05:48 POC Glucose 163 (58-89) H 12/12/16 11:49 Hemoglobin A1c 6.2 % (-5.6) H 11/29/16 08:07 Calculated Osmolality 310 (280-300) H 12/18/16 05:48 Uric Acid 12.3 mg/dL (2.6-6.0) H 11/30/16 06:10 Calcium 8.3 mg/dL (8.6-10.8) L 12/18/16 05:48 Ionized Calcium 1.13 mmol/L (1.15-1.35) L 11/28/16 06:13 Phosphorus 5.1 mg/dL (2.3-4.7) H 12/15/16 04:00 Iron 14 mcg/dL (50-170) L 12/15/16 04:00 % Saturation 10 % (15-50) L 12/15/16 04:00 Transferrin 105 mg/dL (180-382) L 12/15/16 04:00 Ferritin 658 ng/ml (5-204) H 12/15/16 04:00 Alkaline Phosphatase 213 Units/L (38-126) H 12/14/16 05:28 Troponin I 0.20 ng/mL (0-0.03) H* 11/28/16 16:20 C-Reactive Protein 45 mg/L (Less than 5) H 11/28/16 06:13 B-Natriuretic Peptide 722 pg/mL (0-100) H 12/05/16 05:49 Serum Total Protein 5.5 g/dL (6.0-8.3) L 12/14/16 05:28 Albumin 2.3 g/dL (3.5-5.0) L 12/15/16 04:00 Albumin/Globulin Ratio 1.0 (1.1-2.2) L 12/14/16 05:28 Prealbumin 11.0 mg/dL (16.0-38.0) L 12/16/16 03:51 LDL Cholesterol, Calc 102 mg/dL (0-99) H 11/28/16 06:13 HDL Cholesterol 81 mg/dL (40-59) H 11/28/16 06:13 25-OH Vitamin D Total 21 ng/mL (30-80) L 12/15/16 04:00 TSH 0.005 mcIU/mL (0.350-4.840) L 12/08/16 04:07 Free T3 < 1.00 pg/mL (1.71-3.71) L 12/08/16 08:00 PTH Intact 185.1 pg/ml (8.5-72.5) H 12/15/16 04:00 Urine Clarity Turbid (Clear) A 12/04/16 15:30 Urine Protein 100 mg/dL (Neg-Trace) H 12/04/16 15:30 Urine Blood Moderate (Negative) H 12/04/16 15:30 Ur Leukocyte Esterase Small (Negative) H 12/04/16 15:30 Urine Microscopic RBC 15-30 per hpf (0-3) H 12/04/16 15:30 Urine Microscopic WBC 15-30 per hpf (0-3) H 12/04/16 15:30 Ur Squamous Epith Cells Many per lpf (None-Few) H 12/04/16 15:30 Ur Culture Indicated? YES (NO) A 12/04/16 15:30 Ur Creatinine 24 Hour 0.48 g/day (0.71-1.65) L 12/01/16 02:05 Microalb/Creat Ratio 1246 (0-30) H 11/28/16 05:40 Ur Total Protein 24 Hr 573 mg/day (0-299) H 12/01/16 02:05 Protein/Creatinin Ratio 1.19 mg/mg (0-0.20) H 12/01/16 02:05 Ur Sodium 24 Hour 18 mEq/day (40-220) L 12/01/16 02:05 Urine Total Protein 63 mg/dL (1-14) H 12/01/16 02:05 General appearance: Present: no acute distress - Respiratory Respiratory exam: Present: decreased breath sounds, CTAB - Cardiovascular Cardiovascular exam: Present: irregular rhythm - GI/Abdominal GI/Abdominal exam: Present: normal bowel sounds, soft - Extremities Exam Additional comments: 2-3+ bilateral lower extremity edema. - Neurological Exam Neurological exam: Present: alert Additional comments: Oriented to name and place, requires frequent reorienting to time and situation. - Skin Skin exam: Present: dry, pallor, warm Palliative Quality Palliative Quality: Screen for Code Status: Yes, Screen for Goals of Care: Yes, Screen for Pain: Yes, If Pain Regimen Started, Initiate Bowel Regimen: NA, Screen for Nausea/Vomitting: Yes Code Status: 12/17/16 17:03 DNR [Resuscitation Status: Active] [RES] Routine Comment: Resuscitation Status: [id number] - Labs CBC & Chem 7: 12/18/16 05:48 12/18/16 05:48 Labs: Laboratory Results - last 24 hr 12/15/16 12/17/16 12/17/16 08:50 12:24 12:24 WBC 15.5 H RBC 2.80 L Hgb 7.4 L Hct 23.2 L MCV 82.9 L MCH 26.4 L MCHC 31.9 RDW 17.2 H Plt Count 118 L MPV 12.9 H Seg Neutrophils % 72.0 Band Neutrophils % 16.0 H Lymphocytes % 6.0 Monocytes % 2.0 Myelocytes % 2.0 H Promyelocytes % 2.0 H Neutrophils # 13.6 H Lymphocytes # 0.9 Monocytes # 0.3 Platelet Estimate Decreased L Immature Plt Fraction Poikilocytosis 1+ A Basophilic Stippling 1+ A Anisocytosis 1+ A Sodium 138 Potassium 4.4 Chloride 94 L Carbon Dioxide 31 H BUN 57 H D Creatinine 3.02 H Est GFR ( Amer) 18 L Est GFR (Non-Af Amer) 15 L BUN/Creatinine Ratio 19 Glucose 138 H Calculated Osmolality 304 H Calcium 8.3 L Vancomycin Trough Blood Type O POSITIVE Antibody Screen NEGATIVE Crossmatch See Detail 02/22/17 02/22/17 02/22/17 05:48 05:48 05:48 WBC 15.5 H RBC 2.84 L Hgb 7.3 L Hct 23.8 L MCV 83.8 MCH 25.7 L MCHC 30.7 L RDW 17.3 H Plt Count 120 L MPV 12.1 Seg Neutrophils % Band Neutrophils % Lymphocytes % Monocytes % Myelocytes % Promyelocytes % Neutrophils # Lymphocytes # Monocytes # Platelet Estimate Immature Plt Fraction 14.3 H Poikilocytosis Basophilic Stippling Anisocytosis Sodium 137 Potassium 4.7 H Chloride 94 L Carbon Dioxide 31 H BUN 79 H D Creatinine 3.57 H Est GFR ( Amer) 15 L Est GFR (Non-Af Amer) 12 L BUN/Creatinine Ratio 22 Glucose 135 H Calculated Osmolality 310 H Calcium 8.3 L Vancomycin Trough 13.9 Blood Type Antibody Screen Crossmatch - ABG Interpretation ABG results: PT/INR, D-dimer PT 12.8 Seconds (9.4-12.1) H 12/13/16 15:48 Consult Discharge Plan - Plan Instructions: Heart Failure (DC), Atrial Fibrillation (DC) Referrals: Ang Crump MD [Partnered Physician] - (In 1-2 weeks) NO,PCP [Primary Care Provider] - (Patient can not remember the name of her PCP , however patient is being referred to an ECF and will follow up with their PCP for now) Patricia Salmeron DO [Partnered Physician] -
[2016-12-18] MEDS: Cholecalciferol (D-3) 1,000 UNIT TABLET PO SCH (11:39)
[2016-12-18] MEDS ORDERED: 0.9 % Sodium Chloride 1,000 ML ONE (12:09)
[2016-12-18] MEDS: Diltiazem CD (24hr) 120 MG CAPSULE PO SCH (12:11)
--- NOTE | 2016-12-18 13:33 | Nephrology Progress Note ---
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 Will continue with dialysis MWF. Tunneled catheter has been placed. She has a chair available in [facility]. HD is complicated by the difficulty removing fluid from the patient on dialysis. May need to investigate if she is a candidate for CAPD as she does not seem to be doing well with HD when fluid is removed. So far she seems to tolerate the HD and UF components of her [employer] session. We may hold off on proceeding with CAPD. Continue renal diet and adjust medications for renal disease. (2) Protein-calorie malnutrition, moderate Current Visit: Yes Status: Chronic Continue with nutritional support. Albumin low. (3) Leucocytosis Current Visit: Yes Status: Chronic Patient with leucocytosis. Etiology is unclear. She has had leucocytosis since 10/11. Afebrile. The repeat blood cultures are negative to date. Qualifiers: Leukocytosis type: other Qualified Code(s): D72.828 - Other elevated white blood cell count (4) Atrial fibrillation Current Visit: Yes Status: Acute Continue medications for rate control. May need medications titrated to maintain HR in the normal range. Qualifiers: Atrial fibrillation type: paroxysmal Qualified Code(s): I48.0 - Paroxysmal atrial fibrillation (5) Anemia Current Visit: Yes Status: Acute Iron stores low, but ferritin greatly elevated - would like lower ferritin prior to ordering IV iron. Vitamin b12 is on the lower limit of normal - replacement ordered. Folate normal. Follow hemoglobin levels. Transfuse as needed. Qualifiers: Anemia type: unspecified type Qualified Code(s): D64.9 - Anemia, unspecified (6) Hyperparathyroidism Current Visit: Yes Status: Acute PTH mildly elevated - Replace vitamin D. Phosphorus mildly elevated will started low dose binder. Calcium within normal limits. (7) Vitamin D deficiency Current Visit: Yes Status: Acute ergocalciferol ordered. Subjective Principal diagnosis: CHF Interval history: Patient seen and evaluated. Her family is at the bedside. She is lying in bed asleep and occasionally wakes up while we are talking. [id number] Patient is seen in dialysis. She is more alert and wanting to be repositioned. Her blood pressure is stable. Complete ROS is unobtainable. Objective - Vital Signs Vital signs: Vital Signs Temp Pulse Resp BP Pulse Ox 12/18/16 11:00 97.5 F L 102 20 136/63 91 L 12/18/16 07:34 97.8 F 76 16 155/60 95 12/18/16 04:38 97.6 F 84 16 121/61 94 L 12/18/16 00:15 98.0 F 98 20 122/68 97 12/17/16 20:55 98.2 F 105 20 131/57 97 12/17/16 16:56 98.4 F 110 18 134/63 97 Intake and Output 12/17/16 12/18/16 12/18/16 23:59 07:59 15:59 Other: Stool Size Small Stool Consistency soft Stool Characteristics Normal for Patient Stool Color Brown # Voids 1 0 Weight 73.1 kg Patient Weight 12/18/16 23:59 Weight 73.1 kg - General Appearance General appearance: Present: well-developed, well-nourished EENT: Present: ATNC Neck: Present: supple Additional Comments: respirations are unlabored. Cardiology: Present: edema, regular rate Integumentary: Present: warm and dry Neurologic: Present: alert and oriented x3 Psychiatric: Present: mood/affect appropriate - Lab 12/18/16 05:48 12/18/16 05:48 Most recent lab results Calcium 8.3 mg/dL (8.6-10.8) L 12/18/16 05:48 Phosphorus 5.1 mg/dL (2.3-4.7) H 12/15/16 04:00 Magnesium 1.8 mg/dL (1.6-2.6) 11/30/16 06:10 Urine Creatinine 53 mg/dL 12/01/16 02:05 Ur Total Protein 24 Hr 573 mg/day (0-299) H 12/01/16 02:05 Urine Sodium < 20.0 mEq/L 12/01/16 02:05 Urine Total Protein 63 mg/dL (1-14) H 12/01/16 02:05 - VTE Documentation of Mechanical Device: Graduated compression elastic hosiery Consult Discharge Plan - Plan Instructions: Heart Failure (DC), Atrial Fibrillation (DC) Referrals: Ang Crump MD [Partnered Physician] - (In 1-2 weeks) NO,PCP [Primary Care Provider] - (Patient can not remember the name of her PCP , however patient is being referred to an ECF and will follow up with their PCP for now) Patricia Salmeron DO [Partnered Physician] -
--- NOTE | 2016-12-18 16:54 | Internal Med Progress Note ---
Date of Encounter: 12/17/16 Time of Encounter: 12:00 - Assessment and plan (1) Acute kidney injury superimposed on chronic kidney disease Current Visit: Yes Status: Acute Assessment and plan: Nephrology service is following. Patient presented with signs of acute diastolic heart failure including anasarca. She was not started on IV diuresis but her kidney function worsened and she developed hyperkalemia. All diuretics were stopped. Patient underwent renal biopsy which showed 40-50% interstitial fibrosis with vascular disease with minimal evidence of ATN. No membranous nephropathy. A temporary dialysis catheter was placed and patient was started on dialysis. Patient has not been tolerating removal during dialysis, she has had multiple episode of hypotension and dialysis was stopped. PLAN: if pt tolerates hemodialysis, she can be discharged to SNF. If patient does not tolerate hemodialysis, she will be switched to peritoneal dialysis. (2) Sepsis affecting skin Current Visit: Yes Status: Resolved Assessment and plan: Admitted for sepsis secondary to cellulitis of her legs. Completed IV CEfazolin from 11/28 to 12/05. She continued having leukocytosis. Reviewing her record she has had leukocytosis since September. Blood cultures negative. Urine culture negative. She was started on IV vancomycin12/13 due to worsening of WBC but after cultures negative, and a workup negative. I will stop antibiotics. Chest x- ray done recently showed improvement in bibasilar air space disease. She does not have any fever, chills, night sweats, cough, diarrhea. (3) Acute diastolic heart failure Current Visit: Yes Status: Acute Assessment and plan: 11/28: Admitted for acute HF. Received IV diuresis but developed worsening of kidney function and hyperkalemia. Diuretics were held. temporary dialysis catheter was placed and patient was started on dialysis. (4) Atrial fibrillation Current Visit: Yes Status: Acute Assessment and plan: The patient also developed atrial fibrillation with RVR. Started on Cardizem. Patient does have an elevated CHADSVASc score of 5. However patient has been anemic and has high fall risk. As such anticoagulation was not started. Qualifiers: Atrial fibrillation type: paroxysmal Qualified Code(s): I48.0 - Paroxysmal atrial fibrillation (5) Anemia Current Visit: Yes Status: Acute Qualifiers: Anemia type: unspecified type Qualified Code(s): D64.9 - Anemia, unspecified (6) Acute metabolic encephalopathy Current Visit: Yes Status: Acute Assessment and plan: Acute delirium. 12/12: A CT scan of her head showed atrophy with periventricular and scattered frontal parietal white matter disease likely due to small vessel ischemic changes. 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 On risperidone at bedtime. (7) Vitamin D deficiency Current Visit: Yes Status: Acute Assessment and plan: Supplements. - Subjective Interval history: Patient is sleeping but wakes up easily to verbal stimuli. - Constitutional Vitals: Temp Pulse Resp BP Pulse Ox 98.3 F 89 18 124/49 91 L 12/18/16 15:23 12/18/16 15:23 12/18/16 15:23 12/18/16 16:15 12/18/16 11:00 General appearance: Present: cooperative, A&O X 2, pleasant, no acute distress - Eye Eye exam: Present: sclera anicteric - Neck Neck exam general surgery: Present: supple, trachea midline - Respiratory Respiratory exam: Present: CTAB - Cardiovascular Cardiovascular exam: Present: irregular rhythm - GI/Abdominal GI/Abdominal exam: Present: normal bowel sounds, soft. Absent: distended, tenderness - Extremities Exam Extremities exam: Present: pedal edema - Neurological Exam Neurological exam: Present: alert - Skin Skin exam: Present: dry. Absent: rash Internal Medicine: Result - Labs CBC & Chem 7: 12/18/16 05:48 12/18/16 05:48 Labs: Short CBC 12/18/16 Range/Units 05:48 WBC 15.5 H (4.3-11.1) K/mcL Hgb 7.3 L (11.5-15.4) g/dL Hct 23.8 L (35.3-44.9) % Plt Count 120 L (140-400) K/mcL [facility] 12/18/16 05:48 Sodium 137 Potassium 4.7 H Chloride 94 L Carbon Dioxide 31 H BUN 79 H D Creatinine 3.57 H Glucose 135 H Calcium 8.3 L - ABG Interpretation ABG results: PT/INR, D-dimer PT 12.8 Seconds (9.4-12.1) H 12/13/16 15:48 - VTE Documentation of Mechanical Device: Graduated compression elastic hosiery Consult Discharge Plan - Plan Instructions: Heart Failure (DC), Atrial Fibrillation (DC) Referrals: Ang Crump MD [Partnered Physician] - (In 1-2 weeks) NO,PCP [Primary Care Provider] - (Patient can not remember the name of her PCP , however patient is being referred to an ECF and will follow up with their PCP for now) Patricia Salmeron DO [Partnered Physician] -
[2016-12-18] MEDS ORDERED: Vancomycin 500 MG in D5% in Water (Mini-Bag+) 100 ML IVPB ONE (17:00)
--- NOTE | 2016-12-18 17:14 | Internal Med Progress Note ---
Date of Encounter: 12/18/16 Time of Encounter: 16:00 - Assessment and plan (1) Acute kidney injury superimposed on chronic kidney disease Current Visit: Yes Status: Acute Assessment and plan: Nephrology service is following. Patient presented with signs of acute diastolic heart failure including anasarca. She was not started on IV diuresis but her kidney function worsened and she developed hyperkalemia. All diuretics were stopped. Patient underwent renal biopsy which showed 40-50% interstitial fibrosis with vascular disease with minimal evidence of ATN. No membranous nephropathy. A temporary dialysis catheter was placed and patient was started on dialysis. Patient has not been tolerating removal during dialysis, she has had multiple episode of hypotension and dialysis was stopped. PLAN: if pt tolerates hemodialysis, she can be discharged to SNF. If patient does not tolerate hemodialysis, she will be switched to peritoneal dialysis. 12/18: Patient is tolerating hemodialysis for an hour without any hemodynamically instability. If she completes hemodialysis, she will be discharged to rehabilitation tomorrow. (2) Sepsis affecting skin Current Visit: Yes Status: Resolved Assessment and plan: Admitted for sepsis secondary to cellulitis of her legs. Completed IV CEfazolin from 11/28 to 12/05. She continued having leukocytosis. Reviewing her record she has had leukocytosis since September. Blood cultures negative. Urine culture negative. She was started on IV vancomycin12/13 due to worsening of WBC but after cultures negative, and a workup negative. I will stop antibiotics. Chest x- ray done recently showed improvement in bibasilar air space disease. She does not have any fever, chills, night sweats, cough, diarrhea. (3) Acute diastolic heart failure Current Visit: Yes Status: Acute Assessment and plan: 11/28: Admitted for acute HF. Received IV diuresis but developed worsening of kidney function and hyperkalemia. Diuretics were held. temporary dialysis catheter was placed and patient was started on dialysis. (4) Atrial fibrillation Current Visit: Yes Status: Acute Assessment and plan: The patient also developed atrial fibrillation with RVR. Started on Cardizem. Patient does have an elevated CHADSVASc score of 5. However patient has been anemic and has high fall risk. As such anticoagulation was not started. Qualifiers: Atrial fibrillation type: paroxysmal Qualified Code(s): I48.0 - Paroxysmal atrial fibrillation (5) Anemia Current Visit: Yes Status: Acute Assessment and plan: chronic due to CKD. Billing today 7.3. Given 1 unit of packed red blood cells during dialysis. Qualifiers: Anemia type: unspecified type Qualified Code(s): D64.9 - Anemia, unspecified (6) Acute metabolic encephalopathy Current Visit: Yes Status: Acute Assessment and plan: Acute delirium. 12/12: A CT scan of her head showed atrophy with periventricular and scattered frontal parietal white matter disease likely due to small vessel ischemic changes. 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 On risperidone at bedtime. (7) Vitamin D deficiency Current Visit: Yes Status: Acute Assessment and plan: Supplements. - Subjective Interval history: Patient is on ongoing hemodialysis, she has tolerated one hour so far. She feels tired.. - Constitutional Vitals: Temp Pulse Resp BP Pulse Ox 98.3 F 89 18 118/55 91 L 12/18/16 15:23 12/18/16 15:23 12/18/16 15:23 12/18/16 16:45 12/18/16 11:00 General appearance: Present: cooperative, A&O X 2, pleasant, no acute distress - Eye Eye exam: Present: PERRL, sclera anicteric - Neck Neck exam general surgery: Present: supple, trachea midline - Respiratory Respiratory exam: Present: CTAB - Cardiovascular Cardiovascular exam: Present: irregular rhythm - GI/Abdominal GI/Abdominal exam: Present: normal bowel sounds, soft. Absent: distended, tenderness - Back Exam Back exam: Absent: CVA tenderness (L), CVA tenderness (R) - Skin Skin exam: Absent: rash Internal Medicine: Result - Labs CBC & Chem 7: 12/18/16 05:48 12/18/16 05:48 Labs: Short CBC 12/18/16 Range/Units 05:48 WBC 15.5 H (4.3-11.1) K/mcL Hgb 7.3 L (11.5-15.4) g/dL Hct 23.8 L (35.3-44.9) % Plt Count 120 L (140-400) K/mcL [facility] 12/18/16 05:48 Sodium 137 Potassium 4.7 H Chloride 94 L Carbon Dioxide 31 H BUN 79 H D Creatinine 3.57 H Glucose 135 H Calcium 8.3 L - ABG Interpretation ABG results: PT/INR, D-dimer PT 12.8 Seconds (9.4-12.1) H 12/13/16 15:48 - VTE Documentation of Mechanical Device: Graduated compression elastic hosiery Consult Discharge Plan - Plan Instructions: Heart Failure (DC), Atrial Fibrillation (DC) Referrals: Ang Crump MD [Partnered Physician] - (In 1-2 weeks) NO,PCP [Primary Care Provider] - (Patient can not remember the name of her PCP , however patient is being referred to an ECF and will follow up with their PCP for now) Patricia Salmeron DO [Partnered Physician] -
[2016-12-18] MEDS: risperiDONE 0.25 MG TABLET PO SCH (20:21)
[2016-12-19] MEDS: hydrALAZINE 10 MG TABLET PO SCH ×4 (04:56→21:59)
[2016-12-19] MEDS: Diltiazem CD (24hr) 120 MG CAPSULE PO SCH (08:09)
[2016-12-19] MEDS: Calcium Acetate 667 MG CAPSULE PO SCH ×3 (08:10→17:59)
[2016-12-19] MEDS: Aspirin Enteric Coated 81 MG Tablet PO SCH (08:10)
[2016-12-19] MEDS: Lactobacillus 1 EACH CAP.SPRINK PO SCH ×2 (08:10→21:58)
[2016-12-19] MEDS: Cyanocobalamin (B-12) 1,000 MCG/ML VIAL IM SCH (08:11)
--- NOTE | 2016-12-19 10:21 | Nephrology Progress Note ---
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 Will continue with dialysis MWF. Tunneled catheter has been placed. She has a chair available in [facility] [facility] unit. HD is complicated by the difficulty removing fluid from the patient on dialysis. She was able to tolerate 3 hours of HD without UF followed by 1 our of UF with 2 Kg fluid removed. Continue renal diet and adjust medications for renal disease. (2) Protein-calorie malnutrition, moderate Current Visit: Yes Status: Chronic Continue with nutritional support. Albumin low. (3) Leucocytosis Current Visit: Yes Status: Chronic Patient with leucocytosis. Etiology is unclear. She has had leucocytosis since 10/11. Afebrile. The repeat blood cultures are negative to date. Qualifiers: Qualified Code(s): D72.828 - Other elevated white blood cell count (4) Atrial fibrillation Current Visit: Yes Status: Acute Continue medications for rate control. May need medications titrated to maintain HR in the normal range. Qualifiers: Qualified Code(s): I48.0 - Paroxysmal atrial fibrillation (5) Anemia Current Visit: Yes Status: Acute Iron stores low, but ferritin greatly elevated - would like lower ferritin prior to ordering IV iron. Vitamin b12 is on the lower limit of normal - replacement ordered. Folate normal. Follow hemoglobin levels. Transfuse as needed. Qualifiers: Qualified Code(s): D64.9 - Anemia, unspecified (6) Hyperparathyroidism Current Visit: Yes Status: Acute PTH mildly elevated - Replace vitamin D. Phosphorus mildly elevated will started low dose binder. Calcium within normal limits. (7) Vitamin D deficiency Current Visit: Yes Status: Acute ergocalciferol ordered. Subjective Principal diagnosis: CHF Interval history: Patient seen and evaluated. She is more alert today. She wants to be cleaned up. ROS otherwise stable. Objective - Vital Signs Vital signs: Vital Signs Temp Pulse Resp BP Pulse Ox 12/19/16 08:20 95 12/19/16 07:20 98.3 F 94 16 142/67 95 12/19/16 04:50 98.3 F 95 18 155/64 96 12/19/16 00:20 98.8 F 95 18 112/57 97 12/18/16 18:49 98.0 F 96 18 116/57 97 12/18/16 17:10 98.4 F 16 121/52 12/18/16 17:00 111/47 12/18/16 16:45 118/55 12/18/16 16:30 122/48 12/18/16 16:15 124/49 12/18/16 16:00 123/64 12/18/16 15:45 138/53 12/18/16 15:30 148/67 12/18/16 15:23 98.3 F 89 18 130/57 12/18/16 15:15 144/57 12/18/16 15:05 98.2 F 98 18 134/60 12/18/16 15:00 101/43 12/18/16 14:50 98 F 105 20 122/63 12/18/16 14:45 128/40 12/18/16 14:30 150/57 12/18/16 14:15 120/66 12/18/16 14:00 115/61 12/18/16 13:45 122/63 12/18/16 13:30 123/51 12/18/16 13:15 139/56 12/18/16 13:00 98.0 F 18 140/44 12/18/16 11:00 97.5 F L 102 20 136/63 91 L Intake and Output 12/18/16 12/19/16 12/19/16 23:59 07:59 15:59 Intake Total 200 / 200 0 / 0 Output Total 2950 / 2950 Balance -2750 / -2750 0 / 0 Intake: Oral 200 / 200 0 / 0 Output: Total Dialysis Output 2950 / 2950 Other: Hemodialysis Net Fluid 2000 Removed (mL) - General Appearance General appearance: Present: well-developed, well-nourished EENT: Present: ATNC Neck: Present: supple Respiratory: Present: clear Cardiology: Present: edema, regular rate, regular rhythm Gastrointestinal: Present: normoactive bowel sounds Integumentary: Present: warm and dry Neurologic: Present: alert and oriented x3 Musculoskeletal: Present: no cyanosis Psychiatric: Present: mood/affect appropriate - Lab 12/18/16 05:48 12/18/16 05:48 Most recent lab results Calcium 8.3 mg/dL (8.6-10.8) L 12/18/16 05:48 Phosphorus 5.1 mg/dL (2.3-4.7) H 12/15/16 04:00 Magnesium 1.8 mg/dL (1.6-2.6) 11/30/16 06:10 Urine Creatinine 53 mg/dL 12/01/16 02:05 Ur Total Protein 24 Hr 573 mg/day (0-299) H 12/01/16 02:05 Urine Sodium < 20.0 mEq/L 12/01/16 02:05 Urine Total Protein 63 mg/dL (1-14) H 12/01/16 02:05 - Imaging Kidney/bladder ultrasound: image reviewed - VTE Documentation of Mechanical Device: Graduated compression elastic hosiery Consult Discharge Plan - Plan Instructions: Heart Failure (DC), Atrial Fibrillation (DC) Referrals: Ang Crump MD [Partnered Physician] - (In 1-2 weeks) NO,PCP [Primary Care Provider] - (Patient can not remember the name of her PCP , however patient is being referred to an ECF and will follow up with their PCP for now) Patricia Salmeron DO [Partnered Physician] -
[2016-12-19] MEDS: Cholecalciferol (D-3) 1,000 UNIT TABLET PO SCH (12:57)
--- NOTE | 2016-12-19 16:39 | Internal Med Progress Note ---
Date of Encounter: 12/19/16 Time of Encounter: 12:45 - Assessment and plan (1) Acute kidney injury superimposed on chronic kidney disease Current Visit: Yes Status: Acute Assessment and plan: Nephrology service is following. Patient presented with signs of acute diastolic heart failure including anasarca. She was not started on IV diuresis but her kidney function worsened and she developed hyperkalemia. All diuretics were stopped. Patient underwent renal biopsy which showed 40-50% interstitial fibrosis with vascular disease with minimal evidence of ATN. No membranous nephropathy. A temporary dialysis catheter was placed and patient was started on dialysis. Patient has not been tolerating removal during dialysis, she has had multiple episode of hypotension and dialysis was stopped. PLAN: if pt tolerates hemodialysis, she can be discharged to SNF. If patient does not tolerate hemodialysis, she will be switched to peritoneal dialysis. 12/18: Patient tolerated hemodialysis. Plan for discharge when bed available at rehab. HD per schedule. (2) Sepsis affecting skin Current Visit: Yes Status: Resolved Assessment and plan: Admitted for sepsis secondary to cellulitis of her legs. Completed IV CEfazolin from 11/28 to 12/05. chronic leukocytosis since September. Blood cultures negative. Urine culture negative. Chest x-ray done recently showed improvement in bibasilar air space disease. She does not have any fever, chills, night sweats, cough, diarrhea or abdominal pain. Peripheral smear reveals toxic granulation, suspicious for an infection or myelodysplasia. She was started on IV vancomycin 12/13 - 12/16. Stop Vancomycin, Start Keflex for cellulitis (stop 12/26). (3) Acute diastolic heart failure Current Visit: Yes Status: Acute Assessment and plan: 11/28: Admitted for acute HF. Received IV diuresis but developed worsening of kidney function and hyperkalemia. Diuretics were held. temporary dialysis catheter was placed and patient was started on dialysis. (4) Atrial fibrillation Current Visit: Yes Status: Acute Assessment and plan: The patient also developed atrial fibrillation with RVR. Started on Cardizem. Patient does have an elevated CHADSVASc score of 5. However patient has been anemic and has high fall risk. As such anticoagulation was not started. Qualifiers: Qualified Code(s): I48.0 - Paroxysmal atrial fibrillation (5) Anemia Current Visit: Yes Status: Acute Assessment and plan: chronic due to CKD. Billing today 7.3. Given 1 unit of packed red blood cells during dialysis. Qualifiers: Qualified Code(s): D64.9 - Anemia, unspecified (6) Acute metabolic encephalopathy Current Visit: Yes Status: Acute Assessment and plan: Acute delirium. 12/12: A CT scan of her head showed atrophy with periventricular and scattered frontal parietal white matter disease likely due to small vessel ischemic changes. 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 On risperidone at bedtime. (7) Vitamin D deficiency Current Visit: Yes Status: Acute Assessment and plan: Supplements. - Subjective Interval history: Patient has no complaints. She wants a cola, no milk. no cough. - Constitutional Vitals: Temp Pulse Resp BP Pulse Ox 98.3 F 80 16 125/65 95 12/19/16 16:18 12/19/16 16:18 12/19/16 16:18 12/19/16 16:18 12/19/16 16:18 General appearance: Present: cooperative, A&O X 2, pleasant, no acute distress - Eye Eye exam: Present: PERRL, sclera anicteric - Neck Neck exam general surgery: Present: supple, trachea midline. Absent: lymphadenopathy - Respiratory Respiratory exam: Present: CTAB - Cardiovascular Cardiovascular exam: Present: RRR - GI/Abdominal GI/Abdominal exam: Present: normal bowel sounds, soft. Absent: distended, tenderness - Back Exam Back exam: Absent: CVA tenderness (L), CVA tenderness (R) - Neurological Exam Neurological exam: Present: alert, oriented X3. Absent: facial droop, speech deficit - Skin Additional comments: legt leg: large blister, fluctuance area with no discharge. Internal Medicine: Result - Labs CBC & Chem 7: 12/18/16 05:48 12/18/16 05:48 Labs: Short CBC 12/17/16 Range/Units 12:24 WBC 15.5 H (4.3-11.1) K/mcL Hgb 7.4 L (11.5-15.4) g/dL Hct 23.2 L (35.3-44.9) % Plt Count 118 L (140-400) K/mcL Neutrophils # 13.6 H (1.6-8.9) K/mcL - ABG Interpretation ABG results: PT/INR, D-dimer PT 12.8 Seconds (9.4-12.1) H 12/13/16 15:48 - VTE Documentation of Mechanical Device: Graduated compression elastic hosiery Consult Discharge Plan - Plan Instructions: Heart Failure (DC), Atrial Fibrillation (DC) Referrals: Ang Crump MD [Partnered Physician] - (In 1-2 weeks) NO,PCP [Primary Care Provider] - (Patient can not remember the name of her PCP , however patient is being referred to an ECF and will follow up with their PCP for now) Patricia Salmeron DO [Partnered Physician] -
[2016-12-19] MEDS: cephALEXin 500 MG CAPSULE PO SCH ×2 (17:59→21:58)
[2016-12-19] MEDS: risperiDONE 0.25 MG TABLET PO SCH (21:59)
[2016-12-20] MEDS: cephALEXin 500 MG CAPSULE PO SCH (06:35)
[2016-12-20] MEDS: Aspirin Enteric Coated 81 MG Tablet PO SCH (06:35)
[2016-12-20] MEDS: Lactobacillus 1 EACH CAP.SPRINK PO SCH ×2 (06:35→19:56)
[2016-12-20 06:54] LABS: Calcium 8.6 mg/dL (8.6-10.8); Potassium 4.1 mEq/L (3.5-4.5)
[2016-12-20] MEDS ORDERED: 0.9 % Sodium Chloride 250 ML IV PRN (08:42)
[2016-12-20] MEDS ORDERED: Albumin 25% 12.5gm/50mL 12.5 GM/50 ML IV.SOLN IVPB PRN (08:42)
--- NOTE | 2016-12-20 08:49 | Nephrology Progress Note ---
Date of Encounter: 12/20/16 Time of Encounter: 10:00 - Assessment and Plan (1) HTN (hypertension) Current Visit: Yes Status: Chronic I was not able to update this progress note with all the diagnosis codes, as it appears that [employer] will not let me. 1) Dialysis dependent PAZ: suspect ATN. S/p renal biopsy and the historical iMN has resolved. She is not tolerating HD well d/t severe intradialytic hypotension , which is limiting the ability to achieve meaningful fluid removal as she remains very edematous. I recommend a family meeting: she is a poor assisted dialysis candidate and not tolerated HD very well. I am available tomorrow to meet. 2) Intradialytic hypotension: will employ the UF profile used last Friday: 3hr of HD without UF, then an additional 1hr of only UF for a goal 2kg. 36 C bath. PRN Albumin 25gm for intradialytic hypotension 3) HTN: dialysis fluctuates her BP. Earlier in this prolonged hospitalization, I had recommended not resuming the dual IMMANUEL and ARB that she was on prior to this hospitalization (see my prior notes). 4) Anasarca: severe LE edema, that is not improving d/t her low BPs while on HD. Thank you Qualifiers: Qualified Code(s): I10 - Essential (primary) hypertension Subjective Principal diagnosis: CHF Interval history: Pt was s/e. She is hard of hearing. She was seen while on HD and did not report cramping or N/V. She has severed several very low BPs while on HD. Her brother was present, Chidi, and I sat with him to discuss her case. I also spoke with Palliative care yesterday. Objective - Vital Signs Vital signs: Vital Signs Temp Pulse Resp BP Pulse Ox 12/20/16 07:47 97.4 F L 86 12 128/75 95 12/20/16 04:48 97.5 F L 88 18 141/65 94 L 12/20/16 00:29 97.6 F 75 20 128/55 95 12/19/16 20:30 98.3 F 88 22 138/59 97 12/19/16 16:18 98.3 F 80 16 125/65 95 12/19/16 11:52 97.8 F 79 16 125/53 98 12/19/16 11:20 98 Intake and Output 12/19/16 12/20/16 12/20/16 23:59 07:59 15:59 Intake Total 500 / 500 Balance 500 / 500 Intake: Oral 500 / 500 Other: Weight 74.5 kg Patient Weight 12/20/16 23:59 Weight 74.5 kg - General Appearance General appearance: Present: chronically ill, fatigue, frail EENT: Present: ATNC, mucous membranes moist Additional Comments: Extremely hard of hearing Neck: Present: supple (but kyphosis) Respiratory: Present: clear Cardiology: Present: edema (3-4+ pitting LE edema), normal S1, normal S2 Dialysis Vascular Access: Venous Catheter (Right tunneled HD catheter was C/D/I and the cuff was not exposed) Gastrointestinal: Present: normoactive bowel sounds, no guarding Integumentary: Present: no rash, warm and dry Neurologic: Present: no focal deficit, no asterixis Musculoskeletal: Present: no erythema, no cyanosis Psychiatric: Present: cooperative - Lab 12/21/16 05:50 12/21/16 05:50 Most recent lab results Calcium 8.6 mg/dL (8.6-10.8) 12/20/16 06:07 Phosphorus 5.1 mg/dL (2.3-4.7) H 12/15/16 04:00 Magnesium 1.8 mg/dL (1.6-2.6) 11/30/16 06:10 Urine Creatinine 53 mg/dL 12/01/16 02:05 Ur Total Protein 24 Hr 573 mg/day (0-299) H 12/01/16 02:05 Urine Sodium < 20.0 mEq/L 12/01/16 02:05 Urine Total Protein 63 mg/dL (1-14) H 12/01/16 02:05 - VTE Documentation of Mechanical Device: Graduated compression elastic hosiery Consult Discharge Plan - Plan Instructions: Heart Failure (DC), Atrial Fibrillation (DC) Referrals: Ang Crump MD [Partnered Physician] - (In 1-2 weeks) NO,PCP [Primary Care Provider] - (Patient can not remember the name of her PCP , however patient is being referred to an ECF and will follow up with their PCP for now) Patricia Salmeron DO [Partnered Physician] -
[2016-12-20] MEDS: Calcium Acetate 667 MG CAPSULE PO SCH ×3 (09:08→17:41)
[2016-12-20] MEDS ORDERED: Albumin 25% 12.5gm/50mL 25.0 GM/100 ML IV.SOLN ONE (10:12)
[2016-12-20] MEDS ORDERED: 0.9 % Sodium Chloride 2,000 ML ONE ×2 (10:13→14:19)
[2016-12-20] MEDS ORDERED: *HR* Heparin 10,000 UNIT/10 ML VIAL IV PRN (14:18)
--- NOTE | 2016-12-20 15:20 | Internal Med Progress Note ---
Date of Encounter: 12/20/16 Time of Encounter: 15:20 - Assessment and plan (1) Acute kidney injury superimposed on chronic kidney disease Current Visit: Yes Status: Acute Assessment and plan: Nephrology service is following. Patient presented with signs of acute diastolic heart failure including anasarca. She was not started on IV diuresis but her kidney function worsened and she developed hyperkalemia. All diuretics were stopped. Patient underwent renal biopsy which showed 40-50% interstitial fibrosis with vascular disease with minimal evidence of ATN. No membranous nephropathy. A temporary dialysis catheter was placed and patient was started on dialysis. Patient has not been tolerating removal during dialysis, she has had multiple episode of hypotension and dialysis was stopped. PLAN: if pt tolerates hemodialysis, she can be discharged to SNF. If patient does not tolerate hemodialysis, she will be switched to peritoneal dialysis. 12/18: Patient tolerated hemodialysis. Plan for discharge when bed available at rehab. HD per schedule. (2) Sepsis affecting skin Current Visit: Yes Status: Resolved Assessment and plan: Admitted for sepsis secondary to cellulitis of her legs. Completed IV CEfazolin from 11/28 to 12/05. chronic leukocytosis since September. Blood cultures negative. Urine culture negative. Chest x-ray done recently showed improvement in bibasilar air space disease. She does not have any fever, chills, night sweats, cough, diarrhea or abdominal pain. Peripheral smear reveals toxic granulation, suspicious for an infection or myelodysplasia. She was started on IV vancomycin 12/13 - 12/16. Stop Vancomycin, Start Keflex for cellulitis (stop 12/26). (3) Acute diastolic heart failure Current Visit: Yes Status: Acute Assessment and plan: 11/28: Admitted for acute HF. Received IV diuresis but developed worsening of kidney function and hyperkalemia. Diuretics were held. temporary dialysis catheter was placed and patient was started on dialysis. (4) Atrial fibrillation Current Visit: Yes Status: Acute Assessment and plan: The patient also developed atrial fibrillation with RVR. Started on Cardizem. Patient does have an elevated CHADSVASc score of 5. However patient has been anemic and has high fall risk. As such anticoagulation was not started. Qualifiers: Qualified Code(s): I48.0 - Paroxysmal atrial fibrillation (5) Anemia Current Visit: Yes Status: Acute Assessment and plan: chronic due to CKD. Billing today 7.3. Given 1 unit of packed red blood cells during dialysis. Qualifiers: Qualified Code(s): D64.9 - Anemia, unspecified (6) Acute metabolic encephalopathy Current Visit: Yes Status: Acute Assessment and plan: Acute delirium. 12/12: A CT scan of her head showed atrophy with periventricular and scattered frontal parietal white matter disease likely due to small vessel ischemic changes. 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 On risperidone at bedtime. (7) Vitamin D deficiency Current Visit: Yes Status: Acute Assessment and plan: Supplements. - Constitutional Vitals: Temp Pulse Resp BP Pulse Ox 97.5 F L 84 16 132/77 95 12/20/16 15:16 12/20/16 15:16 12/20/16 15:16 12/20/16 15:16 12/20/16 15:16 General appearance: Present: cooperative, A&O X 2, pleasant, no acute distress Internal Medicine: Result - Labs CBC & Chem 7: 12/18/16 05:48 12/20/16 06:07 Labs: BMP 12/20/16 06:07 Sodium 138 Potassium 4.1 Chloride 99 Carbon Dioxide 27 BUN 65 H Creatinine 3.11 H Glucose 142 H Calcium 8.6 - ABG Interpretation ABG results: PT/INR, D-dimer PT 12.8 Seconds (9.4-12.1) H 12/13/16 15:48 - Impressions Impressions Extremity Ultrasound 12/19/16 17:12 IMPRESSION: Complex fluid collection in the left calf, either abscess or hematoma. D/ / Tucker Vazquez MD / Tucker Vazquez MD Interpreting Provider: Tucker Vazquez MD - VTE Documentation of Mechanical Device: Graduated compression elastic hosiery Consult Discharge Plan - Plan Instructions: Heart Failure (DC), Atrial Fibrillation (DC) Referrals: Ang Crump MD [Partnered Physician] - (In 1-2 weeks) NO,PCP [Primary Care Provider] - (Patient can not remember the name of her PCP , however patient is being referred to an ECF and will follow up with their PCP for now) Patricia Salmeron DO [Partnered Physician] -
[2016-12-20] MEDS: hydrALAZINE 10 MG TABLET PO SCH ×2 (15:27→19:57)
[2016-12-20] MEDS: Cholecalciferol (D-3) 1,000 UNIT TABLET PO SCH (15:34)
[2016-12-20] MEDS: Diltiazem CD (24hr) 120 MG CAPSULE PO SCH (15:34)
--- NOTE | 2016-12-20 16:05 | Event Note ---
Date of Encounter: 12/20/16 Time of Encounter: 16:00 Have left 2 voicemails for POTalon Knight regarding possible meeting with Dr. Ortiz in am to discuss current clinical status and further goals of care. He has yet to return call. Patient's brother Chidi is at bedside and states he will also attempt to reach Eugene and see if he is available for meeting Sat am. Will continue to follow.
--- NOTE | 2016-12-20 17:16 | Internal Med Progress Note ---
Date of Encounter: 12/20/16 Time of Encounter: 13:30 - Assessment and plan (1) Acute kidney injury superimposed on chronic kidney disease Current Visit: Yes Status: Acute Assessment and plan: Patient presented with signs of acute diastolic heart failure including anasarca. She was not started on IV diuresis but her kidney function worsened and she developed hyperkalemia. All diuretics were stopped. Patient underwent renal biopsy which showed 40-50% interstitial fibrosis with vascular disease with minimal evidence of ATN. No membranous nephropathy. A temporary dialysis catheter was placed and patient was started on dialysis. Patient has not been tolerating removal during dialysis, she has had multiple episode of hypotension and dialysis was stopped. PLAN: if pt tolerates hemodialysis, she can be discharged to SNF. If patient does not tolerate hemodialysis, she will be switched to peritoneal dialysis. 12/18: Patient tolerated hemodialysis. Appreciate nephrology and palliative service input. Plan for a family meeting to discuss goals of care before discharge. (2) Sepsis affecting skin Current Visit: Yes Status: Resolved Assessment and plan: Admitted for sepsis secondary to cellulitis of her legs. Completed IV Cefazolin from 11/28 to 12/05. Then patient had augmentin followed by Zosyn and lastly IV vancomycin 12/13 - 12/16. Patient has received a total of 23 days of antibiotics. chronic leukocytosis since September. Blood cultures negative. Urine culture negative. Chest x-ray done recently showed improvement in bibasilar air space disease. She does not have any fever, chills, night sweats, cough, diarrhea or abdominal pain. Peripheral smear reveals toxic granulation, suspicious for an infection or myelodysplasia. No need for more antibiotics at this time. Wait for family meeting to discuss goals of care. (3) Acute diastolic heart failure Current Visit: Yes Status: Acute Assessment and plan: 11/28: Admitted for acute HF. Received IV diuresis but developed worsening of kidney function and hyperkalemia. Diuretics were held. temporary dialysis catheter was placed and patient was started on dialysis. (4) Atrial fibrillation Current Visit: Yes Status: Acute Assessment and plan: The patient also developed atrial fibrillation with RVR. Started on Cardizem. Patient does have an elevated CHADSVASc score of 5. However patient has been anemic and has high fall risk. As such anticoagulation was not started. Qualifiers: Qualified Code(s): I48.0 - Paroxysmal atrial fibrillation (5) Anemia Current Visit: Yes Status: Acute Assessment and plan: chronic due to CKD. Billing today 7.3. Given 1 unit of packed red blood cells during dialysis. Qualifiers: Qualified Code(s): D64.9 - Anemia, unspecified (6) Acute metabolic encephalopathy Current Visit: Yes Status: Acute Assessment and plan: Acute delirium. 12/12: A CT scan of her head showed atrophy with periventricular and scattered frontal parietal white matter disease likely due to small vessel ischemic changes. 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 On risperidone at bedtime. (7) Vitamin D deficiency Current Visit: Yes Status: Acute Assessment and plan: Supplements. - Subjective Interval history: Patient has no pain. She feels tired. - Constitutional Vitals: Temp Pulse Resp BP Pulse Ox 97.5 F L 84 16 132/77 95 12/20/16 15:16 12/20/16 15:16 12/20/16 15:16 12/20/16 15:16 12/20/16 15:16 General appearance: Present: cooperative, A&O X 2, pleasant, no acute distress - Eye Eye exam: Present: PERRL, sclera anicteric - Neck Neck exam general surgery: Present: supple, trachea midline. Absent: lymphadenopathy - Respiratory Respiratory exam: Present: CTAB - Cardiovascular Cardiovascular exam: Present: RRR - GI/Abdominal GI/Abdominal exam: Present: soft. Absent: distended, tenderness - Back Exam Back exam: Absent: CVA tenderness (L), CVA tenderness (R) - Skin Additional comments: Left leg: there is an area of fluctuance in medial leg. Internal Medicine: Result - Labs CBC & Chem 7: 12/18/16 05:48 12/20/16 06:07 Labs: BMP 12/20/16 06:07 Sodium 138 Potassium 4.1 Chloride 99 Carbon Dioxide 27 BUN 65 H Creatinine 3.11 H Glucose 142 H Calcium 8.6 - ABG Interpretation ABG results: PT/INR, D-dimer PT 12.8 Seconds (9.4-12.1) H 12/13/16 15:48 - Impressions Impressions Extremity Ultrasound 12/19/16 17:12 IMPRESSION: Complex fluid collection in the left calf, either abscess or hematoma. D/ / Tucker Vazquez MD / Tucker Vazquez MD Interpreting Provider: Tucker Vazquez MD - VTE Documentation of Mechanical Device: Graduated compression elastic hosiery Consult Discharge Plan - Plan Instructions: Heart Failure (DC), Atrial Fibrillation (DC) Referrals: Ang Crump MD [Partnered Physician] - (In 1-2 weeks) NO,PCP [Primary Care Provider] - (Patient can not remember the name of her PCP , however patient is being referred to an ECF and will follow up with their PCP for now) Patricia Salmeron DO [Partnered Physician] -
[2016-12-20] MEDS: risperiDONE 0.25 MG TABLET PO SCH (19:56)
[2016-12-21 06:42] LABS: Basophils # 0.1 K/mcL (0.0-0.2); Basophils % 0.5 %; Hematocrit 25.8 % (35.3-44.9); Lymphocytes # 0.3 K/mcL (0.6-4.6); Mean Corpuscular Hemoglobin 26.5 pg (28.0-33.3); Mean Corpuscular Volume 85.4 fL (83.0-100.0); Mean Platelet Volume 12.2 fL (9.4-12.4); Monocytes # 1.1 K/mcL (0.0-1.3); Monocytes % 7.2 %; Neutrophils # 12.2 K/mcL (1.6-8.9); Platelet Count 136 K/mcL (140-400); Red Blood Count 3.02 M/mcL (3.82-4.97); Red Cell Distribution Width 17.2 % (11.5-14.5); Segmented Neutrophils % 82.3 %
[2016-12-21 06:51] LABS: Calcium 8.5 mg/dL (8.6-10.8); Magnesium 1.5 mg/dL (1.6-2.6); Potassium 3.9 mEq/L (3.5-4.5)
[2016-12-21 07:54] LABS: Platelet Estimate Slight Decrease (Normal)
[2016-12-21] MEDS: Lactobacillus 1 EACH CAP.SPRINK PO SCH ×2 (08:16→21:51)
[2016-12-21] MEDS: Diltiazem CD (24hr) 120 MG CAPSULE PO SCH (08:16)
[2016-12-21] MEDS: Aspirin Enteric Coated 81 MG Tablet PO SCH (08:16)
[2016-12-21] MEDS: hydrALAZINE 10 MG TABLET PO SCH ×2 (08:17→21:51)
[2016-12-21] MEDS: Calcium Acetate 667 MG CAPSULE PO SCH ×3 (08:17→17:38)
--- NOTE | 2016-12-21 09:34 | Nephrology Progress Note ---
Date of Encounter: 12/21/16 Time of Encounter: 09:05 - Assessment and Plan (1) HTN (hypertension) Current Visit: Yes Status: Chronic I was not able to add any new diagnosis codes to my note today, as it appears that [facility] is locked and won't let me, but see below for further diagnoses: 1) Dialysis dependent PAZ: suspect ATN. S/p renal biopsy and the historical iMN has resolved. She is not tolerating HD well d/t severe intradialytic hypotension , which is limiting the ability to achieve meaningful fluid removal as she remains very edematous. There is a family meeting planned for today at 10am. Essentially, she is a poor technician terminal and repeater dialysis candidate and is not tolerating HD very well. She has communicated to her brothers, that she would rather hold dialysis and go home on hospice. Will discuss this further at the family meeting today. 2) Intradialytic hypotension: limiting meaningful fluid removal. 3) HTN: dialysis fluctuates her BP. 4) Anasarca: severe LE edema, that is not improving d/t her low BPs while on HD. Thank you Qualifiers: Qualified Code(s): I10 - Essential (primary) hypertension Subjective Principal diagnosis: CHF Interval history: Pt was s/e. She is hard of hearing. She was seen while on the floor. She was not able to hear any of my questions despite very loud shouting. Her brothers were present and we are planning a family meeting at about 10am today (Friday) . Objective - Vital Signs Vital signs: Vital Signs Temp Pulse Resp BP Pulse Ox 12/21/16 08:29 93 L 12/21/16 07:37 98.4 F 102 16 159/64 93 L 12/21/16 05:32 97.9 F 17 96 123/55 87 L 12/20/16 23:22 98.1 F 81 15 128/54 94 L 12/20/16 19:00 98.5 F 96 16 133/57 95 12/20/16 15:16 97.5 F L 84 16 132/77 95 12/20/16 15:12 97.4 F L 22 12/20/16 14:20 118/72 12/20/16 14:05 132/77 12/20/16 13:50 121/63 12/20/16 13:35 132/77 12/20/16 13:20 97/64 12/20/16 13:05 101/57 12/20/16 12:50 81/50 12/20/16 12:35 89/58 12/20/16 12:20 95/54 12/20/16 12:05 100/61 12/20/16 11:50 106/53 12/20/16 11:35 105/59 12/20/16 11:20 105/59 12/20/16 11:05 104/59 12/20/16 10:55 104/64 12/20/16 10:50 98/42 12/20/16 10:35 104/50 12/20/16 10:20 99/50 12/20/16 10:05 97.4 F L 24 96/56 Intake and Output 12/20/16 12/21/16 12/21/16 23:59 07:59 15:59 Intake Total 100 / 100 Balance 100 / 100 Intake: Oral 100 / 100 Other: Meal Dinner Percent of Meal Consumed 100% Stool Size Small Stool Color Black # Bowel Movement Diapers 1 Weight 73.2 kg Patient Weight 12/21/16 23:59 Weight 73.2 kg - Lab 12/21/16 05:50 12/21/16 05:50 Most recent lab results Calcium 8.5 mg/dL (8.6-10.8) L 12/21/16 05:50 Phosphorus 5.1 mg/dL (2.3-4.7) H 12/15/16 04:00 Magnesium 1.5 mg/dL (1.6-2.6) L 12/21/16 05:50 Urine Creatinine 53 mg/dL 12/01/16 02:05 Ur Total Protein 24 Hr 573 mg/day (0-299) H 12/01/16 02:05 Urine Sodium < 20.0 mEq/L 12/01/16 02:05 Urine Total Protein 63 mg/dL (1-14) H 12/01/16 02:05 - VTE Documentation of Mechanical Device: Graduated compression elastic hosiery Consult Discharge Plan - Plan Instructions: Heart Failure (DC), Atrial Fibrillation (DC) Referrals: Ang Crump MD [Partnered Physician] - (In 1-2 weeks) NO,PCP [Primary Care Provider] - (Patient can not remember the name of her PCP , however patient is being referred to an ECF and will follow up with their PCP for now) Patricia Salmeron DO [Partnered Physician] -
[2016-12-21] MEDS ORDERED: OxyCODONE CONC 5 MG/0.25 ML ORAL.SYG PO PRN (10:57)
[2016-12-21] MEDS ORDERED: *HR* LORazepam Oral Conc 2 MG/ML PO PRN (10:58)
--- NOTE | 2016-12-21 11:02 | Palliative Progress Note ---
Date of Encounter: 12/21/16 Time of Encounter: 11:00 - Assessment and plan (1) Generalized pain Current Visit: Yes Status: Acute Assessment and plan: Will begin low dose Oxycodone concentrate every 6 hours PRN. (2) Goals of care, counseling/discussion Current Visit: Yes Status: Acute Assessment and plan: Long discussion with Dr. Ortiz and myself with NORA Chavez via speakerphone, pt brother gerri Murillo, and other relatives re: goals of care. Clinical status update given by Dr. Ortiz and pt continues to be poor candidate for HD as well as peritoneal dialysis, and she has expressed the desire to go home. Family states they have enough support to care for her and desire to take her home with [facility]. HD line will be removed Friday. Will send e- mail with referral information to [facility]. Eugene will remain at her home Friday am for equipment delivery and her brother will be at hospital for hospice enrollment. (3) Acute exacerbation of CHF (congestive heart failure) Current Visit: Yes Status: Acute Qualifiers: Qualified Code(s): I50.33 - Acute on chronic diastolic (congestive) heart failure (4) Altered mental status Current Visit: Yes Status: Acute Qualifiers: Qualified Code(s): R41.0 - Disorientation, unspecified (5) Acute kidney injury superimposed on chronic kidney disease Current Visit: Yes Status: Acute - Time Spent With Patient Total time spent is greater than 50% in coordination of care (as documented) at patient's floor/unit and/or counseling patient: Greater than 35 minutes - Subjective Interval history: Patient awake and alert. [place]. Visitors at bedside. She denies any pain or discomfort. Just "wants to sleep". - Constitutional Vitals: Abnormal lab results WBC 14.8 K/mcL (4.3-11.1) H 12/21/16 05:50 RBC 3.02 M/mcL (3.82-4.97) L 12/21/16 05:50 Hgb 8.0 g/dL (11.5-15.4) L 12/21/16 05:50 Hct 25.8 % (35.3-44.9) L 12/21/16 05:50 MCH 26.5 pg (28.0-33.3) L 12/21/16 05:50 MCHC 31.0 g/dL (31.6-35.5) L 12/21/16 05:50 RDW 17.2 % (11.5-14.5) H 12/21/16 05:50 Plt Count 136 K/mcL (140-400) L 12/21/16 05:50 Immature Gran % 8.0 % (0-4) H 12/21/16 05:50 Band Neutrophils % 16.0 % (0-4) H 12/17/16 12:24 Metamyelocytes % 2.0 % (0) H 12/14/16 04:05 Myelocytes % 2.0 % (0) H 12/17/16 12:24 Promyelocytes % 2.0 % (0) H 12/17/16 12:24 Neutrophils # 12.2 K/mcL (1.6-8.9) H 12/21/16 05:50 Lymphocytes # 0.3 K/mcL (0.6-4.6) L 12/21/16 05:50 Reactive Lymphocytes Present (Not Present) A 12/14/16 04:05 Toxic Granulation Present (Not Present) A 12/11/16 04:10 Toxic Vacuolation Present (Not Present) A 12/12/16 03:00 Platelet Estimate Slight Decrease (Normal) L 12/21/16 05:50 Large Platelets Present (Not Present) A 12/14/16 04:05 Immature Plt Fraction 14.3 % (1.1-6.1) H 12/18/16 05:48 Hypochromasia Present (Not Present) A 12/16/16 03:51 Poikilocytosis 1+ (Not Present) A 12/17/16 12:24 Basophilic Stippling 1+ (Not Present) A 12/17/16 12:24 Anisocytosis 1+ (Not Present) A 12/17/16 12:24 Microcytosis Present (Not Present) A 12/12/16 03:00 Target Cells 1+ (Not Present) A 12/14/16 04:05 ESR 45 mm/hr (0-15) H 11/28/16 06:13 PT 12.8 Seconds (9.4-12.1) H 12/13/16 15:48 VBG pH 7.45 pH Units (7.32-7.42) H 12/14/16 05:28 VBG pO2 117 mmHg (25-40) H 12/14/16 05:28 VBG HCO3 34.8 mEq/L (21-27) H 12/14/16 05:28 BUN 42 mg/dL (7-20) H D 12/21/16 05:50 Creatinine 2.57 mg/dL (0.57-1.11) H 12/21/16 05:50 Est GFR ( Amer) 22 (> 60) L 12/21/16 05:50 Est GFR (Non-Af Amer) 18 (> 60) L 12/21/16 05:50 Glucose 142 mg/dL (70-99) H 12/21/16 05:50 POC Glucose 163 (58-89) H 12/12/16 11:49 Hemoglobin A1c 6.2 % (-5.6) H 11/29/16 08:07 Calculated Osmolality 301 (280-300) H 12/21/16 05:50 Uric Acid 12.3 mg/dL (2.6-6.0) H 11/30/16 06:10 Calcium 8.5 mg/dL (8.6-10.8) L 12/21/16 05:50 Ionized Calcium 1.13 mmol/L (1.15-1.35) L 11/28/16 06:13 Phosphorus 5.1 mg/dL (2.3-4.7) H 12/15/16 04:00 Magnesium 1.5 mg/dL (1.6-2.6) L 12/21/16 05:50 Iron 14 mcg/dL (50-170) L 12/15/16 04:00 % Saturation 10 % (15-50) L 12/15/16 04:00 Transferrin 105 mg/dL (180-382) L 12/15/16 04:00 Ferritin 658 ng/ml (5-204) H 12/15/16 04:00 Alkaline Phosphatase 213 Units/L (38-126) H 12/14/16 05:28 Troponin I 0.20 ng/mL (0-0.03) H* 11/28/16 16:20 C-Reactive Protein 45 mg/L (Less than 5) H 11/28/16 06:13 B-Natriuretic Peptide 722 pg/mL (0-100) H 12/05/16 05:49 Serum Total Protein 5.5 g/dL (6.0-8.3) L 12/14/16 05:28 Albumin 2.3 g/dL (3.5-5.0) L 12/15/16 04:00 Albumin/Globulin Ratio 1.0 (1.1-2.2) L 12/14/16 05:28 Prealbumin 11.0 mg/dL (16.0-38.0) L 12/16/16 03:51 LDL Cholesterol, Calc 102 mg/dL (0-99) H 11/28/16 06:13 HDL Cholesterol 81 mg/dL (40-59) H 11/28/16 06:13 25-OH Vitamin D Total 21 ng/mL (30-80) L 12/15/16 04:00 TSH 0.005 mcIU/mL (0.350-4.840) L 12/08/16 04:07 Free T3 < 1.00 pg/mL (1.71-3.71) L 12/08/16 08:00 PTH Intact 185.1 pg/ml (8.5-72.5) H 12/15/16 04:00 Urine Clarity Turbid (Clear) A 12/04/16 15:30 Urine Protein 100 mg/dL (Neg-Trace) H 12/04/16 15:30 Urine Blood Moderate (Negative) H 12/04/16 15:30 Ur Leukocyte Esterase Small (Negative) H 12/04/16 15:30 Urine Microscopic RBC 15-30 per hpf (0-3) H 12/04/16 15:30 Urine Microscopic WBC 15-30 per hpf (0-3) H 12/04/16 15:30 Ur Squamous Epith Cells Many per lpf (None-Few) H 12/04/16 15:30 Ur Culture Indicated? YES (NO) A 12/04/16 15:30 Ur Creatinine 24 Hour 0.48 g/day (0.71-1.65) L 12/01/16 02:05 Microalb/Creat Ratio 1246 (0-30) H 11/28/16 05:40 Ur Total Protein 24 Hr 573 mg/day (0-299) H 12/01/16 02:05 Protein/Creatinin Ratio 1.19 mg/mg (0-0.20) H 12/01/16 02:05 Ur Sodium 24 Hour 18 mEq/day (40-220) L 12/01/16 02:05 Urine Total Protein 63 mg/dL (1-14) H 12/01/16 02:05 Vancomycin Trough 9.1 mcg/mL (10-20) L 12/20/16 06:07 General appearance: Present: no acute distress - Respiratory Respiratory exam: Present: decreased breath sounds, CTAB - Cardiovascular Cardiovascular exam: Present: irregular rhythm - GI/Abdominal GI/Abdominal exam: Present: normal bowel sounds, soft - Extremities Exam Additional comments: 3-4 + edema lower extremities - Neurological Exam Neurological exam: Present: alert Additional comments: Oriented to name and place only. Does recognize family members. - Skin Skin exam: Present: dry, pallor, warm Palliative Quality Palliative Quality: Screen for Code Status: Yes, Screen for Goals of Care: Yes, Screen for Pain: Yes, If Pain Regimen Started, Initiate Bowel Regimen: NA, Screen for Nausea/Vomitting: Yes Code Status: 12/17/16 17:03 DNR [Resuscitation Status: Active] [RES] Routine Comment: Resuscitation Status: [id number] 12/21/16 10:57 DNR [Resuscitation Status: Active] [RES] Routine Comment: Resuscitation Status: DNR-Comfort Care - Labs CBC & Chem 7: 12/21/16 05:50 12/21/16 05:50 Labs: Laboratory Results - last 24 hr 12/21/16 12/21/16 05:50 05:50 WBC 14.8 H RBC 3.02 L Hgb 8.0 L Hct 25.8 L MCV 85.4 MCH 26.5 L MCHC 31.0 L RDW 17.2 H Plt Count 136 L MPV 12.2 Immature Gran % 8.0 H Seg Neutrophils % 82.3 Lymphocytes % 2.0 Monocytes % 7.2 Eosinophils % 0.0 Basophils % 0.5 Neutrophils # 12.2 H Lymphocytes # 0.3 L Monocytes # 1.1 Eosinophils # 0.0 Basophils # 0.1 Platelet Estimate Slight Decrease L Sodium 139 Potassium 3.9 Chloride 100 Carbon Dioxide 28 BUN 42 H D Creatinine 2.57 H Est GFR ( Amer) 22 L Est GFR (Non-Af Amer) 18 L BUN/Creatinine Ratio 16 Glucose 142 H Calculated Osmolality 301 H Calcium 8.5 L Magnesium 1.5 L - ABG Interpretation ABG results: PT/INR, D-dimer PT 12.8 Seconds (9.4-12.1) H 12/13/16 15:48 Consult Discharge Plan - Plan Instructions: Heart Failure (DC), Atrial Fibrillation (DC) Referrals: Ang Crump MD [Partnered Physician] - (In 1-2 weeks) NO,PCP [Primary Care Provider] - (Patient can not remember the name of her PCP , however patient is being referred to an ECF and will follow up with their PCP for now) Patricia Salmeron DO [Partnered Physician] -
[2016-12-21] MEDS: Cholecalciferol (D-3) 1,000 UNIT TABLET PO SCH (12:07)
--- NOTE | 2016-12-21 13:59 | Internal Med Progress Note ---
Date of Encounter: 12/21/16 Time of Encounter: 13:30 - Assessment and plan (1) Acute kidney injury superimposed on chronic kidney disease Current Visit: Yes Status: Acute Assessment and plan: Patient presented with signs of acute diastolic heart failure including anasarca. She was not started on IV diuresis but her kidney function worsened and she developed hyperkalemia. All diuretics were stopped. Patient underwent renal biopsy which showed 40-50% interstitial fibrosis with vascular disease with minimal evidence of ATN. No membranous nephropathy. A temporary dialysis catheter was placed and patient was started on dialysis. Patient has not been tolerating removal during dialysis, she has had multiple episode of hypotension and dialysis was stopped. Appreciate nephrology and palliative service input. Family meeting held this morning, patient and family wishes pt to be enrolled in hospice at home. Plan: dc home on hospice (2) Sepsis affecting skin Current Visit: Yes Status: Resolved Assessment and plan: Admitted for sepsis secondary to cellulitis of her legs. Completed IV Cefazolin from 11/28 to 12/05. Then patient had augmentin followed by Zosyn and lastly IV vancomycin 12/13 - 12/16. Patient has received a total of 23 days of antibiotics. chronic leukocytosis since September. Blood cultures negative. Urine culture negative. Chest x-ray done recently showed improvement in bibasilar air space disease. She does not have any fever, chills, night sweats, cough, diarrhea or abdominal pain. Peripheral smear reveals toxic granulation, suspicious for an infection or myelodysplasia. No need for more antibiotics at this time. (3) Acute diastolic heart failure Current Visit: Yes Status: Acute Assessment and plan: 11/28: Admitted for acute HF. Received IV diuresis but developed worsening of kidney function and hyperkalemia. Diuretics were held. temporary dialysis catheter was placed and patient was started on dialysis. (4) Atrial fibrillation Current Visit: Yes Status: Acute Assessment and plan: The patient also developed atrial fibrillation with RVR. Started on Cardizem. Patient does have an elevated CHADSVASc score of 5. However patient has been anemic and has high fall risk. As such anticoagulation was not started. Qualifiers: Qualified Code(s): I48.0 - Paroxysmal atrial fibrillation (5) Anemia Current Visit: Yes Status: Acute Assessment and plan: chronic due to CKD. Billing today 7.3. Given 1 unit of packed red blood cells during dialysis. Qualifiers: Qualified Code(s): D64.9 - Anemia, unspecified (6) Acute metabolic encephalopathy Current Visit: Yes Status: Acute Assessment and plan: Acute delirium. 12/12: A CT scan of her head showed atrophy with periventricular and scattered frontal parietal white matter disease likely due to small vessel ischemic changes. 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 On risperidone at bedtime. (7) Vitamin D deficiency Current Visit: Yes Status: Acute Assessment and plan: Supplements. - Subjective Interval history: pt feels tired. no leg pain. - Constitutional Vitals: Temp Pulse Resp BP Pulse Ox 97.5 F L 95 17 144/56 90 L 12/21/16 12:18 12/21/16 12:18 12/21/16 12:18 12/21/16 12:18 12/21/16 12:18 General appearance: Present: cooperative, A&O X 2, pleasant, no acute distress - Eye Eye exam: Present: PERRL, sclera anicteric - Neck Neck exam general surgery: Present: supple, trachea midline. Absent: lymphadenopathy - Cardiovascular Cardiovascular exam: Present: tachycardia - GI/Abdominal GI/Abdominal exam: Present: normal bowel sounds, soft. Absent: distended, tenderness - Extremities Exam Additional comments: Left leg: there is an area of fluctuance in medial leg. no tenderness. no discharge. - Back Exam Back exam: Absent: CVA tenderness (L), CVA tenderness (R) - Neurological Exam Neurological exam: Present: alert. Absent: facial droop, speech deficit Internal Medicine: Result - Labs CBC & Chem 7: 12/21/16 05:50 12/21/16 05:50 Labs: Short CBC 12/21/16 Range/Units 05:50 WBC 14.8 H (4.3-11.1) K/mcL Hgb 8.0 L (11.5-15.4) g/dL Hct 25.8 L (35.3-44.9) % Plt Count 136 L (140-400) K/mcL Neutrophils # 12.2 H (1.6-8.9) K/mcL BMP 12/21/16 05:50 Sodium 139 Potassium 3.9 Chloride 100 Carbon Dioxide 28 BUN 42 H D Creatinine 2.57 H Glucose 142 H Calcium 8.5 L - ABG Interpretation ABG results: PT/INR, D-dimer PT 12.8 Seconds (9.4-12.1) H 12/13/16 15:48 - VTE Documentation of Mechanical Device: Graduated compression elastic hosiery Consult Discharge Plan - Plan Instructions: Heart Failure (DC), Atrial Fibrillation (DC) Referrals: Ang Crump MD [Partnered Physician] - (In 1-2 weeks) NO,PCP [Primary Care Provider] - (Patient can not remember the name of her PCP , however patient is being referred to an ECF and will follow up with their PCP for now) Patricia Salmeron DO [Partnered Physician] -
[2016-12-21] MEDS: Nystatin SUSP 5 ML UD.LIQ PO SCH (21:51)
[2016-12-21] MEDS: risperiDONE 0.25 MG TABLET PO SCH (21:51)
[2016-12-22] MEDS: hydrALAZINE 10 MG TABLET PO SCH ×2 (08:23→20:26)
[2016-12-22] MEDS: Calcium Acetate 667 MG CAPSULE PO SCH (08:23)
[2016-12-22] MEDS: Diltiazem CD (24hr) 120 MG CAPSULE PO SCH (08:23)
[2016-12-22] MEDS: Aspirin Enteric Coated 81 MG Tablet PO SCH (08:26)
[2016-12-22] MEDS: Lactobacillus 1 EACH CAP.SPRINK PO SCH ×2 (08:26→20:26)
[2016-12-22] MEDS: Nystatin SUSP 5 ML UD.LIQ PO SCH ×4 (09:16→20:25)
--- NOTE | 2016-12-22 09:38 | Event Note ---
Date of Encounter: 12/22/16 Time of Encounter: 09:35 Nephrology Chart Review Agree with transition to Hospice after having the pleasant family meeting yesterday. I am placing a new consult order to Interventional Radiology to have the Permacath removed tomorrow (Friday). Out of caution, I'll also make her NPO at [facility] for the procedure. Will sign-off. Thank you for having consulted the [facility] group and allowing us to participate in the care of this very pleasant patient. Thank you.
--- NOTE | 2016-12-22 10:14 | Palliative Progress Note ---
Date of Encounter: 12/22/16 Time of Encounter: 10:00 - Assessment and plan (1) Generalized pain Current Visit: Yes Status: Acute Assessment and plan: Low dose Oxycodone PRN. Has not utilized last 24 hours (2) Goals of care, counseling/discussion Current Visit: Yes Status: Acute Assessment and plan: No family present - refers to yesterday's note re: family meeting. Plan - dialysis cath removal in am and home with [facility] tomorrow afternoon. (3) Acute exacerbation of CHF (congestive heart failure) Current Visit: Yes Status: Acute Qualifiers: Qualified Code(s): I50.33 - Acute on chronic diastolic (congestive) heart failure (4) Altered mental status Current Visit: Yes Status: Acute Qualifiers: Qualified Code(s): R41.0 - Disorientation, unspecified (5) Acute kidney injury superimposed on chronic kidney disease Current Visit: Yes Status: Acute - Time Spent With Patient Total time spent is greater than 50% in coordination of care (as documented) at patient's floor/unit and/or counseling patient: 25 - 35 minutes - Subjective Interval history: Patient awake and alert. [place]. Placed on bedpan for BM. Denies pain or discomfort. States breathing OK. No family present - Constitutional Vitals: Abnormal lab results WBC 14.8 K/mcL (4.3-11.1) H 12/21/16 05:50 RBC 3.02 M/mcL (3.82-4.97) L 12/21/16 05:50 Hgb 8.0 g/dL (11.5-15.4) L 12/21/16 05:50 Hct 25.8 % (35.3-44.9) L 12/21/16 05:50 MCH 26.5 pg (28.0-33.3) L 12/21/16 05:50 MCHC 31.0 g/dL (31.6-35.5) L 12/21/16 05:50 RDW 17.2 % (11.5-14.5) H 12/21/16 05:50 Plt Count 136 K/mcL (140-400) L 12/21/16 05:50 Immature Gran % 8.0 % (0-4) H 12/21/16 05:50 Band Neutrophils % 16.0 % (0-4) H 12/17/16 12:24 Metamyelocytes % 2.0 % (0) H 12/14/16 04:05 Myelocytes % 2.0 % (0) H 12/17/16 12:24 Promyelocytes % 2.0 % (0) H 12/17/16 12:24 Neutrophils # 12.2 K/mcL (1.6-8.9) H 12/21/16 05:50 Lymphocytes # 0.3 K/mcL (0.6-4.6) L 12/21/16 05:50 Reactive Lymphocytes Present (Not Present) A 12/14/16 04:05 Toxic Granulation Present (Not Present) A 12/11/16 04:10 Toxic Vacuolation Present (Not Present) A 12/12/16 03:00 Platelet Estimate Slight Decrease (Normal) L 12/21/16 05:50 Large Platelets Present (Not Present) A 12/14/16 04:05 Immature Plt Fraction 14.3 % (1.1-6.1) H 12/18/16 05:48 Hypochromasia Present (Not Present) A 12/16/16 03:51 Poikilocytosis 1+ (Not Present) A 12/17/16 12:24 Basophilic Stippling 1+ (Not Present) A 12/17/16 12:24 Anisocytosis 1+ (Not Present) A 12/17/16 12:24 Microcytosis Present (Not Present) A 12/12/16 03:00 Target Cells 1+ (Not Present) A 12/14/16 04:05 ESR 45 mm/hr (0-15) H 11/28/16 06:13 PT 12.8 Seconds (9.4-12.1) H 12/13/16 15:48 VBG pH 7.45 pH Units (7.32-7.42) H 12/14/16 05:28 VBG pO2 117 mmHg (25-40) H 12/14/16 05:28 VBG HCO3 34.8 mEq/L (21-27) H 12/14/16 05:28 BUN 42 mg/dL (7-20) H D 12/21/16 05:50 Creatinine 2.57 mg/dL (0.57-1.11) H 12/21/16 05:50 Est GFR ( Amer) 22 (> 60) L 12/21/16 05:50 Est GFR (Non-Af Amer) 18 (> 60) L 12/21/16 05:50 Glucose 142 mg/dL (70-99) H 12/21/16 05:50 POC Glucose 163 (58-89) H 12/12/16 11:49 Hemoglobin A1c 6.2 % (-5.6) H 11/29/16 08:07 Calculated Osmolality 301 (280-300) H 12/21/16 05:50 Uric Acid 12.3 mg/dL (2.6-6.0) H 11/30/16 06:10 Calcium 8.5 mg/dL (8.6-10.8) L 12/21/16 05:50 Ionized Calcium 1.13 mmol/L (1.15-1.35) L 11/28/16 06:13 Phosphorus 5.1 mg/dL (2.3-4.7) H 12/15/16 04:00 Magnesium 1.5 mg/dL (1.6-2.6) L 12/21/16 05:50 Iron 14 mcg/dL (50-170) L 12/15/16 04:00 % Saturation 10 % (15-50) L 12/15/16 04:00 Transferrin 105 mg/dL (180-382) L 12/15/16 04:00 Ferritin 658 ng/ml (5-204) H 12/15/16 04:00 Alkaline Phosphatase 213 Units/L (38-126) H 12/14/16 05:28 Troponin I 0.20 ng/mL (0-0.03) H* 11/28/16 16:20 C-Reactive Protein 45 mg/L (Less than 5) H 11/28/16 06:13 B-Natriuretic Peptide 722 pg/mL (0-100) H 12/05/16 05:49 Serum Total Protein 5.5 g/dL (6.0-8.3) L 12/14/16 05:28 Albumin 2.3 g/dL (3.5-5.0) L 12/15/16 04:00 Albumin/Globulin Ratio 1.0 (1.1-2.2) L 12/14/16 05:28 Prealbumin 11.0 mg/dL (16.0-38.0) L 12/16/16 03:51 LDL Cholesterol, Calc 102 mg/dL (0-99) H 11/28/16 06:13 HDL Cholesterol 81 mg/dL (40-59) H 11/28/16 06:13 25-OH Vitamin D Total 21 ng/mL (30-80) L 12/15/16 04:00 TSH 0.005 mcIU/mL (0.350-4.840) L 12/08/16 04:07 Free T3 < 1.00 pg/mL (1.71-3.71) L 12/08/16 08:00 PTH Intact 185.1 pg/ml (8.5-72.5) H 12/15/16 04:00 Urine Clarity Turbid (Clear) A 12/04/16 15:30 Urine Protein 100 mg/dL (Neg-Trace) H 12/04/16 15:30 Urine Blood Moderate (Negative) H 12/04/16 15:30 Ur Leukocyte Esterase Small (Negative) H 12/04/16 15:30 Urine Microscopic RBC 15-30 per hpf (0-3) H 12/04/16 15:30 Urine Microscopic WBC 15-30 per hpf (0-3) H 12/04/16 15:30 Ur Squamous Epith Cells Many per lpf (None-Few) H 12/04/16 15:30 Ur Culture Indicated? YES (NO) A 12/04/16 15:30 Ur Creatinine 24 Hour 0.48 g/day (0.71-1.65) L 12/01/16 02:05 Microalb/Creat Ratio 1246 (0-30) H 11/28/16 05:40 Ur Total Protein 24 Hr 573 mg/day (0-299) H 12/01/16 02:05 Protein/Creatinin Ratio 1.19 mg/mg (0-0.20) H 12/01/16 02:05 Ur Sodium 24 Hour 18 mEq/day (40-220) L 12/01/16 02:05 Urine Total Protein 63 mg/dL (1-14) H 12/01/16 02:05 Vancomycin Trough 9.1 mcg/mL (10-20) L 12/20/16 06:07 General appearance: Present: no acute distress - Respiratory Respiratory exam: Present: decreased breath sounds, CTAB - Cardiovascular Cardiovascular exam: Present: irregular rhythm - GI/Abdominal GI/Abdominal exam: Present: normal bowel sounds, soft - Extremities Exam Additional comments: 3-4+ edema to bilateral lower extremities. Lg blister to left foot noted - Neurological Exam Neurological exam: Present: alert Additional comments: Oriented to name and place - difficult for her to follow commands r/t hearing deficit - Skin Skin exam: Present: dry, pallor, warm Additional comments: Blister to top of left foot Palliative Quality Palliative Quality: Screen for Code Status: Yes, Screen for Goals of Care: Yes, Screen for Pain: Yes, If Pain Regimen Started, Initiate Bowel Regimen: NA, Screen for Nausea/Vomitting: Yes Code Status: 12/17/16 17:03 DNR [Resuscitation Status: Active] [RES] Routine Comment: Resuscitation Status: [id number] 12/21/16 10:57 DNR [Resuscitation Status: Active] [RES] Routine Comment: Resuscitation Status: DNR-Comfort Care - Labs CBC & Chem 7: 12/21/16 05:50 12/21/16 05:50 - ABG Interpretation ABG results: PT/INR, D-dimer PT 12.8 Seconds (9.4-12.1) H 12/13/16 15:48 Consult Discharge Plan - Plan Instructions: Heart Failure (DC), Atrial Fibrillation (DC) Referrals: Ang Crump MD [Partnered Physician] - (In 1-2 weeks) LUCILA,PCP [Primary Care Provider] - (Patient can not remember the name of her PCP , however patient is being referred to an ECF and will follow up with their PCP for now) Patricia Salmeron DO [Partnered Physician] - (Patient being D/C home with Hospice )
--- NOTE | 2016-12-22 12:14 | Internal Med Progress Note ---
Date of Encounter: 12/22/16 Time of Encounter: 11:45 - Assessment and plan (1) Acute kidney injury superimposed on chronic kidney disease Current Visit: Yes Status: Acute Assessment and plan: Patient presented with signs of acute diastolic heart failure including anasarca. She was not started on IV diuresis but her kidney function worsened and she developed hyperkalemia. All diuretics were stopped. Patient underwent renal biopsy which showed 40-50% interstitial fibrosis with vascular disease with minimal evidence of ATN. No membranous nephropathy. A temporary dialysis catheter was placed and patient was started on dialysis. Patient has not been tolerating removal during dialysis, she has had multiple episode of hypotension and dialysis was stopped. Appreciate nephrology and palliative service input. Patient and family wishes pt to be enrolled in hospice at home. Plan: dc to home with hospice tomorrow (2) Sepsis affecting skin Current Visit: Yes Status: Resolved Assessment and plan: Admitted for sepsis secondary to cellulitis of her legs. Completed IV Cefazolin from 11/28 to 12/05. Then patient had augmentin followed by Zosyn and lastly IV vancomycin 12/13 - 12/16. Patient has received a total of 23 days of antibiotics. chronic leukocytosis since September. Blood cultures negative. Urine culture negative. Chest x-ray done recently showed improvement in bibasilar air space disease. She does not have any fever, chills, night sweats, cough, diarrhea or abdominal pain. Peripheral smear reveals toxic granulation, suspicious for an infection or myelodysplasia. No need for more antibiotics at this time. (3) Acute diastolic heart failure Current Visit: Yes Status: Acute Assessment and plan: 11/28: Admitted for acute HF. Received IV diuresis but developed worsening of kidney function and hyperkalemia. Diuretics were held. temporary dialysis catheter was placed and patient was started on dialysis. (4) Atrial fibrillation Current Visit: Yes Status: Acute Assessment and plan: The patient also developed atrial fibrillation with RVR. Started on Cardizem. Patient does have an elevated CHADSVASc score of 5. However patient has been anemic and has high fall risk. As such anticoagulation was not started. Qualifiers: Atrial fibrillation type: paroxysmal Qualified Code(s): I48.0 - Paroxysmal atrial fibrillation (5) Anemia Current Visit: Yes Status: Acute Assessment and plan: chronic due to CKD. Billing today 7.3. Given 1 unit of packed red blood cells during dialysis. Qualifiers: Anemia type: unspecified type Qualified Code(s): D64.9 - Anemia, unspecified (6) Acute metabolic encephalopathy Current Visit: Yes Status: Acute Assessment and plan: Acute delirium. 12/12: A CT scan of her head showed atrophy with periventricular and scattered frontal parietal white matter disease likely due to small vessel ischemic changes. 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 On risperidone at bedtime. (7) Vitamin D deficiency Current Visit: Yes Status: Acute Assessment and plan: Supplements. - Subjective Interval history: patient is sleeping comfortable. no complaints. - Constitutional Vitals: Temp Pulse Resp BP Pulse Ox 97.5 F L 88 16 120/59 92 L 12/22/16 11:44 12/22/16 11:44 12/22/16 11:44 12/22/16 11:44 12/22/16 11:44 General appearance: Present: cooperative, A&O X 2, pleasant, no acute distress - Eye Eye exam: Present: PERRL, sclera anicteric - Neck Neck exam general surgery: Present: supple, trachea midline. Absent: lymphadenopathy - Respiratory Respiratory exam: Present: CTAB. Absent: wheezes - Cardiovascular Cardiovascular exam: Present: irregular rhythm - GI/Abdominal GI/Abdominal exam: Present: normal bowel sounds, soft. Absent: distended, tenderness - Extremities Exam Extremities exam: Absent: pedal edema Additional comments: there is an area of fluctuance at her medial left leg. - Back Exam Back exam: Absent: CVA tenderness (L), CVA tenderness (R) - Neurological Exam Neurological exam: Present: alert, oriented X3. Absent: facial droop, speech deficit - Skin Skin exam: Absent: rash Internal Medicine: Result - Labs CBC & Chem 7: 12/21/16 05:50 12/21/16 05:50 - ABG Interpretation ABG results: PT/INR, D-dimer PT 12.8 Seconds (9.4-12.1) H 12/13/16 15:48 - VTE Documentation of Mechanical Device: Graduated compression elastic hosiery Consult Discharge Plan - Plan Instructions: Heart Failure (DC), Atrial Fibrillation (DC) Referrals: Ang Crump MD [Partnered Physician] - (In 1-2 weeks) NO,PCP [Primary Care Provider] - (Patient can not remember the name of her PCP , however patient is being referred to an ECF and will follow up with their PCP for now) Patricia Salmeron DO [Partnered Physician] - (Patient being D/C home with Hospice )
[2016-12-22] MEDS: risperiDONE 0.25 MG TABLET PO SCH (20:26)
[2016-12-23] MEDS: Aspirin Enteric Coated 81 MG Tablet PO SCH (08:03)
[2016-12-23] MEDS: hydrALAZINE 10 MG TABLET PO SCH (08:03)
[2016-12-23] MEDS: Nystatin SUSP 5 ML UD.LIQ PO SCH ×3 (08:03→16:38)
[2016-12-23] MEDS: Diltiazem CD (24hr) 120 MG CAPSULE PO SCH (08:03)
[2016-12-23] MEDS: Lactobacillus 1 EACH CAP.SPRINK PO SCH (08:03)
--- NOTE | 2016-12-23 09:03 | Palliative Progress Note ---
Date of Encounter: 12/23/16 Time of Encounter: 08:56 - Assessment and plan (1) Generalized pain Current Visit: Yes Status: Acute Assessment and plan: low dose oxycodone as needed due to renal failure. No doses used in the past 24 hours. Will Rx for home medication. (2) Goals of care, counseling/discussion Current Visit: Yes Status: Acute Assessment and plan: Plan for discharge home with [place] [facility] services. Referral made this weekend. Family member at home awaiting equipment delivery. Will discharge once permacath is removed. (3) Acute exacerbation of CHF (congestive heart failure) Current Visit: Yes Status: Acute Qualifiers: Congestive heart failure type: diastolic Qualified Code(s): I50.33 - Acute on chronic diastolic (congestive) heart failure (4) Altered mental status Current Visit: Yes Status: Acute Qualifiers: Altered mental status type: delirium Qualified Code(s): R41.0 - Disorientation, unspecified - Time Spent With Patient Total time spent is greater than 50% in coordination of care (as documented) at patient's floor/unit and/or counseling patient: - Subjective Interval history: Ms. Ortega is lying in bed, drowsy. Planning for discharge home with hospice later today. IR to remove permacath prior to discharge. - Constitutional Vitals: Abnormal lab results WBC 14.8 K/mcL (4.3-11.1) H 12/21/16 05:50 RBC 3.02 M/mcL (3.82-4.97) L 12/21/16 05:50 Hgb 8.0 g/dL (11.5-15.4) L 12/21/16 05:50 Hct 25.8 % (35.3-44.9) L 12/21/16 05:50 MCH 26.5 pg (28.0-33.3) L 12/21/16 05:50 MCHC 31.0 g/dL (31.6-35.5) L 12/21/16 05:50 RDW 17.2 % (11.5-14.5) H 12/21/16 05:50 Plt Count 136 K/mcL (140-400) L 12/21/16 05:50 Immature Gran % 8.0 % (0-4) H 12/21/16 05:50 Band Neutrophils % 16.0 % (0-4) H 12/17/16 12:24 Metamyelocytes % 2.0 % (0) H 12/14/16 04:05 Myelocytes % 2.0 % (0) H 12/17/16 12:24 Promyelocytes % 2.0 % (0) H 12/17/16 12:24 Neutrophils # 12.2 K/mcL (1.6-8.9) H 12/21/16 05:50 Lymphocytes # 0.3 K/mcL (0.6-4.6) L 12/21/16 05:50 Reactive Lymphocytes Present (Not Present) A 12/14/16 04:05 Toxic Granulation Present (Not Present) A 12/11/16 04:10 Toxic Vacuolation Present (Not Present) A 12/12/16 03:00 Platelet Estimate Slight Decrease (Normal) L 12/21/16 05:50 Large Platelets Present (Not Present) A 12/14/16 04:05 Immature Plt Fraction 14.3 % (1.1-6.1) H 12/18/16 05:48 Hypochromasia Present (Not Present) A 12/16/16 03:51 Poikilocytosis 1+ (Not Present) A 12/17/16 12:24 Basophilic Stippling 1+ (Not Present) A 12/17/16 12:24 Anisocytosis 1+ (Not Present) A 12/17/16 12:24 Microcytosis Present (Not Present) A 12/12/16 03:00 Target Cells 1+ (Not Present) A 12/14/16 04:05 ESR 45 mm/hr (0-15) H 11/28/16 06:13 PT 12.8 Seconds (9.4-12.1) H 12/13/16 15:48 VBG pH 7.45 pH Units (7.32-7.42) H 12/14/16 05:28 VBG pO2 117 mmHg (25-40) H 12/14/16 05:28 VBG HCO3 34.8 mEq/L (21-27) H 12/14/16 05:28 BUN 42 mg/dL (7-20) H D 12/21/16 05:50 Creatinine 2.57 mg/dL (0.57-1.11) H 12/21/16 05:50 Est GFR ( Amer) 22 (> 60) L 12/21/16 05:50 Est GFR (Non-Af Amer) 18 (> 60) L 12/21/16 05:50 Glucose 142 mg/dL (70-99) H 12/21/16 05:50 POC Glucose 163 (58-89) H 12/12/16 11:49 Hemoglobin A1c 6.2 % (-5.6) H 11/29/16 08:07 Calculated Osmolality 301 (280-300) H 12/21/16 05:50 Uric Acid 12.3 mg/dL (2.6-6.0) H 11/30/16 06:10 Calcium 8.5 mg/dL (8.6-10.8) L 12/21/16 05:50 Ionized Calcium 1.13 mmol/L (1.15-1.35) L 11/28/16 06:13 Phosphorus 5.1 mg/dL (2.3-4.7) H 12/15/16 04:00 Magnesium 1.5 mg/dL (1.6-2.6) L 12/21/16 05:50 Iron 14 mcg/dL (50-170) L 12/15/16 04:00 % Saturation 10 % (15-50) L 12/15/16 04:00 Transferrin 105 mg/dL (180-382) L 12/15/16 04:00 Ferritin 658 ng/ml (5-204) H 12/15/16 04:00 Alkaline Phosphatase 213 Units/L (38-126) H 12/14/16 05:28 Troponin I 0.20 ng/mL (0-0.03) H* 11/28/16 16:20 C-Reactive Protein 45 mg/L (Less than 5) H 11/28/16 06:13 B-Natriuretic Peptide 722 pg/mL (0-100) H 12/05/16 05:49 Serum Total Protein 5.5 g/dL (6.0-8.3) L 12/14/16 05:28 Albumin 2.3 g/dL (3.5-5.0) L 12/15/16 04:00 Albumin/Globulin Ratio 1.0 (1.1-2.2) L 12/14/16 05:28 Prealbumin 11.0 mg/dL (16.0-38.0) L 12/16/16 03:51 LDL Cholesterol, Calc 102 mg/dL (0-99) H 11/28/16 06:13 HDL Cholesterol 81 mg/dL (40-59) H 11/28/16 06:13 25-OH Vitamin D Total 21 ng/mL (30-80) L 12/15/16 04:00 TSH 0.005 mcIU/mL (0.350-4.840) L 12/08/16 04:07 Free T3 < 1.00 pg/mL (1.71-3.71) L 12/08/16 08:00 PTH Intact 185.1 pg/ml (8.5-72.5) H 12/15/16 04:00 Urine Clarity Turbid (Clear) A 12/04/16 15:30 Urine Protein 100 mg/dL (Neg-Trace) H 12/04/16 15:30 Urine Blood Moderate (Negative) H 12/04/16 15:30 Ur Leukocyte Esterase Small (Negative) H 12/04/16 15:30 Urine Microscopic RBC 15-30 per hpf (0-3) H 12/04/16 15:30 Urine Microscopic WBC 15-30 per hpf (0-3) H 12/04/16 15:30 Ur Squamous Epith Cells Many per lpf (None-Few) H 12/04/16 15:30 Ur Culture Indicated? YES (NO) A 12/04/16 15:30 Ur Creatinine 24 Hour 0.48 g/day (0.71-1.65) L 12/01/16 02:05 Microalb/Creat Ratio 1246 (0-30) H 11/28/16 05:40 Ur Total Protein 24 Hr 573 mg/day (0-299) H 12/01/16 02:05 Protein/Creatinin Ratio 1.19 mg/mg (0-0.20) H 12/01/16 02:05 Ur Sodium 24 Hour 18 mEq/day (40-220) L 12/01/16 02:05 Urine Total Protein 63 mg/dL (1-14) H 12/01/16 02:05 Vancomycin Trough 9.1 mcg/mL (10-20) L 12/20/16 06:07 General appearance: Present: cooperative, no acute distress - Respiratory Respiratory exam: Present: decreased breath sounds. Absent: respiratory distress, rhonchi, wheezes, tachypnea - Cardiovascular Cardiovascular exam: Present: RRR - GI/Abdominal GI/Abdominal exam: Present: soft. Absent: tenderness - Extremities Exam Extremities exam: Present: pedal edema Additional comments: intact bulla noted to the dorsal aspect of the left foot. - Neurological Exam Neurological exam: Present: altered - Psychiatric Psychiatric exam: Absent: agitated, anxious - Skin Skin exam: Present: dry, warm Additional comments: intact bulla noted to the dorsal aspect of the left foot. Palliative Quality Palliative Quality: Screen for Code Status: Yes, Screen for Goals of Care: Yes, Screen for Pain: Yes, If Pain Regimen Started, Initiate Bowel Regimen: NA, Screen for Nausea/Vomitting: Yes Code Status: 12/17/16 17:03 DNR [Resuscitation Status: Active] [RES] Routine Comment: Resuscitation Status: [id number] 12/21/16 10:57 DNR [Resuscitation Status: Active] [RES] Routine Comment: Resuscitation Status: DNR-Comfort Care - Labs CBC & Chem 7: 12/21/16 05:50 12/21/16 05:50 - ABG Interpretation ABG results: PT/INR, D-dimer PT 12.8 Seconds (9.4-12.1) H 12/13/16 15:48 Consult Discharge Plan - Plan Prescriptions: LORazepam Oral Conc [Ativan Oral Conc] 0.5 mg PO Q6HR PRN #15 mls PRN Reason: anxiety/restlessness OxyCODONE CONC 5 mg PO Q6HR PRN #30 ml PRN Reason: Pain or dyspnea Sennosides [Senna] 8.6 mg PO DAILY #7 tablet
[2016-12-23] MEDS ORDERED: Acetaminophen 325 MG TABLET PO PRN (11:38)
--- NOTE | 2016-12-23 11:40 | IR Procedure Note ---
Date of procedure: 12/23/16 Consent Obtained: Verbal consent Timeout: Correct patient and procedure verified, Correct site verified, Time out performed, Skin prep completed Indications: Renal failure Procedure Performed: Tunneled HD catheter removal Site/Technique: Removal tunneled HD catheter Results/Findings: Catheter removed Estimated blood loss (cc): 1 Complications: None; Tolerated procedure well Post Procedure Treatment Plan: Continue inpatient care
--- NOTE | 2016-12-23 13:06 | Discharge Summary ---
Date of Encounter: 12/23/16 Time of Encounter: 10:00 - Discharge Diagnosis (1) Acute kidney injury superimposed on chronic kidney disease Priority: Primary Status: Acute (2) Sepsis affecting skin Priority: Primary Status: Acute (3) Acute diastolic heart failure Priority: Primary Status: Acute (4) Atrial fibrillation Priority: Secondary Status: Chronic Qualifiers: Atrial fibrillation type: paroxysmal Qualified Code(s): I48.0 - Paroxysmal atrial fibrillation (5) Anemia Priority: Secondary Status: Chronic Qualifiers: Anemia type: unspecified type Qualified Code(s): D64.9 - Anemia, unspecified (6) Acute metabolic encephalopathy Priority: Primary Status: Resolved (7) Vitamin D deficiency Priority: Secondary Status: Chronic - Discharge Medications Prescriptions: LORazepam Oral Conc [Ativan Oral Conc] 0.5 mg PO Q6HR PRN #15 mls PRN Reason: anxiety/restlessness OxyCODONE CONC 5 mg PO Q6HR PRN #30 ml PRN Reason: Pain or dyspnea Sennosides [Senna] 8.6 mg PO DAILY #7 tablet Home Medications: Aspirin 81 mg PO DAILY 11/28/16 [History] Cholecalciferol (D-3) [Vitamin D] 1,000 unit PO DAILY 11/28/16 [History] Diltiazem CD (24hr) [Cardizem CD] 120 mg PO DAILY #0 cap.er.24h 12/16/16 [Rx] Labetalol [Trandate] 100 mg PO BID tablet 12/16/16 [Rx] Levothyroxine [Levothyroxine Sodium] 137 mcg PO DAILY@0630 #0 tablet 12/16/16 [ Rx] RisperiDONE [RisperDAL] 0.5 mg PO HS tablet 12/16/16 [Rx] Rosuvastatin [Crestor] 20 mg PO HS tablet 12/16/16 [Rx] HydrALAZINE 10 mg PO BID #0 tablet 12/23/16 [Rx] LORazepam Oral Conc [Ativan Oral Conc] 0.5 mg PO Q6HR PRN #15 mls 12/23/16 [Rx] OxyCODONE CONC 5 mg PO Q6HR PRN #30 ml 12/23/16 [Rx] Sennosides [Senna] 8.6 mg PO DAILY #7 tablet 12/23/16 [Rx] Allergies/Adverse Reactions: Allergies No Known Allergies Allergy (Verified 11/28/16 08:21) Procedures/tests Complete & Pending: Procedures Performed prior 72 hours Category Date Time Status IR cvc repo tunnel w pump [IR] Routine IR 12/23/16 Taken Date of admission: 11/28/16 16:05 Primary care physician: PCP NO Consults: 11/29/16 09:33 Consult to Catering Attendant [CONS] Routine Reason for SW Consult: . 12/02/16 04:00 Consult to Interventional Radiology [CONS] Routine Consulting Provider: Radiology Interventional Cols Reason for Consult: Please evaluate for [place] kidney biopsy, re: concern for recurrence of Membranous Nephropathy. Thank you. Call Completed: No 12/05/16 10:45 Consult to Dialysis [CONS] ONCE 12/05/16 10:46 Consult to Interventional Radiology [CONS] Routine Consulting Provider: Radiology Interventional Cols Reason for Consult: Please evaluate for placement of a temporary HD catheter for initation of HD. Thank you. Call Completed: Yes 12/06/16 05:00 Consult to Dialysis [CONS] ONCE 12/07/16 10:00 Consult to Dialysis [CONS] ONCE 12/07/16 17:04 Consult to Cardiology [CONS] Routine Comment: Consulting Provider: Cardiology Isa Reason for Consult: please evaluate for new onset atrial fib with Rvr in this patient. thank you Call Completed: No 12/09/16 08:45 Consult to Dialysis [CONS] ONCE 12/10/16 09:15 Consult to Dialysis [CONS] ONCE 12/10/16 10:06 Consult to Palliative Care [CONS] Routine Comment: Regarding code status, family here tomorrow @ 12. Consulting Provider: Palliative Care Isa 12/11/16 09:15 Consult to Dialysis [CONS] ONCE 12/13/16 09:15 Consult to Dialysis [CONS] ONCE 12/13/16 14:37 Consult to Interventional Radiology [CONS] Stat Consulting Provider: Radiology Interventional Cols Reason for Consult: Permacath placement, hemodialysis Time Notified: 14:39 Call Completed: Yes 12/14/16 09:15 Consult to Dialysis [CONS] ONCE 12/16/16 08:15 Consult to Dialysis [CONS] ONCE 12/17/16 08:15 Consult to Dialysis [CONS] ONCE 12/18/16 08:45 Consult to Dialysis [CONS] ONCE 12/20/16 08:45 Consult to Dialysis [CONS] ONCE 12/22/16 09:39 Consult to Interventional Radiology [CONS] Routine Consulting Provider: Radiology Interventional Cols Reason for Consult: Please remove the Permacath on Friday, as the pt is going home on Hospice on Friday. She has decided to not continue chronic dialysis. Thank you. Call Completed: No - Patient Status Disposition: Home Health Service Condition: Fair - Discharge Instructions Instructions: Oxycodone/Acetaminophen (By mouth), Lorazepam (By mouth), Laxative, Stimulant (By mouth), Heart Failure (DC) Follow Up With: NO,PCP [Primary Care Provider] - - Diet and Activity Activity: wear oxygen at all times (3L NC) Diet: regular diet Interval History: Patient is asleep and comfortable. She is very hard of hearing but has no pain at this time. Hospital course: Ms. Ortega is a 81 year old female with past medical history of CKD 4, diastolic heart failure, and atrial fibrillation who presented to our ED with dyspnea, and LE edema. Patient needed for acute days early heart failure and is started on IV diuresis but her kidney function worsened. All diuretics were stopped and patient underwent renal biopsy showing 40-50% interstitial fibrosis with vascular disease with minimal evidence of ATN, No membranous nephropathy. She started hemodialyses but developed intradialytic hypotension and did not tolerate dialysis sessions. Her hospital course was complicated by atrial fibrillation with rapid ventricular response that was controlled with Cardizem. Patient does have an elevated CHADSVASc score of 5. However patient has been anemic and has high fall risk. For these reasons, patient is not a candidate for anticoagulation. She also developed acute delirium. 12/12: A CT scan of her head showed atrophy with periventricular and scattered frontal parietal white matter disease likely due to small vessel ischemic changes. 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 Started on risperidone at bedtime. Also, she was treated for sepsis due to your extremity cellulitis. Completed IV Cefazolin from 11/28 to 12/05. Then patient had augmentin followed by Zosyn and lastly IV vancomycin 12/13 - 12/16. Patient has received a total of 23 days of antibiotics. She has chronic leukocytosis since September. Blood cultures negative. Urine culture negative. Chest x-ray done recently showed improvement in bibasilar air space disease. She does not have any fever, chills, night sweats, cough, diarrhea or abdominal pain. Peripheral smear reveals toxic granulation, suspicious for an infection or myelodysplasia. No need for more antibiotics at this time. After a family meeting was held, Patient and family wishes pt not to have dialysis anymore and to be enrolled in hospice at home. - Time Spent with Patient Total time spent providing and/or coordinating discharge services: - Constitutional Vitals: Temp Pulse Resp BP Pulse Ox 97.7 F 88 16 121/57 95 12/23/16 11:33 12/23/16 11:33 12/23/16 11:33 12/23/16 11:33 12/23/16 11:33 General appearance: Present: cooperative, A&O X 2, pleasant, no acute distress - Eye Eye exam: Present: sclera anicteric - ENT ENT exam: Present: mucous membranes moist - Neck Neck exam general surgery: Present: supple, trachea midline. Absent: lymphadenopathy - Respiratory Respiratory exam: Present: rhonchi - Cardiovascular Cardiovascular exam: Present: irregular rhythm - GI/Abdominal GI/Abdominal exam: Present: normal bowel sounds, soft. Absent: distended, tenderness - Extremities Exam Extremities exam: Absent: radial pulses palpable and symetrical - Back Exam Back exam: Absent: CVA tenderness (L), CVA tenderness (R) - Skin Additional comments: there is an area of fluctuance in soft tissue at her medial leg with surrounding erythema. no discharge. - VTE Documentation of Mechanical Device: Graduated compression elastic hosiery
--- NOTE | 2016-12-23 13:11 | Physician Discharge Referral ---
Home Health/Hosp Referral Info Transfer to: Hospice Attending Provider: igor Provider in Charge Post Discharge: Protective Signal Superintendent - Diagnosis (1) Acute kidney injury superimposed on chronic kidney disease Status: Acute (2) Sepsis affecting skin Status: Acute (3) Acute diastolic heart failure Status: Acute (4) Atrial fibrillation Status: Chronic (5) Anemia Status: Chronic (6) Acute metabolic encephalopathy Status: Resolved (7) Vitamin D deficiency Status: Chronic - Respiratory Orders Oxygen / L per min (3) Smoking Cessation: Smoking cessation has been advised. For more information, call the [place] Tobacco Quit Line at 5-078-NNCK-NOW. - Diet/Nutrition Diet/Nutrition Orders: Renal - Activity Activity Orders: Bedrest - Services Needed Following services are medically necessary services: Nursing, Home Health Aide - Transfer Medications Prescriptions: LORazepam Oral Conc [Ativan Oral Conc] 0.5 mg PO Q6HR PRN #15 mls PRN Reason: anxiety/restlessness OxyCODONE CONC 5 mg PO Q6HR PRN #30 ml PRN Reason: Pain or dyspnea Sennosides [Senna] 8.6 mg PO DAILY #7 tablet Home Medications: Aspirin 81 mg PO DAILY 11/28/16 [History] Cholecalciferol (D-3) [Vitamin D] 1,000 unit PO DAILY 11/28/16 [History] Diltiazem CD (24hr) [Cardizem CD] 120 mg PO DAILY #0 cap.er.24h 12/16/16 [Rx] Labetalol [Trandate] 100 mg PO BID tablet 12/16/16 [Rx] Levothyroxine [Levothyroxine Sodium] 137 mcg PO DAILY@0630 #0 tablet 12/16/16 [ Rx] RisperiDONE [RisperDAL] 0.5 mg PO HS tablet 12/16/16 [Rx] Rosuvastatin [Crestor] 20 mg PO HS tablet 12/16/16 [Rx] HydrALAZINE 10 mg PO BID #0 tablet 12/23/16 [Rx] LORazepam Oral Conc [Ativan Oral Conc] 0.5 mg PO Q6HR PRN #15 mls 12/23/16 [Rx] OxyCODONE CONC 5 mg PO Q6HR PRN #30 ml 12/23/16 [Rx] Sennosides [Senna] 8.6 mg PO DAILY #7 tablet 12/23/16 [Rx] Allergies/Adverse Reactions: Allergies No Known Allergies Allergy (Verified 11/28/16 08:21) Certification: Further, I certify that my clinical findings support that this patient is homebound (i.e. absences from home require considerable and taxing effort and are for medical reasons or congregational services or infrequently or short duration when for other reasons) because: Homebound Reason: Patient requires assistance of a person or device to safely leave home, Leaving home requires considerable and taxing effort due to condition Attestation: My signature below is to certify that this patient is under my care and that I, or nurse practitioner, or a physician's licensed investment sales assistant working with me, has a face-to -face encounter with this patient.
--- NOTE | 2016-12-23 13:46 | Event Note ---
Date of Encounter: 12/23/16 Time of Encounter: 13:45 Hospice medical coding specialist certification of terminal illness: Hospice benefit. Start:12/23/2016 Hospice benefit. In: +90 days Palliative performance scale: 20-30% History: The patient has end-stage renal disease and is making absolutely no urine. The patient is currently completely dialysis dependent and wishes to stop dialysis at this time. She has as comorbidities, congestive heart failure and atrial fibrillation. Since the patient has been declining clinically over the last several weeks worse for the past 2 weeks has now decided to stop dialysis altogether I believe that These findings support a life expectancy of 6 months or less. I attest that I have compose the above narrative based on my review of the patient's medical records, and or on my examination of the patient. Tre Disla M.D. Associate ophthalmic medical technician. [facility]
[2016-12-23 15:24] VITALS: BP 124/63
[2016-12-23] MEDS: Ondansetron 4 MG/2 ML VIAL IVP PRN (16:38)
== END 2016-12-23 18:51 | disposition home health service (06) | DRG 871 ==
LOC: EMEROO 00:54 → 2ANU 00:54 → SUATTDRO 16:05
PROVIDERS: ADMIT Internal Medicine; ATTEND Internal Medicine
PROC: IRPERMA (2016-12-16 12:00)